=== PATIENT | male | born 1950 | race Caucasian/White ===

== ENCOUNTER 2020-04-04 10:25 | Emergency (ER) | payer MEDICARE, SELFPAY ==
--- NOTE | ~2020-04-04 | CT_ITS ---
EXAMINATION: CT cervical spine wo con DATE: 04/04/2020 11:10 INDICATION: Status post fall. Head injury. TECHNIQUE: Computed tomography (CT) of the cervical spine was performed without intravenous contrast. The dose-length product was 465 mGy-cm. Automated exposure control and iterative reconstruction tech nique were employed. COMPARISON: None FINDINGS: There is moderate-severe cervical spondylosis. There is degenerative retrolisthesis at C3-4 . No acute fracture or traumatic malalignment. There is advanced multilevel uncinate and facet hypert rophy. Lung apices are normal. No acute fracture or traumatic malalignment. Odontoid process within n ormal limits. Lung apices are unremarkable. No significant paraspinal soft tissue abnormality. IMPRESSION: 1. No acute abnormality of the cervical spine. 2: Moderate-severe cervical spondylosis. Reviewed, dictated and finalized at location A. SHOP ASSISTANT
--- NOTE | ~2020-04-04 | CT_ITS ---
EXAMINATION: CT brain wo con DATE: 04/04/2020 11:09 INDICATION: Status post fall. Head laceration. TECHNIQUE: Computed tomography (CT) of the head was performed without intravenous contrast. The dose- length product was 681.00 mGy-cm. Automated exposure control and iterative reconstruction technique w ere employed. COMPARISON: None FINDINGS: Small chronic infarction left centrum semiovale. Mild atrophy. No acute intracranial hemorr cara, infarction, mass or mass effect. Paranasal sinuses and mastoids are pneumatized. No depressed s kull fractures. There is right frontal scalp hematoma. No underlying skull fracture. There are scatte red mild periventricular and subcortical white matter changes, most likely related to small vessel is chemic disease (microangiopathy). IMPRESSION: 1. No acute intracranial abnormality. 2: Chronic focal infarction left centrum semiovale. Reviewed, dictated and finalized at location A. CHBOARD INSPECTOR
[2020-04-04 10:35] VITALS: BP 130/73; PULSE 82; RESP 20; TEMP 36.6; O2SAT 96
--- NOTE | 2020-04-04 10:50 | ED.WOUNDLAC ---
HPI - Wound/Laceration General Chief Complaint: Wound/Laceration Stated Complaint: 69YO male w/ forehead lac after he tripped and fell while on his way to the bathroom at 3:30am today. Denies LOC, decided to come to ER when his daughter went to dress lac but felt he needed to have it repaired first. His is with him. Related Data Home Medications Medication Instructions Recorded Confirmed aspirin 1 mg PO DAILY 01/07/20 04/04/20 azathioprine 150 mg PO DAILY 01/07/20 04/04/20 benztropine 0.5 mg PO DAILY 01/07/20 04/04/20 divalproex 1 mg PO HS 01/07/20 04/04/20 ezetimibe 10 mg PO DAILY 01/07/20 04/04/20 lorazepam 0.5 mg PO BID PRN 01/07/20 04/04/20 multivitamin with minerals 1 tablet PO DAILY 01/07/20 04/04/20 prednisone 10 mg PO DAILY 01/07/20 04/04/20 pyridostigmine bromide 60 mg PO TID 01/07/20 04/04/20 risperidone 1 mg PO DAILY 01/07/20 04/04/20 rosuvastatin 40 mg PO DAILY 01/07/20 04/04/20 zolpidem 5 mg PO HS PRN 01/07/20 04/04/20 Allergies Allergy/AdvReac Type Severity Reaction Status Date / Time adhesive Allergy Unknown SKIN Verified 03/08/20 10:27 IRRITATION Review of Systems Review of Systems: All systems reviewed & are unremarkable except as noted in HPI and below Constitutional: Constitutional: Reports no additional constitutional complaints, Denies chills and Denies fever(s) Eyes: Eyes: Reports no additional eye complaints ENT: Reports system reviewed and no additional complaints, except as documented Cardiovascular: Cardiovascular: Reports no additional cardiovascular complaints Respiratory: Respiratory: Reports no additional respiratory complaints Musculoskeletal: Musculoskeletal: Reports no additional musculoskeletal complaints Integumentary/Breasts: Skin/Breast: Reports system reviewed and no additional complaints, except as docu Comments: Lac to forehead 3cm in length Neurologic: Reports system reviewed and no additional complaints, except as documented Psychiatric: Psychiatric: Reports no additional psychiatric complaints Endocrine: Endocrine: Reports no additional endocrine complaints Hematologic/Lymphatic: Hematologic/Lymphatic: Reports no additional hematologic/lymphatic complaints Allergic/Immunologic: Allergic/Immunologic: Reports no additional allergic/immunologic complaints [facility] Past Medical History Medical History (Updated 04/04/20 @ 11:49 by Vamsi Callahan MD) Arthritis Bipolar 1 disorder CAD (coronary artery disease) CVA (cerebral vascular accident) DVT (deep venous thrombosis) 10 years ago [place] (hard of hearing) Hyperlipidemia Myasthenia gravis Prostate cancer Family History Family History Father Heart disease Social History Social History Smoking status: Former smoker Spiritual care concerns: No Exam Const: General: healthy appearing, no acute distress and alert Orientation/consciousness: patient oriented x3 Other: Hard of hearing HENMT: Head: normal to inspection and laceration Ears: EAC's normal General nose exam: Normal nares present Face and sinus: normal facial exam Mouth: Yes moist mucous membranes Eyes: Pupils: Equal, round and reactive pupils present Neck: Neck: normal visual inspection and no lymphadenopathy Chest: Chest palpation & inspection: normal inspection of the chest Resp: Effort & Inspection: normal respiratory effort Auscultation: clear to auscultation bilaterally Cardio: Rate: regular rate Rhythm: regular rhythm Skin: Wounds: wounds noted (forehead lac 3cm in length) Neuro: General: patient oriented x3, moves all extremities, no meningeal signs, no focal motor deficits and CN's II-XI intact bilaterally Cranial nerves: Yes Nystagmus not present Speech: normal speech Gait exam (Neuro): Normal gait present Extrem: General: normal to inspection and no pedal edema Psych: Mental Status: mental sta
[2020-04-04] MEDS: TETANUS,DIPHTHERIA,AC PERTUSSIS ADULT 0.5 ML (ADACEL) IM (11:30)
[2020-04-04 11:59] VITALS: RESP 18
== END 2020-04-04 11:57 | disposition home or self-care (01) ==
PROVIDERS: Emergency Provider Family Medicine
DX: S01.81XA Laceration without foreign body of other part of head, initial encounter (principal); S09.90XA Unspecified injury of head, initial encounter; W01.0XXA Fall on same level from slipping, tripping and stumbling without subsequent striking against object, initial encounter
CPT/HCPCS: 12013; 70450; 72125; 90471; 90715; 99283; 99284

== ENCOUNTER 2020-04-26 09:49 | Outpatient (CLI) | payer MEDICARE, SELFPAY ==
--- NOTE | ~2020-04-26 | CT_ITS ---
EXAMINATION: CT brain w con DATE: 04/26/2020 10:58 INDICATION: Head and neck cancer follow-up TECHNIQUE: Computed tomographic angiography (CTA) of the head was performed with 100 mL Omnipaque-350 intravenous contrast. Exam dose: 605.33 mGy-cm total exam DLP. Volume-rendered and maximum intens ity projection 3D reconstructions of the intracranial arteries were created by the technologist on a separate workstation. COMPARISON: 04/04/2020 CT brain FINDINGS: Bilateral carotid siphon internal carotid artery calcifications. No intracranial mass lesion or hemorrhage or cerebrovascular accident is detected. No midline shift o r mass effect. Normal ventricular size. No subdural or epidural hematoma. Orbital contents are unremarkable. No fracture or bone destruction of the cranial vault. The mastoid air cells and included paranasal sinuses are normally developed and aerated. No fracture or bone destruction of the cranial vault. IMPRESSION: Cerebral atherosclerosis No acute intracranial finding Reviewed, dictated and finalized at Location A. Reviewed, dictated and finalized at location A. RNS CLERK
--- NOTE | ~2020-04-26 | CT_ITS ---
EXAMINATION: CT soft tissue neck w con EXAM DATE: 04/26/2020 10:58 INDICATION: Head and neck cancer. Follow-up. Tongue cancer. TECHNIQUE: Spiral CT of the neck was performed following intravenous injection of 75 mL Omnipaque 350 . Axial, coronal and sagittal images were reviewed. The dose-length product (DLP) for this examinat ion was 612.59 mGy-cm. The exposure was tailored according to patient size (auto mA exposure control ), and iterative reconstruction (ASIR) was used as additional dose reduction technique. Correlation i s made to CT cervical spine 04/04/2020. FINDINGS: There is normal appearing right submandibular gland. On the left there is small amount of s imilar density without discrete submandibular gland, and there is some fat stranding in the region. T he gland or a portion of it may have been resected surgically, correlate with prior history. The thy roid gland is unremarkable. There is no cervical lymphadenopathy. There are no masses identified . The superior mediastinum is unremarkable. The airway is unremarkable. Parapharyngeal and pre -glottic fat planes are preserved. The opacified vasculature is patent. Patient has had left-side d ocular lens surgery. Visualized sinuses and mastoid air cells are well aerated. Lung apices ar e clear. Moderate to severe cervical disc disease. There are no osteoblastic or osteolytic lesions i dentified. IMPRESSION: Right mandibular surgical changes. No lymphadenopathy. Reviewed, dictated and finalized at location B. FILER
[2020-04-26 10:45] LABS: Estimated Glomerular Filt Rate > 60
== END 2020-04-26 09:50 | disposition home or self-care (01) ==
LOC: ANHIMG 09:57
PROVIDERS: Visit Provider Internal Medicine Hematology & Oncology
DX: C76.0 Malignant neoplasm of head, face and neck (principal); I67.2 Cerebral atherosclerosis
CPT/HCPCS: 70460; 70491; Q9967

== ENCOUNTER 2020-07-14 13:53 | Outpatient (CLI) | payer MEDICARE, SELFPAY ==
--- NOTE | ~2020-07-14 | CT_ITS ---
EXAMINATION: CT brain w con DATE: 07/14/2020 14:40 INDICATION: Head and neck cancer. TECHNIQUE: Computed tomography (CT) of the head was performed with 100 mL Omnipaque 350 intravenous c ontrast. The mA was adjusted according to patient size. Iterative reconstruction technique was employ ed. The dose-length product was 605.33 mGy-cm. COMPARISON: Head CT 04/26/2020 FINDINGS: There are scattered areas of low attenuation in the cerebral white matter, which is within normal limits for the patient's age. There is no intracranial hemorrhage, acute infarction, or abnorm al intracranial mass lesion. The ventricles are normal in size. There is mild mucosal thickening in t he ethmoid sinuses. The mastoid air cells are normal. There is a prostatic left stapes. There is a pr osthetic right stapes. IMPRESSION: 1. No evidence of metastatic disease. Reviewed, dictated and finalized at location A.
--- NOTE | ~2020-07-14 | CT_ITS ---
EXAMINATION: CT soft tissue neck w con DATE: 07/14/2020 14:40 INDICATION: Head and neck cancer. TECHNIQUE: Computed tomography (CT) of the neck was performed with 100 mL Omnipaque-350 intravenous c ontrast. Automated exposure control and iterative reconstruction technique were employed. The dose-le ngth product was 614.64 mGy-cm. COMPARISON: Neck CT 04/26/2020 FINDINGS: There is thickening of the mucosal space of the pharynx and larynx, consistent with changes of radiation therapy. There is fat stranding in right neck, consistent with changes of radiation the rapy. There are no pathologically enlarged lymph nodes. There is mild mucosal thickening in the paran emiliano sinuses. The mastoid air cells are normal. There is severe cervical spondylosis. IMPRESSION: 1. No evidence of metastatic disease. Reviewed, dictated and finalized at location A.
[2020-07-14 14:31] LABS: Estimated Glomerular Filt Rate > 60
== END 2020-07-14 13:54 | disposition home or self-care (01) ==
LOC: ANHIMG 14:04
PROVIDERS: Visit Provider Internal Medicine Hematology & Oncology
DX: C76.0 Malignant neoplasm of head, face and neck (principal)
CPT/HCPCS: 70460; 70491; Q9967

== ENCOUNTER 2020-11-11 08:48 | Outpatient (CLI) | payer MEDICARE, SELFPAY ==
--- NOTE | ~2020-11-11 | CT_ITS ---
EXAMINATION: CT brain w con DATE: 11/11/2020 09:36 INDICATION: Squamous cell cancer of tongue TECHNIQUE: Computed tomography (CT) of the head was performed with 100 cc Omnipaque 350 intravenous c ontrast. The mA was adjusted according to patient size. Iterative reconstruction technique was employ ed. Exam dose: 605.33 mGy-cm total exam DLP. COMPARISON: 07/14/2020 CT brain FINDINGS: No intracranial mass lesion or hemorrhage or cerebrovascular accident. No midline shift or mass effect. No subdural or epidural hematoma. There is carotid siphon internal carotid artery and supraclinoid internal carotid artery calcificatio n. No fracture or bone destruction of the cranial vault. The mastoid air cells and included paranasal si nuses are normally developed and aerated. IMPRESSION: No acute intracranial finding or significant change since 07/14/2020 Reviewed, dictated and finalized at Location A. Reviewed, dictated and finalized at location A.
--- NOTE | ~2020-11-11 | CT_ITS ---
EXAMINATION: CT soft tissue neck w con DATE: 11/11/2020 09:36 INDICATION: Squamous cell carcinoma of tongue. TECHNIQUE: Computed tomography (CT) of the neck was performed with 75 mL Omnipaque-350 intravenous co ntrast. Automated exposure control and iterative reconstruction technique were employed. The dose-mauro gth product was 569.42 mGy-cm. COMPARISON: Neck CT 07/14/2020 FINDINGS: There are likely changes of left ocular lens replacement surgery. There is thickening of th e mucosal space in the pharynx and larynx, consistent with changes of radiation therapy. There is mil d plaque in proximal left internal carotid artery with 0% stenosis relative to normal distal artery l umen diameter. There is fat stranding in right neck, consistent with changes of radiation therapy. Th ere are no pathologically enlarged lymph nodes. There is mild mucosal thickening in the paranasal sin uses. The mastoid air cells are normal. There is severe cervical spondylosis. IMPRESSION: 1. No evidence of metastatic disease. Reviewed, dictated and finalized at location A.
[2020-11-11 09:23] LABS: Estimated Glomerular Filt Rate > 60
== END 2020-11-11 08:49 | disposition home or self-care (01) ==
LOC: ANHIMG 08:50
PROVIDERS: Visit Provider Internal Medicine Hematology & Oncology
DX: C02.9 Malignant neoplasm of tongue, unspecified (principal)
CPT/HCPCS: 70460; 70491; Q9967

== ENCOUNTER 2021-02-18 09:37 | Outpatient (CLI) | payer MEDICARE, SELFPAY ==
--- NOTE | ~2021-02-18 | CT_ITS ---
EXAMINATION: CT brain w con DATE: 02/18/2021 10:27 INDICATION: Squamous cell cancer of tongue. TECHNIQUE: Computed tomography (CT) of the head was performed with 100 mL Omnipaque 350 intravenous c ontrast. The mA was adjusted according to patient size. Iterative reconstruction technique was employ ed. The dose-length product was 667.94 mGy-cm. COMPARISON: Head CT 11/11/2020 FINDINGS: There are scattered areas of low attenuation in the cerebral white matter, which is within normal limits for the patient's age. There is no intracranial hemorrhage, acute infarction, or abnorm al intracranial mass lesion. The ventricles are normal in size. There is mild mucosal thickening in t he paranasal sinuses. There is a prosthetic stapes on either side. There are likely changes of left o cular lens replacement surgery. IMPRESSION: 1. Normal aging brain. Reviewed, dictated and finalized at location A. IMPRESSION: 1. Normal aging brain.
--- NOTE | ~2021-02-18 | CT_ITS ---
EXAMINATION: CT soft tissue neck w con DATE: 02/18/2021 10:25 INDICATION: Squamous cell cancer of tongue. TECHNIQUE: Computed tomography (CT) of the neck was performed with 75 mL Omnipaque-350 intravenous co ntrast. Automated exposure control and iterative reconstruction technique were employed. The dose-mauro gth product was 667.94 mGy-cm. COMPARISON: Neck CT 11/11/2020 FINDINGS: There are likely changes of left ocular lens replacement surgery. There are no pathological ly enlarged lymph nodes. There is mucosal space thickening in the oropharynx, hypopharynx, and larynx , consistent with changes of radiation therapy. There is fat stranding in right neck, consistent with changes of radiation therapy. There is mild plaque in proximal left internal carotid artery with 0% stenosis relative to normal distal artery lumen diameter. There is severe cervical spondylosis. IMPRESSION: 1. No evidence of metastatic disease. Reviewed, dictated and finalized at location A.
[2021-02-18 10:19] LABS: Estimated Glomerular Filt Rate > 60
== END 2021-02-18 09:38 | disposition home or self-care (01) ==
LOC: ANHIMG 09:42
PROVIDERS: Visit Provider Internal Medicine Hematology & Oncology
DX: C02.9 Malignant neoplasm of tongue, unspecified (principal)
CPT/HCPCS: 70460; 70491; Q9967

== ENCOUNTER 2021-06-17 18:46 | Emergency (ER) | payer MEDICARE, SELFPAY ==
--- NOTE | ~2021-06-17 | XR_ITS ---
EXAMINATION: XR knee LT 3V EXAM DATE: 06/17/2021 19:25 INDICATION: pain @ LT knee all over after fall yesterday. TECHNIQUE: Three projections of the left knee. Comparison is made to prior examination from 04/04/2021 . FINDINGS: No evidence osteochondral defect or joint body in the left knee joint. There is bulky richards llar enthesopathy. There is moderate to severe loss of the lateral tibiofemoral compartment joint spa ce, evidence of moderate osteoarthritis of the other compartments. There are no acute fractures or dislocations identified. There is no subcutaneous gas. There is mod erate amount of swelling anterior to the patellar tendon. Edema in Hoffa's fat pad. There are no rad iopaque foreign bodies. IMPRESSION: 1. XR knee LT 3V exam without acute osseous findings. 2. Anterior swelling. 3. Osteoarthritis. Reviewed, dictated and finalized at location . 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
[2021-06-17 19:09] VITALS: BP 138/83; PULSE 68; RESP 16; TEMP 36.9; O2SAT 94
--- NOTE | 2021-06-17 19:13 | ED.GENADULT ---
HPI - General Adult General Chief complaint: Extremity Injury, Lower Stated complaint: Fell yesterday left knee injury Source: patient Mode of arrival: ambulatory Limitations: no limitations History of Present Illness HPI narrative: Sergio is a 70M with a PMH of CVA, tongue cancer, bipolar 1, DVT, CVA, HLD and myasthenia gravis that presented to the ER with left knee pain. He fell on the ice yesterday. He had no other injuries. He has pain on the patella, lateral joint line and posterior knee. He cannot straighten it completely. Related Data Home Medications Medication Instructions Recorded Confirmed aspirin 1 mg PO DAILY 01/07/20 06/17/21 azathioprine 150 mg PO DAILY 01/07/20 06/17/21 benztropine 0.5 mg PO DAILY 01/07/20 06/17/21 ezetimibe 10 mg PO DAILY 01/07/20 06/17/21 lorazepam 0.5 mg PO BID PRN 01/07/20 06/17/21 multivitamin with minerals 1 tablet PO DAILY 01/07/20 06/17/21 prednisone 10 mg PO DAILY 01/07/20 06/17/21 pyridostigmine bromide 60 mg PO TID 01/07/20 06/17/21 rosuvastatin 40 mg PO DAILY 01/07/20 06/17/21 zolpidem 5 mg PO HS PRN 01/07/20 06/17/21 divalproex 250 mg tablet,extended 500 mg PO TID tablet 04/04/21 06/17/21 release 24 hr quetiapine 100 mg tablet 500 mg PO ONCE tablet 04/04/21 06/17/21 Allergies Allergy/AdvReac Type Severity Reaction Status Date / Time adhesive Allergy Unknown SKIN Verified 06/17/21 19:13 IRRITATION Review of Systems Constitutional: Constitutional: Reports no additional constitutional complaints Eyes: Eyes: Reports no additional eye complaints ENT: Reports system reviewed and no additional complaints, except as documented Cardiovascular: Cardiovascular: Reports no additional cardiovascular complaints Respiratory: Respiratory: Reports no additional respiratory complaints Gastrointestinal: Gastrointestinal: Reports no additional gastrointestinal complaints Genitourinary: Genitourinary: Reports no additional male genitourinary complaints Musculoskeletal: Musculoskeletal: Reports as per HPI Integumentary/Breasts: Skin/Breast: Reports system reviewed and no additional complaints, except as docu Neurologic: Reports system reviewed and no additional complaints, except as documented Psychiatric: Psychiatric: Reports no additional psychiatric complaints Endocrine: Endocrine: Reports no additional endocrine complaints Hematologic/Lymphatic: Hematologic/Lymphatic: Reports no additional hematologic/lymphatic complaints Allergic/Immunologic: Allergic/Immunologic: Reports no additional allergic/immunologic complaints [facility] Past Medical History Medical History Arthritis Bipolar 1 disorder CAD (coronary artery disease) CVA (cerebral vascular accident) DVT (deep venous thrombosis) 10 years ago [place] (hard of hearing) Hyperlipidemia Manic bipolar I disorder Myasthenia gravis Prostate cancer Family History Family History Father Heart disease Social History Social History Smoking status: Former smoker Spiritual care concerns: No Exam Const: General: no acute distress and alert Orientation/consciousness: patient oriented x3 Limitations: No altered mental status HENMT: Head: normal to inspection Other: atrauamtic Eyes: Conjunctivae: conjunctivae normal Pupils: Equal, round and reactive pupils present Neck: Neck: normal visual inspection Chest: Chest palpation & inspection: normal inspection of the chest Resp: Effort & Inspection: normal respiratory effort, not labored and not tachypneic Cardio: Rate: regular rate Skin: General skin exam: normal color Rashes: no rashes Neuro: General: patient oriented x3 and moves all extremities Extrem: Other: Left knee was mildly swollen and TTP on the patella and lateral joint line. No varus/valgus laxity. Negative anterior posterior
[2021-06-17] MEDS: KETOROLAC 30 MG/ML VIAL (*BKC) IM (19:24)
[2021-06-17 19:46] VITALS: BP 135/88; PULSE 86; RESP 16; TEMP 36.7; O2SAT 95
== END 2021-06-17 19:47 | disposition home or self-care (01) ==
PROVIDERS: Emergency Provider Family Medicine
DX: M25.562 Pain in left knee (principal)
CPT/HCPCS: 73562; 96372; 99283; J1885

== ENCOUNTER 2021-06-24 16:32 | Inpatient (IN) | payer MEDICARE, SELFPAY ==
--- NOTE | ~2021-06-24 | CT_ITS ---
EXAMINATION: CT brain wo con INDICATION: Altered mental status COMPARISON: 02/18/2021 TECHNIQUE: Standard unenhanced head CT. The dose-length product (DLP) was 681.00 mGy-cm. The mA was a djusted according to patient size. Iterative reconstruction technique was employed. FINDINGS: There is no acute intraparenchymal hemorrhage. No evidence of mass lesion. No evidence of a cute infarction. There is mild periventricular and subcortical hypodensity probably related to small vessel ischemic disease. There is mild prominence of the sulci and ventricles related to cerebral atr ophy. Intracranial calcified cerebral atherosclerosis is noted. There are no extra-axial collections. There is no mass effect or midline shift. Changes in the left globe are likely from ocular lens surg paris. The visualized sinuses and mastoid air cells are well aerated. IMPRESSION: 1. No acute intracranial abnormality. 2. Age related findings. Reviewed, dictated and finalized at location F. ORK MANAGER
--- NOTE | ~2021-06-24 | XR_ITS ---
EXAMINATION: XR chest 1V portable INDICATION: Hyponatremia TECHNIQUE: Portable AP chest at 1827 hours COMPARISON: None available FINDINGS: The lungs are free of acute opacities. There is no pleural effusion or pneumothorax. The ca rdiomediastinal silhouette is normal. IMPRESSION: 1. No acute cardiopulmonary abnormality. Reviewed, dictated and finalized at location F. FRONT PRESSER
[2021-06-24 16:40] VITALS: BP 148/82; PULSE 79; RESP 20; TEMP 36.8; O2SAT 98
--- NOTE | 2021-06-24 16:49 | ED.AMS ---
HPI - Altered Mental Status General Chief Complaint: Urogenital-Male Stated Complaint: possible UTI,urinating alot,talking alot,outbursts Time Seen by Provider: 06/24/21 16:49 Source: patient and family History of Present Illness HPI narrative: 70-year-old male with a history of bipolar, dyslipidemia myasthenia gravis, CVA, tongue CA prostate CA, arthritis, CAD, DVT presents to the ER with -- altered mental status. The patient is talking a lot and has outbursts of anger. The patient is currently on his manic phase of bipolar and was being seen by psychiatrist 2 days ago was adjusting his medications. -- increased urine output with dysuria and hematuria.The patient has had UTI with similar symptoms in the past. No fever or chills. MD complaint: altered mental status and confusion Onset (ago): day(s) Timing confirmed by: spouse Severity: moderate Consistency of symptoms: waxing and waning Context: other ( No history of drug use/ alcohol use) Associated symptoms: denies other symptoms Related Data Home Medications Medication Instructions Recorded Confirmed aspirin 1 mg PO DAILY 01/07/20 06/24/21 azathioprine 150 mg PO DAILY 01/07/20 06/24/21 ezetimibe 10 mg PO DAILY 01/07/20 06/24/21 lorazepam 1 mg PO BID PRN 01/07/20 06/24/21 multivitamin with minerals 1 tablet PO DAILY 01/07/20 06/24/21 prednisone 10 mg PO DAILY 01/07/20 06/24/21 rosuvastatin 40 mg PO DAILY 01/07/20 06/24/21 divalproex 250 mg tablet,extended 1,000 mg PO BID tablet 04/04/21 06/24/21 release 24 hr Allergies Allergy/AdvReac Type Severity Reaction Status Date / Time adhesive Allergy Unknown SKIN Verified 06/24/21 16:55 IRRITATION Review of Systems Review of Systems: All systems reviewed & are unremarkable except as noted in HPI and below Constitutional: Constitutional: Reports as per HPI and Reports no additional constitutional complaints Eyes: Eyes: Reports as per HPI and Reports no additional eye complaints ENT: Reports system reviewed and no additional complaints, except as documented Cardiovascular: Cardiovascular: Reports as per HPI and Reports no additional cardiovascular complaints Respiratory: Respiratory: Reports as per HPI and Reports no additional respiratory complaints Gastrointestinal: Gastrointestinal: Reports as per HPI and Reports no additional gastrointestinal complaints Genitourinary: Genitourinary: Reports dysuria and Reports urinary frequency Musculoskeletal: Musculoskeletal: Reports no additional musculoskeletal complaints and Reports as per HPI Integumentary/Breasts: Skin/Breast: Reports system reviewed and no additional complaints, except as docu Neurologic: Reports system reviewed and no additional complaints, except as documented and Reports as per HPI Psychiatric: Comments: patient is in the manic phase. Has flight of ideas and talks continuously. Endocrine: Endocrine: Reports no additional endocrine complaints Hematologic/Lymphatic: Hematologic/Lymphatic: Reports no additional hematologic/lymphatic complaints Allergic/Immunologic: Allergic/Immunologic: Reports no additional allergic/immunologic complaints [facility] Past Medical History Medical History Arthritis Bipolar 1 disorder CAD (coronary artery disease) CVA (cerebral vascular accident) DVT (deep venous thrombosis) 10 years ago [place] (hard of hearing) Hyperlipidemia Manic bipolar I disorder Myasthenia gravis Prostate cancer Family History Family History Father Heart disease Social History Social History Smoking status: Former smoker Spiritual care concerns: No Exam Const: General: no acute distress and confusion Limitations: altered mental status HENMT: Head: normal to inspection Eyes: Conjunctivae: conjunctivae normal Pupils: Equal, round and reactive pupils
[2021-06-24 17:27] LABS: Basophils Absolute Auto 0.01 K/mm3 (0.00-0.10); Basophils Percent Auto 0.1 % (0.0-1.0); Eosinophils Absolute Auto 0.01 K/mm3 (0.02-0.50); Eosinophils Percent Auto 0.1 % (1.0-6.0); Hematocrit 34.1 % (37.0-46.0); Hemoglobin 11.8 g/dL (12.4-15.3); Immature Granulocyte Absolute 0.05 K/mm3 (0.00-0.00); Immature Granulocyte Percent A 0.7 % (0.0-0.0); Lymphocytes Absolute Auto 0.11 K/mm3 (1.10-4.50); Lymphocytes Percent Auto 1.6 % (18.0-42.0); Mean Corpuscular HGB Conc 34.6 g/dL (32.0-36.0); Mean Corpuscular Hemoglobin 33.4 pg (27.0-31.0); Mean Corpuscular Volume 96.6 fL (78.0-102.0); Mean Platelet Volume 8.7 fl (8.7-11.0); Monocytes Absolute Auto 0.82 K/mm3 (0.10-0.90); Neutrophils Absolute Auto 5.8 K/mm3 (1.7-7.2); Neutrophils Percent Auto 85.5 % (50.0-70.0); Platelet Count Result 181 K/mm3 (150-420); Red Blood Count 3.53 M/mm3 (4.70-6.10); Red Cell Distribution Width 14.9 % (11.6-14.4); White Blood Count 6.8 K/mm3 (4.8-10.8)
[2021-06-24 17:28] LABS: Add Urine Microscopic? YES; Appearance Urine Clear (Clear); Bilirubin Urine Negative (Negative); Blood Urine 1+ (Negative); Color Urine Light Yellow (Yellow); Glucose Urine UA Negative (Negative); Ketones Urine Negative (Negative); Leukocyte Esterase Ur Negative (Negative); Nitrate Urine Negative (Negative); Protein Urine Negative (Negative); Urobilinogen Urine 0.2 mg/dL (0.2-1.0)
[2021-06-24 17:37] LABS: Bacteria Urine Trace /hpf; RBC Urine 0-2 /hpf (0-2); Squamous Epithelial Cell Urine Rare /hpf (Few); WBC Urine 0-3 /hpf (0-3)
[2021-06-24 17:46] LABS: Lactic Acid Reflex 0.5 mmol/L (0.4-2.0)
[2021-06-24 17:52] LABS: Alanine Aminotransferase 21 U/L (16-63); Albumin Level 3.4 g/dL (3.4-5.0); Alkaline Phosphatase 33 U/L (46-116); Anion Gap 6 mmol/L (8-16); Aspartate Amino Transferase 13 U/L (15-37); Bilirubin,Total 0.4 mg/dL (0.00-1.00); Blood Urea Nitrogen 13 mg/dL (7-18); Calcium 8.3 mg/dL (8.5-10.1); Carbon Dioxide 30 mmol/L (21-32); Chloride 89 mmol/L (98-108); Estimated CRCL calculation 93 ml/min; Estimated Glomerular Filt Rate > 60; Glucose 98 mg/dL (70-99); Osmolality Calculated 260 mOsm/kg (285-295); Potassium 4.7 mmol/L (3.5-5.1); SARS-CoV-2 Ag Negative (Negative); Sodium 125 mmol/L (136-145); Thyroid Stimulating Hormone 3.18 uIU/mL (0.36-3.74); Total Protein 6.2 g/dL (6.4-8.2)
[2021-06-24 18:00] VITALS: BP 145/69; PULSE 80; RESP 18; TEMP 36.7; O2SAT 99
[2021-06-24 19:17] LABS: Sodium Urine Random 23 mmol/L (20-110)
[2021-06-24] MEDS: SODIUM CHLORIDE 0.9% IV 500 ML IV CONT (19:25)
--- NOTE | 2021-06-24 19:40 | ECG_ITS ---
Measurements Intervals [place] Rate: 73 P: [place]: 0 QRS: -26 QRSD: 120 T: 46 QT: 403 QTc: 444 Interpretive Statements SINUS OR ECTOPIC ATRIAL RHYTHM INTRAVENTRICULAR CONDUCTION DELAY BASELINE ARTIFACT- I, II, III, AVR, AVL, AVF, V1-V6 BORDERLINE ECG Electronically Signed On 06-24-2021 20:59:23 INDUSTRIAL TRAINING SPECIALIST by Tj Guerra D.O.
[2021-06-24 20:00] VITALS: BP 168/79; PULSE 78; PULSE 79; RESP 20; TEMP 36.6; O2SAT 97
[2021-06-24 20:15] LABS: Amphetamine Screen Urine Negative (Negative); Barbiturate Screen Urine Negative (Negative); Benzodiazepines Screen Urine Negative (Negative); Cannabinoid Screen Urine Negative (Negative); Cocaine Screen Urine Negative (Negative); Methadone Screen Urine Negative (Negative); Opiate Screen Urine Negative (Negative); Phencyclidine Screen Urine Negative (Negative)
[2021-06-24 20:20] LABS: Alanine Aminotransferase 22 U/L (16-63); Albumin Level 3.5 g/dL (3.4-5.0); Alkaline Phosphatase 31 U/L (46-116); Anion Gap 6 mmol/L (8-16); Aspartate Amino Transferase 15 U/L (15-37); Bilirubin,Total 0.4 mg/dL (0.00-1.00); Blood Urea Nitrogen 14 mg/dL (7-18); Calcium 8.6 mg/dL (8.5-10.1); Carbon Dioxide 30 mmol/L (21-32); Chloride 90 mmol/L (98-108); Estimated CRCL calculation 90 ml/min; Estimated Glomerular Filt Rate > 60; Glucose 78 mg/dL (70-99); Osmolality Calculated 261 mOsm/kg (285-295); Potassium 4.2 mmol/L (3.5-5.1); Sodium 126 mmol/L (136-145); Total Protein 6.8 g/dL (6.4-8.2)
[2021-06-24 20:24] LABS: NT Pro B Type Natriuretic Pept 146 pg/mL (0-125)
[2021-06-24 20:29] VITALS: BP 142/80; PULSE 78; RESP 20; TEMP 37; O2SAT 98
[2021-06-24] MEDS: FUROSEMIDE INJ 100 MG/10 ML VIAL 80 MG IV PUSH (20:58)
--- NOTE | 2021-06-24 21:49 | PC.NURSE ---
Patietn admitted to room 206 per wheelchair, is alert and very talkative, denies pain. Oriented to room and call light, # 16 ryder inserted per orders, tolerated well, draining clear yellow urine.
[2021-06-24 21:51] VITALS: BMI 26.9
[2021-06-24] MEDS: MELATONIN 5 MG TABLET PO (21:54)
[2021-06-25] VITALS: BP 117/76; PULSE 77; RESP 18; TEMP 36; O2SAT 98
[2021-06-25 04:00] VITALS: BP 118/82; PULSE 91; RESP 20; TEMP 36; O2SAT 99
[2021-06-25 05:06] LABS: Hematocrit 37.5 % (37.0-46.0); Hemoglobin 13.1 g/dL (12.4-15.3); Mean Corpuscular HGB Conc 34.9 g/dL (32.0-36.0); Mean Corpuscular Hemoglobin 33.6 pg (27.0-31.0); Mean Corpuscular Volume 96.2 fL (78.0-102.0); Mean Platelet Volume 8.4 fl (8.7-11.0); Platelet Count Result 187 K/mm3 (150-420); Red Cell Distribution Width 15.2 % (11.6-14.4); White Blood Count 5.1 K/mm3 (4.8-10.8)
[2021-06-25 05:21] LABS: Alanine Aminotransferase 19 U/L (16-63); Albumin Level 3.4 g/dL (3.4-5.0); Alkaline Phosphatase 28 U/L (46-116); Anion Gap 6 mmol/L (8-16); Aspartate Amino Transferase 13 U/L (15-37); Bilirubin,Total 0.4 mg/dL (0.00-1.00); Blood Urea Nitrogen 12 mg/dL (7-18); Calcium 8.6 mg/dL (8.5-10.1); Carbon Dioxide 33 mmol/L (21-32); Chloride 94 mmol/L (98-108); Estimated CRCL calculation 83 ml/min; Estimated Glomerular Filt Rate > 60; Glucose 81 mg/dL (70-99); Magnesium 1.9 mg/dL (1.8-2.4); Osmolality Calculated 274 mOsm/kg (285-295); Potassium 3.9 mmol/L (3.5-5.1); Sodium 133 mmol/L (136-145); Total Protein 6.7 g/dL (6.4-8.2)
[2021-06-25 08:00] VITALS: BP 117/92; PULSE 76; PULSE 94; RESP 14; TEMP 36.8; O2SAT 97
--- NOTE | 2021-06-25 08:33 | PM.SD2 ---
Same Day Admit/Disch: HPI History of Present Illness Chief complaint: possible UTI,urinating alot,talking alot,outbursts Narrative: Sergio Coombs is a 70 year old male that is presented to our emergency department with complaints of altered mental status, increased urine output with painful urination and bloody urine and manic phase. Patient has a past medical history of arthritis, bipolar type I disorder, CAD, CVA, DVT, hard of hearing, hyperlipidemia, manic bipolar 1 disorder, prostate cancer and Myasthenia gravis. According to patient and his he has consumed an excessive amount of liquids daily. According to his he drinks approximately 15 to 20 bottles of 16 ounce rivera a day. According to his patient psychiatric medication has recently been adjusted due to his manic phase. Patient notes that she noticed that his water intake has increased greatly since his medication adjustment. Patient notes that he has been for couple days with no sleep with excessive talking. Vital signs 117/92, 76, 14, 98.2, 97% on room air, WBCs 6.8, hemoglobin 11.8, hematocrit 34.1, platelets 181, sodium 126, potassium 4.2, BUN 14, creatinine 0.68, glucose 78, osmolality 261, lactic acid 0.5, calcium 8.6, total bili 0.4, AST 15, ALT 22, BNP 146, total protein 6.8, UA positive for blood trace of bacteria sodium 23 urine creatinine 42.10 urine screen negative Covid negative, CT of the head no acute findings, chest x-ray unremarkable, EKG sinus with a heart rate. Today patient is alert and orientated x4. Patient notes that he has not slept all night. He is very talkative but pleasant. Did speak with his who notes that he is in his manic phase and his psychiatrist just adjusted his medication. I did explain to that he is medically stable and that she will need to monitor the amount of fluid intake the patient consumes. The patient denies SOB, CP, palpitation, extremity numbness, lightheadedness, dizziness, constipation, diarrhea, chills, or fever. Patient agrees that he is ready for discharge. did admit that she is exhausted due to his manic phase. [facility] Past Medical History Medical History Arthritis Bipolar 1 disorder CAD (coronary artery disease) CVA (cerebral vascular accident) DVT (deep venous thrombosis) 10 years ago [place] (hard of hearing) Hyperlipidemia Manic bipolar I disorder Myasthenia gravis Prostate cancer Family History Family History Father Heart disease Social History Social History Smoking status: Former smoker Second hand tobacco smoke exposure: No Alcohol intake: unknown Substance use: unknown Substance use type: does not use Spiritual care concerns: No Same Day Admit/Disch: Med Pre-admit Medications Home Medications Medication Instructions Recorded Confirmed Type aspirin 1 mg PO DAILY 01/07/20 06/24/21 History azathioprine 150 mg PO DAILY 01/07/20 06/24/21 History ezetimibe 10 mg PO DAILY 01/07/20 06/24/21 History lorazepam 1 mg PO BID PRN 01/07/20 06/24/21 History multivitamin with minerals 1 tablet PO DAILY 01/07/20 06/24/21 History prednisone 10 mg PO DAILY 01/07/20 06/24/21 History rosuvastatin 40 mg PO DAILY 01/07/20 06/24/21 History divalproex 250 mg tablet,extended 1,000 mg PO BID tablet 04/04/21 06/24/21 History release 24 hr Exam Narrative: GENERAL: Talkative for pleasant, in no apparent distress. HEAD: normocephalic, atraumatic. EYES: PERRL. Sclera clear/white. Vision is grossly intact. EARS: External ears normal, auditory canals clear and without drainage, TMs normal without perforation. Hearing grossly intact. NOSE: External nose normal with no obvious nasal discharge, nares without redness, no rhinorrhea. THROAT: Mucous membranes moist, posterior pharynx clear. NECK: Neck supple, non-tende
[2021-06-25] MEDS: ROSUVASTATIN 10 MG TABLET 40 MG PO (08:48)
[2021-06-25] MEDS: ENOXAPARIN 40 MG/0.4 ML SYRINGE SUB-Q (08:49)
[2021-06-25] MEDS: DIVALPROEX SODIUM ER 500 MG TAB.24H 1000 MG PO (08:49)
[2021-06-25] MEDS: EZETIMIBE 10 MG TABLET PO (08:50)
[2021-06-25] MEDS: predniSONE 10 MG TABLET PO (08:50)
[2021-06-25] MEDS: THERAPEUTIC MULTIVITAMINS/MINERALS TAB (*BKC) 1 TABLET PO (08:50)
[2021-06-25] MEDS: azaTHIOprine 50 MG TABLET 150 MG PO (08:50)
[2021-06-25] MEDS: FUROSEMIDE INJ 100 MG/10 ML VIAL 80 MG IV PUSH (09:26)
[2021-06-25] MEDS: ASPIRIN 81 MG ENTERIC TABLET PO (09:26)
[2021-06-27 16:36] LABS: Valproic Acid 90.1 mg/L (50.0-100.0)
[2021-06-28 03:21] LABS: Osmolality, Urine 331 mOsm/kg (50-1200)
--- NOTE | 2021-06-29 09:08 | PC.NURSE ---
F/u call attempted on 06/27, 06/28 and 06/29, no answer.
== END 2021-06-25 12:50 | disposition home or self-care (01) | DRG 641 ==
LOC: CHSED 19:05 → CHS2ND 20:05
PROVIDERS: Nurse Practitioner; Admitting Provider Internal Medicine; Emergency Provider Internal Medicine Critical Care Medicine; Visit Provider Internal Medicine
DX: E87.1 Hypo-osmolality and hyponatremia (principal); R63.1 Polydipsia; R45.4 Irritability and anger; M19.90 Unspecified osteoarthritis, unspecified site; Z79.899 Other long term (current) drug therapy; Z79.82 Long term (current) use of aspirin; Z20.822 Contact with and (suspected) exposure to COVID-19; E87.79 Other fluid overload; F31.9 Bipolar disorder, unspecified; I25.10 Atherosclerotic heart disease of native coronary artery without angina pectoris; E78.5 Hyperlipidemia, unspecified; C02.9 Malignant neoplasm of tongue, unspecified; C61 Malignant neoplasm of prostate; M17.0 Bilateral primary osteoarthritis of knee; R30.0 Dysuria; G70.00 Myasthenia gravis without (acute) exacerbation; Z86.73 Personal history of transient ischemic attack (TIA), and cerebral infarction without residual deficits; Z86.718 Personal history of other venous thrombosis and embolism
CPT/HCPCS: 36415; 70450; 71045; 80053; 80164; 80307; 81001; 82570; 83605; 83735; 83880; 83935; 84300; 84443; 85025; 85027; 87086; 87426; 93005; 99285; A9270; C9803; J0696; J1650; J1940; J7040; J7512

== ENCOUNTER 2021-09-23 11:51 | Outpatient (CLI) | payer MEDICARE, SELFPAY ==
--- NOTE | 2021-09-23 | ECG_ITS ---
Measurements Intervals [place] Rate: 79 P: 35 NV: 164 QRS: -35 QRSD: 125 T: 64 QT: 376 QTc: 432 Interpretive Statements SINUS RHYTHM LEFT AXIS DEVIATION INTRAVENTRICULAR CONDUCTION DELAY POSSIBLE LEFT VENTRICULAR HYPERTROPHY MINIMAL Q WAVES- HIGH LATERAL LEADS BORDERLINE ECG Electronically Signed On 09-23-2021 17:15:15 CDT by Tj Guerra D.O.
[2021-09-23 15:07] LABS: Hemoglobin 13.2 g/dL (14.0-18.0)
[2021-09-23 15:15] LABS: Albumin Level 3.8 g/dL (3.5-5.1); Estimated Glomerular Filt Rate > 60; Glucose 128 mg/dL (65-110)
[2021-09-23 15:26] LABS: Hemoglobin A1C 5.8 % (<5.7)
[2021-09-23 16:55] LABS: Urine Cotinine NEGATIVE
== END 2021-09-23 11:52 | disposition home or self-care (01) ==
PROVIDERS: Visit Provider Orthopaedic Surgery
DX: Z01.818 Encounter for other preprocedural examination (principal); M17.12 Unilateral primary osteoarthritis, left knee; I25.10 Atherosclerotic heart disease of native coronary artery without angina pectoris; E78.5 Hyperlipidemia, unspecified; E87.1 Hypo-osmolality and hyponatremia
CPT/HCPCS: 36415; 80307; 82040; 82565; 82947; 83036; 85014; 85018; 93005

== ENCOUNTER 2021-10-12 09:42 | Outpatient (CLI) | payer MEDICARE, SELFPAY ==
--- NOTE | ~2021-10-12 | CT_ITS ---
EXAMINATION: CT soft tissue neck wo con DATE: 10/12/2021 10:09 INDICATION: Squamous cell carcinoma of tongue. TECHNIQUE: Computed tomography (CT) of the neck was performed without intravenous contrast. Automated exposure control and iterative reconstruction technique were employed. The dose-length product was 5 60.97 mGy-cm. COMPARISON: Neck CT 02/18/2021 FINDINGS: There is mild scarring at the lung apices. There are likely changes of left ocular lens rep lacement surgery. There is fat stranding in the neck, consistent with changes of radiation therapy. T here is mucosal thickening in the pharynx and larynx, consistent with changes of radiation therapy. T here are no pathologically enlarged lymph nodes. There is mild mucosal thickening in the paranasal si nuses. There is a prosthetic right stapes. There is a prosthetic left stapes. There is severe cervica l spondylosis. IMPRESSION: 1. No evidence of metastatic disease. Reviewed, dictated and finalized at location B.
--- NOTE | ~2021-10-12 | CT_ITS ---
EXAMINATION: CT brain wo con DATE: 10/12/2021 10:09 INDICATION: Squamous cell carcinoma of the tongue. TECHNIQUE: Computed tomography (CT) of the head was performed without intravenous contrast. The mA wa s adjusted according to patient size. Iterative reconstruction technique was employed. The dose-lengt h product was 605.33 mGy-cm. COMPARISON: Head CT 06/24/2021 FINDINGS: There are scattered areas of low attenuation in the cerebral white matter, which is within normal limits for the patient's age. There is no intracranial hemorrhage, acute infarction, or abnorm al intracranial mass lesion. The ventricles are normal in size. There are likely changes of left ocul ar lens replacement surgery. There is a prosthetic right stapes. There is a prosthetic left stapes. T here is mild mucosal thickening in the paranasal sinuses. IMPRESSION: 1. Normal aging brain. Reviewed, dictated and finalized at location B. IMPRESSION: 1. Normal aging brain.
== END 2021-10-12 09:43 | disposition home or self-care (01) ==
PROVIDERS: Visit Provider Internal Medicine Hematology & Oncology
DX: C02.9 Malignant neoplasm of tongue, unspecified (principal)
CPT/HCPCS: 70450; 70490

== ENCOUNTER 2021-11-08 09:46 | Outpatient (RCR) | payer MEDICARE, SELFPAY ==
--- NOTE | 2021-11-08 11:22 | PTOPEVAL ---
Thank you for referring Sergio Coombs to [facility].? The patient is scheduled to be seen for therapy? 2x/week for 12 visits. Please review, sign, date and return this plan of care RICARDO. I agree with and certify that the following plan of care is medically necessary. Referring Physician Date Admitting Provider: Attending Provider: Sameer Muse MD Referring Provider: *PT Outpatient Evaluation Start: 11/08/21 09:05 Freq: Status: Active Protocol: Document 11/08/21 09:05 [facility] (Rec: 11/08/21 11:16 [facility] [id number]) Therapy Assessment Status Assessment Status Assessment Status Evaluation Outpatient Past Medical History Neurological History Hx Other Neurological Disorders Yes: myasthenia gravis Cardiovascular History Hx Deep Vein Thrombosis Yes Hx Hypercholesterolemia Yes Gastrointestinal History Hx Hernia Yes Psychosocial History Hx Bipolar Disorder Yes Other History Hx Cancer Yes: tongue Evaluation Information Problem Diagnosis OA of L knee Onset 11/02/21 Subjective Information Pt reports chronic L knee pain Query Text:As Reported By Patient/ that has been going on for Family several years. He notes this pain mostly at the joint line of his posterior knee. Pain increases especially with walking but also with general movement and weightbearing. Does not use AD and he has stairs within his home. Reports sensation of L leg giving out on him, but denies any falls. He is preparing for a L TKA on 12/20/21. His main goals are to feel more prepared for surgery, walk more, and be able to use his stairs more easily. 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
--- NOTE | 2021-12-15 14:22 | PTOPEVAL ---
Thank you for referring Sergio Coombs to [facility].? The patient is scheduled to be seen for therapy? ____x/week for ___ weeks. Please review, sign, date and return this plan of care RICARDO. I agree with and certify that the following plan of care is medically necessary. Referring Physician Date Admitting Provider: Attending Provider: Sameer Muse MD Referring Provider: *PT Outpatient Evaluation Start: 11/08/21 09:05 Freq: Status: Active Protocol: Document 12/15/21 14:15 [facility] (Rec: 12/15/21 14:22 [facility] [id number]) Therapy Assessment Status Assessment Status Assessment Status Discharge Outpatient Past Medical History Neurological History Hx Neurological Disorders No Significant History Cardiovascular History Hx Deep Vein Thrombosis Yes Hx Hypercholesterolemia Yes Hx Vascular Surgery Yes: MALATHI FILTER PLACED Hx Other Cardiac Disorders Yes: ABALONE DIVER DR. JOAQUIN CASTILLO ([facility]) Respiratory History Hx COVID-19 Yes: MAR 2021 Gastrointestinal History Hx Hernia Yes: UMBILACAL HERNIA REPAIR X2 Genitourinary History Hx Other Genitourinary Disorders Yes: PROSTATE CA - TX WITH RADATION Musculoskeletal History Hx Arthritis Yes Hx Crutches or Walker Use Yes: WALKER WITH ARTHROSCOPY Query Text:If Yes, Enter Crutches, Walker, or Both in the Comment Hx Orthopedic Surgery Yes: RT KNEE ATHROSCOPY 2014 Hx Other Musculoskeletal Disorders Yes: MYASTHENIA GRAVIS Hematological History Hx Anemia Yes Hx Other Hematological Disorders Yes: PLASMAPHERESIS FOR MYASTHENIA GRAVIS 2012~ Endocrine History Hx Endocrine Disorders No Significant History HEENT History Hx Ear Surgery Yes: LT EAR X1, RT EAR X2 - PISTIN Hx Other HEENT Disorders Yes: READING GLASSES, EXTREMILY TONTO APACHE - HEARING AIDS ON ORDER Integumentary History Hx Excision Skin Lesion Yes: NUMEROUSE IN THE PAST-LT EAR, RT FOREARM, LT HAND & MID BACK X2 ON 11/22/21 Hx Shingles Yes: WAISTLINE Hx Other Skin Disorders Yes: SKIN CA Reproductive History Hx Other Reproductive Disorders Yes: PROSTATE CA Psychosocial History Hx Bipolar Disorder Yes Pain History Has Past Pain Affected Your Daily Life Yes: LT KNEE Anesthesia History Hx Anesthesia Reactions No Significant History Other History Hx Cancer Yes: tongue, SKIN, PROSTATE Hx Chemotherapy Yes: TONGUE
== END 2021-12-15 11:20 | disposition home or self-care (01) ==
LOC: CHSPT 09:46
PROVIDERS: Visit Provider Orthopaedic Surgery
DX: M17.0 Bilateral primary osteoarthritis of knee (principal)
CPT/HCPCS: 97110; 97112; 97161; 97530

== ENCOUNTER 2021-11-23 09:53 | Outpatient (CLI) | payer MEDICARE, SELFPAY ==
[2021-11-23 11:24] LABS: Basophils Percent Auto 0.2 % (0.2-1.2); Eosinophils Percent Auto 0.4 % (0-4.4); Hematocrit 39.6 % (42.0-52.0); Hemoglobin 13.2 g/dL (14.0-18.0); Immature Granulocyte Absolute 0.04 K/mm3 (0.00-0.031); Immature Granulocyte Percent A 0.5 % (0-0.5); Lymphocytes Absolute Auto 0.12 K/mm3 (0.9-3.2); Mean Corpuscular HGB Conc 33.3 g/dl (32-36); Mean Corpuscular Volume 96.1 fl (80-100); Mean Platelet Volume 8.8 fl (7.4-10.4); Monocytes Absolute Auto 0.8 K/mm3 (0.1-0.6); Neutrophils Absolute Auto 7.5 K/mm3 (1.3-6.7); Neutrophils Percent Auto 88.5 % (45.5-73.1); Platelet Count Result 170 k/mm3 (150-375); Red Blood Count 4.12 M/mm3 (4.6-6.20); Red Cell Distribution Width 14.2 % (11.5-14.5); White Blood Count 8.5 K/mm3 (4.5-10.0)
[2021-11-23 11:37] LABS: Albumin Level 4.1 g/dL (3.5-5.1); Estimated Glomerular Filt Rate > 60; Glucose 104 mg/dL (65-110)
[2021-11-23 11:47] LABS: Urine Cotinine NEGATIVE
[2021-11-23 11:49] LABS: Lymphocytes Percent Auto 1.4 % (18.3-44.2)
== END 2021-11-23 09:54 | disposition home or self-care (01) ==
LOC: ANHSURGERY 09:59
PROVIDERS: Visit Provider Orthopaedic Surgery
DX: M25.562 Pain in left knee (principal); Z01.818 Encounter for other preprocedural examination
CPT/HCPCS: 80307; 82040; 82565; 82947; 85025; 87081

== ENCOUNTER 2021-12-21 16:47 | Inpatient (IN) | payer MEDICARE, SELFPAY ==
--- NOTE | 2021-11-23 09:54 | PC.NURSE ---
Addendum entered by Ruth Connell RN 11/23/21 10:45: PT AND SPOUSE INFORMED TOTAL JOINT CLASS 12/14/21 @ 1000AM NOT 11/30/21 - UNDERSTANDING VOICED Original Note: Report to the Outpatient Waiting Room, entrance under the green pavilion located off [facility], at time _0830_ on date _12/20/21_. OR Time: _1030_. - You and your visitor will be asked a series of questions to screen for COVID 19 for your protection. - A mask is required within the hospital. - Only one visitor is allowed at this time. - The patient visitor is requested to leave or wait in car when not with patient. - PACK A SMALL OVERNIGHT BAG AND LEAVE IN THE CAR. VISITING HOURS 10AM-8PM, PARK IN FRONT [facility] AND USE MAIN HOSPITAL ENTRANCE Patients may have clear liquids (water, carbonated beverages, clear teas, apple juice) until 3 hours prior to surgery (0730 AM) with a maximum of 20 ounces. - No food from midnight until time of surgery Take the following medications with a SIP of water the morning of surgery: _DIVALPROEX, PYRIDOSTIGMINE, PREDNISONE, & LORAZEPAM IF NEEDED_ Medications to discontinue per DR. GUTIERREZ - ASPIRIN 7 DAYS PRIOR TO SURGERY, Date to take last dose 12/12/21_ Medications to discontinue per ANESTHESIA - MULTIVITAMIN, SUPER VITAMIN B-COMPLEX 3 DAYS PRIOR TO SURGERY, Date to take last dose 12/16/21_ Please no deodorant, or body powder the day of surgery. No jewelry (including any body piercings) or valuables the day of surgery, leave them at home. Please take a shower or bath the night before, or the morning of, surgery with an antibacterial soap. Wear comfortable, loose fitting clothing. - Jewelry must be removed prior to entering the operating room. Rings and piercings that are not removed may be cut off. - The hospital will not accept responsibility for valuables. - Please leave all valuables, including medications, at home the day of surgery. If you are going home after surgery, a licensed stacker driver must drive you home. - NO public transportation without another adult. - We recommend that an adult stay with you for 24 hours following discharge. - We also recommend that you do not drive, make important decision, drink alcoholic beverages, or take any drugs that were not prescribed by your health care provider for at least 24 hours after your discharge time. Follow any additional instructions given to you from your surgeon. TOTAL JOINT CLASS 11/30/21 @ 1000AM, [facility], USE MAIN ENTRANCE - LOWER LEVEL If you or anyone in your household have experienced Covid symptoms in the past week, please notify your surgeon or the nurse liaison at the phone number below for possible testing. Instructions given to _PT & SPOUSE__and asked if any additional questions and then verbalized understanding. Patient advised to call surgeon office or pre surgery nurse liaison [phone] if any additional questions.
[2021-11-23 10:50] VITALS: BP 110/72; PULSE 72; RESP 20; TEMP 36.8; O2SAT 95; BMI 30.9
--- NOTE | 2021-12-19 11:29 | WPDANESEPPF ---
Anes - Initial Pre Proc Eval Procedure: Operation Date: 12/20/21 10:30 Proposed Procedures p Left Total Knee Arthroplasty - Sameer Muse MD Date/Time: 12/19/21 11:29 Surgeon: Sameer Muse MD Pre Op Diagnosis: primary OA left knee Patient Data Age: 71 Gender: M Height: 1.71 m Weight: 90.9 kg Last Vital Signs Temp 36.8 C 11/23/21 10:50 Pulse 72 11/23/21 10:50 Resp 20 11/23/21 10:50 BP 110/72 11/23/21 10:50 Pulse Ox 95 11/23/21 10:50 O2 Del Method Room Air 11/23/21 10:50 Allergies Allergy/AdvReac Type Severity Reaction Status Date / Time adhesive Allergy Unknown SKIN Verified 12/20/21 08:54 IRRITATION Home Medications Medication Instructions Recorded Confirmed Type aspirin 81 mg tablet,delayed 1 mg PO QAM 01/07/20 11/23/21 History release ezetimibe 10 mg tablet 10 mg PO HS 01/07/20 11/23/21 History lorazepam 0.5 mg tablet 1 mg PO BID PRN Anxiety 01/07/20 11/23/21 History multivitamin with minerals 1 tablet PO QAM 01/07/20 11/23/21 History prednisone 10 mg tablet 10 mg PO QAM 01/07/20 11/23/21 History rosuvastatin 40 mg tablet 40 mg PO HS 01/07/20 11/23/21 History divalproex 250 mg tablet,extended 500 mg PO BID 04/04/21 11/23/21 History release 24 hr trazodone 100 mg tablet 100 mg PO HS PRN insomnia #30 tabs 06/25/21 11/23/21 Rx ferrous sulfate 325 mg (65 mg 325 mg PO QAM 11/23/21 11/23/21 History iron) tablet (iron) pyridostigmine bromide 60 mg tablet 60 mg PO TID 11/23/21 11/23/21 History vitamin B complex 1 cap PO QAM 11/23/21 11/23/21 History azathioprine 50 mg tablet 50 mg PO HS 12/14/21 History quetiapine 300 mg tablet 600 mg PO HS 12/14/21 History ECG: Date of Service: 09/23/21 Procedure(s): CA 12 lead EKG Accession Number(s): [id number] cc: ~ ? Measurements Intervals? [place]? Rate: ? 79 ? P:? 35 MO: ? 164? QRS:? -35 QRSD: ? 125? T:? 64 QT: ? 376? QTc:? 432? Interpretive Statements SINUS RHYTHM LEFT AXIS DEVIATION INTRAVENTRICULAR CONDUCTION DELAY POSSIBLE LEFT VENTRICULAR HYPERTROPHY MINIMAL Q WAVES- HIGH LATERAL LEADS BORDERLINE ECG Electronically Signed On 09-23-2021 17:15:15 CDT by Tj Guerra D.O. Patient hx anesthesia problems: none Family hx anesthesia problems: none Results Review: All pre-operative results and documents have been reviewed as part of the pre-operative evaluation. [facility] Past Medical History Medical History (Updated 12/20/21 @ 09:42 by Jayme Cadet MD) (HFpEF) heart failure with preserved ejection fraction Arthritis Bipolar 1 disorder CAD (coronary artery disease) CVA (cerebral vascular accident) DVT (deep venous thrombosis) 10 years ago [place] (hard of hearing) Hyperlipidemia Manic bipolar I disorder Myasthenia gravis Prostate cancer Surgical History Surgical History (Updated 12/20/21 @ 09:42 by Jayme Cadet MD) History of coronary artery stent placement Family History Family History Father Heart disease Social History Social History Smoking status: Former smoker Tobacco type: cigarettes Second hand tobacco smoke exposure: No Additional smoking assessment comments: PT DENIES ALL FORMS OF TOBACCO USE - STATES SOCIAL IN [employer] Alcohol intake: unknown Substance use: unknown Substance use type: does not use Living arrangements: with family Spiritual care concerns: No Anes - Eval Final PreProcedure Day of Procedure 12/19/21 11:29 Patient weight: obese Heart: regular rate and rhythm Lungs: clear to auscultation and normal air movement Airway: Mallampati scale cl
[2021-12-20] VITALS (15 sets, daily range): BP systolic 109–131; BP diastolic 68–80; PULSE 70–94; RESP 13–18; TEMP 36.2–37.1; O2SAT 90–99
--- NOTE | 2021-12-20 09:41 | WPDHPUPDATE1 ---
History and Physical Update Update Date/Time: 12/20/21 09:41 History and Physical has been reviewed, including an updated exam of the patient. There are NO changes in the patient's condition. Risks, benefits, and alternatives have been discussed and questions answered. Patient agrees to proceed with procedure.
--- NOTE | 2021-12-20 09:42 | WPDANESPNB ---
Anes - Peripheral Nerve Block Date/Time: 12/20/21 09:42 I have discussed with the patient/family/POA the placement of a peripheral nerve block for post-operative pain management, including associated risks, benefits, complications, and side effects. Alternative methods of post-operative analgesia were detailed. Questions were solicited and answers provided to the satisfaction of the patient/family/POA. Time-Out: A pre-procedural Time-Out was completed immediately before starting the procedure and confirmed: Patient Identification, Site, Procedure, Patient Position and the Availability of Requisite Equipment. Clinical Indications: Acute post-operative pain management requested by the operative surgeon. Nerve Block Insertion Note Anes-nerve block: adductor canal Patient position: supine Skin prep: chlorhexidine Needle: 22 gauge, stimulating, insulated echogenic needle. Needle length: 80 mm Technique: ultrasound Technique comment: in plane Injectate: bupivacaine 0.5% with epi 5 mcg/ml (30cc) Observations: tolerated well Complications: none Procedure start time:: 1000 Procedure end time:: 1005
[2021-12-20] MEDS: LACTATED RINGERS 1,000 ML 30 ML IV CONT ×2 (09:48→12:22)
[2021-12-20] MEDS: ACETAMINOPHEN 500 MG TABLET 1000 MG PO (09:57)
[2021-12-20] MEDS: TRANEXAMIC ACID 1,000MG/ISO100 1,000 MG/100 ML BAG 200 MG IVPB (09:57)
[2021-12-20] MEDS: ceFAZolin 2 GM/D5W 50 ML 2 GM/50 ML BAG IVPB ×2 (10:14→18:10)
[2021-12-20] MEDS: GENTAMICIN BONE CEMENT REFOBACIN 1 EACH TOPICAL (11:21)
[2021-12-20] MEDS: PYRIDOSTIGMINE BROMIDE 60 MG TABLET PO (17:05)
[2021-12-20] MEDS: DIVALPROEX SODIUM ER 500 MG TAB.24H PO (17:08)
[2021-12-20] MEDS: SENNA/DOCUSATE SODIUM TABLET 2 TAB PO (17:09)
--- NOTE | 2021-12-20 17:14 | W.PM.PROC2 ---
Procedure Note - Detailed Date of Procedure 12/20/21 Pre-op Diagnosis primary OA left knee Post-op Diagnosis Same Procedure Performed Total knee arthroplasty, left. Surgeon Sameer Muse MD Merchandising Assistant Izabel Zaman PA-C Anesthesia General and Regional (subsartorial block) Findings Mild valgus deformity. Poor bone quality. No releases required. Description of Procedure The patient was brought to the operating room. A general anesthetic was administered. The leg was prepped and draped in the usual sterile fashion. The limb was elevated and the tourniquet inflated to 300 mmHg during initial exposure, and cementation. A longitudinal incision was created along the medial border of the patella and patellar tendon, and a trivector approach to the knee was performed. No medial release was taken. The knee was then flexed. The osteophytes were carefully removed. The intramedullary guide was placed in the femoral canal. The distal femoral resection was then taken with the oscillating saw. The collateral ligaments were carefully protected. The tibia was carefully exposed. The jig was applied, and the proximal tibia was resected according to preoperative plan. The knee was balanced in extension. Appropriate releases were taken where needed. The anterior cruciate ligament and meniscal remnants were removed. The posterior cruciate ligament was preserved. The patella was measured. Patellar resection was carried out with the oscillating saw. The lug holes drilled. The femur was sized and rotation assessed using a combination of gap balancing, posterior referencing, and the AP axis. The 4 in 1 cutting block was used to finish the femoral cuts after equal gaps were assured. The osteophytes were carefully removed from the back of the knee. The knee was copiously irrigated with antibiotic solution periodically throughout the procedure. The meniscal remnants were removed. The spacer block was used to confirm equal flexion and extension gaps. No further releases were needed. The tibia was sized and broached. The bony surfaces were prepared for cementing with pulsatile lavage. The real tibial and femoral and patellar components were cemented into position. Excess cement was carefully removed. Patellar tracking was carefully assessed. No additional releases were required. Dilute sterile Betadine soak performed for three minutes. Copious irrigation then performed. The wound was closed with #1 Vicryl suture, #2, 2-0, and 3-0 barbed suture, followed by Steri-Strips. A sterile bulky dressing was applied. Meticulous hemostasis was maintained throughout the procedure. The bipolar cautery device was used. The pain relieving mixture was injected into the periarticular tissues during the procedure. There were no complications. The patient was extubated and brought to the recovery room in stable condition after the application of sterile dressing with Albert bandage. Physician medical library assistant, Izabel Zaman PA-C, required for surgery; including patient positioning, draping, tissue retraction, maintaining instrument position, cement removal, wound closure, and dressing placement. Implants PowerPlanathlon knee system, universal cemented tibia size 6, cemented cruciate retaining femoral component size 6 ,and an 11 mm cruciate stabilizing polyethylene insert. 38 mm asymmetric all polyethylene patella component. Estimated Blood Loss -150.0 Drains No Pathology None sent Complications No immediate complications Condition Stable Disposition PACU [facility] Billing Surgery - Charge Forward: Surgery Billing
[2021-12-20] MEDS: ROSUVASTATIN 10 MG TABLET 40 MG PO (21:00)
[2021-12-20] MEDS: EZETIMIBE 10 MG TABLET PO (21:00)
[2021-12-20] MEDS: oxyCODONE HCL (*CRX) 5 MG TAB IR PO (21:13)
--- NOTE | 2021-12-20 23:07 | PM.IMCN ---
Assessment and Plan Assessment and plan (1) Status post total left knee replacement: Onset Date: 12/20/21 Code(s): Z96.652 - Presence of left artificial knee joint Status: Acute (2) History of coronary artery stent placement: Code(s): Z95.5 - Presence of coronary angioplasty implant and graft Status: Acute (3) Bipolar 1 disorder: Code(s): F31.9 - Bipolar disorder, unspecified Status: Acute Plan Patient has tolerated his knee replacement without difficulty. Blood pressures are stable. Patient has history of coronary disease but is not on any long-term anti-platelet medications besides 81 mg aspirin daily. This has been continued. Patient is not having any cardiac symptoms. Will continue patient's home Lipitor. Mood is stable will continue trazodone, Seroquel, and Depakote. Postop management, pain management and DVT prophylaxis per primary service. HPI Data of Consult Consult date: 12/21/21 Requesting Physician: Sameer Muse MD Primary Care Provider: PHYSICIAN NOT ON STAFF Consult Narrative Narrative: Date and time of patient contact: 12/20/2021 at 11:30 p.m. 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 Patient underwent surgery and is been stable. He had an estimated blood loss of 150 mL. Postop patient has had no nausea or vomiting. His last bowel movement was morning prior to surgery. She he has been voiding without difficulty. He has been up and ambulating with a walker. He reports that his knee pain is fairly controlled. He denies any chest pain or palpitations. He does have a history of bipolar disorder and 1 of his bipolar medications was not addressed on the med rec. I confirmed the medication with the patient's and the medication has been ordered. He reports that his mood has been stable since he was hospitalized in May with hyponatremia due to psychogenic polydipsia and bipolar disorder with jose. He is currently pleasant and cooperative. He has no complaints. He is eager to go home. Review of Systems Review of Systems: 12 systems were reviewed with pertinent positives and negatives per HPI. Except as documented in the HPI, all other systems were reviewed and are negative. 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 treated with chemotherapy and adjunctive radiation therapy Surgical History Surgical History (Updated 12/20/21 @ 23:18 by Tita Junior DO) History of coronary artery stent placement 1 stent in 2001 3 stents in 2002 History of meniscectomy of right knee (2014) History of radical neck dissection (12/19/19) S/P partial glossectomy (12/19/19) Right sided Family History Family History Father Heart disease Social History Social History (Updated 12/20/21 @ 23:10 by Tita Junior DO) Smoking status: Never smoker Second hand tobacco smoke exposure: No Alcohol intake: never Substance use: never Living arrangements: with family Gender identity (if verbalized by the patient): Male Sexual Orientation (if Verbalized by the Patient): Straight or Heterosexual Spiritual care concerns: No Meds Home Medicatio
[2021-12-21] VITALS (8 sets, daily range): BP systolic 98–129; BP diastolic 66–78; PULSE 90–110; RESP 16–18; TEMP 36.2–36.6; O2SAT 91–98
--- NOTE | ~2021-12-21 | XR_ITS ---
EXAMINATION: XR knee LT 2V DATE: 12/20/2021 12:33 INDICATION: Total left knee arthroplasty. Postop. TECHNIQUE: 2 views of left knee were obtained. COMPARISON: Left knee radiographs 12/14/2021 FINDINGS: There is a total left knee arthroplasty in near-anatomic alignment with patellar resurfacin g. No fracture. There is gas in the knee joint and soft tissues, consistent with recent surgery. IMPRESSION: 1. Total left knee arthroplasty in near-anatomic alignment. Reviewed, dictated and finalized at location A.
--- NOTE | ~2021-12-21 | XR_ITS ---
EXAMINATION: XR chest 1V portable DATE: 12/22/2021 15:25 INDICATION: Fever. TECHNIQUE: A single frontal view of the chest was obtained. COMPARISON: Chest single view 06/24/2021 FINDINGS: The lung volumes are small. There are airspace opacities in the lower lung zones. No pleura l effusion or pneumothorax. The heart size is normal. IMPRESSION: 1. Small lung volumes with airspace opacities in the lower lung zones, likely atelectasis. Pneumonia cannot be excluded. Reviewed, dictated and finalized at location A. IMPRESSION: 1. Small lung volumes with airspace opacities in the lower lung zones, likely a telectasis. Pneumonia cannot be excluded.
--- NOTE | ~2021-12-21 | XR_ITS ---
EXAMINATION: XR chest 1V portable DATE: 12/22/2021 21:56 INDICATION: Decreased level of consciousness TECHNIQUE: frontal view of the chest was obtained. COMPARISON: Chest radiograph dated 12/22/2021 FINDINGS: Opacities in the bilateral lower lung zones, bandlike in the right lower lung zone consiste nt with atelectasis/scarring in now slightly more patchy appearing in the left lower lung zone which could represent either atelectasis or pneumonia. No pleural effusion or pneumothorax. The cardiomedia stinal silhouette is normal. IMPRESSION: 1. Persistent opacities in the bilateral lower lung zones, most likely atelectasis although different ial includes pneumonia. Reviewed, dictated and finalized at location A. IMPRESSION: 1. Persistent opacities in the bilateral lower lung zones, most likely atelecta sis although differential includes pneumonia.
[2021-12-21] MEDS: ceFAZolin 2 GM/D5W 50 ML 2 GM/50 ML BAG IVPB ×2 (01:00→10:06)
[2021-12-21] MEDS: QUEtiapine FUMARATE 100 MG TABLET 600 MG PO ×2 (01:00→20:14)
[2021-12-21 05:58] LABS: Basophils Percent Auto 0.2 % (0.2-1.2); Eosinophils Percent Auto 0.2 % (0-4.4); Hematocrit 31.9 % (42.0-52.0); Hemoglobin 10.9 g/dL (14.0-18.0); Immature Granulocyte Absolute 0.04 K/mm3 (0.00-0.031); Immature Granulocyte Percent A 0.4 % (0-0.5); Lymphocytes Percent Auto 3.2 % (18.3-44.2); Mean Corpuscular HGB Conc 34.2 g/dl (32-36); Mean Corpuscular Hemoglobin 32.7 pg (26-34); Mean Corpuscular Volume 95.8 fl (80-100); Mean Platelet Volume 9.3 fl (7.4-10.4); Monocytes Absolute Auto 1.3 K/mm3 (0.1-0.6); Monocytes Percent Auto 13.7 % (2.6-8.5); Neutrophils Absolute Auto 7.6 K/mm3 (1.3-6.7); Neutrophils Percent Auto 82.3 % (45.5-73.1); Platelet Count Result 148 k/mm3 (150-375); Red Blood Count 3.33 M/mm3 (4.6-6.20); Red Cell Distribution Width 14.6 % (11.5-14.5); White Blood Count 9.3 K/mm3 (4.5-10.0)
[2021-12-21 06:11] LABS: Anion Gap 3 mmol/L (8-16); Blood Urea Nitrogen 17 mg/dL (9-20); Calcium 8.1 mg/dL (8.4-10.2); Carbon Dioxide 29 mmol/L (22-30); Chloride 101 mmol/L (98-107); Estimated CRCL calculation 63 ml/min; Estimated Glomerular Filt Rate > 60; Glucose 98 mg/dL (65-110); Potassium 3.6 mmol/L (3.4-5.0); Sodium 133 mmol/L (137-145)
[2021-12-21] MEDS: SENNA/DOCUSATE SODIUM TABLET 2 TAB PO ×2 (08:21→17:05)
[2021-12-21] MEDS: FERROUS SULFATE 324 MG TABLET PO (08:21)
[2021-12-21] MEDS: DIVALPROEX SODIUM ER 500 MG TAB.24H PO ×2 (08:21→17:05)
[2021-12-21] MEDS: PYRIDOSTIGMINE BROMIDE 60 MG TABLET PO ×3 (08:22→17:05)
[2021-12-21] MEDS: polyethylene glycoL 3350 17 GM POWD.PACK PO (08:22)
[2021-12-21] MEDS: predniSONE 10 MG TABLET PO (08:22)
--- NOTE | 2021-12-21 08:34 | WPDANESPN ---
Anes - Prog Note Post-Op Date/Time: 12/21/21 08:34 Cardiovascular status: normal Respiratory status: normal Airway patency: baseline Mental status: baseline Post-Op hydration status: normal Vital Signs: Last Vital Signs Temp 36.2 C L 12/21/21 03:54 Pulse 90 12/21/21 03:54 Resp 18 12/21/21 03:54 BP 103/66 12/21/21 03:54 Pulse Ox 91 12/21/21 03:54 O2 Del Method Room Air 12/21/21 02:00 O2 Flow Rate 2 12/20/21 14:40 Pain Score (VAS): 2 I/O: Intake & Output 12/20/21 12/21/21 12/21/21 23:59 07:59 15:59 Intake Total 790 300 Output Total 800 Balance -10 300 Laboratory Tests 12/21/21 05:24 12/21/21 05:24 12/20/21 12/21/21 12/21/21 09:25 05:24 05:24 WBC 9.3 RBC 3.33 L Hgb 10.9 L Hct 31.9 L MCV 95.8 MCH 32.7 MCHC 34.2 RDW 14.6 H Plt Count 148 L MPV 9.3 Immature Gran % (Auto) 0.4 Neut % (Auto) 82.3 H Lymph % (Auto) 3.2 L [place] % (Auto) 13.7 H Eos % (Auto) 0.2 Baso % (Auto) 0.2 Lymph # (Auto) 0.30 L [place] # (Auto) 1.3 H Eos # (Auto) 0.0 Baso # (Auto) 0.0 Abs Immat Gran (auto) 0.04 H Absolute Neuts (auto) 7.6 H Absolute Nucleated RBC 0.0 Nucleated RBC % 0.0 Sodium 133 L Potassium 3.6 Chloride 101 Carbon Dioxide 29 Anion Gap 3 L BUN 17 Creatinine 0.90 Estim Creat Clear Calc 63 Estimated GFR > 60 Glucose 98 Calcium 8.1 L Blood Type O Positive Antibody Screen Negative Patient Feedback: Patient satisfied with anesthetic care.
[2021-12-21] MEDS: oxyCODONE HCL (*CRX) 5 MG TAB IR PO ×2 (10:05→20:19)
--- NOTE | 2021-12-21 12:08 | PM.IMPN ---
Progress Note: A&P Assessment and Plan (1) Status post total left knee replacement: Onset Date: 12/20/21 Code(s): Z96.652 - Presence of left artificial knee joint Status: Acute (2) History of coronary artery stent placement: Code(s): Z95.5 - Presence of coronary angioplasty implant and graft Status: Acute (3) Bipolar 1 disorder: Code(s): F31.9 - Bipolar disorder, unspecified Status: Acute Plan Continue postop care. Medically stable Subjective Date/time seen: 12/21/21 12:08 No complaints Exam Narrative: Weight 86.8 kg BMI 29.5 Const: Other: No acute distress, well-developed well-nourished HENMT: Other: Asymmetry to the tongue consistent with prior surgery, no oral pharyngeal erythema, crowded posterior oropharynx, overbite with retrognathia Eyes: Other: Pupils are equal and reactive, no scleral icterus, no conjunctival pallor Neck: Other: Supple, no JVD, tissue changes consistent with radiation therapy in prior radical neck dissection on the right Resp: Other: Clear to auscultation bilaterally, no increased work of breathing Cardio: Other: Regular rate, regular rhythm, 2+ bilateral radial pedal pulses GI: Other: Soft, nontender, nondistended, positive bowel sounds Skin: Other: No jaundice, no pallor Neuro: Other: Alert and oriented x4, speech impediment Extrem: Other: 1+ pitting edema left lower extremity, cooling pack is in place on the left knee, postop dressing not evaluated, distal extremity is neurovascularly intact Psych: Other: Appropriate mood and affect, pleasant and cooperative Objective Data Vital Signs Vital Signs: Vital Signs - 24 hr 12/20/21 12:25 12/20/21 12:40 12/20/21 12:55 Temperature 97.3 F L Pulse Rate 94 82 83 Respiratory Rate 18 15 14 Blood Pressure 115/68 122/76 125/71 Pulse Oximetry 98 99 99 Oxygen Delivery Simple Face Mask Simple Face Mask Simple Face Mask Oxygen Flow Rate 8 8 6 12/20/21 13:10 12/20/21 13:25 12/20/21 13:40 Temperature Pulse Rate 80 77 72 Respiratory Rate 15 13 17 Blood Pressure 119/73 129/72 131/76 Pulse Oximetry 93 98 97 Oxygen Delivery Room Air Nasal Cannula Nasal Cannula Oxygen Flow Rate 2 2 12/20/21 13:55 12/20/21 14:40 12/20/21 14:15 Temperature 97.3 F L Pulse Rate 73 70 Respiratory Rate 14 16 Blood Pressure 123/76 120/77 Pulse Oximetry 97 90 99 Oxygen Delivery Nasal Cannula Nasal Cannula Oxygen Flow Rate 2 2 12/20/21 14:30 12/20/21 15:00 12/20/21 16:00 Temperature 97.2 F L 98.7 F 98.4 F Pulse Rate 71 75 85 Respiratory Rate 16 18 18 Blood Pressure 119/69 113/69 121/72 Pulse Oximetry 93 93 98 Oxygen Delivery Oxygen Flow Rate 12/20/21 19:11 12/20/21 23:20 12/21/21 02:00 Temperature 98.4 F 97.6 F Pulse Rate 93 93 93 Respiratory Rate 18 16 16 Blood Pressure 117/80 109/76 Pulse Oximetry 96 94 94 Oxygen Delivery Room Air Oxygen Flow Rate 12/21/21 03:54 12/21/21 08:58 12/21/21 10:00 Temperature 97.2 F L 97.2 F L Pulse Rate 90 108 H Respiratory Rate 18 16 Blood Pressure 103/66 98/68 L Pulse Oximetry 91 98 Oxygen Delivery Room Air Oxygen Flow Rate 12/21/21 08:00 Temperature Pulse Rate Respiratory Rate Blood Pressure Pulse Oximetry Oxygen Delivery Room Air Oxygen Flow Rate Intake/Output Intake/Output: Intake & Output 12/18/21 12/19/21 12/20/21 12/21/21 23:59 23:59 23:59 23:59 Intake Total 2290 750 Output Total 800 Balance 1490 750 Meds/Results Medications: Active Medications Generic Name Dose Route Start Last Admin Trade Name Freq PRN Reason Stop Dose Admin Acetaminophen 1,000 mg 12/20/21 14:09 Acetaminophen 500 Mg Tablet PO Q6H PRN Pain Rated 1-3 Aspirin 81 mg 12/21/21 09:00 12/21/21 09:39 Aspirin 81 Mg Enteric Tablet PO Not Given QAM [facility] Cyclobenzaprine HCl 10 mg 12/20/21 14:09 Cyclobenzaprine Hcl 10 Mg Tablet PO Q8H PRN S
[2021-12-21] MEDS: oxyCODONE HCL (*CRX) 5 MG TAB IR 10 MG PO (14:48)
--- NOTE | 2021-12-21 16:13 | PM.PNORT ---
Progress Note: A&P Assessment and Plan (1) Status post total left knee replacement: Onset Date: 12/20/21 Code(s): Z96.652 - Presence of left artificial knee joint Status: Acute Assessment and Plan: Postop day 1: Left total knee arthroplasty. Patient tolerated procedure well. Wound drained bloody drainage today. Dressing changed multiple times. Small hematoma inferior to the incision. Pain manageable with pain medication. No numbness or tingling. Unable to do a lot with PT and OT today due to bloody drainage. I recommend patient stay another night. Dressing changes when dressing is soiled. Will reassess tomorrow and reapply steristrips and dressing. Subjective Subjective Date/Time Seen: 12/21/21 16:13 Interval history: Patient resting comfortably. A lot of bloody discharge from wound. Pain controlled with pain medication. No other complaints. Review of Systems Review of Systems: All systems reviewed & are unremarkable except as noted in HPI and below Constitutional: Constitutional: Denies difficulty sleeping, Denies fatigue, Denies fever(s), Denies headache(s) and Denies night sweats Eyes: Eyes: Denies loss of vision ENT: Denies dizziness, Denies headache(s) and Denies hearing loss Cardiovascular: Cardiovascular: Denies irregular heart rhythm and Denies dyspnea Respiratory: Respiratory: Denies cough and Denies dyspnea Gastrointestinal: Gastrointestinal: Denies change in bowel habits, Denies diarrhea, Denies nausea and Denies vomiting Genitourinary: Genitourinary: Denies dysuria, Denies nocturia and Denies urinary incontinence Musculoskeletal: Musculoskeletal: Denies abnormal gait Neurologic: Denies abnormal gait, Denies dizziness, Denies headache(s) and Denies loss of vision Psychiatric: Psychiatric: Denies anxiety and Denies depression Endocrine: Endocrine: Denies cold intolerance, Denies fatigue and Denies heat intolerance Exam Narrative: 71-year-old overweight male. Resting comfortably in bed. Alert and oriented x3. No acute distress. Wearing compression sock on the right. Left knee with luis wrap over wound. Wound redressed multiple times today. Bloody drainage from incision. Wound cleaned with Betadine and new steristrips today. Moderate swelling. Small hematoma at the inferior knee. Ecchymosis. No erythema. No warmth. Range of motion limited due to pain. Calf nontender. Neurologic status intact. No varicosities. Distal pulses palpable. Light touch sensation intact. Good capillary refill. Objective Data Vital Signs Vital Signs: Vital Signs - 24 hr 12/20/21 19:11 12/20/21 23:20 12/21/21 02:00 Temperature 98.4 F 97.6 F Pulse Rate 93 93 93 Respiratory Rate 18 16 16 Blood Pressure 117/80 109/76 Pulse Oximetry 96 94 94 Oxygen Delivery Room Air 12/21/21 03:54 12/21/21 08:58 12/21/21 10:00 Temperature 97.2 F L 97.2 F L Pulse Rate 90 108 H Respiratory Rate 18 16 Blood Pressure 103/66 98/68 L Pulse Oximetry 91 98 Oxygen Delivery Room Air 12/21/21 08:00 12/21/21 14:00 Temperature 97.1 F L Pulse Rate 109 H Respiratory Rate 18 Blood Pressure 107/68 Pulse Oximetry 95 Oxygen Delivery Room Air Intake/Output Intake/Output: Intake & Output 12/18/21 12/19/21 12/20/21 12/21/21 23:59 23:59 23:59 23:59 Intake Total 2290 850 Output Total 800 Balance 1490 850 Meds/Results Medications: Active Medications Generic Name Dose Route Start Last Admin Trade Name Freq PRN Reason Stop Dose Admin Acetaminophen 1,000 mg 12/20/21 14:09 Acetaminophen 500 Mg Tablet PO Q6H PRN Pain Rated 1-3 Aspirin 81 mg 12/21/21 09:00 12/21/21 09:39 Aspirin 81 Mg Enteric Tablet PO Not Given QAM [facility] Cyclobenzaprine HCl 10 mg 12/20/21 14:09 Cyclobenzaprine Hcl 10 Mg Tablet PO Q8H PRN Spasms Diphenhydramine HCl 25 mg 12/20/21 14:09 Diphenhydramine Hcl Inj 50 Mg/Ml Vial IV PUSH Q6H PRN Itching
[2021-12-21] MEDS: ROSUVASTATIN 10 MG TABLET 40 MG PO (20:14)
[2021-12-21] MEDS: EZETIMIBE 10 MG TABLET PO (20:14)
[2021-12-22] VITALS (23 sets, daily range): BP systolic 80–143; BP diastolic 48–77; PULSE 105–125; RESP 14–42; TEMP 36.4–38.9; O2SAT 89–100
--- NOTE | 2021-12-22 03:56 | PC.NURSE ---
called dr clifton re: patient hr trending up since 1000 yesterday between 100 and 120. patient rouses to voice but appears more drowsy compared to 24 hours ago. hr 110 at present . ra sat 91%. denies cp or sob. knee pain rated at 7/10. recieved oxycontin at bedtime for pain. left knee swollen and bruising noted distal to incision. negative mariam's sign. drsg to left knee incision saturated fluffs and abd but did not saturate the luis wrap has multiple times over the last 24 hours. drsg changed. stat hh ordered. will continue to mx closely.
[2021-12-22 04:27] LABS: Hematocrit 30.1 % (42.0-52.0)
--- NOTE | 2021-12-22 06:24 | ECG_ITS ---
Measurements Intervals [place] Rate: 118 P: 28 NM: 162 QRS: -42 QRSD: 137 T: 96 QT: 334 QTc: 469 Interpretive Statements SINUS TACHYCARDIA WITH OCCASIONAL VENTRICULAR PREMATURE COMPLEXES LEFT AXIS DEVIATION INTRAVENTRICULAR CONDUCTION DELAY LEFT VENTRICULAR HYPERTROPHY AND ST-T CHANGE INSIGNIFICANT Q-WAVES HIGH LATERAL LEADS NONSPECIFIC ST ABNORMALITY ABNORMAL ECG COMPARED TO ECG 09/23/2021 13:51:21 [address] NOW PRESENT ST (T WAVE) DEVIATION NOW PRESENT Electronically Signed On 12-22-2021 15:12:49 CDT by Levi Franco M.D.
--- NOTE | 2021-12-22 06:57 | PC.NURSE ---
notified dr clifton of abnormal ekg. patient hr still 118 and irregular. denies cp or sob. orders recieved. notified dr stockton's exchange of consult. stat troponin pending. echo has been ordered.
[2021-12-22 07:05] LABS: Troponin I < 0.012 ng/mL (0.000-0.034)
[2021-12-22 07:33] LABS: Troponin I < 0.012 ng/mL (0.000-0.034)
[2021-12-22] MEDS: SENNA/DOCUSATE SODIUM TABLET 2 TAB PO ×2 (09:23→17:30)
[2021-12-22] MEDS: FERROUS SULFATE 324 MG TABLET PO (09:23)
[2021-12-22] MEDS: DIVALPROEX SODIUM ER 500 MG TAB.24H PO ×2 (09:23→17:30)
[2021-12-22] MEDS: PYRIDOSTIGMINE BROMIDE 60 MG TABLET PO ×3 (09:24→17:30)
[2021-12-22] MEDS: predniSONE 10 MG TABLET PO (09:24)
--- NOTE | 2021-12-22 10:18 | PM.CNCAR ---
Assessment and Plan Assessment and plan (1) Abnormal EKG: Code(s): R94.31 - Abnormal electrocardiogram [ECG] [EKG] Status: Acute (2) Status post total left knee replacement: Onset Date: 12/20/21 Code(s): Z96.652 - Presence of left artificial knee joint Status: Acute (3) History of coronary artery stent placement: Code(s): Z95.5 - Presence of coronary angioplasty implant and graft Status: Acute History of Present Illness History of Present Illness Consult date/time: Date of service 12/22/21 10:18 Requesting physician: Keegan Marcano MD Consult reason: Other (Abnormal EKG) Reason For Visit: primary OA left knee Narrative: This 71-year-old with medical history of bipolar type 1 disorder, coronary artery disease, 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 He had an estimated blood loss of 150 mL.? Seems patient has significant bleeding from the left knee and therefore he is not on anticoagulation. Cardiology called because of EKG was done this morning that stated that potentially patient has acute myocardial infarction. The EKG does not show acute myocardial infarction. It was noticed the patient is tachycardic overnight with frequent PVCs. He denies chest pain, shortness of breath, palpitations, dizziness. Noticed he has been tachycardic for the past couple days with normal blood pressure. Afebrile. EKG reviewed and analyzed myself shows sinus tachycardia, left axis deviation, LVH, occasional PVC Troponins x2 negative, Normal electrolytes Hemoglobin November 09 and today 10 Review of Systems Constitutional: Constitutional: Denies chills, Denies fever(s) and Denies poor appetite Eyes: Eyes: Denies eye discharge, Denies loss of vision, Denies eye pain and Denies photophobia ENT: Denies dizziness, Denies epistaxis, Denies nasal congestion and Denies sore throat Cardiovascular: Cardiovascular: Denies chest pain, Denies syncope, Denies pedal edema, Denies leg edema, Denies palpitations, Denies dyspnea, Denies dyspnea on exertion and Denies orthopnea Respiratory: Respiratory: Denies cough, Denies dyspnea, Denies dyspnea on exertion and Denies wheezing Gastrointestinal: Gastrointestinal: Denies abdominal pain, Denies diarrhea, Denies nausea and Denies vomiting Genitourinary: Genitourinary: Denies hematuria, Denies genital lesions and Denies dysuria Musculoskeletal: Musculoskeletal: Reports arthralgias, Reports joint swelling and Denies numbness Integumentary/Breasts: Skin/Breast: Denies pruritus and Denies rash Neurologic: Denies dizziness, Denies syncope, Denies loss of vision and Denies numbness Psychiatric: Psychiatric: Denies anxiety and Denies depression Endocrine: Endocrine: Denies cold intolerance, Denies heat intolerance and Denies palpitations Hematologic/Lymphatic: Hematologic/Lymphatic: Denies easy bleeding and Denies easy bruising Allergic/Immunologic: Allergic/Immunologic: Denies urticaria and Denies wheezing PMFSH Past Medical History Medical History (HFpEF) heart failure with preserved ejection fraction Arthritis Bipolar 1 disorder CAD (coronary artery disease) Chronic hyponatremia CVA (cerebral vascular accident) DVT (deep venous thrombosis) (~2013) [place] (hard of [place]) Hyperlipidemia Myasthenia gravis (~2004) Prostate cancer Radiation therapy 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
--- NOTE | 2021-12-22 10:27 | PM.IMPN ---
Progress Note: A&P Assessment and Plan (1) Status post total left knee replacement: Onset Date: 12/20/21 Code(s): Z96.652 - Presence of left artificial knee joint Status: Acute (2) History of coronary artery stent placement: Code(s): Z95.5 - Presence of coronary angioplasty implant and graft Status: Acute (3) Bipolar 1 disorder: Code(s): F31.9 - Bipolar disorder, unspecified Status: Acute (4) Orthostatic hypotension: Code(s): I95.1 - Orthostatic hypotension Status: Acute Assessment and Plan: Patient currently denies any complaints. Denies any symptoms of dizziness. Denies any presyncope. Likely related to pain medication when he stood up. Monitor at this time. (5) Tachycardia: Code(s): R00.0 - Tachycardia, unspecified Status: Acute Assessment and Plan: Cardiology consult. Denies chest pain. Plan Continue postop care. Medically stable Subjective Date/time seen: 12/22/21 10:27 Doing okay this morning. Had episode of orthostatic hypotension overnight. Cardiology was consulted. Denies chest pain. Exam Narrative: Weight 86.8 kg BMI 29.5 Const: Other: No acute distress, well-developed well-nourished HENMT: Other: Asymmetry to the tongue consistent with prior surgery, no oral pharyngeal erythema, crowded posterior oropharynx, overbite with retrognathia Eyes: Other: Pupils are equal and reactive, no scleral icterus, no conjunctival pallor Neck: Other: Supple, no JVD, tissue changes consistent with radiation therapy in prior radical neck dissection on the right Resp: Other: Clear to auscultation bilaterally, no increased work of breathing Cardio: Other: Regular rate, regular rhythm, 2+ bilateral radial pedal pulses GI: Other: Soft, nontender, nondistended, positive bowel sounds Skin: Other: No jaundice, no pallor Neuro: Other: Alert and oriented x4, speech impediment Extrem: Other: 1+ pitting edema left lower extremity, cooling pack is in place on the left knee, postop dressing not evaluated, distal extremity is neurovascularly intact Psych: Other: Appropriate mood and affect, pleasant and cooperative Objective Data Vital Signs Vital Signs: Vital Signs - 24 hr 12/21/21 14:00 12/21/21 18:00 12/21/21 19:17 Temperature 97.1 F L 97.5 F L 97.8 F Pulse Rate 109 H 103 H 109 H Respiratory Rate 18 18 18 Blood Pressure 107/68 108/70 108/68 Pulse Oximetry 95 96 96 Oxygen Delivery 12/21/21 20:00 12/21/21 23:05 12/22/21 03:13 Temperature 97.8 F 97.6 F Pulse Rate 109 H 110 H 110 H Respiratory Rate 18 18 20 Blood Pressure 129/78 102/63 Pulse Oximetry 96 95 91 Oxygen Delivery Room Air 12/22/21 09:54 12/22/21 10:00 12/22/21 08:00 Temperature 98.4 F Pulse Rate 118 H Respiratory Rate 18 Blood Pressure 143/76 H Pulse Oximetry 94 93 Oxygen Delivery Room Air Room Air Intake/Output Intake/Output: Intake & Output 12/19/21 12/20/21 12/21/21 12/22/21 23:59 23:59 23:59 23:59 Intake Total 2290 1890 220 Output Total 800 Balance 1490 1890 220 Meds/Results Medications: Active Medications Generic Name Dose Route Start Last Admin Trade Name Freq PRN Reason Stop Dose Admin Acetaminophen 1,000 mg 12/20/21 14:09 Acetaminophen 500 Mg Tablet PO Q6H PRN Pain Rated 1-3 Aspirin 81 mg 12/21/21 09:00 12/22/21 09:23 Aspirin 81 Mg Enteric Tablet PO Not Given QAM [facility] Cyclobenzaprine HCl 10 mg 12/20/21 14:09 Cyclobenzaprine Hcl 10 Mg Tablet PO Q8H PRN Spasms Diphenhydramine HCl 25 mg 12/20/21 14:09 Diphenhydramine Hcl Inj 50 Mg/Ml Vial IV PUSH Q6H PRN Itching Divalproex Sodium 500 mg 12/20/21 17:00 12/22/21 09:23 Divalproex Sodium Er 500 Mg Tab.24h PO 500 mg BID ANDREE Administration Ezetimibe 10 mg 12/20/21 21:00 12/21/21 20:14 Ezetimibe 10 Mg Tablet PO 10 mg HS ANDREE Administration Ferrous Cardozo
[2021-12-22 10:45] LABS: Troponin I < 0.012 ng/mL (0.000-0.034)
--- NOTE | 2021-12-22 12:48 | PM.PNORT ---
Progress Note: A&P Assessment and Plan (1) Status post total left knee replacement: Onset Date: 12/20/21 Code(s): Z96.652 - Presence of left artificial knee joint Status: Acute Assessment and Plan: Postop day 2: Left total knee arthroplasty. Decreased drainage today. Redressed wound with betadine, new steristrips, and new mepilex dressing. Patient had trouble getting up today with PT. He had orthostatic hypotension. He also has had tachycardia. Cardiology was consulted and he is being worked up. Will reassess d/c tomorrow. Subjective Subjective Date/Time Seen: 12/22/21 12:48 Interval history: Patient resting comfortably in bed. Patient states pain is controlled. Drainage has decreased today. No other complaints. Notes trouble getting up with PT and had orthostatic hypotension. No SOB, chest pain, abd pain, issues urinating, or calf pain. Review of Systems Review of Systems: All systems reviewed & are unremarkable except as noted in HPI and below Constitutional: Constitutional: Denies difficulty sleeping, Denies fatigue, Denies fever(s), Denies headache(s) and Denies night sweats Eyes: Eyes: Denies loss of vision ENT: Denies dizziness, Denies headache(s) and Denies hearing loss Cardiovascular: Cardiovascular: Denies irregular heart rhythm and Denies dyspnea Respiratory: Respiratory: Denies cough and Denies dyspnea Gastrointestinal: Gastrointestinal: Denies change in bowel habits, Denies diarrhea, Denies nausea and Denies vomiting Genitourinary: Genitourinary: Denies dysuria, Denies nocturia and Denies urinary incontinence Musculoskeletal: Musculoskeletal: Denies abnormal gait Neurologic: Denies abnormal gait, Denies dizziness, Denies headache(s) and Denies loss of vision Psychiatric: Psychiatric: Denies anxiety and Denies depression Endocrine: Endocrine: Denies cold intolerance, Denies fatigue and Denies heat intolerance Exam Narrative: 71-year-old overweight male. Resting comfortably in bed. Alert and oriented x3. No acute distress. Wearing compression sock on the right. Left knee with luis wrap over wound. Wound redressed with Betadine and new steristrips today. New Mepilex dressing applied. Decreased drainage today. Moderate swelling. Small hematoma at the inferior knee. Ecchymosis. No erythema. No warmth. Range of motion limited due to pain. Calf nontender. Neurologic status intact. No varicosities. Distal pulses palpable. Light touch sensation intact. Good capillary refill. Objective Data Vital Signs Vital Signs: Vital Signs - 24 hr 12/21/21 14:00 12/21/21 18:00 12/21/21 19:17 Temperature 97.1 F L 97.5 F L 97.8 F Pulse Rate 109 H 103 H 109 H Respiratory Rate 18 18 18 Blood Pressure 107/68 108/70 108/68 Pulse Oximetry 95 96 96 Oxygen Delivery 12/21/21 20:00 12/21/21 23:05 12/22/21 03:13 Temperature 97.8 F 97.6 F Pulse Rate 109 H 110 H 110 H Respiratory Rate 18 18 20 Blood Pressure 129/78 102/63 Pulse Oximetry 96 95 91 Oxygen Delivery Room Air 12/22/21 09:54 12/22/21 10:00 12/22/21 08:00 Temperature 98.4 F Pulse Rate 118 H Respiratory Rate 18 Blood Pressure 143/76 H Pulse Oximetry 94 93 Oxygen Delivery Room Air Room Air 12/22/21 09:33 12/22/21 12:00 Temperature Pulse Rate 116 H 118 H Respiratory Rate Blood Pressure Pulse Oximetry Oxygen Delivery Intake/Output Intake/Output: Intake & Output 12/19/21 12/20/21 12/21/21 12/22/21 23:59 23:59 23:59 23:59 Intake Total 2290 1890 220 Output Total 800 Balance 1490 1890 220 Meds/Results Medications: Active Medications Generic Name Dose Route Start Last Admin Trade Name Freq PRN Reason Stop Dose Admin Acetaminophen 1,000 mg 12/20/21 14:09 Acetaminophen 500 Mg Tablet PO Q6H PRN Pain Rated 1-3 Aspirin 81 mg 12/21/21 09:00 12/22/21 09:23 Aspirin 81 Mg Enteric Tablet PO Not Given QAM [facility] Cyclobenzaprine HCl 10 mg 12/20
--- NOTE | 2021-12-22 14:48 | PM.IMPN ---
Progress Note: A&P Assessment and Plan (1) Status post total left knee replacement: Onset Date: 12/20/21 Code(s): Z96.652 - Presence of left artificial knee joint Status: Acute Assessment and Plan: left leg does appear to be warm. Does not appear to be excessively red. defer to Ortho (2) History of coronary artery stent placement: Code(s): Z95.5 - Presence of coronary angioplasty implant and graft Status: Acute (3) Bipolar 1 disorder: Code(s): F31.9 - Bipolar disorder, unspecified Status: Acute Assessment and Plan: monitor (4) Orthostatic hypotension: Code(s): I95.1 - Orthostatic hypotension Status: Acute Assessment and Plan: monitor (5) Tachycardia: Code(s): R00.0 - Tachycardia, unspecified Status: Acute Assessment and Plan: Monitor. question related to sepsis. Cardiology is following (6) Fever: Code(s): R50.9 - Fever, unspecified Status: Acute Assessment and Plan: cultures have been ordered. Chest x-ray does show some basilar atelectasis versus pneumonia. Respiratory status is okay. I am not convinced he has a pneumonia. Nonetheless he is on vanc and cefepime for coverage of Hcap. I question if he has some sort of cellulitis or skin infection around the incision of his left knee. Will defer to Ortho. Subjective Date/time seen: 12/22/21 14:48 patient was transferred to IMU last night for altered mental status. Question if it was related to medication. Otherwise he did develop a fever and appears to be potentially becoming septic. He is much better today and he is alert answering questions and is actually more alert than I seen him in the last 3 days. He denies any specific complaints. Exam Narrative: General: alert and oriented Psych: appropriate mood nad affect Eyes: PERRLA Neck: Trachea midline, no new lesions Skin: no changes Lungs: CTA Cardiac: Normal S1,S2, no MGR ABD: soft, nd, nt, nbs Ext: no new lesions, no cce, Left leg is very warm to touch around the incision site Vasc: Pulses intact Objective Data Vital Signs Vital Signs: Vital Signs - 24 hr 12/21/21 18:00 12/21/21 19:17 12/21/21 20:00 Temperature 97.5 F L 97.8 F Pulse Rate 103 H 109 H 109 H Respiratory Rate 18 18 18 Blood Pressure 108/70 108/68 Pulse Oximetry 96 96 96 Oxygen Delivery Room Air 12/21/21 23:05 12/22/21 03:13 12/22/21 09:54 Temperature 97.8 F 97.6 F Pulse Rate 110 H 110 H Respiratory Rate 18 20 Blood Pressure 129/78 102/63 Pulse Oximetry 95 91 94 Oxygen Delivery Room Air 12/22/21 10:00 12/22/21 08:00 12/22/21 09:33 Temperature 98.4 F Pulse Rate 118 H 116 H Respiratory Rate 18 Blood Pressure 143/76 H Pulse Oximetry 93 Oxygen Delivery Room Air 12/22/21 12:00 Temperature Pulse Rate 118 H Respiratory Rate Blood Pressure Pulse Oximetry Oxygen Delivery Intake/Output Intake/Output: Intake & Output 12/19/21 12/20/21 12/21/21 12/22/21 23:59 23:59 23:59 23:59 Intake Total 2290 1890 220 Output Total 800 Balance 1490 1890 220 Meds/Results Medications: Active Medications Generic Name Dose Route Start Last Admin Trade Name Freq PRN Reason Stop Dose Admin Acetaminophen 1,000 mg 12/20/21 14:09 Acetaminophen 500 Mg Tablet PO Q6H PRN Pain Rated 1-3 Aspirin 81 mg 12/21/21 09:00 12/22/21 09:23 Aspirin 81 Mg Enteric Tablet PO Not Given QAM [facility] Cyclobenzaprine HCl 10 mg 12/20/21 14:09 Cyclobenzaprine Hcl 10 Mg Tablet PO Q8H PRN Spasms Diphenhydramine HCl 25 mg 12/20/21 14:09 Diphenhydramine Hcl Inj 50 Mg/Ml Vial IV PUSH Q6H PRN Itching Divalproex Sodium 500 mg 12/20/21 17:00 12/22/21 09:23 Divalproex Sodium Er 500 Mg Tab.24h PO 500 mg BID ANDREE Administration Ezetimibe 10 mg 12/20/21 21:00 12/21/21 20:14 Ezetimibe 10 Mg Tablet PO 10 mg HS [facility] Admi
[2021-12-22 16:23] LABS: Add Urine Microscopic? YES; Appearance Urine Clear (Clear); Bilirubin Urine Negative (Negative); Blood Urine Trace-Intact (Negative); Color Urine Yellow (Yellow); Glucose Urine UA Negative (Negative); Ketones Urine 1+ mg/dL (Negative); Leukocyte Esterase Ur Negative LEU/UL (Negative); Nitrate Urine Negative (Negative); Protein Urine Trace mg/dL (Negative); Urobilinogen Urine 0.2 mg/dL (<2.0)
[2021-12-22 16:27] LABS: Bacteria Urine Trace /hpf; WBC Urine 0-3 /hpf
[2021-12-22] MEDS: EZETIMIBE 10 MG TABLET PO (20:11)
[2021-12-22] MEDS: QUEtiapine FUMARATE 100 MG TABLET 600 MG PO (20:11)
[2021-12-22] MEDS: METOPROLOL TARTRATE 6.25 MG TABLET PO (20:11)
[2021-12-22] MEDS: ROSUVASTATIN 10 MG TABLET 40 MG PO (20:11)
[2021-12-22] MEDS: NALOXONE HCL 0.4 MG/ML VIAL 0.1 MG IV PUSH (21:28)
[2021-12-22 21:29] LABS: Carboxyhemoglobin 0.3 % THb (0-2.0); Fractional Inspired Oxygen 90 %; HCO3 ABG 24.9 mEq/l (22.0-26.0); Methemoglobin ABG 0.3 %THb (0-1.5); Oxygen Content ABG 15.1 %vol (16.0-22.0); Oxygen Saturation ABG 99.3 % (95.0-100.0); Oxyhemoglobin 97.5 % THb (90.0-100.0); PCO2 ABG 29.3 mmHg (35.0-45.0); PO2 ABG 162.7 mmHg (80.0-100.0); PO2 FiO2 Ratio Arterial Blood 1.81 %; Reduced Hemoglobin 1.9 %THb (0-5.0); Total Hemoglobin 10.8 g/dL (12.0-18.0)
[2021-12-22 21:30] LABS: Modified Allen's Test Pass; Site Drawn LEFT RADIAL; pH ABG 7.548 (7.350-7.450)
[2021-12-22] MEDS: SODIUM CHLORIDE 0.9% IV 1,000 ML 999 ML IV CONT ×2 (21:30→21:35)
[2021-12-22 21:31] LABS: Device NON-REBREATHER MASK
--- NOTE | 2021-12-22 21:37 | ECG_ITS ---
Measurements Intervals [place] Rate: 112 P: 9 WI: 157 QRS: -41 QRSD: 129 T: 93 QT: 282 QTc: 386 Interpretive Statements SINUS TACHYCARDIA LEFT VENTRICULAR HYPERTROPHY AND ST-T CHANGE POSSIBLE LATERAL MYOCARDIAL INFARCTION , OF INDETERMINATE AGE Electronically Signed On 12-27-2021 11:41:15 CDT by Chago Connor M.D.
[2021-12-22] MEDS: flumazeniL 0.5 MG/5 ML VIAL IV PUSH (21:48)
[2021-12-22 22:29] LABS: Glucose Point of Care 157 mg/dl (65-105)
--- NOTE | 2021-12-22 22:30 | PC.NURSE ---
Patient from [address] [place] [address] as a rapid response. Patient has experienced decreased LOC. Able to arouse to light stimuli. Pupils equal, round and responsive to light. Blood pressure currently stable at this time. Patient receiving 2liter bolus. Start on bipap 12/6 titrate for 94% or higher. Start broad spectrum antibiotics as patient has a low grade fever per temp ryder inserted. Start scheduled respiratory treatments. May have IV tylenol. Continue to monitor at this time.
--- NOTE | 2021-12-22 22:37 | PC.NURSE ---
2100 SHOW HOST OR HOSTESS NOTIFIED ME THAT THE PT HAD A TEMP OF 102 AXILLARY AND A LOW BP. PT HR HAD BEEN HIGH CONSISTENTLY IN THE 120S. METOPROL HAD BEEN STARTED AT THE 2100 MED PASS FOR THE INCREASED HR. PULLED TYLENOL FOR PT TEMP WHEN ATTEMPTING TO GIVE THE MEDICATION PT WAS NOT RESPONSIVE HE WAS VERY DROWSY. EARLIER IN THE SHIFT THE PT WAS A&O X4 AND TOOK HIS MEDS WITH NO PROBLEMS. CALLED A RAPID RESPONSE. PT WAS GIVEN NARCAN AND 2L BOLUS NS PLACED ON 15L 02 VITALS WERE STILL ABNORMAL AND PT WAS STILL NOT RESPONDING. PT WAS TRANSFERRED TO ICU 4. CALLED DR GUTIERREZ TO UPDATE HIM ON PT STATUS. ALSO CALLED PT WHO STATED SHE WOULD BE UP TOMORROW TO SEE HIM.
[2021-12-22 23:09] LABS: Hematocrit 27.9 % (42.0-52.0); Hemoglobin 9.3 g/dL (14.0-18.0); Mean Corpuscular HGB Conc 33.3 g/dl (32-36); Mean Corpuscular Volume 95.9 fl (80-100); Mean Platelet Volume 9.2 fl (7.4-10.4); Platelet Count Result 109 k/mm3 (150-375); Red Blood Count 2.91 M/mm3 (4.6-6.20); Red Cell Distribution Width 14.5 % (11.5-14.5); White Blood Count 11.6 K/mm3 (4.5-10.0)
--- NOTE | 2021-12-22 23:20 | PM.EVENT ---
Event Note Event Note Event Note: rapid response was called after patient became unresponsive. patient is status post left knee total replacement 2 days ago. objective: Patient unresponsive in supine position semi upright in bed, breathing is shallow however defending airway blood pressure 84/51 oxygen saturation 97% on room air, heart rate 130 subjective: Unresponsive general: Patient in semi upright position in bed unresponsive HEENT: Atraumatic normocephalic extraocular movements intact pupils are 2 mm in diameter bilaterally face is symmetric neck is supple no JVD respiratory: Coarse breath sounds no wheezes rhonchi or crackles cardiovascular: Tachycardic S1-S2 heard no murmurs rubs or gallops abdomen: Soft nondistended no hepatosplenomegaly no rebound tenderness muscle skeletal: Left knee dressing and cast in place central never system: Patient is unresponsive to painful stimuli muscle tone is good throughout face is symmetric skin: moist and warm assessment and plan. 1. Altered mental status: Suspect related to meds patient received Romazicon and Narcan with brief return of consciousness however went back to unresponsive was able to localize at some point with painful stimuli. Patient transferred to ICU for possible intubation however patient started having a spontaneous movement and opening of his eyes for which we decided to place patient on BiPAP for work of breathing and airway support. ABG, CBC, BMP, lactic acid, blood cultures, chest x-ray, CT head in a.m. supportive care 2. Right knee total arthroplasty 3. Right lower lobe of infiltrate: patient started on Zosyn and vancomycin, cultures in progress
[2021-12-22 23:23] LABS: Lactic Acid Reflex 1.9 mmol/L (0.7-2.0)
[2021-12-22 23:27] LABS: Anion Gap 4 mmol/L (8-16); Blood Urea Nitrogen 9 mg/dL (9-20); Calcium 7.5 mg/dL (8.4-10.2); Carbon Dioxide 28 mmol/L (22-30); Chloride 96 mmol/L (98-107); Estimated CRCL calculation 70 ml/min; Estimated Glomerular Filt Rate > 60; Glucose 111 mg/dL (65-110); Magnesium 1.6 mg/dL (1.6-2.3); Phosphorus 4.2 mg/dL (2.5-4.5); Potassium 3.5 mmol/L (3.4-5.0); Sodium 128 mmol/L (137-145)
[2021-12-22 23:35] LABS: Band Neutrophils Percent 5 % (0-6); Lymphocytes Absolute Manual 0.11 K/mm3 (1.1-4.5); Lymphocytes Percent Manual 1 % (18-44); Monocytes Absolute Manual 1.62 K/mm3 (0.1-0.90); Monocytes Percent Manual 14 % (3-9); Neutrophils Absolute Manual 9.86 K/mm3 (1.3-6.7); Neutrophils Percent Manual 80 % (46-73); Platelet Estimate Decreased (Adequate); Poikilocytosis 1+ (NORMAL); Total Cells Counted 100
[2021-12-23] VITALS (28 sets, daily range): BP systolic 96–127; BP diastolic 53–74; PULSE 94–114; RESP 17–29; TEMP 36.4–38.6; O2SAT 94–100
--- NOTE | 2021-12-23 | ECHO_ITS ---
Patient Info Name: Sergio Coombs Age: 71 years : 1950 Gender: Male Ht: 67 in Wt: 191 lbs BSA: 2.05 m2 HR: 107 bpm BP: 117 / 64 mmHg Heart Rhythm: Sinus Rhythm Technical Quality: Fair Exam Date: 12/23/2021 7:44 AM Exam Location: [facility] Card Pulmonary Patient Status: Inpatient Admit Date: 12/22/2021 Staff Ordering Physician: Keegan Marcano MD Band Manager: Bette Gray RDCS Attending Provider: Sameer Muse MD Referring Physician: Krys CUNNINGHAM; Exam Type: CA echo doppler color flow Study Info Indications R94.31 - Abnormal electrocardiogram ECG EKG Complete two-dimensional, color flow and Doppler transthoracic echocardiogram is performed. Summary 1. Complete two-dimensional, color flow and Doppler transthoracic echocardiogram is performed. 2. Normal left ventricular size and systolic function. 3. No regional wall motion abnormalities. 4. Mild aortic valve sclerosis with no stenosis at this time. Left Ventricle Left ventricular chamber dimension is normal. Left ventricular systolic function is normal, estimated at 60-65%. The left ventricular diastolic function is grade I diastolic dysfunction. Right Ventricle Right ventricular chamber dimension is normal. Left Atria Left atrial chamber dimension is normal. Right Atria Right atrial chamber dimension is normal. Aortic Valve The aortic valve is trileaflet. There is mild aortic valve sclerosis. There is no aortic valve stenosis. Pulmonic Valve The pulmonic valve is not well visualized. Mitral Valve The mitral valve has normal leaflets. Tricuspid Valve The tricuspid valve leaflets are normal. Pericardium/Pleural The pericardium appears normal. Aorta The aortic root size at the sinus of Valsalva is normal. Left Ventricular Outflow Tract Name Value Normal LVOT 2D LVOT Diameter 2.1 cm LVOT Doppler LVOT Peak Gradient 5 mmHg LVOT Mean Gradient 3 mmHg LVOT VTI 18 cm LVOT VTI/AV VTI Ratio 0.6 LVOT Stroke Volume 62 ml LVOT CO 6.1 l/min LVOT CI 3.0 l/min/m2 Pulmonic Valve Name Value Normal RVOT Doppler RVOT Peak Gradient 3 mmHg PV Doppler PV Peak Gradient 5 mmHg Mitral Valve Name Value Normal MV Doppler MV Decel [place] 710 cm/s2 MV PHT
--- NOTE | 2021-12-23 00:27 | PC.NURSE ---
Updated Dr. Marcano regarding patient following commands and answering appropriately, just slightly drowsy. CT of the Brain without contrast to be in morning, routine.
[2021-12-23] MEDS: ALBUTEROL SULFATE NEB 2.5 MG/3 ML INH INHALATION ×4 (01:52→20:07)
[2021-12-23] MEDS: IPRATROPIUM BR 0.02% INH SOLN 0.5 MG/2.5 ML VIAL INHALATION ×4 (01:52→20:07)
[2021-12-23 06:02] LABS: Anion Gap 4 mmol/L (8-16); Blood Urea Nitrogen 8 mg/dL (9-20); Calcium 7.6 mg/dL (8.4-10.2); Carbon Dioxide 31 mmol/L (22-30); Chloride 97 mmol/L (98-107); Estimated CRCL calculation 70 ml/min; Estimated Glomerular Filt Rate > 60; Glucose 109 mg/dL (65-110); Potassium 3.7 mmol/L (3.4-5.0); Sodium 132 mmol/L (137-145)
[2021-12-23 06:05] LABS: Hematocrit 27.5 % (42.0-52.0); Hemoglobin 9.3 g/dL (14.0-18.0); Mean Corpuscular HGB Conc 33.8 g/dl (32-36); Mean Corpuscular Hemoglobin 31.8 pg (26-34); Mean Corpuscular Volume 94.2 fl (80-100); Mean Platelet Volume 9.8 fl (7.4-10.4); Platelet Count Result 120 k/mm3 (150-375); Red Blood Count 2.92 M/mm3 (4.6-6.20); Red Cell Distribution Width 14.4 % (11.5-14.5); White Blood Count 11.8 K/mm3 (4.5-10.0)
[2021-12-23] MEDS: PYRIDOSTIGMINE BROMIDE 60 MG TABLET PO ×3 (09:00→17:34)
[2021-12-23] MEDS: SENNA/DOCUSATE SODIUM TABLET 2 TAB PO ×2 (09:00→17:33)
[2021-12-23] MEDS: predniSONE 10 MG TABLET PO (09:00)
[2021-12-23] MEDS: ASPIRIN 81 MG ENTERIC TABLET PO (09:00)
[2021-12-23] MEDS: DIVALPROEX SODIUM ER 500 MG TAB.24H PO ×2 (09:01→17:34)
[2021-12-23] MEDS: FERROUS SULFATE 324 MG TABLET PO (09:01)
[2021-12-23] MEDS: METOPROLOL TARTRATE 6.25 MG TABLET PO (09:01)
[2021-12-23] MEDS: polyethylene glycoL 3350 17 GM POWD.PACK PO (09:05)
[2021-12-23] MEDS: ACETAMINOPHEN 325 MG TABLET 650 MG PO ×2 (12:14→20:29)
--- NOTE | 2021-12-23 12:21 | PCPTNOTE ---
Spoke with RN, pt is appropriate to be seen by therapy this afternoon.
--- NOTE | 2021-12-23 14:52 | PCOTNOTE ---
Pt. not seen on this day due to transfer to ICU for unresponsiveness. Therapy will follow up with nursing regarding continuation of services, as it does not appear that pt. has had a change in medical status impacting treatment.
--- NOTE | 2021-12-23 15:25 | PC.NURSE ---
This patient, Sergio Coombs, was received from ICU on 12/23/21 at 1505. Report received from TONI Bahena. Patient/family oriented to unit policies and routines
--- NOTE | 2021-12-23 16:07 | PM.PNORT ---
Progress Note: A&P Assessment and Plan (1) Status post total left knee replacement: Onset Date: 12/20/21 Code(s): Z96.652 - Presence of left artificial knee joint Status: Acute Assessment and Plan: Postoperative day 3 status post total knee arthroplasty. Patient was admitted to the ICU yesterday evening. Feeling much better now. Symptoms possibly related to narcotic pain medication. Complex medical comorbidities. Examination Currently Afebrile. Wound without drainage today. Ecchymosis and swelling about the knee. Moderate warmth. Fair quad function. Mild to moderate calf swelling. Ultrasound was negative. Impression Left knee exam findings consistent with hemarthrosis. Hemodynamically stable. Likely will be transferred back to the regular floor today. Appreciate internet marketing intern and hospitalist care. Continue therapy as able. Discharge home when ready. Limit narcotics. Subjective Subjective Date/Time Seen: 12/23/21 16:07 Objective Data Vital Signs Vital Signs: Vital Signs - 24 hr 12/22/21 18:10 12/22/21 20:11 12/22/21 20:00 Temperature 37.1 C Pulse Rate 117 H 124 H Respiratory Rate 28 H Blood Pressure 128/69 Pulse Oximetry 92 Oxygen Delivery Room Air Oxygen Flow Rate Fraction of Inspired Oxygen 12/22/21 21:00 12/22/21 21:20 12/22/21 21:26 Temperature 38.9 C H Pulse Rate 120 H 117 H 114 H Respiratory Rate 18 14 20 Blood Pressure 90/52 L 82/48 L 80/58 L Pulse Oximetry 93 89 L 100 Oxygen Delivery Oxygen Flow Rate Fraction of Inspired Oxygen 12/22/21 21:52 12/22/21 21:39 12/22/21 22:20 Temperature Pulse Rate 110 H 112 H 105 H Respiratory Rate 20 22 H 27 H Blood Pressure 91/55 L 98/58 L Pulse Oximetry 98 99 100 Oxygen Delivery BiPAP Oxygen Flow Rate Fraction of Inspired Oxygen 12/22/21 22:57 12/22/21 23:16 12/22/21 23:17 Temperature 38.7 C H Pulse Rate 113 H Respiratory Rate Blood Pressure Pulse Oximetry Oxygen Delivery Non-Rebreather Mask Oxygen Flow Rate 15 Fraction of Inspired Oxygen 12/22/21 22:07 12/22/21 23:38 12/22/21 22:15 Temperature Pulse Rate 105 H 113 H 105 H Respiratory Rate 42 H 27 H 26 H Blood Pressure 106/64 104/57 L Pulse Oximetry 100 100 100 Oxygen Delivery BiPAP Oxygen Flow Rate Fraction of Inspired Oxygen 30 12/22/21 22:30 12/22/21 23:00 12/22/21 23:47 Temperature 38.5 C H 38.6 C H 38.8 C H Pulse Rate 106 H 111 H Respiratory Rate 23 H 23 H Blood Pressure 112/67 101/66 Pulse Oximetry 100 100 Oxygen Delivery Oxygen Flow Rate Fraction of Inspired Oxygen 12/23/21 00:25 12/23/21 00:25 12/23/21 00:00 Temperature 38.6 C H Pulse Rate 105 H 106 H 114 H Respiratory Rate 29 H 27 H Blood Pressure 103/60 Pulse Oximetry 95 95 Oxygen Delivery Nasal Cannula Oxygen Flow Rate 2 Fraction of Inspired Oxygen 12/23/21 01:55 12/23/21 01:59 12/23/21 02:00 Temperature Pulse Rate 97 94 Respiratory Rate 23 H Blood Pressure Pulse Oximetry 98 Oxygen Delivery Nasal Cannula Oxygen Flow Rate 2 Fraction of Inspired Oxygen 12/23/21 02:00 12/23/21 03:07 12/23/21 04:00 Temperature 37.8 C H 37.9 C H Pulse Rate 95 101 H 101 H Respiratory Rate 21 H 23 H 23 H Blood Pressure 100/63 120/66 Pulse Oximetry 100 97 100 Oxygen Delivery Nasal Cannula Oxygen Flow Rate 2 Fraction of Inspired Oxygen 12/23/21 04:00 12/23/21 05:19 12/23/21 06:00 Temperature 38.2 C H Pulse Rate 100 107 H Respiratory Rate Blood Pressure Pulse Oximetry Oxygen Delivery Oxygen Flow Rate Fraction of Inspired Oxygen 12/23/21 06:00 12/23/21 05:49 12/23/21 08:37 Temperature 38.2 C H 38.2 C H Pulse Rate 107 H 103 H Respiratory Rate 20 22 H Blood Pressure 96/63 L Pulse Oximetry 99 Oxygen Delivery Oxygen Flow Rate Fraction of Inspired Oxygen 12/23/21 08:39 12/23/21 08:47 12/23/21 08:51
[2021-12-23] MEDS: ROSUVASTATIN 10 MG TABLET 40 MG PO (20:24)
[2021-12-23] MEDS: EZETIMIBE 10 MG TABLET PO (20:25)
[2021-12-24] VITALS (18 sets, daily range): BP systolic 107–124; BP diastolic 62–74; PULSE 89–118; RESP 18–20; TEMP 36.4–37.3; O2SAT 91–96
[2021-12-24] MEDS: IPRATROPIUM BR 0.02% INH SOLN 0.5 MG/2.5 ML VIAL INHALATION ×4 (02:43→20:28)
[2021-12-24] MEDS: ALBUTEROL SULFATE NEB 2.5 MG/3 ML INH INHALATION ×4 (02:43→20:29)
[2021-12-24 06:53] LABS: Mean Corpuscular HGB Conc 34.6 g/dl (32-36); Mean Corpuscular Hemoglobin 32.3 pg (26-34); Mean Corpuscular Volume 93.2 fl (80-100); Mean Platelet Volume 9.9 fl (7.4-10.4); Platelet Count Result 132 k/mm3 (150-375); Red Blood Count 2.79 M/mm3 (4.6-6.20); Red Cell Distribution Width 14.6 % (11.5-14.5); White Blood Count 9.8 K/mm3 (4.5-10.0)
[2021-12-24 07:17] LABS: Anion Gap 4 mmol/L (8-16); Blood Urea Nitrogen 11 mg/dL (9-20); Calcium 7.7 mg/dL (8.4-10.2); Carbon Dioxide 29 mmol/L (22-30); Chloride 98 mmol/L (98-107); Estimated CRCL calculation 70 ml/min; Estimated Glomerular Filt Rate > 60; Glucose 118 mg/dL (65-110); Potassium 3.6 mmol/L (3.4-5.0); Sodium 131 mmol/L (137-145)
[2021-12-24] MEDS: ACETAMINOPHEN 325 MG TABLET 650 MG PO (08:58)
[2021-12-24] MEDS: PYRIDOSTIGMINE BROMIDE 60 MG TABLET PO ×3 (09:01→16:52)
[2021-12-24] MEDS: ASPIRIN 81 MG ENTERIC TABLET PO (09:01)
[2021-12-24] MEDS: FERROUS SULFATE 324 MG TABLET PO (09:01)
[2021-12-24] MEDS: DIVALPROEX SODIUM ER 500 MG TAB.24H PO ×2 (09:01→16:52)
[2021-12-24] MEDS: predniSONE 10 MG TABLET PO (09:01)
--- NOTE | 2021-12-24 12:09 | PM.IMPN ---
Progress Note: A&P Assessment and Plan (1) Status post total left knee replacement: Onset Date: 12/20/21 Code(s): Z96.652 - Presence of left artificial knee joint Status: Acute Assessment and Plan: left leg does appear to be warm. Does not appear to be excessively red. Ortho felt this was related to hemarthrosis. I will continue antibiotics at this time as white count did improve and fever improved. Source of any potential infection unknown (2) History of coronary artery stent placement: Code(s): Z95.5 - Presence of coronary angioplasty implant and graft Status: Acute (3) Bipolar 1 disorder: Code(s): F31.9 - Bipolar disorder, unspecified Status: Acute Assessment and Plan: monitor (4) Orthostatic hypotension: Code(s): I95.1 - Orthostatic hypotension Status: Acute Assessment and Plan: monitor (5) Tachycardia: Code(s): R00.0 - Tachycardia, unspecified Status: Acute Assessment and Plan: Monitor. question related to sepsis. Cardiology is following (6) Fever: Code(s): R50.9 - Fever, unspecified Status: Acute Assessment and Plan: cultures have been ordered. Chest x-ray does show some basilar atelectasis versus pneumonia. Respiratory status is okay. I am not convinced he has a pneumonia. Nonetheless he is on vanc and cefepime for coverage of Hcap. I question if he has some sort of cellulitis or skin infection around the incision of his left knee. Will defer to Ortho. Ortho felt this might related hemarthrosis. (7) Pneumonia: Code(s): J18.9 - Pneumonia, unspecified organism Status: Acute Assessment and Plan: question of continue iv abx Subjective Date/time seen: 12/24/21 12:09 No complaints Exam Narrative: General: alert and oriented Psych: appropriate mood nad affect Eyes: PERRLA Neck: Trachea midline, no new lesions Skin: no changes Lungs: CTA Cardiac: Normal S1,S2, no MGR ABD: soft, nd, nt, nbs Ext: no new lesions, no cce, Left leg is very warm to touch around the incision site Vasc: Pulses intact Objective Data Vital Signs Vital Signs: Vital Signs - 24 hr 12/23/21 12:14 12/23/21 13:51 12/23/21 13:59 Temperature 100.8 F H 101.3 F H Pulse Rate 101 H Respiratory Rate 22 H Blood Pressure Pulse Oximetry Oxygen Delivery 12/23/21 14:01 12/23/21 15:17 12/23/21 17:44 Temperature 98.8 F 97.5 F L Pulse Rate 105 H 100 Respiratory Rate 24 H 20 Blood Pressure 115/68 Pulse Oximetry 94 Oxygen Delivery 12/23/21 20:10 12/23/21 20:00 12/23/21 20:00 Temperature Pulse Rate 111 H 109 H Respiratory Rate 20 Blood Pressure Pulse Oximetry 94 Oxygen Delivery Room Air 12/24/21 00:00 12/24/21 00:00 12/23/21 20:20 Temperature 99.2 F Pulse Rate 118 H 116 H 111 H Respiratory Rate 18 20 Blood Pressure 116/70 Pulse Oximetry 92 Oxygen Delivery 12/24/21 02:43 12/24/21 05:30 12/24/21 04:00 Temperature 99.0 F Pulse Rate 91 105 H 104 H Respiratory Rate 18 18 Blood Pressure 107/62 Pulse Oximetry 93 Oxygen Delivery 12/24/21 07:30 12/24/21 07:32 12/24/21 07:41 Temperature Pulse Rate 100 100 98 Respiratory Rate 18 18 20 Blood Pressure Pulse Oximetry 96 Oxygen Delivery Room Air 12/24/21 08:00 12/24/21 08:00 12/24/21 08:45 Temperature 97.6 F Pulse Rate 103 H 106 H Respiratory Rate 20 Blood Pressure 123/71 Pulse Oximetry 94 Oxygen Delivery Room Air Intake/Output Intake/Output: Intake & Output 12/21/21 12/22/21 12/23/21 12/24/21 23:59 23:59 23:59 23:59 Intake Total 1890 4290 2280 740 Output Total 1800 4225 1750 Balance 1890 8940 -1945 -1010 Meds/Results Medications: Active Medications Generic Name Dose Route Start Last Admin Trade Name Freq PRN Reason Stop Dose Admin Acetaminophen 650 mg 12/22/21 15:10 12/24/21 08:58 Acetaminophen 325
--- NOTE | 2021-12-24 15:54 | PM.PNORT ---
Progress Note: A&P Assessment and Plan (1) Status post total left knee replacement: Onset Date: 12/20/21 Code(s): Z96.652 - Presence of left artificial knee joint Status: Acute Assessment and Plan: Postoperative day 4 status post total knee arthroplasty. Resting comfortably. Examination No wound drainage. Swelling is slightly improved proximally about the knee. Distal swelling remains significant. Ecchymosis stable. No erythema. Impression Knee swelling is slightly improved. Continue to observe the wound closely. Subjective Subjective Date/Time Seen: 12/24/21 15:54 Objective Data Vital Signs Vital Signs: Vital Signs - 24 hr 12/23/21 17:44 12/23/21 20:10 12/23/21 20:00 Temperature 36.4 C L Pulse Rate 111 H Respiratory Rate 20 Blood Pressure Pulse Oximetry 94 Oxygen Delivery Room Air 12/23/21 20:00 12/24/21 00:00 12/24/21 00:00 Temperature 37.3 C Pulse Rate 109 H 118 H 116 H Respiratory Rate 18 Blood Pressure 116/70 Pulse Oximetry 92 Oxygen Delivery 12/23/21 20:20 12/24/21 02:43 12/24/21 05:30 Temperature 37.2 C Pulse Rate 111 H 91 105 H Respiratory Rate 20 18 18 Blood Pressure 107/62 Pulse Oximetry 93 Oxygen Delivery 12/24/21 04:00 12/24/21 07:30 12/24/21 07:32 Temperature Pulse Rate 104 H 100 100 Respiratory Rate 18 18 Blood Pressure Pulse Oximetry 96 Oxygen Delivery Room Air 12/24/21 07:41 12/24/21 08:00 12/24/21 08:00 Temperature 36.4 C Pulse Rate 98 103 H 106 H Respiratory Rate 20 20 Blood Pressure 123/71 Pulse Oximetry 94 Oxygen Delivery 12/24/21 08:45 12/24/21 12:00 12/24/21 14:23 Temperature Pulse Rate 92 89 Respiratory Rate 20 Blood Pressure Pulse Oximetry Oxygen Delivery Room Air 12/24/21 14:33 12/24/21 15:51 Temperature 36.6 C Pulse Rate 92 90 Respiratory Rate 20 20 Blood Pressure 124/71 Pulse Oximetry 91 Oxygen Delivery Intake/Output Intake/Output: Intake & Output 12/21/21 12/22/21 12/23/21 12/24/21 23:59 23:59 23:59 23:59 Intake Total 1890 9790 2280 980 Output Total 3996 4225 1750 Balance 9570 5740 -1945 -770 Meds/Results Medications: Active Medications Generic Name Dose Route Start Last Admin Trade Name Freq PRN Reason Stop Dose Admin Acetaminophen 650 mg 12/22/21 15:10 12/24/21 08:58 Acetaminophen 325 Mg Tablet PO 650 mg Q6H PRN Administration Mild Pain (1-3) or Fever Albuterol 2.5 mg 12/22/21 22:18 Albuterol Sulfate Neb 2.5 Mg/3 Ml Inh INHALATION Q6HRT PRN Shortness Of Breath Albuterol 2.5 mg 12/23/21 02:00 12/24/21 14:22 Albuterol Sulfate Neb 2.5 Mg/3 Ml Inh INHALATION 2.5 mg Q6HRT ANDREE Administration Aspirin 81 mg 12/21/21 09:00 12/24/21 09:01 Aspirin 81 Mg Enteric Tablet PO 81 mg QAM ANDREE Administration Cyclobenzaprine HCl 10 mg 12/20/21 14:09 Cyclobenzaprine Hcl 10 Mg Tablet PO Q8H PRN Spasms Diphenhydramine HCl 25 mg 12/20/21 14:09 Diphenhydramine Hcl Inj 50 Mg/Ml Vial IV PUSH Q6H PRN Itching Divalproex Sodium 500 mg 12/20/21 17:00 12/24/21 09:01 Divalproex Sodium Er 500 Mg Tab.24h PO 500 mg BID ANDREE Administration Ezetimibe 10 mg 12/20/21 21:00 12/23/21 20:25 Ezetimibe 10 Mg Tablet PO 10 mg HS ANDREE Administration Ferrous Sulfate 324 mg 12/21/21 09:00 12/24/21 09:01 Ferrous Sulfate 324 Mg Tablet PO 324 mg QAM ANDREE Administration Vancomycin HCl 1,250 mg in 250 mls @ 200 mls/hr 12/23/21 00:00 12/24/21 12:05 Vancomycin 1,250 Mg/D5w 250 Ml IVPB 200 mls/hr Q18H ANDREE Administration Cefepime HCl 2 gm in 50 mls @ 100 mls/hr 12/23/21 11:00 12/24/21 12:02 Maxipime 2 Gm/D5w 50 Ml IVPB Infused Q12H ANDREE Infusion Ipratropium [place] 0.5 mg 12/22/21 22:18 Ipratropium Br 0.02% Inh Soln 0.5 Mg/2.5 Ml Vial INHALATION Q6HRT PRN Shortness Of Breath Ipratropium [place]
[2021-12-24] MEDS: SENNA/DOCUSATE SODIUM TABLET 2 TAB PO (16:52)
[2021-12-24] MEDS: QUEtiapine FUMARATE 100 MG TABLET 600 MG PO (20:22)
[2021-12-24] MEDS: ROSUVASTATIN 10 MG TABLET 40 MG PO (20:22)
[2021-12-24] MEDS: EZETIMIBE 10 MG TABLET PO (20:22)
[2021-12-25] VITALS (15 sets, daily range): BP systolic 113–132; BP diastolic 64–68; PULSE 93–120; RESP 16–20; TEMP 36.1–36.3; O2SAT 93–97
[2021-12-25] MEDS: ALBUTEROL SULFATE NEB 2.5 MG/3 ML INH INHALATION ×4 (02:04→19:44)
[2021-12-25] MEDS: IPRATROPIUM BR 0.02% INH SOLN 0.5 MG/2.5 ML VIAL INHALATION ×4 (02:04→19:44)
[2021-12-25 07:35] LABS: Vancomycin Trough < 5.0 ug/mL (10.0-20.0)
[2021-12-25] MEDS: DIVALPROEX SODIUM ER 500 MG TAB.24H PO ×2 (08:06→17:06)
[2021-12-25] MEDS: ACETAMINOPHEN 325 MG TABLET 650 MG PO ×2 (08:06→15:28)
[2021-12-25] MEDS: PYRIDOSTIGMINE BROMIDE 60 MG TABLET PO ×3 (08:06→17:06)
[2021-12-25] MEDS: SENNA/DOCUSATE SODIUM TABLET 2 TAB PO ×2 (08:06→17:06)
[2021-12-25] MEDS: ASPIRIN 81 MG ENTERIC TABLET PO (08:07)
[2021-12-25] MEDS: FERROUS SULFATE 324 MG TABLET PO (08:07)
[2021-12-25] MEDS: predniSONE 10 MG TABLET PO (08:07)
[2021-12-25] MEDS: polyethylene glycoL 3350 17 GM POWD.PACK PO (08:07)
--- NOTE | 2021-12-25 09:43 | PM.IMPN ---
Progress Note: A&P Assessment and Plan (1) Status post total left knee replacement: Onset Date: 12/20/21 Code(s): Z96.652 - Presence of left artificial knee joint Status: Acute Assessment and Plan: left leg does appear to be warm. Does not appear to be excessively red. Ortho felt this was related to hemarthrosis. I will continue antibiotics at this time as white count did improve and fever improved. Source of any potential infection unknown -culture negative. Possibly related to pneumonia. (2) History of coronary artery stent placement: Code(s): Z95.5 - Presence of coronary angioplasty implant and graft Status: Acute (3) Bipolar 1 disorder: Code(s): F31.9 - Bipolar disorder, unspecified Status: Acute Assessment and Plan: monitor (4) Orthostatic hypotension: Code(s): I95.1 - Orthostatic hypotension Status: Acute Assessment and Plan: monitor (5) Tachycardia: Code(s): R00.0 - Tachycardia, unspecified Status: Acute Assessment and Plan: Monitor. question related to sepsis. Cardiology is following (6) Fever: Code(s): R50.9 - Fever, unspecified Status: Acute Assessment and Plan: cultures have been ordered. Chest x-ray does show some basilar atelectasis versus pneumonia. Respiratory status is okay. I am not convinced he has a pneumonia. Nonetheless he is on vanc and cefepime for coverage of Hcap. I question if he has some sort of cellulitis or skin infection around the incision of his left knee. Will defer to Ortho. Ortho felt this might related hemarthrosis. (7) Pneumonia: Code(s): J18.9 - Pneumonia, unspecified organism Status: Acute Assessment and Plan: Will continue IV antibiotics Subjective Date/time seen: 12/25/21 09:43 No complaints Exam Narrative: General: alert and oriented Psych: appropriate mood nad affect Eyes: PERRLA Neck: Trachea midline, no new lesions Skin: no changes Lungs: CTA Cardiac: Normal S1,S2, no MGR ABD: soft, nd, nt, nbs Ext: no new lesions, no cce, Left leg is very warm to touch around the incision site Vasc: Pulses intact Objective Data Vital Signs Vital Signs: Vital Signs - 24 hr 12/24/21 12:00 12/24/21 14:23 12/24/21 14:33 Temperature Pulse Rate 92 89 92 Respiratory Rate 20 20 Blood Pressure Pulse Oximetry Oxygen Delivery 12/24/21 15:51 12/24/21 16:00 12/24/21 20:24 Temperature 97.9 F Pulse Rate 90 94 96 Respiratory Rate 20 18 Blood Pressure 124/71 Pulse Oximetry 91 Oxygen Delivery 12/24/21 20:29 12/24/21 20:36 12/24/21 21:50 Temperature 97.7 F Pulse Rate 96 99 108 H Respiratory Rate 18 20 Blood Pressure 122/74 Pulse Oximetry 94 96 Oxygen Delivery Room Air 12/24/21 20:00 12/24/21 20:00 12/25/21 00:00 Temperature Pulse Rate 106 H 101 H Respiratory Rate Blood Pressure Pulse Oximetry Oxygen Delivery Room Air 12/25/21 02:01 12/25/21 02:44 12/25/21 04:00 Temperature Pulse Rate 103 H 106 H 120 H Respiratory Rate 18 18 Blood Pressure Pulse Oximetry Oxygen Delivery 12/25/21 05:51 12/25/21 07:42 12/25/21 07:42 Temperature 97 F L Pulse Rate 113 H 100 100 Respiratory Rate 20 18 Blood Pressure 113/65 Pulse Oximetry 94 94 Oxygen Delivery Room Air Intake/Output Intake/Output: Intake & Output 12/22/21 12/23/21 12/24/21 12/25/21 23:59 23:59 23:59 23:59 Intake Total 4290 2280 3514 900 Output Total 1800 4225 4000 1650 Balance 3102 -4118 -768 -703 Meds/Results Medications: Active Medications Generic Name Dose Route Start Last Admin Trade Name Shayla PRN Reason Stop Dose Admin Acetaminophen 650 mg 12/22/21 15:10 12/25/21 08:06 Acetaminophen 325 Mg Tablet PO 650 mg Q6H PRN Administration Mild Pain (1-3) or Fever Albuterol 2.5 mg 12/22/21 22:18 Albuterol Sulfate Neb 2.5 Mg/3 Ml Inh INHALATI
--- NOTE | 2021-12-25 14:07 | PM.PNORT ---
Progress Note: A&P Assessment and Plan (1) Status post total left knee replacement: Onset Date: 12/20/21 Code(s): Z96.652 - Presence of left artificial knee joint Status: Acute Assessment and Plan: Postoperative day 5 status post total knee arthroplasty. Resting comfortably. Examination More alert. No distress. No wound drainage. Swelling is again slightly improved. Distal swelling remains significant. Ecchymosis stable. No erythema. Impression Knee swelling is improving slowly. Discussed care plan with nurse. Agree with plan for rehab. Subjective Subjective Date/Time Seen: 12/25/21 14:07 Objective Data Vital Signs Vital Signs: Vital Signs - 24 hr 12/24/21 14:23 12/24/21 14:33 12/24/21 15:51 Temperature 36.6 C Pulse Rate 89 92 90 Respiratory Rate 20 20 20 Blood Pressure 124/71 Pulse Oximetry 91 Oxygen Delivery 12/24/21 16:00 12/24/21 20:24 12/24/21 20:29 Temperature Pulse Rate 94 96 96 Respiratory Rate 18 Blood Pressure Pulse Oximetry 94 Oxygen Delivery Room Air 12/24/21 20:36 12/24/21 21:50 12/24/21 20:00 Temperature 36.5 C Pulse Rate 99 108 H Respiratory Rate 18 20 Blood Pressure 122/74 Pulse Oximetry 96 Oxygen Delivery Room Air 12/24/21 20:00 12/25/21 00:00 12/25/21 02:01 Temperature Pulse Rate 106 H 101 H 103 H Respiratory Rate 18 Blood Pressure Pulse Oximetry Oxygen Delivery 12/25/21 02:44 12/25/21 04:00 12/25/21 05:51 Temperature 36.1 C L Pulse Rate 106 H 120 H 113 H Respiratory Rate 18 20 Blood Pressure 113/65 Pulse Oximetry 94 Oxygen Delivery 12/25/21 07:42 12/25/21 07:42 12/25/21 08:06 Temperature Pulse Rate 100 100 106 H Respiratory Rate 18 Blood Pressure Pulse Oximetry 94 Oxygen Delivery Room Air 12/25/21 08:06 12/25/21 12:00 12/25/21 13:16 Temperature Pulse Rate 104 H 98 Respiratory Rate 18 Blood Pressure Pulse Oximetry Oxygen Delivery Room Air 12/25/21 14:00 Temperature 36.2 C L Pulse Rate 108 H Respiratory Rate 16 Blood Pressure 132/68 Pulse Oximetry 95 Oxygen Delivery Intake/Output Intake/Output: Intake & Output 12/22/21 12/23/21 12/24/21 12/25/21 23:59 23:59 23:59 23:59 Intake Total 4290 2280 3514 2100 Output Total 1800 4225 4000 2450 Balance 7221 -7239 -486 -617 Meds/Results Medications: Active Medications Generic Name Dose Route Start Last Admin Trade Name Freq PRN Reason Stop Dose Admin Acetaminophen 650 mg 12/22/21 15:10 12/25/21 08:06 Acetaminophen 325 Mg Tablet PO 650 mg Q6H PRN Administration Mild Pain (1-3) or Fever Albuterol 2.5 mg 12/22/21 22:18 Albuterol Sulfate Neb 2.5 Mg/3 Ml Inh INHALATION Q6HRT PRN Shortness Of Breath Albuterol 2.5 mg 12/23/21 02:00 12/25/21 13:15 Albuterol Sulfate Neb 2.5 Mg/3 Ml Inh INHALATION 2.5 mg Q6HRT ANDREE Administration Aspirin 81 mg 12/21/21 09:00 12/25/21 08:07 Aspirin 81 Mg Enteric Tablet PO 81 mg QAM ANDREE Administration Cyclobenzaprine HCl 10 mg 12/20/21 14:09 Cyclobenzaprine Hcl 10 Mg Tablet PO Q8H PRN Spasms Diphenhydramine HCl 25 mg 12/20/21 14:09 Diphenhydramine Hcl Inj 50 Mg/Ml Vial IV PUSH Q6H PRN Itching Divalproex Sodium 500 mg 12/20/21 17:00 12/25/21 08:06 Divalproex Sodium Er 500 Mg Tab.24h PO 500 mg BID ANDREE Administration Ezetimibe 10 mg 12/20/21 21:00 12/24/21 20:22 Ezetimibe 10 Mg Tablet PO 10 mg HS ANDREE Administration Ferrous Sulfate 324 mg 12/21/21 09:00 12/25/21 08:07 Ferrous Sulfate 324 Mg Tablet PO 324 mg QAM ANDREE Administration Cefepime HCl 2 gm in 50 mls @ 100 mls/hr 12/23/21 11:00 12/25/21 12:09 Maxipime 2 Gm/D5w 50 Ml IVPB 100 mls/hr Q12H ANDREE Administration Vancomycin HCl 1,500 mg in 500 mls @ 333.333 mls/hr 12/25/21 08:00 12/25/21 09:38 Vancomycin 1,500 Mg/D5w 500 Ml IVPB Infused Q12H
[2021-12-25] MEDS: QUEtiapine FUMARATE 100 MG TABLET 600 MG PO (20:24)
[2021-12-25] MEDS: ROSUVASTATIN 10 MG TABLET 40 MG PO (20:25)
[2021-12-25] MEDS: EZETIMIBE 10 MG TABLET PO (20:25)
[2021-12-26] VITALS (22 sets, daily range): BP systolic 93–129; BP diastolic 58–75; PULSE 80–139; RESP 14–20; TEMP 36.6–37; O2SAT 93–99
[2021-12-26] MEDS: IPRATROPIUM BR 0.02% INH SOLN 0.5 MG/2.5 ML VIAL INHALATION ×3 (02:10→20:30)
[2021-12-26] MEDS: ALBUTEROL SULFATE NEB 2.5 MG/3 ML INH INHALATION ×3 (02:10→20:30)
[2021-12-26 06:18] LABS: Estimated CRCL calculation 79 ml/min; Estimated Glomerular Filt Rate > 60
[2021-12-26] MEDS: DIVALPROEX SODIUM ER 500 MG TAB.24H PO ×2 (09:05→16:51)
[2021-12-26] MEDS: predniSONE 10 MG TABLET PO (09:06)
[2021-12-26] MEDS: FERROUS SULFATE 324 MG TABLET PO (09:06)
[2021-12-26] MEDS: ASPIRIN 81 MG ENTERIC TABLET PO (09:06)
[2021-12-26] MEDS: ACETAMINOPHEN 325 MG TABLET 650 MG PO (09:06)
[2021-12-26] MEDS: PYRIDOSTIGMINE BROMIDE 60 MG TABLET PO ×3 (09:07→16:52)
--- NOTE | 2021-12-26 09:59 | PM.IMPN ---
Progress Note: A&P Assessment and Plan (1) Status post total left knee replacement: Onset Date: 12/20/21 Code(s): Z96.652 - Presence of left artificial knee joint Status: Acute Assessment and Plan: left leg does appear to be warm. Does not appear to be excessively red. Ortho felt this was related to hemarthrosis. I will continue antibiotics at this time as white count did improve and fever improved. Source of any potential infection unknown -culture negative. Possibly related to pneumonia. (2) History of coronary artery stent placement: Code(s): Z95.5 - Presence of coronary angioplasty implant and graft Status: Acute (3) Bipolar 1 disorder: Code(s): F31.9 - Bipolar disorder, unspecified Status: Acute Assessment and Plan: monitor (4) Orthostatic hypotension: Code(s): I95.1 - Orthostatic hypotension Status: Acute Assessment and Plan: monitor (5) Tachycardia: Code(s): R00.0 - Tachycardia, unspecified Status: Acute Assessment and Plan: Monitor. question related to sepsis. Cardiology is following (6) Fever: Code(s): R50.9 - Fever, unspecified Status: Acute Assessment and Plan: Likely related to pneumonia. Would recommend oral Levaquin 750x2 days on discharge. (7) Pneumonia: Code(s): J18.9 - Pneumonia, unspecified organism Status: Acute Assessment and Plan: 2 more days of Levaquin on discharge. Plan Okay to discharge Subjective Date/time seen: 12/26/21 09:59 No complaints, feeling good this morning Exam Narrative: General: alert and oriented Psych: appropriate mood nad affect Eyes: PERRLA Neck: Trachea midline, no new lesions Skin: no changes Lungs: CTA Cardiac: Normal S1,S2, no MGR ABD: soft, nd, nt, nbs Ext: no new lesions, no cce, Left leg is very warm to touch around the incision site Vasc: Pulses intact Objective Data Vital Signs Vital Signs: Vital Signs - 24 hr 12/25/21 12:00 12/25/21 13:16 12/25/21 14:00 Temperature 97.1 F L Pulse Rate 104 H 98 108 H Respiratory Rate 18 16 Blood Pressure 132/68 Pulse Oximetry 95 Oxygen Delivery 12/25/21 16:00 12/25/21 19:40 12/25/21 19:40 Temperature Pulse Rate 101 H 94 94 Respiratory Rate 18 Blood Pressure Pulse Oximetry 93 Oxygen Delivery Room Air 12/25/21 19:48 12/25/21 22:00 12/25/21 20:00 Temperature 97.4 F L Pulse Rate 99 93 96 Respiratory Rate 18 18 Blood Pressure 127/64 Pulse Oximetry 97 Oxygen Delivery 12/26/21 00:00 12/26/21 02:10 12/26/21 02:20 Temperature Pulse Rate 99 102 H 97 Respiratory Rate 18 18 Blood Pressure Pulse Oximetry Oxygen Delivery 12/26/21 04:00 12/26/21 06:00 12/26/21 08:00 Temperature 97.9 F 98 F Pulse Rate 100 80 84 Respiratory Rate 18 18 Blood Pressure 104/58 L 110/60 Pulse Oximetry 96 97 Oxygen Delivery 12/26/21 09:05 12/26/21 09:12 Temperature Pulse Rate Respiratory Rate 18 18 Blood Pressure Pulse Oximetry Oxygen Delivery Intake/Output Intake/Output: Intake & Output 12/23/21 12/24/21 12/25/21 12/26/21 23:59 23:59 23:59 23:59 Intake Total 2280 3514 3940 1150 Output Total 4225 4000 3250 2100 Balance -9091 -387 690 -196 Meds/Results Medications: Active Medications Generic Name Dose Route Start Last Admin Trade Name Nawafq PRN Reason Stop Dose Admin Acetaminophen 650 mg 12/22/21 15:10 12/26/21 09:06 Acetaminophen 325 Mg Tablet PO 650 mg Q6H PRN Administration Mild Pain (1-3) or Fever Albuterol 2.5 mg 12/22/21 22:18 Albuterol Sulfate Neb 2.5 Mg/3 Ml Inh INHALATION Q6HRT PRN Shortness Of Breath Albuterol 2.5 mg 12/23/21 02:00 12/26/21 09:12 Albuterol Sulfate Neb 2.5 Mg/3 Ml Inh INHALATION 2.5 mg Q6HRT ANDREE Administration Aspirin 81 mg 12/21/21 09:00 12/26/21 09:06 Aspirin 81 Mg Enteric Tablet PO 81 mg
--- NOTE | 2021-12-26 13:57 | ECG_ITS ---
Measurements Intervals [place] Rate: 142 P: AL: 0 QRS: -30 QRSD: 118 T: 91 QT: 319 QTc: 492 Interpretive Statements ATRIAL FIBRILLATION WITH RAPID VENTRICULAR RESPONSE INCOMPLETE RIGHT BUNDLE BRANCH BLOCK [90+ ms QRS DURATION, TERMINAL R IN V1/V2, 40+ ms S IN I/aVL/V4/V5/V6] MODERATE VOLTAGE CRITERIA FOR LVH, CONSIDER NORMAL VARIANT [MEETS CRITERIA IN ONE OF: R(aVL), S(V1), R(V5), R(V5/V6)+S(V1)] ABNORMAL ECG COMPARED WITH 12/22/2021: ATRIAL FIBRILLATION NOW PRESENT Electronically Signed On 12-26-2021 17:11:06 CDT by Abraham Wong M.D.
[2021-12-26] MEDS: METOPROLOL TARTRATE 12.5 MG TABLET PO ×2 (14:28→21:14)
--- NOTE | 2021-12-26 15:12 | PM.PNORT ---
Progress Note: A&P Assessment and Plan (1) Status post total left knee replacement: Onset Date: 12/20/21 Code(s): Z96.652 - Presence of left artificial knee joint Status: Acute Assessment and Plan: Postop day 6: Left total knee arthroplasty. His HR increased to the 130s-140s at the time of my visit. Cardiology was notified. I agree with discharge plan to rehab/SNF due to decreased strength and stability. Discharge planning in progress. Hematoma is improving. Dressing dry and intact without drainage. Warmth improving. Fever has resolved. Discharge to rehab/SMF when medically stable. Subjective Subjective Date/Time Seen: 12/26/21 15:12 Interval history: Patient resting comfortably in bed. Son at bedside. Patient states pain is a level 6/10. No complaints. His HR was in the 130-140 at the time of my visit. Cardiology has been notified. No CP, SOB, or other complaints. Review of Systems Review of Systems: All systems reviewed & are unremarkable except as noted in HPI and below Exam Narrative: 71-year-old overweight male. Resting comfortably in bed. Alert and oriented x3. No acute distress. Wearing compression socks bilaterally. Dressing dry and intact without drainage. Moderate swelling. Small hematoma at the inferior knee. Ecchymosis. This is improving. No erythema. Mild typical warmth. Range of motion limited due to pain. 10-45. Calf nontender. Neurologic status intact. No varicosities. Distal pulses palpable. Light touch sensation intact. Good capillary refill. Objective Data Vital Signs Vital Signs: Vital Signs - 24 hr 12/25/21 16:00 12/25/21 19:40 12/25/21 19:40 Temperature Pulse Rate 101 H 94 94 Respiratory Rate 18 Blood Pressure Pulse Oximetry 93 Oxygen Delivery Room Air 12/25/21 19:48 12/25/21 22:00 12/25/21 20:00 Temperature 97.4 F L Pulse Rate 99 93 96 Respiratory Rate 18 18 Blood Pressure 127/64 Pulse Oximetry 97 Oxygen Delivery 12/26/21 00:00 12/26/21 02:10 12/26/21 02:20 Temperature Pulse Rate 99 102 H 97 Respiratory Rate 18 18 Blood Pressure Pulse Oximetry Oxygen Delivery 12/26/21 04:00 12/26/21 06:00 12/26/21 08:00 Temperature 97.9 F 98 F Pulse Rate 100 80 84 Respiratory Rate 18 18 Blood Pressure 104/58 L 110/60 Pulse Oximetry 96 97 Oxygen Delivery 12/26/21 09:05 12/26/21 09:12 12/26/21 08:00 Temperature Pulse Rate Respiratory Rate 18 18 Blood Pressure Pulse Oximetry Oxygen Delivery Room Air 12/26/21 08:00 12/26/21 12:00 12/26/21 13:48 Temperature 98.1 F Pulse Rate 100 99 139 H Respiratory Rate 18 Blood Pressure 129/75 Pulse Oximetry 99 Oxygen Delivery 12/26/21 14:28 Temperature Pulse Rate 135 H Respiratory Rate Blood Pressure Pulse Oximetry Oxygen Delivery Intake/Output Intake/Output: Intake & Output 12/23/21 12/24/21 12/25/21 12/26/21 23:59 23:59 23:59 23:59 Intake Total 2280 3514 3940 3690 Output Total 4225 4000 3250 2100 Balance -1945 -210 250 6895 Meds/Results Medications: Active Medications Generic Name Dose Route Start Last Admin Trade Name Freq PRN Reason Stop Dose Admin Acetaminophen 650 mg 12/22/21 15:10 12/26/21 09:06 Acetaminophen 325 Mg Tablet PO 650 mg Q6H PRN Administration Mild Pain (1-3) or Fever Albuterol 2.5 mg 12/22/21 22:18 Albuterol Sulfate Neb 2.5 Mg/3 Ml Inh INHALATION Q6HRT PRN Shortness Of Breath Albuterol 2.5 mg 12/23/21 02:00 12/26/21 09:12 Albuterol Sulfate Neb 2.5 Mg/3 Ml Inh INHALATION 2.5 mg Q6HRT ANDREE Administration Aspirin 81 mg 12/21/21 09:00 12/26/21 09:06 Aspirin 81 Mg Enteric Tablet PO 81 mg QAM ANDREE Administration Cyclobenzaprine HCl 10 mg 12/20/21 14:09 Cyclobenzaprine Hcl 10 Mg Tablet PO Q8H PRN Spasms Diphenhydramine HCl 25 mg 12/20/21 14:09 Diphenhydramine Hcl Inj 50 Mg/Ml Vial IV PUSH Q6H PRN
--- NOTE | 2021-12-26 15:56 | PM.PNCARD ---
Progress Note: A&P Assessment and Plan (1) Atrial fibrillation: Code(s): I48.91 - Unspecified atrial fibrillation Status: Acute Assessment and Plan: Patient developed atrial fibrillation with rapid ventricular response around 1:30 this afternoon. Patient and his son who is at the bedside deny any history of atrial fibrillation. Currently, patient is asymptomatic with a heart rate in the 130s to 140s. He has already been given 1 dose of p.o. metoprolol by the hospitalist. Will pursue rhythm control strategy with IV amiodarone Favor this strategy over rate control as we wish to limit his commitment to anticoagulation because he has already experienced some postoperative bleeding. If sinus rhythm is restored, will only need anticoagulation for 1 month. I discussed the need for anticoagulation whether we pursue rhythm control or rate control with Dr. Muse. Transferred IMU Continue telemetry Discussed cardioembolic risk with patient and son at bedside and need for systemic a/c. Discussed possible bleeding risk associated with this. Patient and son verbalize understanding of everything discussed and agree to proceed with a/c. Will start Eliquis 5 mg p.o. b.i.d. for systemic anticoagulation ([id number] score is 2 for age, hx CAD). Monitor very closely for bleeding, daily H/H. Monitor L knee incision site (2) Status post total left knee replacement: Onset Date: 12/20/21 Code(s): Z96.652 - Presence of left artificial knee joint Status: Acute Assessment and Plan: POD 5 L total knee arthroplasty. Ortho following. (3) History of coronary artery stent placement: Code(s): Z95.5 - Presence of coronary angioplasty implant and graft Status: Acute Assessment and Plan: Continue statin. Hold ASA for now in favor of DOAC for stroke prophylaxis. (4) Abnormal EKG: Code(s): R94.31 - Abnormal electrocardiogram [ECG] [EKG] Status: Acute Subjective Date/time seen: 12/26/21 15:56 Cardiology follow up for atrial fibrillation Asked by the hospitalist to see this patient because of an occurrence of atrial fibrillation this afternoon. Patient is denying any shortness of breath, chest pain, palpitations at this time. He does not have any awareness that he is in atrial fibrillation. Denies any history of atrial fibrillation. Review of Systems Constitutional: Constitutional: Denies chills, Denies fever(s) and Denies poor appetite Eyes: Eyes: Denies eye discharge, Denies loss of vision, Denies eye pain and Denies photophobia ENT: Denies dizziness, Denies epistaxis, Denies nasal congestion and Denies sore throat Cardiovascular: Cardiovascular: Denies chest pain, Denies syncope, Denies pedal edema, Denies leg edema, Denies palpitations, Denies dyspnea, Denies dyspnea on exertion and Denies orthopnea Respiratory: Respiratory: Denies cough, Denies dyspnea, Denies dyspnea on exertion and Denies wheezing Gastrointestinal: Gastrointestinal: Denies abdominal pain, Denies diarrhea, Denies nausea and Denies vomiting Genitourinary: Genitourinary: Denies hematuria, Denies genital lesions and Denies dysuria Musculoskeletal: Musculoskeletal: Reports arthralgias, Reports joint swelling and Denies numbness Integumentary/Breasts: Skin/Breast: Denies pruritus and Denies rash Neurologic: Denies dizziness, Denies syncope, Denies loss of vision and Denies numbness Psychiatric: Psychiatric: Denies anxiety and Denies depression Endocrine: Endocrine: Denies cold intolerance, Denies heat intolerance and Denies palpitations Hematologic/Lymphatic: Hematologic/Lymphatic: Denies easy bleeding and Denies easy bruising Allergic/Immunologic: Allergic/Immunologic: Denies urticaria and Denies wheezing Exam Const: General: cooperative, comfortable, no acute distress, alert and awake Nutritional Appearance: well nourished Orientation/consciousness: patient oriented x3 HENMT: Head:
--- NOTE | 2021-12-26 16:49 | PC.NURSE ---
report called to Di MUÑOZ for pending transfer to IMU for continued care, reviewed plan of care
[2021-12-26] MEDS: SENNA/DOCUSATE SODIUM TABLET 2 TAB PO (16:51)
--- NOTE | 2021-12-26 16:55 | PC.NURSE ---
call to pt's to inform her of pt transfer and updated her on condition
--- NOTE | 2021-12-26 17:29 | PC.NURSE ---
pt transferred to room 209 via bed, oriented to new room, placed on IMU central monitoring system
[2021-12-26] MEDS: AMIODARONE 150 MG/D5W 100 ML 150 MG/100 ML BAG 600 MG IV CONT (17:46)
[2021-12-26] MEDS: AMIODARONE 360 MG/D5W 200 ML 360 MG/200 ML BAG 33.33 MG IV CONT (17:47)
--- NOTE | 2021-12-26 19:14 | PC.NURSE ---
This patient, Sergio Coombs, was received from [facility] on 12/26/21 at 1739. Patient/family oriented to unit policies and routiness. Report received from Dinah MUÑOZ.
[2021-12-26 20:49] LABS: Vancomycin Trough 11.2 ug/mL (10.0-20.0)
[2021-12-26] MEDS: EZETIMIBE 10 MG TABLET PO (21:13)
[2021-12-26] MEDS: ROSUVASTATIN 10 MG TABLET 40 MG PO (21:13)
[2021-12-26] MEDS: APIXABAN 5 MG TABLET PO (21:14)
[2021-12-26] MEDS: QUEtiapine FUMARATE 100 MG TABLET 600 MG PO (21:14)
--- NOTE | 2021-12-26 21:51 | ECG_ITS ---
Measurements Intervals [place] Rate: 94 P: 27 NM: 160 QRS: -26 QRSD: 126 T: 67 QT: 376 QTc: 471 Interpretive Statements SINUS RHYTHM LEFTWARD AXIS LEFT VENTRICULAR HYPERTROPHY NONSPECIFIC T-WAVE ABNORMALITY Electronically Signed On 12-27-2021 8:51:48 CDT by Chago Connor M.D.
[2021-12-26] MEDS: AMIODARONE 360 MG/D5W 200 ML 360 MG/200 ML BAG 16.67 MG IV CONT (23:23)
[2021-12-27] VITALS (28 sets, daily range): BP systolic 99–111; BP diastolic 57–79; PULSE 78–101; RESP 16–20; TEMP 36.5–37.1; O2SAT 92–98; BMI 29.9
[2021-12-27] MEDS: ALBUTEROL SULFATE NEB 2.5 MG/3 ML INH INHALATION ×4 (02:29→20:57)
[2021-12-27] MEDS: IPRATROPIUM BR 0.02% INH SOLN 0.5 MG/2.5 ML VIAL INHALATION ×4 (02:29→20:57)
--- NOTE | 2021-12-27 09:34 | PCOTNOTE ---
Pt. transferred to IMU secadary to [facility] with RVR, which has not been resolved. Per nursing, pt. can continue with therapy services.
--- NOTE | 2021-12-27 09:42 | PM.PNCARD ---
Progress Note: A&P Assessment and Plan (1) Atrial fibrillation: Code(s): I48.91 - Unspecified atrial fibrillation Status: Acute Assessment and Plan: Patient developed atrial fibrillation with rapid ventricular response yesterday afternoon. He has converted to sinus rhythm on amiodarone. Continue IV amiodarone for now, will order p.o. amiodarone 400mg b.i.d to start tonight Since he was only in atrial fibrillation for a brief amount of time and given hemarthrosis on POD 3 from total knee arthroplasty, will discontinue systemic anticoagulation to decrease further bleeding risk. If he has a recurrence of atrial fibrillation systemic a/c will need to be considered. Monitor very closely for bleeding, daily H/H. Monitor L knee incision site for bleeding. Hemodynamically stable. (2) Status post total left knee replacement: Onset Date: 12/20/21 Code(s): Z96.652 - Presence of left artificial knee joint Status: Acute Assessment and Plan: POD 6 s/p L total knee arthroplasty. Ortho following. (3) History of coronary artery stent placement: Code(s): Z95.5 - Presence of coronary angioplasty implant and graft Status: Acute Assessment and Plan: Continue statin. Subjective Date/time seen: 12/27/21 09:42 Cardiology follow up for atrial fibrillation Interval history: Feeling well this morning, complaining of some fatigue but states he slept well last night. Converted to NSR last night around 21:30. Denies any shortness of breath, chest pain, palpitations. Review of Systems Constitutional: Constitutional: Denies chills, Denies fever(s) and Denies poor appetite Eyes: Eyes: Denies eye discharge, Denies loss of vision, Denies eye pain and Denies photophobia ENT: Denies dizziness, Denies epistaxis, Denies nasal congestion and Denies sore throat Cardiovascular: Cardiovascular: Denies chest pain, Denies syncope, Denies pedal edema, Denies leg edema, Denies palpitations, Denies dyspnea, Denies dyspnea on exertion and Denies orthopnea Respiratory: Respiratory: Denies cough, Denies dyspnea, Denies dyspnea on exertion and Denies wheezing Gastrointestinal: Gastrointestinal: Denies abdominal pain, Denies diarrhea, Denies nausea and Denies vomiting Genitourinary: Genitourinary: Denies hematuria, Denies genital lesions and Denies dysuria Musculoskeletal: Musculoskeletal: Reports arthralgias, Reports joint swelling and Denies numbness Integumentary/Breasts: Skin/Breast: Denies pruritus and Denies rash Neurologic: Denies dizziness, Denies syncope, Denies loss of vision and Denies numbness Psychiatric: Psychiatric: Denies anxiety and Denies depression Endocrine: Endocrine: Denies cold intolerance, Denies heat intolerance and Denies palpitations Hematologic/Lymphatic: Hematologic/Lymphatic: Denies easy bleeding and Denies easy bruising Allergic/Immunologic: Allergic/Immunologic: Denies urticaria and Denies wheezing Exam Const: General: cooperative, comfortable, no acute distress, alert and awake Nutritional Appearance: well nourished Orientation/consciousness: patient oriented x3 HENMT: Head: normal to inspection, normocephalic and atraumatic Ears: hearing grossly abnormal bilaterally General nose exam: Normal external nose present, Normal nares present and no nasal discharge noted Face and sinus: normal facial exam and no erythema Mouth: No drooling and No restricted motion Throat: uvula midline Eyes: General: appearance normal, both eyes and all related structures Alignment and Position: position normal Conjunctivae: conjunctivae normal Sclera: sclerae normal Direct Ophthalmoscopy: No photophobia Neck: Neck: normal visual inspection and no JVD Thyroid: thyroid normal Carotids: no bruits Lymphatic: lymphedema not noted Chest: Chest palpation & inspection: normal inspection of the chest and no tenderness Resp: Effort & Inspection: normal respiratory effort and no
[2021-12-27 10:10] LABS: Hematocrit 24.2 % (42.0-52.0); Mean Corpuscular HGB Conc 33.1 g/dl (32-36); Mean Corpuscular Hemoglobin 31.7 pg (26-34); Mean Platelet Volume 9.1 fl (7.4-10.4); Platelet Count Result 228 k/mm3 (150-375); Red Blood Count 2.52 M/mm3 (4.6-6.20); White Blood Count 7.8 K/mm3 (4.5-10.0)
[2021-12-27] MEDS: polyethylene glycoL 3350 17 GM POWD.PACK PO (10:16)
[2021-12-27] MEDS: DIVALPROEX SODIUM ER 500 MG TAB.24H PO ×2 (10:18→17:11)
[2021-12-27] MEDS: FERROUS SULFATE 324 MG TABLET PO (10:18)
[2021-12-27] MEDS: SENNA/DOCUSATE SODIUM TABLET 2 TAB PO ×2 (10:18→17:13)
[2021-12-27] MEDS: METOPROLOL TARTRATE 12.5 MG TABLET PO ×2 (10:19→21:49)
[2021-12-27] MEDS: predniSONE 10 MG TABLET PO (10:19)
[2021-12-27] MEDS: PYRIDOSTIGMINE BROMIDE 60 MG TABLET PO ×3 (10:20→17:12)
[2021-12-27 10:24] LABS: Anion Gap 9 mmol/L (8-16); Blood Urea Nitrogen 16 mg/dL (9-20); Carbon Dioxide 32 mmol/L (22-30); Chloride 92 mmol/L (98-107); Estimated CRCL calculation 78 ml/min; Estimated Glomerular Filt Rate > 60; Glucose 130 mg/dL (65-110); Potassium 3.3 mmol/L (3.4-5.0); Sodium 133 mmol/L (137-145)
[2021-12-27] MEDS: AMIODARONE 360 MG/D5W 200 ML 360 MG/200 ML BAG 16.67 MG IV CONT (10:29)
--- NOTE | 2021-12-27 12:08 | PM.IMPN ---
Progress Note: A&P Assessment and Plan (1) Status post total left knee replacement: Onset Date: 12/20/21 Code(s): Z96.652 - Presence of left artificial knee joint Status: Acute Assessment and Plan: Per Ortho. (2) History of coronary artery stent placement: Code(s): Z95.5 - Presence of coronary angioplasty implant and graft Status: Acute Assessment and Plan: No chest pain. (3) Bipolar 1 disorder: Code(s): F31.9 - Bipolar disorder, unspecified Status: Acute Assessment and Plan: Chronic and stable (4) Orthostatic hypotension: Code(s): I95.1 - Orthostatic hypotension Status: Acute Assessment and Plan: Improved (5) Tachycardia: Code(s): R00.0 - Tachycardia, unspecified Status: Acute Assessment and Plan: Atrial fibrillation noted on EKG. Cardiology was on the case started on amiodarone. Spontaneously converted back to sinus rhythm. Per Cardiology no anticoagulation needed. No further issues at this time. (6) Fever: Code(s): R50.9 - Fever, unspecified Status: Acute (7) Pneumonia: Code(s): J18.9 - Pneumonia, unspecified organism Status: Acute Assessment and Plan: Doing okay. Respiratory status is okay. If he discharges would recommend 1-2 more days of Levaquin. Plan Okay to discharge from my standpoint Subjective Date/time seen: 12/27/21 12:08 Patient went AFib in received amiodarone IV. Spontaneously converted. Appreciate Cardiology input. Otherwise he has no new medical issues today Exam Narrative: General: alert and oriented Psych: appropriate mood nad affect Eyes: PERRLA Neck: Trachea midline, no new lesions Skin: no changes Lungs: CTA Cardiac: Normal S1,S2, no MGR ABD: soft, nd, nt, nbs Ext: no new lesions, no cce Vasc: Pulses intact Objective Data Vital Signs Vital Signs: Vital Signs - 24 hr 12/26/21 13:48 12/26/21 14:28 12/26/21 16:00 Temperature 98.1 F 98.5 F Pulse Rate 139 H 135 H 117 H Respiratory Rate 18 18 Blood Pressure 129/75 93/68 L Pulse Oximetry 99 95 Oxygen Delivery 12/26/21 16:00 12/26/21 17:46 12/26/21 17:47 Temperature Pulse Rate 119 H 126 H 126 H Respiratory Rate Blood Pressure Pulse Oximetry Oxygen Delivery 12/26/21 18:00 12/26/21 17:25 12/26/21 20:31 Temperature Pulse Rate 123 H 92 Respiratory Rate 18 Blood Pressure Pulse Oximetry Oxygen Delivery Room Air 12/26/21 20:00 12/26/21 20:42 12/26/21 21:14 Temperature 97.8 F Pulse Rate 107 H 112 H 131 H Respiratory Rate 14 20 Blood Pressure 103/64 Pulse Oximetry 93 Oxygen Delivery 12/26/21 23:23 12/26/21 23:39 12/26/21 20:00 Temperature 98.6 F Pulse Rate 90 86 124 H Respiratory Rate 18 Blood Pressure 120/63 Pulse Oximetry 95 Oxygen Delivery 12/26/21 22:00 12/27/21 00:00 12/27/21 00:00 Temperature Pulse Rate 96 84 Respiratory Rate Blood Pressure Pulse Oximetry Oxygen Delivery Room Air 12/27/21 02:00 12/27/21 02:29 12/27/21 02:37 Temperature Pulse Rate 86 101 H 91 Respiratory Rate 20 20 Blood Pressure Pulse Oximetry Oxygen Delivery 12/27/21 04:00 12/27/21 04:00 12/27/21 05:00 Temperature 97.8 F Pulse Rate 91 82 Respiratory Rate 16 Blood Pressure 99/57 L Pulse Oximetry 92 Oxygen Delivery Room Air 12/27/21 06:00 12/27/21 08:04 12/27/21 09:03 Temperature 97.7 F Pulse Rate 88 89 Respiratory Rate 16 Blood Pressure 108/61 Pulse Oximetry 97 95 Oxygen Delivery Room Air 12/27/21 09:00 12/27/21 09:10 12/27/21 10:19 Temperature Pulse Rate 89 91 98 Respiratory Rate 18 18 Blood Pressure Pulse Oximetry Oxygen Delivery 12/27/21 10:29 12/27/21 08:00 12/27/21 10:00 Temperature Pulse Rate 99 91 86 Respiratory Rate Blood Pressure Pulse Oximetry Oxygen Delivery 12/27/21 08:00 Temperature
--- NOTE | 2021-12-27 14:11 | PM.PNORT ---
Progress Note: A&P Assessment and Plan (1) Status post total left knee replacement: Onset Date: 12/20/21 Code(s): Z96.652 - Presence of left artificial knee joint Status: Acute Assessment and Plan: Postop day 7: Left total knee arthroplasty. Patient's HR is under control today with an Amiodarone drip. Mepilex removed today. Keep steri strips for another week unless they fall off. No drainage. Spoke with the nurse about putting his compression socks back on. I agree with discharge plan to rehab/SNF due to decreased strength and stability. Discharge planning in progress. Hematoma is improving. Warmth improving. Fever has resolved. Will re-evaluate discharge tomorrow. Discharge to rehab/SMF when medically stable. Subjective Subjective Date/Time Seen: 12/27/21 14:11 Interval history: Patient resting comfortably. Pain at a level 6. No other complaints. No CP, SOB, ABD pain. HE under control. Exam Narrative: 71-year-old overweight male. Resting comfortably in bed. Alert and oriented x3. No acute distress. Wearing compression socks bilaterally. Dressing dry and intact without drainage. Moderate swelling. Small hematoma at the inferior knee. Ecchymosis. This is improving. No erythema. Mild typical warmth. Range of motion limited due to pain. 10-45. Calf nontender. Neurologic status intact. No varicosities. Distal pulses palpable. Light touch sensation intact. Good capillary refill. Objective Data Vital Signs Vital Signs: Vital Signs - 24 hr 12/26/21 14:28 12/26/21 16:00 12/26/21 16:00 Temperature 98.5 F Pulse Rate 135 H 117 H 119 H Respiratory Rate 18 Blood Pressure 93/68 L Pulse Oximetry 95 Oxygen Delivery 12/26/21 17:46 12/26/21 17:47 12/26/21 18:00 Temperature Pulse Rate 126 H 126 H 123 H Respiratory Rate Blood Pressure Pulse Oximetry Oxygen Delivery 12/26/21 17:25 12/26/21 20:31 12/26/21 20:00 Temperature 97.8 F Pulse Rate 92 107 H Respiratory Rate 18 14 Blood Pressure 103/64 Pulse Oximetry 93 Oxygen Delivery Room Air 12/26/21 20:42 12/26/21 21:14 12/26/21 23:23 Temperature Pulse Rate 112 H 131 H 90 Respiratory Rate 20 Blood Pressure Pulse Oximetry Oxygen Delivery 12/26/21 23:39 12/26/21 20:00 12/26/21 22:00 Temperature 98.6 F Pulse Rate 86 124 H 96 Respiratory Rate 18 Blood Pressure 120/63 Pulse Oximetry 95 Oxygen Delivery 12/27/21 00:00 12/27/21 00:00 12/27/21 02:00 Temperature Pulse Rate 84 86 Respiratory Rate Blood Pressure Pulse Oximetry Oxygen Delivery Room Air 12/27/21 02:29 12/27/21 02:37 12/27/21 04:00 Temperature Pulse Rate 101 H 91 91 Respiratory Rate 20 20 Blood Pressure Pulse Oximetry Oxygen Delivery 12/27/21 04:00 12/27/21 05:00 12/27/21 06:00 Temperature 97.8 F Pulse Rate 82 88 Respiratory Rate 16 Blood Pressure 99/57 L Pulse Oximetry 92 Oxygen Delivery Room Air 12/27/21 08:04 12/27/21 09:03 12/27/21 09:00 Temperature 97.7 F Pulse Rate 89 89 Respiratory Rate 16 18 Blood Pressure 108/61 Pulse Oximetry 97 95 Oxygen Delivery Room Air 12/27/21 09:10 12/27/21 10:19 12/27/21 10:29 Temperature Pulse Rate 91 98 99 Respiratory Rate 18 Blood Pressure Pulse Oximetry Oxygen Delivery 12/27/21 08:00 12/27/21 10:00 12/27/21 08:00 Temperature Pulse Rate 91 86 Respiratory Rate Blood Pressure Pulse Oximetry Oxygen Delivery Room Air 12/27/21 12:00 12/27/21 12:00 12/27/21 14:00 Temperature Pulse Rate 89 100 Respiratory Rate Blood Pressure Pulse Oximetry Oxygen Delivery Room Air Intake/Output Intake/Output: Intake & Output 12/24/21 12/25/21 12/26/21 12/27/21 23:59 23:59 23:59 23:59 Intake Total 3514 3940 5680 1230 Output Total 4000 3250 4200 257 Balance -313 868 [id number] -4174 Meds/Results Medications: Active Medications Gene
[2021-12-27] MEDS: ACETAMINOPHEN 325 MG TABLET 650 MG PO (15:04)
[2021-12-27] MEDS: LORazepam (*CRX) 1 MG TABLET PO (15:04)
[2021-12-27] MEDS: oxyCODONE HCL (*CRX) 5 MG TAB IR 10 MG PO (16:01)
[2021-12-27] MEDS: AMIODARONE HCL 200 MG TABLET 400 MG PO (17:11)
[2021-12-27] MEDS: EZETIMIBE 10 MG TABLET PO (21:49)
[2021-12-27] MEDS: ROSUVASTATIN 10 MG TABLET 40 MG PO (21:49)
[2021-12-27] MEDS: QUEtiapine FUMARATE 100 MG TABLET 600 MG PO (21:50)
[2021-12-28] VITALS (23 sets, daily range): BP systolic 98–111; BP diastolic 58–62; PULSE 80–98; RESP 12–18; TEMP 36.3–36.8; O2SAT 94–96
[2021-12-28] MEDS: IPRATROPIUM BR 0.02% INH SOLN 0.5 MG/2.5 ML VIAL INHALATION ×3 (02:46→14:42)
[2021-12-28] MEDS: ALBUTEROL SULFATE NEB 2.5 MG/3 ML INH INHALATION ×3 (02:46→14:42)
[2021-12-28] MEDS: ACETAMINOPHEN 325 MG TABLET 650 MG PO (06:35)
--- NOTE | 2021-12-28 08:24 | PM.DS ---
DS: Admitting Diagnosis Discharge Date 12/28/21 Admitting Diagnosis OA Left knee DS: Discharge Diagnosis Discharge Diagnosis (1) Status post total left knee replacement: Onset Date: 12/20/21 Code(s): Z96.652 - Presence of left artificial knee joint Status: Acute (2) Atrial fibrillation: Code(s): I48.91 - Unspecified atrial fibrillation Status: Acute Plan Postop day 8: Left total knee arthroplasty. Patient had complications after surgery including hematoma and afib. He is controlled on Amiodarone. He will be discharged to SNF/Rehab. We had a lengthy discussion regarding postoperative wound care, limitations, expectations, and exercises. Patient shows good understanding. He has had initial physical therapy and is tolerating it well. DVT prophylaxis: 81 mg baby aspirin b.i.d. for 14 days. Pain medication: Percocet. Patient has followup appointment with Dr. Muse in 2 weeks. DS: Summary Hospital Course Reason for hospitalization: Total hip arthroplasty Hospital Course: Patient tolerated procedure well. Has had initial PT/OT. Patient did have bleeding from incision site. Dressing removed, cleaned with Betadine, steri strips reapplied, dressing reapplied. No drainage at the time of discharge. Status at Discharge Functional status at discharge: uses cane/walker Overall status at discharge: patient is progressing back to baseline Time Spent with Patient Time attestation: Total time spent providing and/or coordinating discharge services: Exam Narrative: Elderly 71-year-old overweight male. Resting comfortably in bed. Alert and oriented x3. Hearing loss. Moderate swelling and ecchymosis. No erythema. Hematoma looking better. Range of motion limited due to pain 5-45. Calf nontender. Neurologic status intact. No varicosities. Distal pulses palpable. DS: Data Data Completed and Pending Labs on day of discharge: Labs from last 24 hours 12/27/21 12/27/21 10:03 10:03 WBC 7.8 RBC 2.52 L Hgb 8.0 L Hct 24.2 L MCV 96.0 MCH 31.7 MCHC 33.1 RDW 15.0 H Plt Count 228 D MPV 9.1 Sodium 133 L Potassium 3.3 L Chloride 92 L Carbon Dioxide 32 H Anion Gap 9 BUN 16 Creatinine 0.80 Estim Creat Clear Calc 78 Estimated GFR > 60 Glucose 130 H Calcium 8.0 L Discharge Plan Discharge Attending physician on discharge: Sameer Muse Consulting providers: Katheryn Washington ; Mony Khoury Discharging Clinician: Izabel Zaman Anticipated Discharge Date/Time: 12/28/21 08:19 Patient Disposition: Hospital Swing Bed Activity: august shower Diet: as tolerated Wound Care Instructions: follow printed instructions Discharge Instructions: See green instruction sheets. Patient Instructions: Antibiotic Form, Pain Management (DC), Joint Replacement Surgery (DC), Knee Replacement (DC) Stand Alone Forms: General Discharge Information Follow-up/Referrals: Izabel Zaman PA [Physician Mobile Manager] - Discharge Medications: New oxycodone-acetaminophen 5-325 mg tablet 1 - 2 tablet PO Q4-6H MDD 6 PRN (Reason: pain) Qty: 30 0RF levofloxacin 750 mg tablet 750 mg PO DAILY 2 Days Qty: 2 0RF Continued trazodone 100 mg tablet 100 mg PO HS PRN (Reason: insomnia) Qty: 30 0RF prednisone 10 mg Tablet 10 mg PO QAM lorazepam 0.5 mg Tablet 1 mg PO BID PRN (Reason: Anxiety) multivitamin with minerals Tablet 1 tablet PO QAM ezetimibe 10 mg Tablet 10 mg PO HS rosuvastatin 40 mg Tablet 40 mg PO HS aspirin 81 mg Tablet,Delayed Release (Dr/Ec) 1 mg PO QAM divalproex 250 mg tablet extended release 24 hr 500 mg PO BID ferrous sulfate [iron] 325 mg (65 mg iron) Tablet 325 mg PO QAM pyridostigmine bromide 60 mg Tablet 60 mg PO TID Label Comments: 0700, 1100 & 1500 vitamin B complex [Super B Complex] Capsule 1 cap PO
[2021-12-28] MEDS: FERROUS SULFATE 324 MG TABLET PO (10:10)
[2021-12-28] MEDS: SENNA/DOCUSATE SODIUM TABLET 2 TAB PO ×2 (10:10→18:24)
[2021-12-28] MEDS: AMIODARONE HCL 200 MG TABLET 400 MG PO ×2 (10:10→18:24)
[2021-12-28] MEDS: METOPROLOL TARTRATE 12.5 MG TABLET PO ×2 (10:10→20:23)
[2021-12-28] MEDS: predniSONE 10 MG TABLET PO (10:10)
[2021-12-28] MEDS: DIVALPROEX SODIUM ER 500 MG TAB.24H PO ×2 (10:10→18:24)
[2021-12-28] MEDS: PYRIDOSTIGMINE BROMIDE 60 MG TABLET PO ×3 (10:11→18:24)
[2021-12-28] MEDS: oxyCODONE HCL (*CRX) 5 MG TAB IR PO (10:16)
[2021-12-28 16:10] LABS: EDCOVIDSCREEN Negative (Negative)
[2021-12-28] MEDS: QUEtiapine FUMARATE 100 MG TABLET 600 MG PO (20:23)
[2021-12-28] MEDS: AMOXICILLIN/CLAVULANATE K 875-125 MG TAB 1 TABLET PO (20:23)
[2021-12-28] MEDS: DOXYCYCLINE HYCLATE 100 MG TABLET PO (20:24)
[2021-12-28] MEDS: ROSUVASTATIN 10 MG TABLET 40 MG PO (20:24)
[2021-12-28] MEDS: EZETIMIBE 10 MG TABLET PO (20:24)
--- NOTE | 2021-12-28 20:57 | ADMIMU ---
This patient, Sergio Coombs, was admitted to IMU status, and placed in IMU Room 209-. Patient/family oriented to hospital policies and general routines including ID bracelet, bed and alarms, visiting hours, pain management, procedures, bathroom and other care routines, personal items, smoking policy, room service/diet, and visiting hours. Valuables list has been completed. Information on how to activate the Rapid Response Team has been discussed. Patient/Family are encouraged to report perceived risks to care and to ask questions if they do not understand what they are told or what they should do. Patient being transferred to [facility] per [facility]
== END 2021-12-28 21:02 | disposition swing bed (61) | DRG 981 ==
LOC: ANHSURGERY 16:49 → ANH2MED 16:49 → ANHICU 12-22 22:28 → ANH3MEDSUR 12-23 15:12 → ANHIMU 12-26 17:15
PROVIDERS: Chiropractor; Family Medicine; Internal Medicine; Physician Assistant Surgical; Admitting Provider Orthopaedic Surgery; Visit Provider Orthopaedic Surgery
PROC: 0SRD0J9 Replacement of Left Knee Joint with Synthetic Substitute, Cemented, Open Approach (ICD-10-PCS; CPT 27447; principal; 2021-12-20 10:30)
DX: I97.191 Other postprocedural cardiac functional disturbances following other surgery (principal); J18.9 Pneumonia, unspecified organism; M96.830 Postprocedural hemorrhage of a musculoskeletal structure following a musculoskeletal system procedure; J95.89 Other postprocedural complications and disorders of respiratory system, not elsewhere classified; M96.840 Postprocedural hematoma of a musculoskeletal structure following a musculoskeletal system procedure; M25.062 Hemarthrosis, left knee; R00.0 Tachycardia, unspecified; R40.4 Transient alteration of awareness; T40.695A Adverse effect of other narcotics, initial encounter; I48.91 Unspecified atrial fibrillation; M17.12 Unilateral primary osteoarthritis, left knee; R50.82 Postprocedural fever; I95.1 Orthostatic hypotension; Z20.822 Contact with and (suspected) exposure to COVID-19; M21.069 Valgus deformity, not elsewhere classified, unspecified knee; I25.10 Atherosclerotic heart disease of native coronary artery without angina pectoris; E78.5 Hyperlipidemia, unspecified; I50.9 Heart failure, unspecified; G70.00 Myasthenia gravis without (acute) exacerbation; F31.9 Bipolar disorder, unspecified; M19.90 Unspecified osteoarthritis, unspecified site; E66.9 Obesity, unspecified; Z86.718 Personal history of other venous thrombosis and embolism; Z85.46 Personal history of malignant neoplasm of prostate; Z86.73 Personal history of transient ischemic attack (TIA), and cerebral infarction without residual deficits; Z95.5 Presence of coronary angioplasty implant and graft; Z68.30 Body mass index [BMI] 30.0-30.9, adult; Z85.810 Personal history of malignant neoplasm of tongue; Z79.82 Long term (current) use of aspirin; Z79.52 Long term (current) use of systemic steroids
CPT/HCPCS: 36415; 36600; 71045; 73560; 80048; 80202; 81001; 82375; 82565; 82805; 82948; 83050; 83605; 83735; 84100; 84484; 85014; 85018; 85025; 85027; 86850; 86900; 86901; 87040; 87426; 93005; 93306; 94002; 94640; 97110; 97116; 97161; 97165; 97530; 97535; A9270; C1713; C1776; C9803; G0378; J0131; J0171; J0282; J0690; J0692; J1100; J1885; J2250; J2270; J2310; J2405; J2543; J2704; J2795; J3010; J3370; J7030; J7120; J7512

== ENCOUNTER 2021-12-28 21:44 | Inpatient (IN) | payer MEDICARE, SELFPAY ==
--- NOTE | ~2021-12-28 | XR_ITS ---
EXAMINATION: XR knee LT 3V DATE: 01/06/2022 11:56 INDICATION: Total left knee arthroplasty. Postop. TECHNIQUE: 2 views of left knee were obtained. COMPARISON: Left knee radiographs 12/20/2021 FINDINGS: There is a total left knee arthroplasty with patellar resurfacing in near-anatomic alignmen t. No fracture. No periprosthetic lucency to suggest loosening or infection. There is a moderate-size d knee joint effusion. There is a calcification posterior to the knee in the expected area of a Knapp 's cyst. Subcutaneous edema is noted. IMPRESSION: 1. Total left knee arthroplasty in near-anatomic alignment. 2. Moderate-sized left knee joint effusion. Reviewed, dictated and finalized at location A.
--- NOTE | 2021-12-28 21:45 | ADMGEN ---
This patient, Sergio Coobms, was admitted to 2nd Floor Room 204-1. Patient oriented to hospital policies and general routines including ID bracelet, bed and alarms, visiting hours, pain management, procedures, bathroom and other care routines, personal items, smoking policy, room service/diet, and visiting hours. Information on how to activate the Rapid Response Team has been discussed. Patient is encouraged to report perceived risks to care and to ask questions if they do not understand what they are told or what they should do.
[2021-12-28 22:00] VITALS: BP 131/65; PULSE 81; RESP 18; TEMP 36.9; O2SAT 96
[2021-12-28 22:08] VITALS: BMI 29.7
[2021-12-28 22:11] VITALS: BP 131/65; PULSE 81; RESP 18; TEMP 36.9; O2SAT 96
[2021-12-28 23:38] VITALS: BP 131/65; PULSE 81; RESP 18; TEMP 36.9; O2SAT 96
[2021-12-29 08:00] VITALS: BP 115/59; PULSE 87; RESP 16; TEMP 37.4; O2SAT 92
--- NOTE | 2021-12-29 08:26 | PM.IMHP ---
H&P: HPI History of Present Illness Date/Time: 12/29/21 08:26 Chief Complaint: Weakness, Knee replacement, Atrial fibrillation Narrative: This is a 71 year old male that is being admitted as a swing patient from [facility] . Mr. Coombs has a past medical history of Bipolar , Atrial fibrillation, knee replacement, coronary disease patient is not on residential anti platelet . Mr. Coombs was in [facility] for a knee replacement patient had a episode of Atrial Fibrillation he was started on a amiodarone drip in which he recovered . Patient surgical site had a hematoma in which it is resolving and healing well. Patient at this time will participate with physical therapy. Patient a look like he was on Levaquin but was changed to doxycycline and Augmentin which is not reflected on discharge summary. I had a conversation with Dr Garay infectious disease dr who was involved with patient care at [facility] Review of Systems Review of Systems: swollen knee, surgical knee pain All systems reviewed & are unremarkable except as noted in HPI and below PMFSH Past Medical History Medical History (HFpEF) heart failure with preserved ejection fraction Arthritis Bipolar 1 disorder CAD (coronary artery disease) Chronic hyponatremia CVA (cerebral vascular accident) DVT (deep venous thrombosis) (~2013) VIEJAS (hard of hearing) Hyperlipidemia Myasthenia gravis (~2004) Prostate cancer Radiation therapy 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cond hand tobacco smoke exposure: No Alcohol intake: never Substance use: never Gender identity (if verbalized by the patient): Male Sexual Orientation (if Verbalized by the Patient): Straight or Heterosexual Spiritual care concerns: No Comments At time as signature, I have reviewed and agree with nursing past medical, social, surgical and family history. Please see nursing chart for further information. There is no relevant family history pertinent to the presenting complaint. Meds Home Medications and Allergies Home Medications Medication Instructions Recorded Confirmed Type aspirin 81 mg tablet,delayed 81 mg PO QAM 01/07/20 12/28/21 History release ezetimibe 10 mg tablet 10 mg PO HS 01/07/20 12/28/21 History lorazepam 0.5 mg tablet 1 mg PO BID PRN Anxiety 01/07/20 12/28/21 History multivitamin with minerals 1 tablet PO QAM 01/07/20 12/28/21 History prednisone 10 mg tablet 10 mg PO QAM 01/07/20 12/28/21 History rosuvastatin 40 mg tablet 40 mg PO HS 01/07/20 12/28/21 History divalproex 250 mg tablet,extended 500 mg PO BID 04/04/21 12/28/21 History release 24 hr trazodone 100 mg tablet 100 mg PO HS PRN insomnia #30 tabs 06/25/21 12/28/21 Rx ferrous sulfate 325 mg (65 mg 325 mg PO QAM 11/23/21 12/28/21 History iron) tablet (iron) pyridostigmine bromide 60 mg tablet 60 mg PO TID 11/23/21 12/28/21 History vitamin B complex 1 cap PO QAM 11/23/21 12/28/21 History quetiapine 300 mg tablet 600 mg PO HS 12/14/21 12/28/21 History levofloxacin 750 mg tablet 750 mg PO DAILY 2 days #2 tabs 12/26/21 12/28/21 Rx oxycodone-acetaminophen 5 mg-325 1 - 2 tablet PO Q4-6H PRN pain #30 12/28/21 12/28/21 Rx
[2021-12-29] MEDS: FERROUS SULFATE 324 MG TABLET PO (08:55)
[2021-12-29] MEDS: AMOXICILLIN/CLAVULANATE K 875-125 MG TAB 1 TABLET PO ×2 (08:55→20:39)
[2021-12-29] MEDS: DIVALPROEX SODIUM ER 500 MG TAB.24H PO ×2 (08:55→16:41)
[2021-12-29] MEDS: ASPIRIN 81 MG ENTERIC TABLET PO (08:55)
[2021-12-29] MEDS: DOCUSATE SODIUM 100 MG CAPSULE PO ×2 (08:56→20:40)
[2021-12-29] MEDS: oxyCODONE/ACETAMINOPHEN (*CRX) 5-325 MG TABLET PO ×2 (08:56→16:40)
[2021-12-29] MEDS: VITAMIN B COMPLEX CAPSULE 1 CAP PO (08:57)
[2021-12-29] MEDS: predniSONE 10 MG TABLET PO (08:58)
[2021-12-29] MEDS: THERAPEUTIC MULTIVITAMINS/MINERALS TAB (*BKC) 1 TABLET PO (08:59)
[2021-12-29] MEDS: DOXYCYCLINE HYCLATE 100 MG TABLET PO ×2 (09:04→20:40)
--- NOTE | 2021-12-29 09:08 | PC.NURSE ---
This nurse spoke with patients Sariah, she states that she can bring in patients home medication Mestinon, in later today.
[2021-12-29] MEDS: PYRIDOSTIGMINE BROMIDE 60 MG TABLET PO ×2 (13:54→16:41)
[2021-12-29 16:35] VITALS: BP 119/59; PULSE 92; RESP 18; TEMP 36.8; O2SAT 95
[2021-12-29 19:27] VITALS: PULSE 92; RESP 18; O2SAT 95
[2021-12-29] MEDS: QUEtiapine FUMARATE 100 MG TABLET 600 MG PO (20:39)
[2021-12-29] MEDS: EZETIMIBE 10 MG TABLET PO (20:39)
[2021-12-29] MEDS: traZODone HCL 50 MG TABLET 100 MG PO (20:40)
[2021-12-29] MEDS: ROSUVASTATIN 10 MG TABLET 40 MG PO (20:40)
--- NOTE | 2021-12-29 20:40 | PC.NURSE ---
Beebe cath clamped at this time for bladder training, tolerated well.
--- NOTE | 2021-12-29 22:40 | PC.NURSE ---
Indwelling urinary catheter unclamped at this time, tolerated well.
[2021-12-29 23:55] VITALS: BP 122/66; PULSE 84; RESP 18; TEMP 37.1; O2SAT 94
--- NOTE | 2021-12-30 00:40 | PC.NURSE ---
Indwelling urinary catheter clamped at this time, 125mL of dark yellow clear urine emptied from collection bag, tolerated well.
--- NOTE | 2021-12-30 02:40 | PC.NURSE ---
Indwelling urinary catheter unclamped at this time, tolerated well. Patient states It feels like I have to urinate. , aware cath is still in place.
--- NOTE | 2021-12-30 04:45 | PC.NURSE ---
Indwelling urinary catheter clamped at this time, 800mL of dark yellow clear urine emptied from collection bag, pt slept through procedure.
--- NOTE | 2021-12-30 06:40 | PC.NURSE ---
Indwelling urinary catheter unclamped at this time, tolerated well.
[2021-12-30 08:00] VITALS: BP 116/68; PULSE 116; RESP 16; TEMP 36.8; O2SAT 95
[2021-12-30] MEDS: PYRIDOSTIGMINE BROMIDE 60 MG TABLET PO ×3 (09:06→16:33)
[2021-12-30] MEDS: predniSONE 10 MG TABLET PO (09:07)
[2021-12-30] MEDS: DIVALPROEX SODIUM ER 500 MG TAB.24H PO ×2 (09:07→16:33)
[2021-12-30] MEDS: VITAMIN B COMPLEX CAPSULE 1 CAP PO (09:07)
[2021-12-30] MEDS: FERROUS SULFATE 324 MG TABLET PO (09:07)
[2021-12-30] MEDS: ASPIRIN 81 MG ENTERIC TABLET PO (09:07)
[2021-12-30] MEDS: THERAPEUTIC MULTIVITAMINS/MINERALS TAB (*BKC) 1 TABLET PO (09:07)
[2021-12-30] MEDS: DOCUSATE SODIUM 100 MG CAPSULE PO ×2 (09:07→20:53)
[2021-12-30] MEDS: oxyCODONE/ACETAMINOPHEN (*CRX) 5-325 MG TABLET PO ×3 (09:09→20:53)
[2021-12-30 16:30] VITALS: BP 120/64; PULSE 95; RESP 18; TEMP 36.6; O2SAT 93
[2021-12-30] MEDS: ROSUVASTATIN 10 MG TABLET 40 MG PO (20:53)
[2021-12-30] MEDS: EZETIMIBE 10 MG TABLET PO (20:53)
[2021-12-30] MEDS: QUEtiapine FUMARATE 100 MG TABLET 600 MG PO (20:53)
[2021-12-31] VITALS: BP 104/52; PULSE 84; RESP 20; TEMP 36.6; O2SAT 92
[2021-12-31 07:53] VITALS: BP 122/68; PULSE 86; RESP 16; TEMP 36.7; O2SAT 97
[2021-12-31] MEDS: FERROUS SULFATE 324 MG TABLET PO (08:41)
[2021-12-31] MEDS: DIVALPROEX SODIUM ER 500 MG TAB.24H PO ×2 (08:42→16:31)
[2021-12-31] MEDS: THERAPEUTIC MULTIVITAMINS/MINERALS TAB (*BKC) 1 TABLET PO (08:42)
[2021-12-31] MEDS: DOCUSATE SODIUM 100 MG CAPSULE PO ×2 (08:42→20:50)
[2021-12-31] MEDS: predniSONE 10 MG TABLET PO (08:42)
[2021-12-31] MEDS: ASPIRIN 81 MG ENTERIC TABLET PO (08:42)
[2021-12-31] MEDS: VITAMIN B COMPLEX CAPSULE 1 CAP PO (08:43)
[2021-12-31] MEDS: PYRIDOSTIGMINE BROMIDE 60 MG TABLET PO ×3 (08:43→16:31)
[2021-12-31] MEDS: oxyCODONE/ACETAMINOPHEN (*CRX) 5-325 MG TABLET PO (08:46)
[2021-12-31 16:00] VITALS: BP 121/52; PULSE 93; RESP 18; TEMP 36.4; O2SAT 94
[2021-12-31] MEDS: ROSUVASTATIN 10 MG TABLET 40 MG PO (20:50)
[2021-12-31] MEDS: EZETIMIBE 10 MG TABLET PO (20:50)
[2021-12-31] MEDS: QUEtiapine FUMARATE 100 MG TABLET 600 MG PO (20:52)
[2021-12-31] MEDS: traZODone HCL 50 MG TABLET 100 MG PO (20:52)
[2022-01-01] VITALS: BP 98/52; PULSE 97; RESP 16; TEMP 37.3; O2SAT 90
[2022-01-01 05:56] LABS: Hematocrit 24.4 % (37.0-46.0); Mean Corpuscular HGB Conc 32.8 g/dL (32.0-36.0); Mean Corpuscular Hemoglobin 31.5 pg (27.0-31.0); Mean Corpuscular Volume 96.1 fL (78.0-102.0); Mean Platelet Volume 8.6 fl (8.7-11.0); Platelet Count Result 372 K/mm3 (150-420); Red Blood Count 2.54 M/mm3 (4.70-6.10); Red Cell Distribution Width 15.1 % (11.6-14.4); White Blood Count 9.4 K/mm3 (4.8-10.8)
[2022-01-01 06:05] LABS: Anion Gap 8 mmol/L (8-16); Blood Urea Nitrogen 14 mg/dL (7-18); Calcium 8.2 mg/dL (8.5-10.1); Carbon Dioxide 30 mmol/L (21-32); Chloride 100 mmol/L (98-108); Estimated CRCL calculation 77 ml/min; Estimated Glomerular Filt Rate > 60; Glucose 94 mg/dL (70-99); Osmolality Calculated 286 mOsm/kg (285-295); Potassium 3.6 mmol/L (3.5-5.1); Sodium 138 mmol/L (136-145)
[2022-01-01 08:00] VITALS: BP 111/63; PULSE 100; RESP 16; TEMP 36.6; O2SAT 93
[2022-01-01] MEDS: THERAPEUTIC MULTIVITAMINS/MINERALS TAB (*BKC) 1 TABLET PO (08:16)
[2022-01-01] MEDS: VITAMIN B COMPLEX CAPSULE 1 CAP PO (08:16)
[2022-01-01] MEDS: PYRIDOSTIGMINE BROMIDE 60 MG TABLET PO ×3 (08:16→16:56)
[2022-01-01] MEDS: ASPIRIN 81 MG ENTERIC TABLET PO (08:17)
[2022-01-01] MEDS: DIVALPROEX SODIUM ER 500 MG TAB.24H PO ×2 (08:17→16:56)
[2022-01-01] MEDS: FERROUS SULFATE 324 MG TABLET PO (08:17)
[2022-01-01] MEDS: predniSONE 10 MG TABLET PO (08:17)
[2022-01-01] MEDS: DOCUSATE SODIUM 100 MG CAPSULE PO ×2 (08:17→21:02)
[2022-01-01] MEDS: oxyCODONE/ACETAMINOPHEN (*CRX) 5-325 MG TABLET PO (11:19)
[2022-01-01 15:56] VITALS: BP 108/69; PULSE 88; RESP 16; TEMP 36.6; O2SAT 95
[2022-01-01] MEDS: EZETIMIBE 10 MG TABLET PO (21:02)
[2022-01-01] MEDS: QUEtiapine FUMARATE 100 MG TABLET 600 MG PO (21:03)
[2022-01-01] MEDS: traZODone HCL 50 MG TABLET 100 MG PO (21:03)
[2022-01-01] MEDS: ROSUVASTATIN 10 MG TABLET 40 MG PO (21:03)
[2022-01-02] VITALS: BP 103/58; PULSE 91; RESP 16; TEMP 36.6; O2SAT 93
[2022-01-02] MEDS: oxyCODONE/ACETAMINOPHEN (*CRX) 5-325 MG TABLET PO ×2 (05:54→20:19)
[2022-01-02 08:00] VITALS: BP 107/64; PULSE 90; RESP 16; TEMP 36.1; O2SAT 97
[2022-01-02] MEDS: THERAPEUTIC MULTIVITAMINS/MINERALS TAB (*BKC) 1 TABLET PO (08:35)
[2022-01-02] MEDS: VITAMIN B COMPLEX CAPSULE 1 CAP PO (08:35)
[2022-01-02] MEDS: DIVALPROEX SODIUM ER 500 MG TAB.24H PO ×2 (08:35→16:04)
[2022-01-02] MEDS: predniSONE 10 MG TABLET PO (08:35)
[2022-01-02] MEDS: PYRIDOSTIGMINE BROMIDE 60 MG TABLET PO ×3 (08:35→16:04)
[2022-01-02] MEDS: FERROUS SULFATE 324 MG TABLET PO (08:35)
[2022-01-02] MEDS: DOCUSATE SODIUM 100 MG CAPSULE PO ×2 (08:35→20:17)
[2022-01-02] MEDS: ASPIRIN 81 MG ENTERIC TABLET PO (08:36)
--- NOTE | 2022-01-02 12:19 | PM.IMPN ---
Progress Note: A&P Assessment and Plan (1) Orthopedic aftercare for joint replacement: Code(s): Z47.1 - Aftercare following joint replacement surgery Status: Acute Assessment and Plan: PT/OT evaluate and treat Fall precaution MONITOR PULSE Keep leg elevated Call Dr Muse office for a follow up appointment Call Austyn PCP for a follow up appointment (2) Atrial fibrillation: Code(s): I48.91 - Unspecified atrial fibrillation Status: Acute Assessment and Plan: Amiodarone Metoprolol monitor for Atrial fibrillation Per Cardiology patient does not need anticoagulation he can continue to stay on the ASA (3) Bipolar 1 disorder: Code(s): F31.9 - Bipolar disorder, unspecified Status: Acute Assessment and Plan: -CONTINUE HOME MEDICATION LORAZEPAM. QUETIAPINE (4) UTI symptoms: Code(s): R39.9 - Unspecified symptoms and signs involving the genitourinary system Status: Acute Assessment and Plan: mONITOR FOR S/S OF INFECTION BLADDER TRAIN CONTINUE ORAL ANTIBIOTICS INTAKE AND OUTPUT INCREASE FLUIDS AVOID CAFFEINE Catheter removed pt urinating without difficulties (5) Darlene rash of groin: Code(s): B37.89 - Other sites of candidiasis Status: Acute Assessment and Plan: Nystatin switched to powder Diflucan x1 monitor for improvement Subjective Date/time seen: 01/02/22 12:20 Interval history: Patient is feeling ok today except for his yeast infection in his groin area is moist and itching we will change from cream to powder and give a 1x dose of Diflucan and monitor how that does. patient labs have been reviewed nothing significant identified will continue to monitor . Patient is eating and drinking has remained a febrile will continue to monitor. Exam Narrative: GENERAL:Well-appearing, well-nourished, and in no acute distress. HEAD:Normocephalic, atraumatic. EYES: PERRLA and EOMI. ENT: Nares clear, no rhinorrhea or epistaxis. Mucous membranes moist. CHEST: Clear to auscultation. No respiratory distress. HEART: Regular rate and rhythm. No murmur heard. Normal peripheral pulses. ABDOMEN: Soft, nontender, nondistended, normal active bowel sounds. EXTREMITIES: DECREASED range of motion. right leg 2+ pitting edema with bruising noted and warm to touch healing stages of bruising some slight erythema noted. . SKIN: Warm, dry, no rash. NEURO: No focal deficits. Alert and oriented some confusion Very [place] [facility] Beebe catheter in place . Objective Data Vital Signs Vital Signs: Vital Signs - 24 hr 01/01/22 15:56 01/02/22 00:00 01/02/22 08:00 Temperature 98 F 97.9 F 97 F L Pulse Rate 88 91 90 Respiratory Rate 16 16 16 Blood Pressure 108/69 103/58 L 107/64 Pulse Oximetry 95 93 97 Oxygen Delivery Room Air Room Air Room Air Intake/Output Intake/Output: Intake & Output 12/30/21 12/31/21 01/01/22 01/02/22 23:59 23:59 23:59 23:59 Intake Total 2360 2780 2910 830 Output Total 1725 Balance 635 2780 2910 830 Meds/Results Medications: Active Medications Generic Name Dose Route Start Last Admin Trade Name Freq PRN Reason Stop Dose Admin Acetaminophen 650 mg 12/28/21 23:52 Acetaminophen 325 Mg Tablet PO Q4H PRN Fever Aspirin 81 mg 12/29/21 09:00 01/02/22 08:36 Aspirin 81 Mg Enteric Tablet PO 81 mg QAM ANDREE Administration Divalproex Sodium 500 mg 12/29/21 09:00 01/02/22 08:35 Divalproex Sodium Er 500 Mg Tab.24h PO 500 mg BID ANDREE Administration Docusate Sodium 100 mg 12/29/21 09:00 01/02/22 08:35 Docusate Sodium 100 Mg Capsule PO 100 mg Q12HR ANDREE Administration Ezetimibe 10 mg 12/29/21 21:00 01/01/22 21:02 Ezetimibe 10 Mg Tablet PO 10 mg HS ANDREE Administration Ferrous Sulfate 324 mg 12/29/21 09:00 01/02/22 08:35 Ferrous Sulfate 324 Mg Tablet PO 324 mg QAM ANDREE Administration Fluconazole 150 mg
[2022-01-02] MEDS: FLUCONAZOLE 150 MG TABLET PO (12:40)
[2022-01-02 16:00] VITALS: BP 111/59; PULSE 88; TEMP 36.6
[2022-01-02 19:31] VITALS: PULSE 88; RESP 16; O2SAT 97
[2022-01-02] MEDS: QUEtiapine FUMARATE 100 MG TABLET 600 MG PO (20:17)
[2022-01-02] MEDS: EZETIMIBE 10 MG TABLET PO (20:17)
[2022-01-02] MEDS: traZODone HCL 50 MG TABLET 100 MG PO (20:17)
[2022-01-02] MEDS: ROSUVASTATIN 10 MG TABLET 40 MG PO (20:18)
[2022-01-03] VITALS: BP 123/63; PULSE 92; RESP 18; TEMP 36.7; O2SAT 94
[2022-01-03 07:30] VITALS: BP 121/73; PULSE 87; RESP 16; TEMP 36.3; O2SAT 94
[2022-01-03] MEDS: FERROUS SULFATE 324 MG TABLET PO (08:22)
[2022-01-03] MEDS: VITAMIN B COMPLEX CAPSULE 1 CAP PO (08:22)
[2022-01-03] MEDS: THERAPEUTIC MULTIVITAMINS/MINERALS TAB (*BKC) 1 TABLET PO (08:22)
[2022-01-03] MEDS: oxyCODONE/ACETAMINOPHEN (*CRX) 5-325 MG TABLET PO ×3 (08:22→21:04)
[2022-01-03] MEDS: ASPIRIN 81 MG ENTERIC TABLET PO (08:22)
[2022-01-03] MEDS: predniSONE 10 MG TABLET PO (08:23)
[2022-01-03] MEDS: DIVALPROEX SODIUM ER 500 MG TAB.24H PO ×2 (08:23→17:05)
[2022-01-03] MEDS: DOCUSATE SODIUM 100 MG CAPSULE PO ×2 (08:23→21:04)
[2022-01-03] MEDS: TOLNAFTATE 1% POWDER 45 GM BTL 1 APPLIC TOPICAL ×2 (08:23→21:01)
[2022-01-03] MEDS: PYRIDOSTIGMINE BROMIDE 60 MG TABLET PO ×3 (08:23→17:05)
[2022-01-03 16:20] VITALS: BP 114/64; PULSE 90; RESP 16; TEMP 36.6; O2SAT 93
[2022-01-03 19:40] VITALS: PULSE 90; RESP 16; O2SAT 93
[2022-01-03] MEDS: ROSUVASTATIN 10 MG TABLET 40 MG PO (21:02)
[2022-01-03] MEDS: QUEtiapine FUMARATE 100 MG TABLET 600 MG PO (21:02)
[2022-01-03] MEDS: EZETIMIBE 10 MG TABLET PO (21:03)
[2022-01-03] MEDS: traZODone HCL 50 MG TABLET 100 MG PO (21:04)
--- NOTE | 2022-01-03 21:17 | PCDIET ---
called facility, states son that visited with patient yesterday, has now tested positive for COVID, pt is asymptomatic at this time, will continue to mx.
[2022-01-03 23:51] VITALS: BP 136/64; PULSE 86; RESP 17; TEMP 36.8; O2SAT 96
[2022-01-04] MEDS: oxyCODONE/ACETAMINOPHEN (*CRX) 5-325 MG TABLET PO (07:32)
[2022-01-04 08:00] VITALS: BP 134/62; PULSE 84; RESP 16; TEMP 36.4; O2SAT 94
[2022-01-04] MEDS: predniSONE 10 MG TABLET PO (08:57)
[2022-01-04] MEDS: VITAMIN B COMPLEX CAPSULE 1 CAP PO (08:57)
[2022-01-04] MEDS: DOCUSATE SODIUM 100 MG CAPSULE PO ×2 (08:57→20:32)
[2022-01-04] MEDS: THERAPEUTIC MULTIVITAMINS/MINERALS TAB (*BKC) 1 TABLET PO (08:57)
[2022-01-04] MEDS: ASPIRIN 81 MG ENTERIC TABLET PO (08:57)
[2022-01-04] MEDS: PYRIDOSTIGMINE BROMIDE 60 MG TABLET PO ×3 (08:57→16:52)
[2022-01-04] MEDS: FERROUS SULFATE 324 MG TABLET PO (08:58)
[2022-01-04] MEDS: DIVALPROEX SODIUM ER 500 MG TAB.24H PO ×2 (08:58→16:49)
[2022-01-04] MEDS: TOLNAFTATE 1% POWDER 45 GM BTL 1 APPLIC TOPICAL ×2 (09:01→20:33)
--- NOTE | 2022-01-04 09:22 | P.PNCROSS_ITS ---
Event Note Event Note Event Note: Patient has no complaints today his physical therapy is going well he sleeps we ll overnight, his pain is controlled he is tolerating his meals and is having regular bowel movements.
[2022-01-04] MEDS: oxyCODONE/ACETAMINOPHEN (*CRX) 5-325 MG TABLET 2 TABLET PO (14:55)
[2022-01-04 16:00] VITALS: BP 109/61; PULSE 80; RESP 16; TEMP 36.7; O2SAT 94
--- NOTE | 2022-01-04 16:45 | PC.NURSE ---
pt given shower in room with assist of Summer, in room, pt back in chair, no complaints at this time
[2022-01-04] MEDS: EZETIMIBE 10 MG TABLET PO (20:32)
[2022-01-04] MEDS: QUEtiapine FUMARATE 100 MG TABLET 600 MG PO (20:32)
[2022-01-04] MEDS: ROSUVASTATIN 10 MG TABLET 40 MG PO (20:32)
[2022-01-04 23:51] VITALS: BP 116/66; PULSE 82; RESP 20; TEMP 36.4; O2SAT 95
[2022-01-05 07:28] VITALS: BP 118/69; PULSE 85; RESP 16; TEMP 36.8; O2SAT 93
[2022-01-05] MEDS: oxyCODONE/ACETAMINOPHEN (*CRX) 5-325 MG TABLET 2 TABLET PO ×2 (08:02→15:04)
[2022-01-05] MEDS: FERROUS SULFATE 324 MG TABLET PO (08:02)
[2022-01-05] MEDS: THERAPEUTIC MULTIVITAMINS/MINERALS TAB (*BKC) 1 TABLET PO (08:03)
[2022-01-05] MEDS: predniSONE 10 MG TABLET PO (08:03)
[2022-01-05] MEDS: DIVALPROEX SODIUM ER 500 MG TAB.24H PO ×2 (08:03→20:38)
[2022-01-05] MEDS: VITAMIN B COMPLEX CAPSULE 1 CAP PO (08:03)
[2022-01-05] MEDS: PYRIDOSTIGMINE BROMIDE 60 MG TABLET PO ×3 (08:04→20:40)
[2022-01-05] MEDS: DOCUSATE SODIUM 100 MG CAPSULE PO ×2 (08:04→20:33)
[2022-01-05] MEDS: ASPIRIN 81 MG ENTERIC TABLET PO (08:04)
[2022-01-05] MEDS: TOLNAFTATE 1% POWDER 45 GM BTL 1 APPLIC TOPICAL ×2 (08:05→20:40)
--- NOTE | 2022-01-05 08:15 | WPDPN ---
Progress Note: A&P Assessment and Plan (1) Orthopedic aftercare for joint replacement: Code(s): Z47.1 - Aftercare following joint replacement surgery Status: Acute Assessment and Plan: PT/OT evaluate and treat Fall precaution MONITOR PULSE Keep leg elevated Call Dr Muse office for a follow up appointment Call Austyn PCP for a follow up appointment (2) Atrial fibrillation: Code(s): I48.91 - Unspecified atrial fibrillation Status: Acute Assessment and Plan: Contniue Amiodarone and Metoprolol monitor for Atrial fibrillation Per Cardiology patient does not need anticoagulation he can continue to stay on the ASA (3) Bipolar 1 disorder: Code(s): F31.9 - Bipolar disorder, unspecified Status: Acute Assessment and Plan: -CONTINUE HOME MEDICATION LORAZEPAM. QUETIAPINE (4) UTI symptoms: Code(s): R39.9 - Unspecified symptoms and signs involving the genitourinary system Status: Acute Assessment and Plan: ABX completed (5) Darlene rash of groin: Code(s): B37.89 - Other sites of candidiasis Status: Acute Assessment and Plan: resolved Nystatin switched to powder Diflucan x1 (6) Weakness: Code(s): R53.1 - Weakness Status: Acute Assessment and Plan: ? Exhibit tolerance during physical activity as evidenced by a normal fluctuation of vital signs during physical activity. ? Patient will be ability to perform required activities of daily living. ? Provide appropriate nutrition for healing and strength. ? Use appropriate to prevent falls. ? Continue physical therapy/occupational therapy. Subjective Date/time seen: 01/05/22 08:15 Interval history: Patient has no complaints patient notes that physical therapy is going well his pain is well controlled he is sleeping well, having regular bowel movements. The patient denies SOB, CP, palpitation, extremity numbness, lightheadedness, dizziness, constipation, diarrhea, chills, or fever. Review of Systems Review of Systems: A 14 organ system Review of Systems was performed and pertinent positives included in the HPI, otherwise remaining ROS is negative. All systems reviewed & are unremarkable except as noted in HPI and below Exam Narrative: GENERAL:Well-appearing, well-nourished, and in no acute distress. HEAD:Normocephalic, atraumatic. EYES: PERRLA and EOMI. ENT: Nares clear, no rhinorrhea or epistaxis. Mucous membranes moist. CHEST: Clear to auscultation. No respiratory distress. HEART: Regular rate and rhythm. No murmur heard. Normal peripheral pulses. ABDOMEN: Soft, nontender, nondistended, normal active bowel sounds. EXTREMITIES: DECREASED range of motion to right lower extremity. slight erythema. SKIN: Warm, dry, no rash. NEURO: No focal deficits. Alert and oriented some confusion Very [place] Objective Data Vital Signs Vital Signs: Vital Signs - 24 hr 01/04/22 16:00 01/04/22 23:51 01/05/22 07:28 Temperature 98.0 F 97.5 F L 98.2 F Pulse Rate 80 82 85 Respiratory Rate 16 20 16 Blood Pressure 109/61 116/66 118/69 Pulse Oximetry 94 95 93 Oxygen Delivery Room Air Room Air Room Air Intake/Output Intake/Output: Intake & Output 01/02/22 01/03/22 01/04/22 01/05/22 23:59 23:59 23:59 23:59 Intake Total 2830 2840 1620 800 Balance 2830 2840 1620 800 Meds/Results Medications: Active Medications Generic Name Dose Route Start Last Admin Trade Name Freq PRN Reason Stop Dose Admin Acetaminophen 650 mg 01/04/22 09:21 Acetaminophen 325 Mg Tablet PO Q4H PRN Fever and pain 1-3 Aspirin 81 mg 12/29/21 09:00 01/05/22 08:04 Aspirin 81 Mg Enteric Tablet PO 81 mg QAM ANDREE Administration Divalproex Sodium 500 mg 12/29/21 09:00 01/05/22 08:03 Divalproex Sodium Er 500 Mg Tab.24h PO 500 mg BID ANDREE Administration Docusate Sodium 100 mg 12/29/21 09:00 01/05/22 08:04 Docusa
[2022-01-05 16:00] VITALS: BP 131/68; PULSE 78; RESP 16; TEMP 36.9; O2SAT 92
[2022-01-05] MEDS: traZODone HCL 50 MG TABLET 100 MG PO (20:32)
[2022-01-05] MEDS: QUEtiapine FUMARATE 100 MG TABLET 600 MG PO (20:32)
[2022-01-05] MEDS: EZETIMIBE 10 MG TABLET PO (20:33)
[2022-01-05] MEDS: ROSUVASTATIN 10 MG TABLET 40 MG PO (20:33)
--- NOTE | 2022-01-05 20:43 | PC.NURSE ---
Mestinon and Depakote given at this time due to it having not been given at 1700.
[2022-01-05 23:56] VITALS: BP 114/63; PULSE 76; RESP 20; TEMP 36.1; O2SAT 95
[2022-01-06 05:33] LABS: Hematocrit 26.9 % (37.0-46.0); Hemoglobin 8.6 g/dL (12.4-15.3); Mean Corpuscular Hemoglobin 31.5 pg (27.0-31.0); Mean Corpuscular Volume 98.5 fL (78.0-102.0); Mean Platelet Volume 8.7 fl (8.7-11.0); Platelet Count Result 386 K/mm3 (150-420); Red Blood Count 2.73 M/mm3 (4.70-6.10); White Blood Count 6.1 K/mm3 (4.8-10.8)
[2022-01-06 05:42] LABS: Anion Gap 7 mmol/L (8-16); Blood Urea Nitrogen 10 mg/dL (7-18); Calcium 8.2 mg/dL (8.5-10.1); Carbon Dioxide 30 mmol/L (21-32); Chloride 103 mmol/L (98-108); Estimated CRCL calculation 78 ml/min; Estimated Glomerular Filt Rate > 60; Glucose 91 mg/dL (70-99); Osmolality Calculated 289 mOsm/kg (285-295); Potassium 3.7 mmol/L (3.5-5.1); Sodium 140 mmol/L (136-145)
[2022-01-06 07:24] VITALS: BP 136/74; PULSE 89; RESP 16; TEMP 36.6; O2SAT 95
[2022-01-06] MEDS: ASPIRIN 81 MG ENTERIC TABLET PO (08:28)
[2022-01-06] MEDS: PYRIDOSTIGMINE BROMIDE 60 MG TABLET PO ×3 (08:28→16:39)
[2022-01-06] MEDS: predniSONE 10 MG TABLET PO (08:28)
[2022-01-06] MEDS: THERAPEUTIC MULTIVITAMINS/MINERALS TAB (*BKC) 1 TABLET PO (08:29)
[2022-01-06] MEDS: DOCUSATE SODIUM 100 MG CAPSULE PO ×2 (08:29→20:18)
[2022-01-06] MEDS: IBUPROFEN 400 MG TABLET PO ×2 (08:29→16:41)
[2022-01-06] MEDS: FERROUS SULFATE 324 MG TABLET PO (08:30)
[2022-01-06] MEDS: DIVALPROEX SODIUM ER 500 MG TAB.24H PO ×2 (08:30→16:39)
[2022-01-06] MEDS: VITAMIN B COMPLEX CAPSULE 1 CAP PO (08:32)
[2022-01-06] MEDS: TOLNAFTATE 1% POWDER 45 GM BTL 1 APPLIC TOPICAL ×2 (08:33→20:19)
[2022-01-06 16:00] VITALS: BP 106/60; PULSE 87; RESP 16; TEMP 36.4; O2SAT 94
[2022-01-06] MEDS: QUEtiapine FUMARATE 100 MG TABLET 600 MG PO (20:16)
[2022-01-06] MEDS: ROSUVASTATIN 10 MG TABLET 40 MG PO (20:17)
[2022-01-06] MEDS: EZETIMIBE 10 MG TABLET PO (20:18)
[2022-01-06] MEDS: traZODone HCL 50 MG TABLET 100 MG PO (20:18)
--- NOTE | 2022-01-06 22:39 | PC.NURSE ---
Pt ambulated to bathroom to void via walker, gait belt, and standby assist. Pt then returned back to bed. Pt sweating copiously, so a clean t-shirt was given for pt to wear. A clean sheet and bed pad also placed. Call light w/in reach; night light and bed alarm on; side railsx2; and bed in lowest position for pt safety.
[2022-01-06 23:01] VITALS: BP 122/60; PULSE 86; RESP 20; TEMP 36.4; O2SAT 94
--- NOTE | 2022-01-07 05:55 | PC.NURSE ---
Pt ambulated to bathroom to void via walker, gait belt, and standby assist. Pt then returned back to bed. Pillow case changed per pt request. L leg elevated w/pillow and side railsx2. Call light w/in reach; night light on; and bed in lowest position for pt safety.
--- NOTE | 2022-01-07 07:03 | PC.NURSE ---
Pt ambulated from bed to chair via walker, gait belt, and standby assist. Pt reclined in chair w/L leg elevated w/pillow. Call placed w/in reach and chair alarm on.
[2022-01-07 08:00] VITALS: BP 114/70; PULSE 76; RESP 16; TEMP 35.7; O2SAT 94
--- NOTE | 2022-01-07 08:16 | PM.DS ---
DS: Admitting Diagnosis Discharge Date 01/07/2022 Admitting Diagnosis Weakness knee replacement, A. fib DS: Discharge Diagnosis Discharge Diagnosis (1) Orthopedic aftercare for joint replacement: Code(s): Z47.1 - Aftercare following joint replacement surgery Status: Acute Assessment and Plan: Monitor for signs and symptoms of infection Follow-up with Dr. Muse (2) Atrial fibrillation: Code(s): I48.91 - Unspecified atrial fibrillation Status: Acute Assessment and Plan: Will restart amiodarone and Metoprolol Amiodarone and metoprolol was not on patient's discharge medication list from [place] by ortho but it did indicate on cardiology notes to continue amiodarone and metoprolol Patient was not hypotensive or tachycardic this hospital stay. Will resume medication as advised by cardiology. Afib appeared to be controlled without medication Follow-up with cardiology Per Cardiology patient does not need anticoagulation he can continue to stay on the ASA (3) Bipolar 1 disorder: Code(s): F31.9 - Bipolar disorder, unspecified Status: Acute Assessment and Plan: CONTINUE HOME MEDICATION LORAZEPAM. QUETIAPINE (4) UTI symptoms: Code(s): R39.9 - Unspecified symptoms and signs involving the genitourinary system Status: Acute Assessment and Plan: ABX completed (5) Darlene rash of groin: Code(s): B37.89 - Other sites of candidiasis Status: Acute Assessment and Plan: resolved Nystatin switched to powder will discharge home with nystatin powder Diflucan x1 (6) Weakness: Code(s): R53.1 - Weakness Status: Acute Assessment and Plan: ? Patient will discharge home with nursing and PT OT DS: Summary Hospital Course Reason for hospitalization: Weakness, A. fib, status post joint replacement Hospital Course: This is a 71 year old male that was admitted as a swing patient from [facility] . Mr. Coombs has a past medical history of Bipolar , Atrial fibrillation, knee replacement, coronary disease patient is not on fci anti platelet . Mr. Coombs was in [facility] for a knee replacement patient? had a episode? of Atrial Fibrillation? he was started on a? amiodarone drip in which he recovered . Patient surgical site had a hematoma in which it is resolving and healing well. Discharge instructions reviewed with patient, as well as provided in writing per nursing staff. The instructions also include specific and strict return/GO TO THE ER as well as f/u information. All questions have been answered, and the patient and/or family deny any further questions with discharge and discharge plan. The patient denies SOB, CP, palpitation, extremity numbness, lightheadedness, dizziness, constipation, diarrhea, chills, or fever. Patient notes that his pain is controlled. No signs or symptoms of infection at surgical site. Patient ambulating 200 feet with four-wheel walker and standby assist. Patient's amiodarone and metoprolol restarted before discharge. Patient instructed to take his blood pressure reading daily, if his blood pressure falls below 90/60 he is to contact his primary care physician for medication adjust. Patient heart rate between 80 - 90 this day. Patient has not complained of any palpitation or chest pain during his rehab. A. fib appears to be controlled without medication but will restart as recommended by manager respiratory. Time Spent with Patient Time attestation: Total time spent providing and/or coordinating discharge services: Exam Narrative: GENERAL:Well-appearing, well-nourished, and in no acute distress. HEAD:Normocephalic, atraumatic. EYES: PERRLA and EOMI. ENT: Nares clear, no rhinorrhea or epistaxis. Mucous membranes moist. CHEST: Clear to auscultation. No respiratory distress. HEART: Regular rate and rhythm. No murmur heard. Normal peripheral pulses. ABDOMEN: Soft, n
[2022-01-07] MEDS: FERROUS SULFATE 324 MG TABLET PO (08:49)
[2022-01-07] MEDS: VITAMIN B COMPLEX CAPSULE 1 CAP PO (08:49)
[2022-01-07] MEDS: predniSONE 10 MG TABLET PO (08:49)
[2022-01-07] MEDS: PYRIDOSTIGMINE BROMIDE 60 MG TABLET PO ×2 (08:51→13:38)
[2022-01-07] MEDS: THERAPEUTIC MULTIVITAMINS/MINERALS TAB (*BKC) 1 TABLET PO (08:51)
[2022-01-07] MEDS: ASPIRIN 81 MG ENTERIC TABLET PO (08:51)
[2022-01-07] MEDS: DOCUSATE SODIUM 100 MG CAPSULE PO (08:52)
[2022-01-07] MEDS: DIVALPROEX SODIUM ER 500 MG TAB.24H PO (08:52)
[2022-01-07] MEDS: TOLNAFTATE 1% POWDER 45 GM BTL 1 APPLIC TOPICAL (08:54)
--- NOTE | 2022-01-07 15:05 | PC.NURSE ---
Pt discharged home with family. Discharge instructions regarding medications, diet, exercise and follow up appointments. Pt taken to the family car via and assisted into the car. Home health has been notified the pt was discharged today.
--- NOTE | 2022-01-09 10:41 | PC.NURSE ---
Follow up call completed, staying with son at this time due to having covid, no questions or concerns regarding visit or discharge instructions, reports doing well
== END 2022-01-07 14:30 | disposition home health service (06) | DRG 560 ==
PROVIDERS: Nurse Practitioner; Nurse Practitioner Family; Admitting Provider Internal Medicine; Visit Provider Internal Medicine
DX: Z47.1 Aftercare following joint replacement surgery (principal); B37.89 Other sites of candidiasis; E87.1 Hypo-osmolality and hyponatremia; I48.20 Chronic atrial fibrillation, unspecified; I50.32 Chronic diastolic (congestive) heart failure; C61 Malignant neoplasm of prostate; E78.5 Hyperlipidemia, unspecified; M19.90 Unspecified osteoarthritis, unspecified site; R63.1 Polydipsia; G70.00 Myasthenia gravis without (acute) exacerbation; F31.9 Bipolar disorder, unspecified; Z96.652 Presence of left artificial knee joint; Z85.810 Personal history of malignant neoplasm of tongue; Z95.5 Presence of coronary angioplasty implant and graft; Z86.718 Personal history of other venous thrombosis and embolism; Z86.73 Personal history of transient ischemic attack (TIA), and cerebral infarction without residual deficits; Z79.82 Long term (current) use of aspirin
CPT/HCPCS: 36415; 73562; 80048; 85027; 97110; 97112; 97161; 97165; 97530; 97535; A9270; J7512

== ENCOUNTER 2022-02-07 12:54 | Outpatient (RCR) | payer MEDICARE, SELFPAY ==
--- NOTE | 2022-02-07 14:09 | PTOPEVAL1 ---
Assessment and note entered by JT File, PT Evaluation Information Assessment Status Evaluation Diagnosis s/p L TKA Onset 12/20/21 Subjective Information patient reports he had a total knee replacement on the L knee back on 12/20/21. he was admitted to skilled swing bed PT after this surgery and then DC'd home with home health afterwards. he has been doing home health since home on 01/07/22. he is now coming to therapy for continued rehab following TKA. he reports he was using no AD prior to surgery. he reports he has had 1 fall since being home with home health Reported Pain Level Pain Score 2: Self Report Assessment PT Clinical Summary mr. gillette presents to skilled PT services for evaluation and treatment following L TKA. he presents this date with deficits in knee rom, gait mechanics, balance, and safety with transfers/ ambulation. he would do well to attend skilled PT and improve his objective/functional deficits and progress towards a return to her prior level funcitonal activity performance/quality of life. Plan of Care Interventions Electrical Stimulation,Gait Training,Hot Pack/Cold Pack,Manual Therapy,Neuro Re-education,Patient/ Caregiver Educati,Therapeutic Activities, Therapeutic Exercise PT Services Indicated Yes Treatment Frequency and 2x weekly for 12 visits Duration These treatments will address the objective and functional deficits as defined above. The patient will be advanced safely and appropriately in order for the patient to progress towards his/her prior level of function. Additional exercises will be introduced and as well as a comprehensive home exercise program upon discharge, if needed, ?to ensure carryover of functional gains achieved in the clinic. This treatment plan has been reviewed and agreement upon by the patient.
--- NOTE | 2022-02-14 13:59 | PTOPPROG ---
Assessment and note entered by Di Burns DPT Evaluation Information Assessment Status Progress Diagnosis s/p L TKA Onset 12/20/21 Subjective Information Pt arrives to PT from ED after visiting due to a fall this morning at around 5 am. Family reports that they found him in the bathroom after hearing a thud. He fell and hit his head so they went to the ED. CT shows normal aging brain. Pt reports some head pain where he hit his head. Pt's family is concerned that he is decreasing in his strength and safety with transfers. Assessment PT Clinical Summary Pt presents to PT for progress note afterfall this morning. Pt continues to demonstrate decreased strength, impaired static and dynamic balance, and decreased safety with ambulation and transfers. He and his were educated on more safe form with transfers to decrease risk for falls. He will benefit from additional skilled PT 3x week for 9 visits to continue to improve strength and mobility as needed to improve safety with transfers and decrease risk for falls. Plan of Care Interventions Electrical Stimulation,Gait Training,Hot Pack/Cold Pack,Manual Therapy,Neuro Re-education,Patient/ Caregiver Educati,Therapeutic Activities, Therapeutic Exercise PT Services Indicated Yes Treatment Frequency and 3x week for 9 more visits Duration These treatments will address the objective and functional deficits as defined above. The patient will be advanced safely and appropriately in order for the patient to progress towards his/her prior level of function. Additional exercises will be introduced and as well as a comprehensive home exercise program upon discharge, if needed, ?to ensure carryover of functional gains achieved in the clinic. This treatment plan has been reviewed and agreement upon by the patient.
--- NOTE | 2022-04-17 13:16 | PTOPREEVAL ---
Assessment and note entered by JT File, PT Evaluation Information Assessment Status Re-evaluation Diagnosis s/p L TKA, sciatica R Onset 04/05/22 Subjective Information patient reports he feels alright this date. he reports no falls in the last few weeks. however, his reports his balance is still poor, he is always bent over, and his R hip continues to bother him. he presents to skilled PT this date with oders to evalute for R sciatica. Reported Pain Level Pain Score 6,0: Self Report Assessment PT Clinical Summary mr. gillette presents to skilled PT services for his 12th visit post L TKA. as of this date, he presents with continued lack of full L knee extension, and ambulation using a FWW. however, he currently is complicated more by symptoms from his lower back including pain in his posterior R hip, flexed posture of the hips and back, decreased postural endurance, tight hip flexors, and poor balance. he would do well to DC therapy for the L knee, and continue with therapy for his balance, posture, and back/LE pain. Plan of Care Interventions Electrical Stimulation,Gait Training,Hot Pack/Cold Pack,Manual Therapy,Neuro Re-education,Patient/ Caregiver Educati,Therapeutic Activities, Therapeutic Exercise PT Services Indicated Yes Treatment Frequency and continue skilled PT 2x weekly for 6 more visits Duration focusing on his lower back and posterior R hip. These treatments will address the objective and functional deficits as defined above. The patient will be advanced safely and appropriately in order for the patient to progress towards his/her prior level of function. Additional exercises will be introduced and as well as a comprehensive home exercise program upon discharge, if needed, ?to ensure carryover of functional gains achieved in the clinic. This treatment plan has been reviewed and agreement upon by the patient.
== END 2022-05-03 19:00 | disposition still patient (30) ==
LOC: CHSPT 12:54
PROVIDERS: Visit Provider Orthopaedic Surgery
DX: Z47.1 Aftercare following joint replacement surgery (principal); Z96.652 Presence of left artificial knee joint
CPT/HCPCS: 97110; 97112; 97116; 97161; 97530

== ENCOUNTER 2022-02-14 12:07 | Emergency (ER) | payer MEDICARE, SELFPAY ==
--- NOTE | ~2022-02-14 | CT_ITS ---
EXAMINATION: CT brain wo con DATE: 02/14/2022 12:41 INDICATION: Head injury. Headache. TECHNIQUE: Computed tomography (CT) of the head was performed without intravenous contrast. The mA wa s adjusted according to patient size. Iterative reconstruction technique was employed. The dose-lengt h product was 605.33 mGy-cm. COMPARISON: Head CT 10/12/2021 FINDINGS: There is no intracranial hemorrhage, acute infarction, or abnormal intracranial mass lesion . There are scattered areas of low attenuation in the cerebral white matter, which is within normal l imits for the patient's age. The ventricles are normal in size. There is mild mucosal thickening in t he paranasal sinuses. The mastoid air cells are normal. There is a prosthetic stapes on the left. The re is a prosthetic stapes on the right. IMPRESSION: 1. Normal aging brain. Reviewed, dictated and finalized at location B. IMPRESSION: 1. Normal aging brain.
--- NOTE | 2022-02-14 12:12 | ED.FALL ---
HPI - Fall General Chief Complaint: Fall Stated Complaint: FELL HIT HEAD Time Seen by Provider: 02/14/22 12:12 Source: patient, family and RN notes reviewed Mode of arrival: ambulatory Limitations: no limitations History of Present Illness complaint: fall Onset (ago): hour(s) (7) Fall from: standing Fall witnessed: no Place fall occurred: home Loss of consciousness: none Symptoms prior to fall: none Context: tripped/slipped Location of injury: head Severity: mild Quality: dull Associated symptoms (after fall): headache (mild) Related Data Home Medications Medication Instructions Recorded Confirmed aspirin 81 mg tablet,delayed 81 mg PO QAM 01/07/20 02/14/22 release ezetimibe 10 mg tablet 10 mg PO HS 01/07/20 02/14/22 lorazepam 0.5 mg tablet 1 mg PO BID PRN Anxiety 01/07/20 02/14/22 multivitamin with minerals 1 tablet PO QAM 01/07/20 02/14/22 prednisone 10 mg tablet 10 mg PO QAM 01/07/20 02/14/22 rosuvastatin 40 mg tablet 40 mg PO HS 01/07/20 02/14/22 divalproex 250 mg tablet,extended 500 mg PO BID 04/04/21 02/14/22 release 24 hr pyridostigmine bromide 60 mg tablet 60 mg PO TID 11/23/21 02/14/22 vitamin B complex 1 cap PO QAM 11/23/21 02/14/22 quetiapine 300 mg tablet 600 mg PO HS 12/14/21 02/14/22 Allergies Allergy/AdvReac Type Severity Reaction Status Date / Time adhesive Allergy Unknown SKIN Verified 02/14/22 12:27 IRRITATION PMFSH Past Medical History Medical History (HFpEF) heart failure with preserved ejection fraction Arthritis Bipolar 1 disorder CAD (coronary artery disease) Chronic hyponatremia CVA (cerebral vascular accident) DVT (deep venous thrombosis) (~2013) [place] (hard of hearing) Hyperlipidemia Myasthenia gravis (~2004) Prostate cancer Radiation therapy 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cond hand tobacco smoke exposure: No Alcohol intake: never Substance use: never Gender identity (if verbalized by the patient): Male Sexual Orientation (if Verbalized by the Patient): Straight or Heterosexual Spiritual care concerns: No Exam Const: General: healthy appearing, no acute distress and alert Nutritional Appearance: well nourished Orientation/consciousness: patient oriented x3 Limitations: no limitations and other limitations ( Hard of hearing) HENMT: Head: No palpable skull fracture present, scalp tenderness ( mild left forehead) and other ( mild erythema on left forehead) Ears: external ears normal Face/Nose/Sinus: Normal external nose present Face and sinus: normal facial exam Mouth: Yes moist mucous membranes Eyes: Conjunctivae: conjunctivae normal Pupils: Equal, round and reactive pupils present EOM: EOMs intact bilaterally Resp: Effort & Inspection: normal respiratory effort Auscultation: clear to auscultation bilaterally Cardio: Rate: regular rate Rhythm: regular rhythm GI: GI Palp: Yes Soft to palpation and No Tenderness to palpation present (GI) Auscultation: normal bowel sounds Back/Spine/Pelvis: Cervical Spine: cervical ROM normal Thoracic/Lumbar Spine: thoraco-lumbar ROM normal Skin: General skin exam: normal color Rashes: no rashes Neuro: General: patient oriented x3, moves all
[2022-02-14 12:17] VITALS: BP 147/79; PULSE 72; RESP 16; TEMP 36.3; O2SAT 95
[2022-02-14 12:47] VITALS: BP 116/75; PULSE 72; RESP 16; O2SAT 95
--- NOTE | 2022-02-14 12:48 | PC.NURSE ---
Pt pre-scheduled for physical therapy on location at 1 PM. RN spoke with physical therapist, informed patient was in our ER but still hoping to do therapy as scheduled, provided CT scan comes back clear. Physical therapy states they can see patient as late at 1:30. aware, OK with patient participating provided CT scan is negative.
[2022-02-14 13:03] VITALS: BP 112/64; PULSE 73; RESP 16; TEMP 36.4; O2SAT 96
== END 2022-02-14 13:03 | disposition home or self-care (01) ==
LOC: CHSED 12:56
PROVIDERS: Emergency Provider Emergency Medicine
DX: S00.83XA Contusion of other part of head, initial encounter (principal); W19.XXXA Unspecified fall, initial encounter; Z82.3 Family history of stroke; Z86.718 Personal history of other venous thrombosis and embolism; E78.5 Hyperlipidemia, unspecified; Z85.46 Personal history of malignant neoplasm of prostate
CPT/HCPCS: 70450; 99284

== ENCOUNTER 2022-03-25 11:57 | Emergency (ER) | payer MEDICARE, SELFPAY ==
--- NOTE | ~2022-03-25 | XR_ITS ---
XR chest 1V portable DATE: 03/25/2022 13:37 INDICATION: Right hip pain, sciatica TECHNIQUE: Portable single view chest COMPARISON: 12/22/2021 chest FINDINGS: Normal heart size. There is aortic calcification and unfolding. No hilar or mediastinal enl argement is evident. There is mild discoid atelectasis or scarring at the lung bases. No pulmonary infiltrate or consolidation, pleural effusion or pulmonary vascular congestion or pneumo thorax is noted. Otherwise IMPRESSION: Mild discoid atelectasis or scarring at the lung bases; otherwise no active cardiac pulmo nary disease Reviewed, dictated and finalized at location A. ETING SUPPORT MANAGER IMPRESSION: Mild discoid atelectasis or scarring at the lung bases; otherwise n o active cardiac pulmonary disease
--- NOTE | ~2022-03-25 | CT_ITS ---
EXAMINATION: CT pelvis wo con DATE: 03/25/2022 13:38 INDICATION: Right hip pain. No trauma. TECHNIQUE: Computed tomography (CT) of the pelvis was performed without intravenous contrast. Automat ed exposure control and iterative reconstruction technique were employed. Exam dose: 465.66 mGy-cm t otal exam DLP. COMPARISON: None FINDINGS: IVC filter is noted. There is atherosclerotic calcification of the distal abdominal aorta a nd iliac and femoral arteries. Bilateral small fat-containing inguinal hernias Approximately 6.5 cm cm oval exophytic cyst at the lower pole of the right kidney laterally. Diverticulosis of the colon. Prostate enlargement and moderate thickening of the urinary bladder wall and urinary bladder distenti on, which extends as high as the umbilicus. Moderately severe degenerative disc disease at L3-4 and L4-5 and severe degenerative disc disease at L5-S1. There is associated mild retrolisthesis at L3-4 and L5-S1. There is prominent degenerative change at the apophyseal joints of the lower lumbar spine. Osteoarthritic change at the sacroiliac joints. Moderate bilateral hip osteoarthritis. No pelvic fracture or bone destruction. Normal alignment at the sacroiliac joints and pubic symphysis . No evidence of sacral insufficiency fractures detected. No fracture or dislocation of either hip is noted. IMPRESSION: No pelvic or hip fracture Prominent degenerative disc disease of the lower lumbar and lumbosacral spine Degenerative change at the sacroiliac and hip joints IVC filter Approximately 2.5 cm lower pole exophytic right renal cyst Diverticulosis of the colon Reviewed, dictated and finalized at Location A. Reviewed, dictated and finalized at location A. RAM MANAGEMENT ANALYST
[2022-03-25 12:38] VITALS: BP 138/90; PULSE 73; RESP 17; TEMP 36.9; O2SAT 95
--- NOTE | 2022-03-25 13:13 | ECG_ITS ---
Measurements Intervals [place] Rate: 74 P: 34 MN: 196 QRS: -40 QRSD: 141 T: 68 QT: 407 QTc: 452 Interpretive Statements SINUS RHYTHM LEFT AXIS DEVIATION INTRAVENTRICULAR CONDUCTION DELAY LEFT VENTRICULAR HYPERTROPHY WITH ST-T CHANGE BASELINE ARTIFACT- I, III, AVR, AVL, AVF, V1, V4 BORDERLINE ECG COMPARED TO ECG 12/26/2021 21:05:34 NO SIGNIFICANT CHANGES Electronically Signed On 03-25-2022 22:19:13 [employer] by Tj Guerra D.O.
[2022-03-25] MEDS: ACETAMINOPHEN 325 MG TABLET 650 MG PO (14:00)
[2022-03-25] MEDS: FUROSEMIDE INJ 20 MG/2 ML VIAL 40 MG IM (14:02)
[2022-03-25 14:11] LABS: Basophils Absolute Auto 0.02 K/mm3 (0.00-0.10); Basophils Percent Auto 0.2 % (0.0-1.0); Eosinophils Absolute Auto 0.01 K/mm3 (0.02-0.50); Eosinophils Percent Auto 0.1 % (1.0-6.0); Hematocrit 39.7 % (37.0-46.0); Hemoglobin 12.5 g/dL (12.4-15.3); Immature Granulocyte Absolute 0.03 K/mm3 (0.00-0.00); Immature Granulocyte Percent A 0.3 % (0.0-0.0); Lymphocytes Absolute Auto 0.36 K/mm3 (1.10-4.50); Lymphocytes Percent Auto 3.9 % (18.0-42.0); Mean Corpuscular HGB Conc 31.5 g/dL (32.0-36.0); Mean Corpuscular Hemoglobin 29.7 pg (27.0-31.0); Mean Corpuscular Volume 94.3 fL (78.0-102.0); Monocytes Percent Auto 6.5 % (2.0-11.0); Neutrophils Absolute Auto 8.2 K/mm3 (1.7-7.2); Platelet Count Result 164 K/mm3 (150-420); Red Blood Count 4.21 M/mm3 (4.70-6.10); Red Cell Distribution Width 14.8 % (11.6-14.4); White Blood Count 9.2 K/mm3 (4.8-10.8)
[2022-03-25 14:35] LABS: Alanine Aminotransferase 21 U/L (16-63); Albumin Level 3.2 g/dL (3.4-5.0); Alkaline Phosphatase 43 U/L (46-116); Anion Gap 4 mmol/L (8-16); Aspartate Amino Transferase 10 U/L (15-37); Bilirubin,Total 0.2 mg/dL (0.00-1.00); Blood Urea Nitrogen 11 mg/dL (7-18); Calcium 8.5 mg/dL (8.5-10.1); Carbon Dioxide 33 mmol/L (21-32); Chloride 101 mmol/L (98-108); Estimated Glomerular Filt Rate > 60; Glucose 102 mg/dL (70-99); NT Pro B Type Natriuretic Pept 50 pg/mL (0-125); Osmolality Calculated 285 mOsm/kg (285-295); Sodium 138 mmol/L (136-145); Total Protein 6.6 g/dL (6.4-8.2)
[2022-03-25 15:45] VITALS: BP 137/88; PULSE 78; RESP 17; TEMP 37; O2SAT 96
--- NOTE | 2022-03-25 16:01 | ED.EXTPRO ---
HPI - Extremity Problem General Chief complaint: Extremity Problem,Nontraumatic Stated complaint: L Leg swelling 2 months out of surgery warm to alejandra Time Seen by Provider: 03/25/22 11:59 Source: patient and RN notes reviewed Mode of arrival: ambulatory Limitations: no limitations History of Present Illness MD Complaint: extremity swelling and other (back pain to right lower extremity) Onset (ago): day(s) (2) Pain Consistency: constant Location: lower extremity Severity scale (1-10): 4 Quality: aching and dull Radiation: distal Relieving factors: nothing Exacerbating factors: walking Associated symptoms: arthralgias Related Data Home Medications Medication Instructions Recorded Confirmed aspirin 81 mg tablet,delayed 81 mg PO QAM 01/07/20 03/25/22 release ezetimibe 10 mg tablet 10 mg PO HS 01/07/20 03/25/22 lorazepam 0.5 mg tablet 1 mg PO BID PRN Anxiety 01/07/20 03/25/22 multivitamin with minerals 1 tablet PO QAM 01/07/20 03/25/22 prednisone 10 mg tablet 10 mg PO QAM 01/07/20 03/25/22 rosuvastatin 40 mg tablet 40 mg PO HS 01/07/20 03/25/22 divalproex 250 mg tablet,extended 500 mg PO BID 04/04/21 03/25/22 release 24 hr pyridostigmine bromide 60 mg tablet 60 mg PO TID 11/23/21 03/25/22 vitamin B complex 1 cap PO QAM 11/23/21 03/25/22 quetiapine 300 mg tablet 600 mg PO HS 12/14/21 03/25/22 Allergies Allergy/AdvReac Type Severity Reaction Status Date / Time adhesive Allergy Unknown SKIN Verified 03/25/22 13:01 IRRITATION Review of Systems Review of Systems: All systems reviewed & are unremarkable except as noted in HPI and below Constitutional: Constitutional: Reports no additional constitutional complaints Eyes: Eyes: Reports no additional eye complaints ENT: Reports system reviewed and no additional complaints, except as documented Cardiovascular: Cardiovascular: Reports no additional cardiovascular complaints Respiratory: Respiratory: Reports no additional respiratory complaints Gastrointestinal: Gastrointestinal: Reports no additional gastrointestinal complaints Musculoskeletal: Musculoskeletal: Reports no additional musculoskeletal complaints and Reports back pain Comments: left leg swelling, right lower extremity pain Integumentary/Breasts: Skin/Breast: Reports system reviewed and no additional complaints, except as docu Neurologic: Reports system reviewed and no additional complaints, except as documented Psychiatric: Psychiatric: Reports no additional psychiatric complaints Endocrine: Endocrine: Reports no additional endocrine complaints Hematologic/Lymphatic: Hematologic/Lymphatic: Reports no additional hematologic/lymphatic complaints Allergic/Immunologic: Allergic/Immunologic: Reports no additional allergic/immunologic complaints [facility] Past Medical History Medical History (HFpEF) heart failure with preserved ejection fraction Arthritis Bipolar 1 disorder CAD (coronary artery disease) Chronic hyponatremia CVA (cerebral vascular accident) DVT (deep venous thrombosis) (~2013) UPPER [place] (hard of hearing) Hyperlipidemia Myasthenia gravis (~2004) Prostate cancer Radiation therapy 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
== END 2022-03-25 16:28 | disposition home or self-care (01) ==
PROVIDERS: Emergency Provider Emergency Medicine
DX: R60.0 Localized edema (principal); M54.41 Lumbago with sciatica, right side; I25.10 Atherosclerotic heart disease of native coronary artery without angina pectoris; Z86.718 Personal history of other venous thrombosis and embolism; E78.5 Hyperlipidemia, unspecified; Z85.46 Personal history of malignant neoplasm of prostate
CPT/HCPCS: 36415; 71045; 72192; 80053; 83880; 85025; 93005; 96372; 99284; A9270; J1940

== ENCOUNTER 2022-05-02 08:43 | Outpatient (CLI) | payer MEDICARE, SELFPAY ==
--- NOTE | ~2022-05-02 | CT_ITS ---
CT scan of the Neck Technique: 2.5 mm axial scans were obtained through the neck after intravenous administration of 75 c c Omnipaque 350. Coronal and sagittal reconstructions of the neck were obtained. Dose reduction techn ique was used on this scan by utilizing automated exposure control and iterative reconstruction techn ique. The dose-length product (DLP) was 614.28 mGy-cm. Clinical History: Squamous cell carcinoma of the tongue COMPARISON: 10/12/2021 Findings: There is no evidence of any significant cervical lymphadenopathy. Several small, nonenlarged jugulo- digastric and posterior cervical lymph nodes are noted bilaterally. Parapharyngeal spaces appear norm al bilaterally. The parotid and submandibular glands appear normal. Suggestion of postoperative or perforation changes in the right neck, similar to prior exam. The thyroid gland appears normal. Images of the lung apices reveal no abnormalities. Impression: No evidence of recurrent malignancy or metastatic disease. Reviewed, dictated and finalized at [facility]. L SHAPING MACHINE OPERATOR Impression: No evidence of recurrent malignancy or metastatic disease.
[2022-05-02 09:16] LABS: Estimated Glomerular Filt Rate > 60
== END 2022-05-02 08:44 | disposition home or self-care (01) ==
PROVIDERS: Visit Provider Internal Medicine Hematology & Oncology
DX: C02.9 Malignant neoplasm of tongue, unspecified (principal)
CPT/HCPCS: 70491; Q9967

== ENCOUNTER 2022-05-11 13:53 | Outpatient (RCR) | payer MEDICARE, SELFPAY ==
--- NOTE | 2022-10-19 15:54 | PCPTNOTE ---
mr. gillette has not been to therapy in over 5 months. he continued to have pain in the R hip at his last visit. as of this date, he will be dc'd from skilled PT services and all progress towards goals will be taken from his most recent evaluation/note.
== END 2022-05-11 23:59 | disposition home or self-care (01) ==
LOC: CHSPT 13:53
PROVIDERS: Visit Provider Orthopaedic Surgery
DX: Z47.1 Aftercare following joint replacement surgery (principal); M54.31 Sciatica, right side; Z96.652 Presence of left artificial knee joint
CPT/HCPCS: 97110; 97112; 97530

== ENCOUNTER 2022-11-06 07:48 | Outpatient (CLI) | payer MEDICARE, SELFPAY ==
--- NOTE | ~2022-11-06 | CT_ITS ---
EXAMINATION: CT soft tissue neck w con DATE: 11/06/2022 08:25 INDICATION: Squamous cell cancer of the tongue TECHNIQUE: Computed tomography (CT) of the neck was performed with 75 mL Omnipaque-350 intravenous co ntrast. Automated exposure control and iterative reconstruction technique were employed. The dose-mauro gth product was 634.38 mGy-cm. COMPARISON: 05/02/2022 and 10/12/2021 FINDINGS: Mild dependent atelectasis in the visualized upper lungs. Small amount scattered atherosclerotic calc ific location along the normal caliber aortic arch with no dissection. Small amount of atheroscleroti c plaque with 0% stenosis at the left carotid bulb. Stable appearance of postoperative and postradiat ion changes in the right neck. The right submandibular gland appears smaller than the left. The thyro id and bilateral parotid glands are normal. No pathologically enlarged cervical or upper thoracic lym phadenopathy. Changes of left intraocular lens replacement. Mild scattered mucosal thickening in the paranasal sinuses with small mucous retention cyst in the left maxillary sinus. Bilateral mastoid air cells and middle ear cavities are clear Bilateral prosthetic stapes.. Severe cervical spondylosis. IMPRESSION: 1. No evident locally recurrent or metastatic disease. Reviewed, dictated and finalized at location A.
[2022-11-06 08:14] LABS: Estimated Glomerular Filt Rate > 60
== END 2022-11-06 07:49 | disposition home or self-care (01) ==
LOC: ANHIMG 07:54
PROVIDERS: Visit Provider Internal Medicine Hematology & Oncology
DX: C02.9 Malignant neoplasm of tongue, unspecified (principal)
CPT/HCPCS: 70491; Q9967

== ENCOUNTER 2022-11-14 12:21 | Outpatient (CLI) | payer MEDICARE, SELFPAY | END 2022-11-14 12:22 | disposition home or self-care (01) | PROVIDERS: PCP Specialist; Visit Provider Specialist | DX: C44.629 Squamous cell carcinoma of skin of left upper limb, including shoulder (principal) | CPT/HCPCS: 88305 ==

== ENCOUNTER 2023-01-30 12:02 | Outpatient (CLI) | payer MEDICARE, SELFPAY | END 2023-01-30 12:03 | disposition home or self-care (01) | LOC: CHSLAB 12:22 | PROVIDERS: PCP Specialist; Visit Provider Specialist | DX: C44.629 Squamous cell carcinoma of skin of left upper limb, including shoulder (principal) | CPT/HCPCS: 88305 ==

== ENCOUNTER 2023-05-01 12:55 | Outpatient (RCR) | payer MEDICARE, SELFPAY ==
[2023-05-01 13:05] VITALS: BP_SYST 146
--- NOTE | 2023-05-01 14:07 | OPREHPOC ---
Outpatient Therapy Plan of Care This is a Multidisciplinary Plan of Care that may contain components documented by all disciplines (PT, OT, and ST.) PT Problem 1 PT Problem #1 Knowledge Deficit PT Goal 1 Goal Patient to demonstrate independence with HEP Target Visit 6 PT Problem 2 PT Problem #2 Pain PT Goal 1 Goal 1. Patient to report highest pain at 2/10 2. Patient to report ability to don coat with no increase in pain Target Visit 10 PT Problem 3 PT Problem #3 Impaired Range of Motion PT Goal 1 Goal 1. Patient to demonstrate 160 deg of L shoulder flexion to return to reaching into cabinets for house hold tasks 2. Patient to demonstrate ability to reach to base of skull to return to washing his hair Target Visit 10 PT Problem 4 PT Problem #4 Impaired Strength PT Goal 1 Goal Patient to demonstrate 4+/5 strength of the L shoulder and elbow to return to lifting for house hold tasks at PLOF Target Visit 10 PT Problem 5 PT Problem #5 Impaired Functional Mobil PT Goal 1 Goal 1. Patient to report ability to dress with no limitations due to L UE 2. Patient to demonstrate 20% improvement on LEFS Target Visit 10
--- NOTE | 2023-05-01 14:07 | PTOPEVAL1 ---
Assessment and note entered by Madison Hicks DPT Evaluation Information Assessment Status Evaluation Diagnosis L arm pain Onset 04/19/23 Subjective Information Patient reports he fell into a wall while walking to the bathroom and hit his L arm. He reports he has not had any imaging done to this point. He reports he has difficulty with dressing, lifting objects, and washing his hair. He reports pain is located at distal humerus and below the elbow. He denies numbness or tingling. He reports he does have some neck pain. Patient reports he has skin cancer that is being treated currently Reported Pain Level Pain Score 7: Self Report Assessment PT Clinical Summary Mr. Coombs is a 72 year old male who presents to PT with L shoulder pain and weakness and neck pain. He demonstrates decreased mobility of the cervical spine, decreased L shoulder ROM and decreased L shoulder strength impairing his ability to dress, wash his hair and lift for house hold tasks. He would benefit from skilled PT to address impairments and return to PLOF. Plan of Care Interventions Hot Pack/Cold Pack,Manual Therapy,Mechanical Traction,Neuro Re-education,Patient/Caregiver Educati,Therapeutic Activities,Therapeutic Exercise PT Services Indicated Yes Treatment Frequency and 2x weekly for 10 visits Duration These treatments will address the objective and functional deficits as defined above. The patient will be advanced safely and appropriately in order for the patient to progress towards his/her prior level of function. Additional exercises will be introduced and as well as a comprehensive home exercise program upon discharge, if needed, ?to ensure carryover of functional gains achieved in the clinic. This treatment plan has been reviewed and agreement upon by the patient.
--- NOTE | 2023-05-14 08:50 | PCPTNOTE ---
Patient cancelled session this morning due to cold weather.
--- NOTE | 2023-06-28 16:40 | PCPTNOTE ---
patient cancelled PT today due to being too sore from his injections.
--- NOTE | 2023-07-10 12:38 | OPREHPOC ---
Outpatient Therapy Plan of Care This is a Multidisciplinary Plan of Care that may contain components documented by all disciplines (PT, OT, and ST.) PT Problem 1 PT Problem #1 Knowledge Deficit PT Goal 1 Goal Patient to demonstrate independence with HEP Target Visit 6 Progress Met PT Problem 2 PT Problem #2 Pain PT Goal 1 Goal 1. Patient to report highest pain at 2/10 2. Patient to report ability to don coat with no increase in pain Target Visit 14 Progress Not Met PT Problem 3 PT Problem #3 Impaired Range of Motion PT Goal 1 Goal 1. Patient to demonstrate 160 deg of L shoulder flexion to return to reaching into cabinets for house hold tasks 2. Patient to demonstrate ability to reach to base of skull to return to washing his hair Target Visit 14 Progress Not Met PT Problem 4 PT Problem #4 Impaired Strength PT Goal 1 Goal Patient to demonstrate 4+/5 strength of the L shoulder and elbow to return to lifting for house hold tasks at PLOF Target Visit 14 Progress Not Met PT Problem 5 PT Problem #5 Impaired Functional Mobil PT Goal 1 Goal 1. Patient to report ability to dress with no limitations due to L UE 2. Patient to demonstrate 20% improvement on LEFS Target Visit 14 Progress Not Met
--- NOTE | 2023-07-10 12:38 | PTOPPROG ---
Assessment and note entered by JT File, PT Evaluation Information Assessment Status Progress Diagnosis L arm pain Onset 04/19/23 Subjective Information patient reports he continues to have pain in the L elbow and L upper arm. he reports it is difficult to lift the arm and even cut food. his reports she thinks there is something else wrong with the shoulder. he has had no imaging of the L shoulder. Assessment PT Clinical Summary mr. gillette has not been to therapy for several weeks. he developed a tendonitis in the L elbow during treatment. he was given and injection and held from therapy for a few weeks by his MD. he continues to have pain at the L elbow, and has pain/weakness/decreased rom in the L shoulder. he likely has a rotator cuff pathology of the L shoulder. he would benefit from return to and continued skilled PT to improve his shoulder rom, strength, and functional reaching/lifting ability with the L UE to return to his prior level independence and quality of life. Plan of Care Interventions Hot Pack/Cold Pack,Manual Therapy,Mechanical Traction,Neuro Re-education,Patient/Caregiver Educati,Therapeutic Activities,Therapeutic Exercise PT Services Indicated Yes Treatment Frequency and continue skilled PT 2x weekly for 6 more visits Duration from this progress note. These treatments will address the objective and functional deficits as defined above. The patient will be advanced safely and appropriately in order for the patient to progress towards his/her prior level of function. Additional exercises will be introduced and as well as a comprehensive home exercise program upon discharge, if needed, ?to ensure carryover of functional gains achieved in the clinic. This treatment plan has been reviewed and agreement upon by the patient.
== END 2023-07-25 20:00 | disposition still patient (30) ==
LOC: CHSPT 12:55
DX: M79.602 Pain in left arm (principal)
CPT/HCPCS: 97110; 97140; 97150; 97161

== ENCOUNTER 2023-05-17 09:44 | Outpatient (CLI) | payer MEDICARE, SELFPAY ==
--- NOTE | ~2023-05-17 | CT_ITS ---
EXAMINATION: CT soft tissue neck w con DATE: 05/17/2023 10:44 INDICATION: Squamous cell carcinoma of tongue. TECHNIQUE: Computed tomography (CT) of the neck was performed with 75 mL Omnipaque-350 intravenous co ntrast. Automated exposure control and iterative reconstruction technique were employed. The dose-mauro gth product was 588.43 mGy-cm. COMPARISON: CT neck 11/06/2022, 05/02/2022, 10/12/2021 FINDINGS: There are likely changes of left ocular lens replacement surgery. There is mucosal thickeni ng in the paranasal sinuses. There is mucosal thickening in the pharynx and larynx, likely changes of radiation therapy. There is fat stranding in right neck, likely changes of radiation therapy. There are no pathologically enlarged lymph nodes. There is plaque in the proximal internal carotid arteries with 0% stenosis relative to normal distal artery lumen diameters. The mastoid air cells are normal. There is a prosthetic stapes. There is severe cervical spondylosis. IMPRESSION: 1. No evidence of metastatic disease. Reviewed, dictated and finalized at location E. NHOUSE SPECIALIST
[2023-05-17 10:37] LABS: Estimated Glomerular Filt Rate > 60
== END 2023-05-17 09:45 | disposition home or self-care (01) ==
PROVIDERS: Visit Provider Internal Medicine Hematology & Oncology
DX: C02.9 Malignant neoplasm of tongue, unspecified (principal)
CPT/HCPCS: 70491; Q9967

== ENCOUNTER 2023-05-31 13:47 | Outpatient (CLI) | payer MEDICARE, SELFPAY ==
[2023-05-31 14:05] LABS: Basophils Percent Auto 0.2 % (0.2-1.2); Hematocrit 40.3 % (42.0-52.0); Hemoglobin 13.5 g/dL (14.0-18.0); Immature Granulocyte Absolute 0.03 K/mm3 (0.00-0.031); Immature Granulocyte Percent A 0.3 % (0-0.5); Lymphocytes Absolute Auto 0.48 K/mm3 (0.9-3.2); Lymphocytes Percent Auto 5.4 % (18.3-44.2); Mean Corpuscular HGB Conc 33.5 g/dl (32-36); Mean Corpuscular Hemoglobin 31.8 pg (26-34); Mean Corpuscular Volume 94.8 fl (80-100); Mean Platelet Volume 9.2 fl (7.4-10.4); Monocytes Absolute Auto 0.5 K/mm3 (0.1-0.6); Monocytes Percent Auto 5.8 % (2.6-8.5); Neutrophils Absolute Auto 7.9 K/mm3 (1.3-6.7); Neutrophils Percent Auto 88.3 % (45.5-73.1); Platelet Count Result 198 k/mm3 (150-375); Red Blood Count 4.25 M/mm3 (4.6-6.20); Red Cell Distribution Width 13.6 % (11.5-14.5); White Blood Count 8.9 K/mm3 (4.5-10.0)
[2023-05-31 14:10] LABS: Blood Urea Nitrogen 8 mg/dL (8-26); Carbon Dioxide 29 mmol/L (22-30); Chloride 93 mmol/L (98-109); Estimated Glomerular Filt Rate > 60; Glucose 112 mg/dL (70-105); Ionized Calcium (POC) 1.14 mmol/L (1.11-1.31); Sodium 133 mmol/L (138-146)
[2023-05-31 17:05] LABS: Alanine Aminotransferase 31 U/L (6-50); Albumin Level 3.8 g/dL (3.5-5.1); Alkaline Phosphatase 43 U/L (38-126); Anion Gap 4 mmol/L (8-16); Aspartate Amino Transferase 29 U/L (17-59); Bilirubin,Total 0.6 mg/dL (0.2-1.3); Blood Urea Nitrogen 9 mg/dL (9-20); Calcium 8.8 mg/dL (8.4-10.2); Carbon Dioxide 29 mmol/L (22-30); Chloride 97 mmol/L (98-107); Estimated Glomerular Filt Rate > 60; Glucose 112 mg/dL (65-110); Potassium 4.2 mmol/L (3.4-5.0); Sodium 130 mmol/L (137-145)
== END 2023-05-31 13:48 | disposition home or self-care (01) ==
LOC: ANHLAB 13:52
PROVIDERS: Visit Provider Internal Medicine Hematology & Oncology
DX: C02.9 Malignant neoplasm of tongue, unspecified (principal)
CPT/HCPCS: 36415; 80047; 80053; 85025

== ENCOUNTER 2023-08-02 14:38 | Outpatient (RCR) | payer MEDICARE, SELFPAY ==
[2023-08-02 14:34] VITALS: BP_SYST 146
--- NOTE | 2023-08-02 17:56 | PTOPDC ---
Assessment and note entered by JT File, PT Evaluation Information Assessment Status Discharge Diagnosis L arm pain Onset 04/19/23 Subjective Information patient reports he feels alright today. however, he and his report he still has difficulty lifting the L arm, and getting his arm into his jacket sleeve. he reports he returns to the MD later this month. Reported Pain Level Pain Score 6: Self Report Pain Score 7: Self Report Assessment PT Clinical Summary mr. gillette presents to skilled PT for his 14th skilled therapy visit for his L arm. he presents today with continued pain, weakness, and deficits in functional use. he displays decreased mm strength and endurance with active flexion/lifting overhead. he has only met HEP goal thus far. as of this date, patient will be DC'd to an independent HEP with plan to follow up with MD at the end of the month. Plan of Care PT Services Indicated Yes
== END 2023-08-02 20:00 | disposition home or self-care (01) ==
LOC: CHSPT 14:38
DX: M79.602 Pain in left arm (principal)
CPT/HCPCS: 97110

== ENCOUNTER 2023-11-16 12:42 | Outpatient (CLI) | payer MEDICARE, SELFPAY ==
--- NOTE | ~2023-11-16 | XR_ITS ---
XR pelvis min 3V 11/16/2023 14:32 Indication: Pelvic pain Procedure: 3 views of the pelvis Comparison: No prior studies for comparison. Findings: Pelvic rings are intact. Mild osteoarthritis of the hips. There is lower lumbar spondylosis . IVC filter partially visualized. No acute fracture or traumatic malalignment. Impression: 1: No acute bone or joint abnormality. Reviewed, dictated and finalized at location B. Impression: 1: No acute bone or joint abnormality.
== END 2023-11-16 12:43 | disposition home or self-care (01) ==
LOC: CHSIMG 12:49
PROVIDERS: Visit Provider Physical Medicine & Rehabilitation Pain Medicine
DX: R10.2 Pelvic and perineal pain (principal)
CPT/HCPCS: 72190

== ENCOUNTER 2023-11-27 13:57 | Outpatient (CLI) | payer MEDICARE, SELFPAY | END 2023-11-27 13:58 | disposition home or self-care (01) | LOC: CHSLAB 14:14 | PROVIDERS: PCP Specialist; Visit Provider Specialist | DX: C44.629 Squamous cell carcinoma of skin of left upper limb, including shoulder (principal); C44.42 Squamous cell carcinoma of skin of scalp and neck | CPT/HCPCS: 88305 ==

== ENCOUNTER 2024-01-29 09:58 | Outpatient (CLI) | payer MEDICARE, SELFPAY ==
--- NOTE | ~2024-01-29 | CT_ITS ---
CT soft tissue neck w con Ordering provider: Sujit Andrade MD History: 73 years Male with . SQUAMOUS CELL CANCER OF TONGUE . Comparison: May 17, 2023 Technique: CT soft tissues neck was performed with contrast. . Automated exposure control and iterat cole reconstruction technique were employed. The dose-length product was 553.64 mGy-cm. Findings: LOWER HEAD: The visualized brain parenchyma, optic globes/orbits and mastoids are normal bilateral m axillary sinus disease. SALIVARY GLANDS: Right submandibular gland is not demonstrated with highly suggestive postoperative c hanges in the area. THYROID: Normal. SUPRAHYOID DEEP SPACES: Normal. CAROTID ARTERIES: Atherosclerotic changes of the left carotid artery. The right is normal. Tortuous right carotid with a retropharyngeal course. JUGULAR VEINS: Normal.The right sternomastoid shows loss of separation by fat with the right jugular vein on the right larynx which may be due to inflammatory, postoperative or infiltrative process in t he area. No significant change from previous examination.. Follow-up advised. TONSILS: Normal. ORAL CAVITY: Partially obscured by dental amalgam but normal as visualized. PHARYNX, LARYNX AND TRACHEA: Patent and normal. No prevertebral soft tissue swelling. SUPERFICIAL SOFT TISSUES: Normal. No lymphadenopathy or neck mass. THORACIC INLET/VISUALIZED UPPER CHEST: Normal. Dependent atelectatic changes. SKELETAL: Anterolisthesis at the level of C2-C3 Age appropriate degenerative changes. IMPRESSION: No significant change from previous examination. Loss of definition between the right internal jugular vein right side of the larynx with the right st ernomastoid muscle which is unchanged from previous examination. Follow-up advised. Reviewed, dictated and finalized at location A. IMPRESSION: No significant change from previous examination. Loss of definition between the right internal jugular vein right side of the la rynx with the right sternomastoid muscle which is unchanged from previous exami nation. Follow-up advised.
[2024-01-29 10:55] LABS: Estimated Glomerular Filt Rate > 60
== END 2024-01-29 09:59 | disposition home or self-care (01) ==
PROVIDERS: Visit Provider Internal Medicine Hematology & Oncology
DX: C02.9 Malignant neoplasm of tongue, unspecified (principal)
CPT/HCPCS: 70491; Q9967

== ENCOUNTER 2024-02-11 15:03 | Outpatient (CLI) | payer MEDICARE, SELFPAY ==
[2024-02-11 15:20] LABS: Basophils Percent Auto 0.2 % (0.2-1.2); Hematocrit 39.6 % (42.0-52.0); Hemoglobin 13.6 g/dL (14.0-18.0); Immature Granulocyte Absolute 0.04 K/mm3 (0.00-0.031); Immature Granulocyte Percent A 0.4 % (0-0.5); Lymphocytes Absolute Auto 0.45 K/mm3 (0.9-3.2); Lymphocytes Percent Auto 4.9 % (18.3-44.2); Mean Corpuscular HGB Conc 34.3 g/dl (32-36); Mean Corpuscular Hemoglobin 31.3 pg (26-34); Monocytes Absolute Auto 0.6 K/mm3 (0.1-0.6); Neutrophils Absolute Auto 8.1 K/mm3 (1.3-6.7); Neutrophils Percent Auto 88.5 % (45.5-73.1); Platelet Count Result 196 k/mm3 (150-375); Red Blood Count 4.35 M/mm3 (4.6-6.20); Red Cell Distribution Width 13.4 % (11.5-14.5); White Blood Count 9.1 K/mm3 (4.5-10.0)
[2024-02-11 15:24] LABS: Blood Urea Nitrogen 7 mg/dL (8-26); Carbon Dioxide 25 mmol/L (22-30); Chloride 98 mmol/L (98-109); Estimated Glomerular Filt Rate > 60; Glucose 114 mg/dL (70-105); Ionized Calcium (POC) 1.15 mmol/L (1.11-1.31); Sodium 135 mmol/L (138-146)
[2024-02-11 16:32] LABS: Alanine Aminotransferase 25 U/L (6-50); Albumin Level 3.8 g/dL (3.5-5.1); Alkaline Phosphatase 45 U/L (38-126); Anion Gap 8 mmol/L (4-12); Aspartate Amino Transferase 24 U/L (17-59); Bilirubin,Total 0.4 mg/dL (0.2-1.3); Blood Urea Nitrogen 9 mg/dL (9-20); Carbon Dioxide 28 mmol/L (22-30); Chloride 97 mmol/L (98-107); Estimated Glomerular Filt Rate > 60; Glucose 116 mg/dL (65-110); Sodium 133 mmol/L (137-145)
== END 2024-02-11 15:04 | disposition home or self-care (01) ==
PROVIDERS: Visit Provider Internal Medicine Hematology & Oncology
DX: C02.9 Malignant neoplasm of tongue, unspecified (principal)
CPT/HCPCS: 36415; 80047; 80053; 85025

== ENCOUNTER 2024-02-26 12:06 | Outpatient (CLI) | payer MEDICARE, SELFPAY | END 2024-02-26 12:07 | disposition home or self-care (01) | LOC: CHSLAB 12:09 | PROVIDERS: PCP Specialist; Visit Provider Specialist | DX: L82.1 Other seborrheic keratosis (principal); C44.329 Squamous cell carcinoma of skin of other parts of face | CPT/HCPCS: 88305 ==

== ENCOUNTER 2024-07-15 11:48 | Outpatient (CLI) | payer MEDICARE, SELFPAY ==
--- OUTSIDE RECORDS SUMMARY | 2024-07-15 13:24 | XMS_ITS | Encounter Summary ---
Author Organization [facility] Address [address] [place] [address] Care Team Providers Care Receiving Distribution Station Operator Name Role Phone Unavailable Primary Care Provider Unavailabl e Encounter Details Date Type Department Care Team (Late st Contact Info) Description 04/05/2020 Lab Requisition [facility] [address] [place] [id number] Tony Young MD [address] [place] [address] Social History Tobacco Use Types Packs/Day Years Used Date Smoking Tobacco: Never Assessed Sex and Gender Information Value Date Recorded Sex Assigned at Not on file Gender Identity Not on file Sexual Orientation Not on file documented as of this encounter Plan of Treatment Not on file documented as of this encounter Procedures Procedure Name Priority Date/Time Associated Diagnosis Comments DERMATOPATHOLOGY Routine 04/02/2020 12:0 0 AM VISITING PROFESSOR documented in this encounter Results * DERMATOPATHOLOGY (04/02/2020 12:00 AM VISITING PROFESSOR) Case Report Dermatopathology Report Case: [id number] Authorizing Provider: Tony Young MD Collected: 04/02/2020 12:00 AM Ordering Location: [facility] Received: 04/05/2020 12:12 PM Pathologist: Evie Emanuel MD Specimen: Skin, right neck 0 3:35 PM VISITING PROFESSOR DERMATOPATHOLOGY LABORATORY Final Diagnosis Specimen A. SKIN, right neck: ACTINIC KERATOSIS (L57.0) 0 3:35 PM VISITING PROFESSOR DERMATOPATHOLOGY LABORATORY Clinical History R/O SCC, Chacko's, HAK. 0 3:35 PM [facility] DERMATOPATHOLOGY LABORATORY Gross Description Specimen A: Received is one formalin filled container labeled with the patient's name and designated right neck. The specimen consists of a shave biopsy measuring [id number]. Jar 0. 0 3:35 PM [facility] DERMATOPATHOLOGY LABORATORY Microscopic Description Specimen A. SKIN, right neck: There is focal parakeratosis. The lower half of the epidermis shows disorderly maturation of keratinocytes with nuclear pleomorphism. 0 3:35 PM [facility] DERMATOPATHOLOGY LABORATORY Disclaimer An external and internal positive and negative controls are appropriate for the histochemical, immunohistochemical and immunofluorescence stain(s) in this case (if any), except where stated explicitly. The performance characteristics of the stain(s) cited in this report were developed and its performance characteristic determined by the Dermatopathology Laboratory at [facility], directed by Dr. Rubin Emanuel. These tests need not be, and therefore are not, approved by the [place] Food and Drug Administration. The tests are used for clinical purposes. Billing Codes Specimen Charges Stain Charges 70206 1 0 3:35 PM [facility] DERMATOPATHOLOGY LABORATORY Embedded Images 0 3:35 PM [facility] DERMATOPATHOLOGY LABORATORY Pathology/Cytolog y TISSUE SPECIMEN FROM SKIN / Unknown 04/02/2020 04/05/2020 12:12 PM [facility] Tony Young MD LAB - PATHOLOGY/CYTO LOGY ORDERABLES DERMATOPATHOLOGY LABORATORY [facility] - Department of Dermatology [address], [address] [phone] documented in this encounter Visit Diagnoses Not on filedocumented in this encounter
--- OUTSIDE RECORDS SUMMARY | 2024-07-15 13:24 | XMS_ITS | Referral Summary ---
Author Organization [facility] Address [address] [place] [id number] Care Team Providers Care Traditional Maori Health Practitioner Name Role Phone Salty Cook MD Primary Care Provider [phone] Allergies Active Allergy Reactions Criticality Noted Date Comments Adhesive Tape-Silicones Rash Medium Fexofenadine Unknown Meclizine Unknown Medications predniSONE (DELTASONE) 10 mg tablet Take 10 mg by mouth daily 9 Active azaTHIOprine (IMURAN) 50 mg tablet Take 150 mg by mouth nightly 9 Active aspirin 81 mg tablet Take 81 mg by mouth daily 6 Active rosuvastatin (CRESTOR) 40 mg tablet TAKE 1 TABLET BY MOUTH ONCE DAILY 90 tablet 1 9 Active Additional Information Patient taking differently: 40 mg oral Nightly, Reported on 04/24/2021 ezetimibe (ZETIA) 10 mg tablet TAKE 1 TABLET BY MOUTH ONCE DAILY 90 tablet 1 9 Active Additional Information Patient taking differently: 10 mg oral Nightly, Reported on 04/24/2021 valproate (DEPAKENE) 250 mg capsule Take 500 mg by mouth 3 (three) times a day Active pyridostigmine (MESTINON) 60 mg tablet Take 60 mg by mouth 3 (three) times a day Active ferrous sulfate 325 mg (65 mg of elemental iron) tabletIndicatio ns:Iron Deficiency Anemia Take 65 mg of elemental iron by mouth daily with breakfast Active multivitamin capsule Take 1 capsule by mouth daily Active QUEtiapine (SEROquel) 300 mg tablet Take 1 tablet (300 mg total) by mouth nightly 30 tablet 1 Active Active Problems Problem Noted Date Diagnosed Date Acute encephalopathy 04/24/2021 Assessment & Plan (04/24/2021 6:03 AM SALES AND SERVICE CONSULTANT): Suspect delirium in setting of fevers - presumably due to COVID19 (Positive at home test though no PCR done yet). Though muddled by the fact he has significant hearing loss though similar confusion noted with writing to patient. This is further supported as mentation improved per after fever subsided - documented that he was not oriented to time or place there. This is also further supported given that he otherwise appears non focal. This is all in the setting of polypharmacy and recent medication changes. Was on Cogentin and 1000mg seroquel up until this past week now on 600mg seroquel and off of cogentin in addition to taking ativan BID (though chronic) and depakote. Feel less likely this could be due to Myasthenia crisis given appears that he has intact strength and not in respiratory distress. Should consider brain mets (history of laryngeal cancer and prostate cancer - though no evidence of disease recently). Less likely meningitis however should be considered in setting of fever though no meningismus. Do not suspect stroke given fairly non focal and would be OOW otherwise (LKN 0330 yesterday). Seizure and now post ictal possible though following commands bilaterally and no witnessed seizure. hCT at OSH negative. -Hold Ativan (monitor for withdrawal for now), Ambien, and Seroquel while monitoring mentation. -Treatment of sepsis as discussed elsewhere - presumably COVID19 -Discussed with neurology over the phone regarding medications to avoid in myasthenia -> mainly avoid aminoglycosides and ok with meningitis coverage. -Upload OSH images for read. -Will treat empirically for meningitis for now with Vanc/Cefe/Acyclovir (Check CrCl first). -Neurology consult in the AM -Check NIFs/VC BID. -Monitor on telemetry -seizure and fall precautions. -NPO -> Speech/PT/OT Assessment & Plan (04/24/2021 5:58 AM SALES AND SERVICE CONSULTANT): Suspect delirium in setting of fevers - presumably due to COVID19 (Positive at home test though no PCR done yet). Though muddled by the fact he has significant hearing loss though similar confusion noted with writing to patient. This is further supported as mentation improved per after fever subsided - documented that he was not oriented to time or place there. This is also further supported given that he otherwise appears non focal. This is all in the setting of polypharmacy and recent medication changes. Was on Cogentin and 1000mg seroquel up until this past week now on 600mg seroquel and off of cogentin in addition to taking ativan BID (though chronic) and depakote. Feel less likely this could be due to Myasthenia crisis given appears that he has intact strength and not in respiratory distress. Should consider brain mets (history of laryngeal cancer and prostate cancer - though no evidence of disease recently). Less likely meningitis however should be considered in setting of fever though no meningismus. Do not suspect stroke given fairly non focal and would be OOW otherwise (LKN 0330 yesterday). Seizure and now post ictal possible though following commands bilaterally and no witnessed seizure. hCT at OSH negative. -Hold Ativan (monitor for withdrawal for now) and Seroquel while monitoring mentation. -Treatment of sepsis as discussed elsewhere - presumably COVID19 -Discussed with neurology over the phone regarding medications to avoid in myasthenia -> mainly avoid aminoglycosides and ok with meningitis coverage. -Upload OSH images for read. -Will treat empirically for meningitis for now with Vanc/Cefe/Acyclovir (Check CrCl first). -Neurology consult in the AM -Check NIFs/VC BID. -Monitor on telemetry -seizure and fall precautions. -NPO -> Speech/PT/OT Sepsis 04/24/2021 Assessment & Plan (04/24/2021 6:01 AM SALES AND SERVICE CONSULTANT): Prior to arrival at [facility]. Febrile and tachycardic. CXR with opacities c/w COVID19 pneumonia. At home test +COVID19 however no PCR test done at this time. Suspect COVID19 pneumonia. -Check RVP -Check Blood cultures -Check CXR -Upload OSH imaging to [facility]. -Empiric coverage of meningitis for now with Vanc/Cefe/Acyclovir (check CrCl first) -Check lactate -Check COVID19 labs (CRP, D-dimer, LDH) -If RVP + covid19 -> would start Remdesivir. Likely no need for additional steroids at this time as not hypoxic (100% on 2L NC -> try to wean). If becomes hypoxic, will need to start dexamethasone.. Assessment & Plan (04/24/2021 5:57 AM SALES AND SERVICE CONSULTANT): Prior to arrival at [facility]. Febrile and tachycardic. CXR with opacities c/w COVID19 pneumonia. At home test +COVID19 however no PCR test done at this time. Suspect COVID19 pneumonia. -Check RVP -Check Blood cultures -Check CXR -Upload OSH imaging to [facility]. -Empiric coverage of meningitis for now with Vanc/Cefe/Acyclovir (check CrCl first) -Check lactate -Check COVID19 labs (CRP, D-dimer, LDH) -If RVP + covid19 -> would start Remdesivir. Likely no need for additional steroids at this time as not hypoxic (100% on 2L NC -> try to wean). If becomes hypoxic, will need to start dexamethasone.. 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 -Recently seen by OSH oncology without e/o disease -Upload images from OSH to [facility] for read -Pending read and mentation -> can consider MRI brain to evaluate for mets. -DVT PPX: Lovenox. 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 -Recently seen by OSH oncology without e/o disease -Upload images from OSH to [facility] for read -DVT PPX: Lovenox. 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 Previously on warfarin however complicated by IPH 2016. Now on ASA 81mg daily. -Continue ASA 81mg daily. 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 Previously on warfarin however complicated by IPH 2016. Now on ASA 81mg daily. -Continue ASA 81mg daily. Bipolar 1 disorder 04/24/2021 Assessment & Plan (04/24/2021 6:02 AM SALES AND SERVICE CONSULTANT): Takes Seroquel 600mg daily, Ativan 0.5mg BID, and Depakote 500mg TID. -Hold seroquel and ativan given confusion -Continue depakote. Insomnia 04/24/2021 Assessment & Plan (04/24/2021 6:03 AM SALES AND SERVICE CONSULTANT): Hold ambien in setting of confusion. 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 Doesn't appear to be in crisis at this time. -Check NIF BID -Consult Neurology in AM given polypharmacy/confusion in setting of Myasthenia Gravis -Continue Prednsione, Imuran, and Pyridostigmine Assessment & Plan (04/24/2021 5:53 AM SALES AND SERVICE CONSULTANT): Significant history of myasthenia gravis on Prednisone, Imuran, and Pyridostigmine. Doesn't appear to be in crisis at this time. -Check NIF BID -Consult Neurology in AM given polypharmacy/confusion in setting of Myasthenia Gravis -Continue Prednsione, Imuran, and Pyridostigmine Fatigue 11/27/2012 Coronary arteriosclerosis in [place] artery 06/14 Assessment & Plan (04/24/2021 6:01 AM SALES AND SERVICE CONSULTANT): CAD s/p PCI to LAD and prox/mid RCA 2000. Previously followed with Dr. Frey now followed by [facility] painter ski edge. Here for STEMI evaluation -Per STEMI/CARDS -> No concern for STEMI and stable EKG -> recommend repeat troponin -Check Troponin. -Continue ASA 81mg daily, Rosuvastatin 40mg daily, Ezetimibe 10mg daily. Assessment & Plan (04/24/2021 5:57 AM SALES AND SERVICE CONSULTANT): CAD s/p PCI to LAD and prox/mid RCA 1999. Previously followed with Dr. Frey now followed by [facility]. Here for STEMI evaluation -Per STEMI/CARDS -> No concern for STEMI and stable EKG -> recommend repeat troponin -Check Troponin. -Continue ASA 81mg daily, Rosuvastatin 40mg daily, Ezetimibe 10mg daily. Hyperlipidemia 09/13/2010 Overview (08/10/2017): Description: Hyperlipidemia Assessment & Plan (04/24/2021 6:01 AM SALES AND SERVICE CONSULTANT): Continue Rosuvastatin and Exetimibe. Assessment & Plan (04/24/2021 5:53 AM SALES AND SERVICE CONSULTANT): Continue Rosuvastatin and Exetimibe. Social History Tobacco Use Types Packs/Day Years Used Date Smoking Tobacco: Never Smokeless Tobacco: Never Alcohol Use Standard Drinks/Week Comments Not Currently 0 (1 standard drink = 0.6 oz pur e alcohol) Sex and Gender Information Value Date Recorded Sex Assigned at Not on file Legal Sex Male 10:46 PM SALES AND SERVICE CONSULTANT Gender Identity Male 05/23/2018 10:17 AM SALES AND SERVICE CONSULTANT Sexual Orientation Not on file Last Filed Vital Signs Vital Sign Reading Time Taken Comments Blood Pressure 104/69 04/27/2021 11:28 AM SALES AND SERVICE CONSULTANT Pulse 70 04/27/2021 11:28 AM SALES AND SERVICE CONSULTANT Temperature 36.7 C (98.1 F) 04/27/2021 11:28 AM SALES AND SERVICE CONSULTANT Respiratory Rate 18 04/27/2021 11:28 AM SALES AND SERVICE CONSULTANT Oxygen Saturation 94% 04/27/2021 11:28 AM SALES AND SERVICE CONSULTANT Inhaled Oxygen Concentration - - Weight 82.1 kg (181 lb) 04/25/2021 7:46 AM SALES AND SERVICE CONSULTANT Height 173.5 cm (5' 8.31 ) 04/25/2021 7:46 AM CS T Body Mass Index 27.27 04/25/2021 7:46 AM SALES AND SERVICE CONSULTANT Plan of Treatment Not on file [facility] MEDICARE [employer] SENIOR SUPPLEMENT Advance Directives For more information, please contact: [phone] * Full Code (Latest Code Status on File) Date Activated Date Inactivated Comments 04/24/2021 3:54 AM 04/27/2021 6:04 PM Care Teams Traditional Maori Health Practitioner Relationship Specialty Start Date End Date Salty Cook MD [address] [place] [address] [place] [address] PCP - General Internal Medicine 03/29/18
--- OUTSIDE RECORDS SUMMARY | 2024-07-15 13:24 | XMS_ITS | Clinical Summary ---
Author Organization [facility] Address [address] [place] [id number] Care Team Providers Care Shoe Stamper Name Role Phone Salty Cook MD Primary Care Provider [phone] Allergies Active Allergy Reactions Criticality Noted Date [...] 04/24/2021 Assessment & Plan (04/24/2021 6:03 AM AUTOMOTIVE GLASS INSTALLER): Suspect delirium in setting of fevers - [...] Speech/PT/OT Assessment & Plan (04/24/2021 5:58 AM AUTOMOTIVE GLASS INSTALLER): Suspect delirium in setting of fevers - [...] 04/24/2021 Assessment & Plan (04/24/2021 6:01 AM AUTOMOTIVE GLASS INSTALLER): Prior to arrival at [facility]. Febrile and tachycardic. CXR with [...] dexamethasone.. Assessment & Plan (04/24/2021 5:57 AM AUTOMOTIVE GLASS INSTALLER): Prior to arrival at [facility]. [...] 04/24/2021 Assessment & Plan (04/24/2021 6:05 AM AUTOMOTIVE GLASS INSTALLER): T2N2B stage Gabriela moderately to poorly differentiated [...] Lovenox. 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 -Recently seen by OSH oncology without e/o disease -Upload images from OSH to [facility] for read -DVT PPX: Lovenox. 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 Previously on warfarin however complicated by IPH 2016. Now on ASA 81mg daily. -Continue ASA 81mg daily. 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 Previously on warfarin however complicated by IPH 2016. Now on ASA 81mg daily. -Continue ASA 81mg daily. Bipolar 1 disorder 04/24/2021 Assessment & Plan (04/24/2021 6:02 AM AUTOMOTIVE GLASS INSTALLER): Takes Seroquel 600mg daily, Ativan 0.5mg BID, and Depakote 500mg TID. -Hold seroquel and ativan given confusion -Continue depakote. Insomnia 04/24/2021 Assessment & Plan (04/24/2021 6:03 AM AUTOMOTIVE GLASS INSTALLER): Hold ambien in setting of confusion. 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 Doesn't appear to be in crisis at this time. -Check NIF BID -Consult Neurology in AM given polypharmacy/confusion in setting of Myasthenia Gravis -Continue Prednsione, Imuran, and Pyridostigmine Assessment & Plan (04/24/2021 5:53 AM AUTOMOTIVE GLASS INSTALLER): Significant history of myasthenia gravis on Prednisone, Imuran, and Pyridostigmine. Doesn't appear to be in crisis at this time. -Check NIF BID -Consult Neurology in AM given polypharmacy/confusion in setting of Myasthenia Gravis -Continue Prednsione, Imuran, and Pyridostigmine Fatigue 11/27/2012 Coronary arteriosclerosis in [place] artery 06/14 Assessment & Plan (04/24/2021 6:01 AM AUTOMOTIVE GLASS INSTALLER): CAD s/p PCI to LAD and prox/mid RCA 2000. Previously followed with Dr. Frey now followed by [facility] caddymaster. Here for STEMI evaluation -Per STEMI/CARDS -> No concern for STEMI and stable EKG -> recommend repeat troponin -Check Troponin. -Continue ASA 81mg daily, Rosuvastatin 40mg daily, Ezetimibe 10mg daily. Assessment & Plan (04/24/2021 5:57 AM AUTOMOTIVE GLASS INSTALLER): CAD s/p PCI to LAD and prox/mid RCA 2000. Previously followed with Dr. Frey now followed by [facility] caddymaster. Here for STEMI evaluation -Per STEMI/CARDS -> No concern for STEMI and stable EKG -> recommend repeat troponin -Check Troponin. -Continue ASA 81mg daily, Rosuvastatin 40mg daily, Ezetimibe 10mg daily. Hyperlipidemia 09/13/2010 Overview (08/10/2017): Description: Hyperlipidemia Assessment & Plan (04/24/2021 6:01 AM AUTOMOTIVE GLASS INSTALLER): Continue Rosuvastatin and Exetimibe. Assessment & Plan (04/24/2021 5:53 AM AUTOMOTIVE GLASS INSTALLER): Continue Rosuvastatin and Exetimibe. Surgical History Surgery Date Site/Laterality Comments TN INSERT INTRACORONARY STENT Cath Stent Placement - (Added by TW Conv) TN UNLISTED PROCEDURE ABDOMEN PERITONEUM & OMENTUM Hernia Repair - (Added by TW Conv) OTHER SURGICAL HISTORY 04/30/2019 - 04/29/2020 1/3 of Tongue Removed OTHER SURGICAL HISTORY 04/30/2019 - 04/29/2020 32 Lymphnodes Removed Medical History Medical History Date Comments HL (hearing loss) Cancer (HCC) 2019 Tongue Cancer Myasthenia gravis (HCC) Coronary artery disease S/P PCI to LAD 1999 followed by proximal/mid RCA 1999 Bipolar 1 disorder (HCC) Family History Medical History Relation Name Comments Coronary artery disease Father Fami ly history of coronary artery disease - (Added by TW Conv) Coronary artery disease Son Relation Name Status Comments Father Son Social History Tobacco Use Types Packs/Day Years Used Date Smoking Tobacco: Never Smokeless Tobacco: Never Alcohol Use Standard Drinks/Week Comments Not Currently 0 (1 standard drink = 0.6 oz pur e alcohol) Sex and Gender Information Value Date Recorded Sex Assigned at Not on file Legal Sex Male 10:46 PM AUTOMOTIVE GLASS INSTALLER Gender Identity Male 05/23/2018 10:17 AM AUTOMOTIVE GLASS INSTALLER Sexual Orientation Not on file Obstetrics History Last Filed Vital Signs Vital Sign Reading Time Taken Comments Blood Pressure 104/69 04/27/2021 11:28 AM AUTOMOTIVE GLASS INSTALLER Pulse 70 04/27/2021 11:28 AM AUTOMOTIVE GLASS INSTALLER Temperature 36.7 C (98.1 F) 04/27/2021 11:28 AM AUTOMOTIVE GLASS INSTALLER Respiratory Rate 18 04/27/2021 11:28 AM AUTOMOTIVE GLASS INSTALLER Oxygen Saturation 94% 04/27/2021 11:28 AM AUTOMOTIVE GLASS INSTALLER Inhaled Oxygen Concentration - - Weight 82.1 kg (181 lb) 04/25/2021 7:46 AM AUTOMOTIVE GLASS INSTALLER Height 173.5 cm (5' 8.31 ) 04/25/2021 7:46 AM CS T Body Mass Index 27.27 04/25/2021 7:46 AM AUTOMOTIVE GLASS INSTALLER Plan of Treatment Not on file Insurance [facility] MEDICARE AET SENIOR SUPPLEMENT Advance Directives For more information, please contact: [phone] * Full Code (Latest Code Status on File) Date Activated Date Inactivated Comments 04/24/2021 3:54 AM 04/27/2021 6:04 PM Care Teams Shoe Stamper Relationship Specialty Start Date End Date Salty Cook MD [address] [place] [address] [place] [address] PCP - General Internal Medicine 03/29/18
--- OUTSIDE RECORDS SUMMARY | 2024-07-15 13:24 | XMS_ITS | Encounter Summary ---
Author Organization [facility] Address [address] [facility] [place] [address] Care Team Providers Care Desktop Manager Name Role Phone Unavailable Primary Care Provider Unavailabl e Encounter Details Date Type Department Care Team (Late st Contact Info) Description 12/29/2020 Lab Requisition [facility] DermPath Lab [address] [place] [phone] Tony Young MD [address] [place] [address] Social History Tobacco Use Types [...] Priority Date/Time Associated Diagnosis Comments DERMATOPATHOLOGY Routine 12/28/2020 12:0 0 AM CDT documented in this encounter Results * DERMATOPATHOLOGY (12/28/2020 12:00 AM CDT) Case Report Dermatopathology Report Case: [id number] Authorizing Provider: Tony Young MD Collected: 12/28/2020 12:00 AM Ordering Location: [facility] DermPath Lab Received: 12/29/2020 01:14 PM Pathologist: Monica Winston MD Specimens: A) - Skin, left mid anti helix B) - Skin, behind mid left ear on scalp C) - Skin, left forehead (2.5cm) above brow 12:20 PM CDT DERMATOPATHOLOGY LABORATORY Final Diagnosis Specimen A. SKIN, left mid anti helix: SQUAMOUS CELL CARCINOMA, WELL DIFFERENTIATED (C44.229) Specimen B. SKIN, behind mid left ear on scalp: BASAL CELL CARCINOMA, NODULAR TYPE (C44.41) Specimen C. 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 12:20 PM [facility] DERMATOPATHOLOGY LABORATORY Gross Description Specimen A: Received is one formalin filled container labeled with the patient's name and designated left mid anti helix. The specimen consists of a shave biopsy measuring [id number]. Jar 0. Specimen B: Received is one formalin filled container labeled with the patient's name and designated behind mid left ear on scalp. The specimen consists of a shave biopsy measuring [id number]. Jar 0. Specimen C: Received is one formalin filled container labeled with the patient's name and designated left forehead (2.5cm) above brow. The specimen consists of a shave biopsy measuring [id number]. Jar 0. 12:20 PM [facility] DERMATOPATHOLOGY LABORATORY Microscopic Description Specimen A. SKIN, left mid anti helix: Arising in the epidermis and extending into the dermis there are irregularly shaped aggregates of keratinocytes showing evidence of premature cornification. Specimen B. SKIN, behind mid left ear on scalp: Within the dermis there are aggregates of basaloid cells with a high nuclear to cytoplasmic ratio and peripheral palisading. Specimen C. SKIN, left forehead (2.5cm) above brow: The epidermis shows parakeratosis, full thickness disorderly maturation of keratinocytes, mitoses at different levels, and dyskeratotic cells. 12:20 PM T DERMATOPATHOLOGY LABORATORY Disclaimer An external and internal positive and negative controls are appropriate for the histochemical, immunohistochemical and immunofluorescence stain(s) in this case (if any), except where stated explicitly. The performance characteristics of the stain(s) cited in this report were developed and its performance characteristic determined by the Dermatopathology Laboratory at [facility], directed by Dr. Rubin Emanuel. These tests need not be, and therefore are not, approved by the [place] Food and Drug Administration. The tests are used for clinical purposes. Billing Codes Specimen Charges Stain Charges 97808 16633 54686 1 1 1 12:20 PM CDT DERMATOPATHOLOGY LABORATORY Embedded Images 12:20 PM CDT DERMATOPATHOLOGY LABORATORY Pathology/Cytology TISSUE SPECIMEN FROM SKIN / Unknown 12/28/2020 12/29/2020 1:14 PM CDT Miscellaneous samples (specimen) TISSUE SPECIMEN FROM SKIN / Unknown 12/28/2020 12/29/2020 1:14 PM CDT Miscellaneous samples (specimen) TISSUE SPECIMEN FROM SKIN / Unknown 12/28/2020 12/29/2020 1:14 PM CDT Tony Young MD LAB - PATHOLOGY/CYTO LOGY ORDERABLES DERMATOPATHOLOGY LABORATORY [facility] - Department of Dermatology [facility] [address] [place] [address], [address] Floor [address] [phone] documented in this encounter Visit Diagnoses Not on filedocumented in this encounter
--- OUTSIDE RECORDS SUMMARY | 2024-07-15 13:24 | XMS_ITS | Clinical Summary ---
Author Organization [facility] Address [address] [facility] [place] [address] Care Team Providers Care Commission Associate Name Role Phone Unavailable Primary Care Provider Unavailabl e Source Comments [facility],non-owned Affiliates and Associated Physician Practices is amultiple site organization consisting of ambulatory clinics and hospital sitesin [place], [place], [place] and [place]. This disclosure is being madepursuant to the Care Everywhere program and may not contain all information available regarding this patient. Last updated 18.[facility] [place] Social History Tobacco Use Types Packs/Day Years Used Date Smoking Tobacco: Never Assessed Sex and Gender Information Value Date Recorded Sex Assigned at Not on file Gender Identity Not on file Sexual Orientation Not on file Plan of Treatment Health Maintenance Due Date Last Done Comments COLOGUARD (AGES 45-75) - COL ON CA SCREENING 1950 COLON MONITORING 1950 COLONOSCOPY - COLON CA SCREENING 1950 CT COLONOGRAPHY - COLON CA SCREENING 1950 Colorectal Cancer Screening 1950 FIT - COLON CA SCREENING 1950 FLEX SIG - COLON CA SCREENING 1950 LIPID TESTING 1950 MEDICARE AWV 12 MONTHS 1950 HEPATITIS C SCREENING 08/28/1968 DTAP/TDAP/TD VACCINES (1 - Tdap) 1969 PNEUMOCOCCAL VACCINE 50+ (1 of 1 - PCV) 2000 ZOSTER VACCINE (1 of 2) 2000 COVID-19 VACCINE ( - 2023-2 5 season) 2023 INFLUENZA VACCINE (#1) 2023 DEPRESSION SCREENING 04/30/2024 Respiratory Syncytial Virus (RSV) Vaccine Pt: or over 60 yrs (1 - 1-dose 75+ series) 2025 HEPATITIS B VACCINE Aged Out No longe r eligible based on patient's age to complete this topic HIB VACCINE Aged Out No longer eligi ble based on patient's age to complete this topic HPV VACCINE Aged Out No longer eligi ble based on patient's age to complete this topic MENINGOCOCCAL (Group B) VACC INE SHARED DECISION-MAKING Aged Out No longer eligibl e based on patient's age to complete this topic MENINGOCOCCAL GROUPS A/C/Y/W VACCINE Aged Out No longer eligible b ased on patient's age to complete this topic
--- OUTSIDE RECORDS SUMMARY | 2024-07-15 13:24 | XMS_ITS | Encounter Summary ---
Author Organization [facility] Address [address] [place] [address] Care Team Providers Care Neuro Intensivist Physician Name Role Phone Salty Cook MD Primary Care Provider Encounter Details Date Type Department Care Team (Late st Contact Info) Description 01/06/2020 Chart Note [facility] Radiation Therapy [address] [place] [address] [place] [address] [place] [address] Social History Tobacco Use Types Packs/Day Years Used Date Smoking Tobacco: Never Smokeless Tobacco: Never Alcohol Use Standard Drinks/Week Comments Not Currently 0 (1 standard drink = 0.6 oz pur e alcohol) Sex and Gender Information Value Date Recorded Sex Assigned at Not on file Legal Sex Male 3:21 PM CDT Gender Identity Not on file Sexual Orientation Not on file Occupation Industry Job Start Date Job End Date Not on file Not on file Not on file Not on file COVID-19 Exposure Response Date Recorded In the last month, have you been in contact with someone who was confirmed or suspected to have Coronavirus / COVID-19? No / Unsure 01/07/2020 10:03 AM CDT documented as of this encounter Plan of Treatment Upcoming Encounters Date Type Department Care Team (Late st Contact Info) Description 11/17/2024 1:00 PM CDT Office Visit [facility] Oncology and Hematology - [address] [place] [address] Sujit Andrade MD [address] [facility] [address] [place] [address] 12/25/2024 1:20 PM CDT Office Visit [facility] EAR, NOSE AND THROAT [facility] [address] [facility] [address] [place] [address] Vikas Castillo MD [address] [place] [address] documented as of this encounter Visit Diagnoses Not on filedocumented in this encounter Care Teams Neuro Intensivist Physician Relationship Specialty Start Date End Date Salty Cook MD [address] [place] [address] [address] [place] [phone] PCP - General Internal Medicine 12/10/19 documented as of this encounter
--- OUTSIDE RECORDS SUMMARY | 2024-07-15 13:24 | XMS_ITS | Encounter Summary ---
Author Organization [facility] Address [address] [place] [address] Care Team Providers Care Bottle Caser Name Role Phone Unavailable Primary Care Provider Unavailabl e Encounter Details Date Type Department Care Team (Late st Contact Info) Description 10/27/2021 Lab Requisition [facility] DermPath Lab [address] [place] [phone] Tony Young MD [address] [place] [address] Social History Tobacco Use Types [...] Priority Date/Time Associated Diagnosis Comments DERMATOPATHOLOGY Routine 10/26/2021 12:0 0 AM CDT documented in this encounter Results * DERMATOPATHOLOGY (10/26/2021 12:00 AM CDT) Case Report Dermatopathology Report Case: [id number] Authorizing Provider: Tony Young MD Collected: 10/26/2021 12:00 AM Ordering Location: [facility] DermPath Lab Received: 10/27/2021 12:05 PM Pathologist: Evie Emanuel MD Specimen: Skin, left scalp behind left upper ear 2 5:02 PM CDT DERMATOPATHOLOGY LABORATORY Final Diagnosis Specimen A. 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 2 5:02 PM CDT DERMATOPATHOLOGY LABORATORY Gross Description Specimen A: Received is one formalin filled container labeled with the patients name and designated left scalp behind left upper ear. The specimen consists of a shave removal measuring [id number], bisected. The margin is inked green. Jar 0+. 2 5:02 PM CDT DERMATOPATHOLOGY LABORATORY Microscopic Description Specimen A. SKIN, left scalp behind left upper ear: This exoendophytic lesion shows a central keratotic plug surrounded by a symmetrical proliferation of keratinocytes with abundant eosinophilic cytoplasm. At the sides, there is epithelial lipping . There is a suggestion that the central crater consists of plugged follicular infundibula. This lesion is present at the base of the specimen. 2 5:02 PM CDT DERMATOPATHOLOGY LABORATORY Disclaimer An external and internal positive and negative controls are appropriate for the histochemical, immunohistochemical and immunofluorescence stain(s) in this case (if any), except where stated explicitly. The performance characteristics of the stain(s) cited in this report were developed and its performance characteristic determined by the Dermatopathology Laboratory at [facility], directed by Dr. Rubin Emanuel. These tests need not be, and therefore are not, approved by the [place] Food and Drug Administration. The tests are used for clinical purposes. Billing Codes Specimen Charges Stain Charges 61141 1 2 5:02 PM CDT DERMATOPATHOLOGY LABORATORY Embedded Images 2 5:02 PM CDT DERMATOPATHOLOGY LABORATORY Pathology/Cytolog y TISSUE SPECIMEN FROM SKIN / Unknown 10/26/2021 10/27/2021 12:05 PM CDT Tony Young MD LAB - PATHOLOGY/CYTO LOGY ORDERABLES DERMATOPATHOLOGY LABORATORY [facility] - Department of Dermatology [address] [place] [address], [facility] [phone] documented in this encounter Visit Diagnoses Not on filedocumented in this encounter
--- OUTSIDE RECORDS SUMMARY | 2024-07-15 13:24 | XMS_ITS | Clinical Summary ---
Author Organization [facility] Address [address] [place] [address] Phone Care Team Providers Care Dry Sander Name Role Phone Salty Cook MD Primary Care Provider Allergies Active Allergy Reactions Criticality Noted Date Comments Adhesive Tape-Silicones Rash Medium 01/07/2020 Fexofenadine Rash Low 01/07/2020 Latex 12/09/2019 Added based on information entered during case entry, please review and add reactions, type, and severity as needed Latex Rash Low 12/16/2019 Meclizine Rash Low 01/07/2020 Medications multivitamin (DAILY-SARAH) tablet Take 1 Tablet by mouth daily. Active rosuvastatin (CRESTOR) 40 mg tablet Take 40 mg by mouth daily at bedtime. Active ezetimibe (ZETIA) 10 mg tablet Take 10 mg by mouth daily at bedtime. Active pyridostigmine (MESTINON) 60 mg tablet Take 60 mg by mouth 3 times daily. 60mg in a.m., noon 60 mg, dinner 60 mg Active predniSONE (DELTASONE) 10 mg tablet Take 10 mg by mouth daily with breakfast. Active QUEtiapine (SEROquel) 400 mg tablet Take 450 mg by mouth daily at bedtime. Active LORazepam (ATIVAN) 0.5 mg tablet Take 0.5 mg by mouth 2 times daily. Active divalproex (DEPAKOTE) 250 mg Delayed Release tablet Take 500 mg by mouth 2 times daily. Active traZODone (DESYREL) 100 mg tablet TAKE 1 TABLET BY MOUTH EVERY DAY AT BEDTIME NEEDED FOR INSOMNIA FOR 90 DAYS 07/21/2021 Active ferrous sulfate 325 mg (65 mg iron) tablet Take by mouth daily with breakfast. Active benztropine (COGENTIN) 1 mg tablet Take 1 mg by mouth daily in the morning. Active finasteride (PROSCAR) 5 mg tablet Take 5 mg by mouth daily. 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 08/10/2017 Myasthenia gravis 11/28/2013 Hyperlipidemia 09/13/2010 Overview (12/20/2019): Description: Hyperlipidemia Encounters Date Type Department Care Team Description 06/18/2024 External Device Data ST[facility] ABSTRACTION Provider, Abstract 06/18/2024 External Device Data ST[facility] ABSTRACTION Provider, Abstract 05/28/2024 External Device Data ST[facility] ABSTRACTION Provider, Abstract 05/22/2024 External Device Data ST[facility] ABSTRACTION Provider, Abstract from Last 3 Months Family History Medical History Relation Name Comments Heart Disease Father Healthy Son 1 Heart Attack Son 1 Healthy Son 2 Relation Name Status Comments Father Mother Son 1 Alive Son 2 Alive Social History Tobacco Use Types Packs/Day Years Used Date Smoking Tobacco: Never Smokeless Tobacco: Never Tobacco Cessation:Counseling Given: Not Answered Alcohol Use Standard Drinks/Week Comments Not Currently [...] file Not on file Not on file Last Filed Vital Signs Vital Sign Reading Time Taken Comments Blood Pressure 120/81 02/11/2024 3:39 PM CDT Pulse 89 02/11/2024 3:39 PM CDT Temperature 36.9 C (98.4 F) 02/11/2024 3:35 PM CDT Respiratory Rate 16 02/11/2024 3:35 PM CDT Oxygen Saturation 94% 02/11/2024 3:35 PM CDT Inhaled Oxygen Concentration - - Weight 89.4 kg (197 lb) 02/11/2024 3:35 PM CDT Height 177.8 cm (5' 10 ) 11/13/2022 10:00 AM CDT Body Mass Index 28.27 11/13/2022 10:00 AM CDT Plan of Treatment Upcoming Encounters Date Type Department Care Team (Late st Contact Info) Description 11/17/2024 1:00 PM CDT Office Visit [facility] Oncology and Hematology - [place] [address] [facility] [address] [place] [phone] Sujit Andrade MD [address] [facility] [address] [place] [address] 12/25/2024 1:20 PM CDT Office Visit [facility] EAR, NOSE AND THROAT [facility] [address] [facility] [address] [place] [address] Vikas Castillo MD [address] [facility] [place] [address] Health Maintenance Due Date Last Done Comments DTAP/TDAP/TD VACCINES (1 - Tdap) 1969 COLORECTAL SCREENING 09/03/1995 Colorectal Cancer Screening 09/03/1995 FIT-DNA Q 3 years 09/03/1995 FIT/FOBT Q 1 year 09/03/1995 Flex Sig/CT Colonography Q 5 years 09/03/1995 ZOSTER VACCINE (1 of 2) 2000 INFLUENZA VACCINE (#1) 2023 3, 01/28/2023, 01/28/2022 COVID-19 Vaccine (3 - 2023-2 5 season) 2023 10/18/2020, 09/20/2020, 09/20/2020 RSV VACCINE (60+ or ) (1 - 1-dose 75+ series) 2025 PNEUMOCOCCAL VACCINE 50+ YEARS Completed 0 12/29/2021, 11/28/2020, 12/30/2019, Additional history exists Medical Devices Implanted Type Area Material Handling Supervisor Device Identifier Shelf Expiration Date Model / Serial / Lot Hemostatic Surgicel 1x2in 1960 - [id number] Implanted:Qty: 1 on 12/19/2019 by Vikas Castillo MD at [facility] Right: Neck [employer] 11/27/20211960 / / [id number] Ivc Filter Insurance MEDICARE PART A AND B [facility] SUPP MEDICARE PART A AND B [facility] SUPP Advance Directives For more information, please contact: [phone] Documents on File Type Date Recorded Patient Wine Steward/Stewardess Expl anation Advance Directive POA 12/19/2019 11:51 AM Advance Directive POA * Full Code (Latest Code Status on File) Date Activated Date Inactivated Comments 12/19/2019 7:59 PM 12/22/2019 3:00 PM * Full Code Date Activated Date Inactivated Comments 12/19/2019 12:07 PM 12/19/2019 7:59 PM Care Teams Dry Sander Relationship Specialty Start Date End Date Salty Cook MD [address] [place] [address] [place] [address] PCP - General Internal Medicine 12/10/19
--- OUTSIDE RECORDS SUMMARY | 2024-07-15 13:24 | XMS_ITS | Clinical Summary ---
Author Organization [facility] Address [facility] [place] [address] Care Team Providers Care Money Position Officer Name Role Phone Unavailable Primary Care Provider Unavailabl e Social History Tobacco Use Types Packs/Day Years Used Date Smoking Tobacco: Never Assessed Sex and Gender Information Value Date Recorded Sex Assigned at Not on file Legal Sex Male 4:15 PM CDT Gender Identity Not on file Sexual Orientation Not on file Plan of Treatment Health Maintenance Due Date Last Done Comments Colorectal Cancer Screening Colonoscopy (10 Years) 1950 Hepatitis C 1968 DTaP, Tdap and Td Vaccines ( 1 - Tdap) 1969 Zoster Vaccines (1 of 2) 2000 Pneumococcal Vaccine: 65+ Ye ars (1 of 1 - PCV) 09/03/2015 COVID-19 Vaccine ( - 2023-2 5 season) 2023 Influenza Adult (#1) 2024 RSV Immunization or 60+ Years (1 - 1-dose 75+ series) 2025 Meningococcal B Vaccine Aged Out No l onger eligible based on patient's age to complete this topic Meningococcal Vaccine Aged Out No julio cesar eligible based on patient's age to complete this topic RSV Immunizations Under 20 Months Aged Out No longer eligible based on patient's age to complete this topic Advance Directives Documents on File Type Date Recorded Patient Synthetic Filament Spinner Expl anation Advance Directives and Living Will 08/25/2015 12:00 AM ADVANCED DIRECTIVES Advance Directives and Living Will 01/28/2015 12:00 AM ADVANCED DIRECTIVES Advance Directives and Living Will 12/06/2014 12:00 AM ADVANCED DIRECTIVES
--- OUTSIDE RECORDS SUMMARY | 2024-07-15 13:24 | XMS_ITS | Encounter Summary ---
Author Organization [facility] Address [address] [facility] [place] [address] Care Team Providers Care Manager Behavior Name Role Phone Unavailable Primary Care Provider Unavailabl e Encounter Details Date Type Department Care Team (Late st Contact Info) Description 04/02/2019 Lab Requisition [facility] DermPath Lab [address] [place] [phone] Tony Young MD [address] [place] [address] Social History Tobacco Use Types [...] Priority Date/Time Associated Diagnosis Comments DERMATOPATHOLOGY Routine 04/01/2019 12:0 0 AM CONGRESSIONAL ASSISTANT documented in this encounter Results * DERMATOPATHOLOGY (04/01/2019 12:00 AM CONGRESSIONAL ASSISTANT) Case Report Dermatopathology Report Case: [id number] Authorizing Provider: Tony Young MD Collected: 04/01/2019 12:00 AM Ordering Location: [facility] DermPath Lab Received: 04/02/2019 02:04 PM Pathologist: Evie Emanuel MD Specimen: Skin, left ant neck 9 3:22 PM CONGRESSIONAL ASSISTANT DERMATOPATHOLOGY LABORATORY Final Diagnosis Specimen A. SKIN, left ant neck: SQUAMOUS CELL CARCINOMA IN SITU (PRUETT'S DISEASE) (D04.4) 9 3:22 PM CONGRESSIONAL ASSISTANT DERMATOPATHOLOGY LABORATORY Clinical History R/O SCC, BCC. 3:22 PM [facility] DERMATOPATHOLOGY LABORATORY Gross Description Specimen A: Received is one formalin filled container labeled with the patient's name and designated left ant neck. The specimen consists of a shave biopsy measuring [id number]. Jar 0. 3:22 PM [facility] DERMATOPATHOLOGY LABORATORY Microscopic Description Specimen A. SKIN, left ant neck: The epidermis shows parakeratosis, full thickness disorderly maturation of keratinocytes, mitoses at different levels, and dyskeratotic cells. 3:22 PM [facility] DERMATOPATHOLOGY LABORATORY Disclaimer An external and internal positive and negative controls are appropriate for the histochemical, immunohistochemical and immunofluorescence stain(s) in this case (if any), except where stated explicitly. The performance characteristics of the stain(s) cited in this report were developed and its performance characteristic determined by the Dermatopathology Laboratory at [facility], directed by Dr. Rubin Emanuel. These tests need not be, and therefore are not, approved by the [place] Food and Drug Administration. The tests are used for clinical purposes. Billing Codes Specimen Charges Stain Charges 83932 1 3:22 PM [facility] DERMATOPATHOLOGY LABORATORY Embedded Images 3:22 PM [facility] DERMATOPATHOLOGY LABORATORY Pathology/Cytolog y TISSUE SPECIMEN FROM SKIN / Unknown 04/01/2019 04/02/2019 2:04 PM CONGRESSIONAL ASSISTANT Tony Young MD LAB - PATHOLOGY/CYTO LOGY ORDERABLES Performing Organization Address City/State/[facility] Co de Phone Number DERMATOPATHOLOGY LABORATORY [facility] - Department of Dermatology [address] [place] [address] 5th Floor Lab [address] [place], [place] [id number] [place] [address] documented in this encounter Visit Diagnoses Not on filedocumented in this encounter
--- OUTSIDE RECORDS SUMMARY | 2024-07-15 13:24 | XMS_ITS | Encounter Summary ---
Author Organization [facility] Address [address] [place] [address] Care Team Providers Care Paper Twister Tender Name Role Phone Unavailable Primary Care Provider Unavailabl e Encounter Details Date Type Department Care Team (Late st Contact Info) Description 03/03/2021 Lab Requisition [facility] DermPath Lab [address] [place] [phone] Tony Young MD [address] [place] [address] Social History Tobacco Use Types [...] Priority Date/Time Associated Diagnosis Comments DERMATOPATHOLOGY Routine 03/02/2021 12:0 0 AM CDT documented in this encounter Results * DERMATOPATHOLOGY (03/02/2021 12:00 AM CDT) Case Report Dermatopathology Report Case: [id number] Authorizing Provider: Tony Young MD Collected: 03/02/2021 12:00 AM Ordering Location: [facility] DermPath Lab Received: 03/03/2021 12:58 PM Pathologist: Evie Emanuel MD Specimens: A) - Skin, post back of right side neck B) - Skin, left post vertex scalp 5:07 PM CDT DERMATOPATHOLOGY LABORATORY Final Diagnosis Specimen A. SKIN, post back of right side neck: BASAL CELL CARCINOMA, NODULAR TYPE (C44.41) Specimen B. SKIN, left post vertex scalp: HYPERPLASTIC (HYPERTROPHIC) ACTINIC KERATOSIS WITH FOLLICULAR EXTENSION; EXTENDING TO THE BASE OF THE SPECIMEN (L57.0) (see microscopic description and comment) 5:07 PM [facility] DERMATOPATHOLOGY LABORATORY Clinical History A: R/O BCC. B: R/O SCC, Chacko's. 5:07 PM T DERMATOPATHOLOGY LABORATORY Gross Description Specimen A: Received is one formalin filled container labeled with the patient's name and designated post back of right side neck. The specimen consists of a curettage and desiccation biopsy measuring [id number]. Jar 0. Specimen B: Received is one formalin filled container labeled with the patient's name and designated left post vertex scalp. The specimen consists of a shave biopsy measuring [id number]. Jar 0. 5:07 PM [facility] DERMATOPATHOLOGY LABORATORY Microscopic Description Specimen A. SKIN, post back of right side neck: Within the dermis there are aggregates of basaloid cells with a high nuclear to cytoplasmic ratio and peripheral palisading. Specimen B. SKIN, left post vertex scalp: There is hyperkeratosis alternating with parakeratosis. There is epidermal hyperplasia with disorderly maturation of keratinocytes with nuclear pleomorphism confined to the lower half of the epidermis. This process extends to the base of the specimen. COMMENT: A squamous cell carcinoma cannot be ruled out. 5:07 PM T DERMATOPATHOLOGY LABORATORY Disclaimer An external and internal positive and negative controls are appropriate for the histochemical, immunohistochemical and immunofluorescence stain(s) in this case (if any), except where stated explicitly. The performance characteristics of the stain(s) cited in this report were developed and its performance characteristic determined by the Dermatopathology Laboratory at [facility], directed by Dr. Rubin Emanuel. These tests need not be, and therefore are not, approved by the [place] Food and Drug Administration. The tests are used for clinical purposes. Billing Codes Specimen Charges Stain Charges 47805 14922 1 1 5:07 PM CDT DERMATOPATHOLOGY LABORATORY Embedded Images 5:07 PM [facility] DERMATOPATHOLOGY LABORATORY Pathology/Cytology TISSUE SPECIMEN FROM SKIN / Unknown 03/02/2021 03/03/2021 12:58 PM CDT Miscellaneous samples (specimen) TISSUE SPECIMEN FROM SKIN / Unknown 03/02/2021 03/03/2021 12:58 PM CDT Tony Young MD LAB - PATHOLOGY/CYTO LOGY ORDERABLES DERMATOPATHOLOGY LABORATORY [facility] - Department of Dermatology [facility] Medicine [address] [place] [address], [address] [phone] documented in this encounter Visit Diagnoses Not on filedocumented in this encounter
--- OUTSIDE RECORDS SUMMARY | 2024-07-15 13:24 | XMS_ITS | Encounter Summary ---
Author Organization [facility] Address [address] [place] [address] Care Team Providers Care Marketing Support Manager Name Role Phone Unavailable Primary Care Provider Unavailabl e Encounter Details Date Type Department Care Team (Late st Contact Info) Description 09/08/2020 Lab Requisition [facility] DermPath Lab [address] [place] [phone] Tony Young MD [address] [address] Social History Tobacco Use Types [...] Priority Date/Time Associated Diagnosis Comments DERMATOPATHOLOGY Routine 09/07/2020 12:0 0 AM CDT documented in this encounter Results * DERMATOPATHOLOGY (09/07/2020 12:00 AM CDT) Case Report Dermatopathology Report Case: [id number] Authorizing Provider: Tony Young MD Collected: 09/07/2020 12:00 AM Ordering Location: [facility] DermPath Lab Received: 09/08/2020 01:40 PM Pathologist: Monica Winston MD Specimen: Skin, dorsal right hand 12:29 PM CDT DERMATOPATHOLOGY LABORATORY Final Diagnosis Specimen A. 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 12:29 PM CDT DERMATOPATHOLOGY LABORATORY Gross Description Specimen A: Received is one formalin filled container labeled with the patient's name and designated dorsal right hand. The specimen consists of a curettage and desiccation biopsy measuring [id number], bisected. Jar 0. 12:29 PM CDT DERMATOPATHOLOGY LABORATORY Microscopic Description Specimen A. SKIN, dorsal right hand: The epidermis shows parakeratosis, full thickness disorderly maturation of keratinocytes, mitoses at different levels, and dyskeratotic cells. 12:29 PM CDT DERMATOPATHOLOGY LABORATORY Disclaimer An external and internal positive and negative controls are appropriate for the histochemical, immunohistochemical and immunofluorescence stain(s) in this case (if any), except where stated explicitly. The performance characteristics of the stain(s) cited in this report were developed and its performance characteristic determined by the Dermatopathology Laboratory at [facility], directed by Dr. Rubin Emanuel. These tests need not be, and therefore are not, approved by the [place] Food and Drug Administration. The tests are used for clinical purposes. Billing Codes Specimen Charges Stain Charges 75335 1 12:29 PM CDT DERMATOPATHOLOGY LABORATORY Embedded Images 12:29 PM CDT DERMATOPATHOLOGY LABORATORY Pathology/Cytolog y TISSUE SPECIMEN FROM SKIN / Unknown 09/07/2020 09/08/2020 1:40 PM CDT Tony Young MD LAB - PATHOLOGY/CYTO LOGY ORDERABLES DERMATOPATHOLOGY LABORATORY [facility] - Department of Dermatology [address], [address] [phone] documented in this encounter Visit Diagnoses Not on filedocumented in this encounter
--- OUTSIDE RECORDS SUMMARY | 2024-07-15 13:24 | XMS_ITS | Clinical Summary ---
Author Organization [facility] Address [address] [place] [address] Phone Care Team Providers Care Radio Installer Name Role Phone Unavailable Primary Care Provider Unavailabl e Allergies Active Allergy Reactions Criticality Noted Date Comments Adhesive Tape Rash Medium Medications rosuvastatin (CRESTOR) 40 MG Tablet 40 mg nightly. Active predniSONE (DELTASONE) 10 MG Tablet 10 mg Every other day. Use as directed. Active Aspirin 81 MG Tablet Take 81 mg by mouth daily. Active ezetimibe (ZETIA) 10 MG Tablet Take 10 mg by mouth daily. Active risperiDONE (RISPERDAL) 1 MG Tablet Take 1 mg by mouth nightly. Active benztropine (COGENTIN) 0.5 MG Tablet Take 0.5 mg by mouth nightly. Active divalproex (DEPAKOTE) 250 MG Tablet Delayed ResponseIndicat ions:bipolar Take 250 mg by mouth nightly. Active PYRIDOSTIGMINE BROMIDE POIndications:T akes at 1300 Take 30 mg by mouth daily. Active AzaTHIOprine (IMURAN PO) Take 150 mg by mouth nightly. Active HYDROcodone-luis taminophen (NORCO) 5-325 MG Tablet Take 1 Tab by mouth every 4 hours as needed for Pain. 30 Tab 08/22/2017 Active LORazepam (ATIVAN) 0.5 MG Tablet Take 1 Tab by mouth 2 times daily. 30 Tab 08/22/2017 Active ferrous sulfate 325 (65 Fe) MG Tablet Take 1 Tab by mouth daily. 30 Tab 08/22/2017 Active pyridostigmine (MESTINON) 60 MG TabletIndicatio ns:Myasthenia Gravis,takes 60 mg at 0730 and 2100. (also takes 30 mg at 1300: see other entry) Take 60 mg by mouth 2 times daily. Active polyethylene glycol (GLYCOLAX, MIRALAX) Pack Take 1 Packet by mouth 2 times daily. Dissolve in 4-8 oz of liquid. 90 Packet 08/23/2017 Active warfarin (COUMADIN) 5 MG Tablet Take 1 Tab by mouth daily. 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 Immunizations Immunization Administration Dates Next Due Covid-19, Mrna, Lnp-s, PF, 1 00 mcg/0.5 mL Dose (Moderna) 10/18/2020,09/20/2020 Social History Tobacco Use Types Packs/Day Years Used Date Smoking Tobacco: Never Smokeless Tobacco: Never Alcohol Use Standard Drinks/Week Comments No 0 (1 standard drink = 0.6 oz pur e alcohol) Sex and Gender Information Value Date Recorded Sex Assigned at Not on file Legal Sex Male 12:43 AM CDT Gender Identity Not on file Sexual Orientation Not on file Last Filed Vital Signs Vital Sign Reading Time Taken Comments Blood Pressure 101/60 04/24/2021 1:00 AM HOME ENERGY RATER Pulse 100 04/24/2021 1:00 AM HOME ENERGY RATER Temperature 38.2 C (100.7 F) 04/23/2021 9:52 PM HOME ENERGY RATER Respiratory Rate 16 04/24/2021 1:00 AM HOME ENERGY RATER Oxygen Saturation 97% 04/24/2021 1:00 AM HOME ENERGY RATER Inhaled Oxygen Concentration - - Weight 101.6 kg (224 lb) 04/23/2021 9:52 PM HOME ENERGY RATER Height 177.8 cm (5' 10 ) 04/23/2021 9:52 PM HOME ENERGY RATER Body Mass Index 32.14 04/23/2021 9:52 PM HOME ENERGY RATER Plan of Treatment Health Maintenance Due Date Last Done Comments Hepatitis C Virus (HCV) Screening 1950 Zoster Immunization (1 of 2) 1969 Colonoscopy 09/03/1995 Colorectal Cancer Screening 09/03/1995 Cologuard 2000 Immunochemical Fecal Occult Blood 2000 Respiratory Syncytial Virus (RSV) Immunization (Adult) (1 - Risk 60-74 years 1-dose series) 2010 Pneumococcal Immunization (50+ years) (2 of 2 - PPSV23) 12/06/2010 08/28/2017, 12/06/2009 Influenza Immunization (#1) 2023 11/0 04/2017, 03/08/2016, 01/29/2015, Additional history exists SARS-COV-2 Immunization ( season) 2023 04/18/2021, 10/18/2020, 09/20/2020 Pneumococcal Immunization Combined Discontinued 08/28/2017, 12/06/2009 DTaP/Tdap/Td Immunization Discontinued 04/04/2020 TdaP Immunization Completed 04/04/2020 Hepatitis B Immunization Aged Out No longer eligible based on patient's age to complete this topic Meningococcal Immunization (ACWY) Aged Out No longer eligible based on patient's age to complete this topic Rotavirus Immunization Aged Out No lo nger eligible based on patient's age to complete this topic Insurance MEDICARE [facility]LE[facility]AL MEDICARE FOR[facility]IOR SUPPLEMENTAL
--- OUTSIDE RECORDS SUMMARY | 2024-07-15 13:24 | XMS_ITS | Encounter Summary ---
Author Organization [facility] Address [address] [place] [address] Care Team Providers Care Field Assistant Name Role Phone Unavailable Primary Care Provider Unavailabl e Encounter Details Date Type Department Care Team (Late st Contact Info) Description 10/06/2021 Lab Requisition [facility] DermPath Lab [address] [place] [phone] Tony Young MD [address] [place] [address] Social History Tobacco Use Types [...] Priority Date/Time Associated Diagnosis Comments DERMATOPATHOLOGY Routine 10/05/2021 12:0 0 AM CDT documented in this encounter Results * DERMATOPATHOLOGY (10/05/2021 12:00 AM CDT) Case Report Dermatopathology Report Case: [id number] Authorizing Provider: Tony Young MD Collected: 10/05/2021 12:00 AM Ordering Location: [facility] Received: 10/06/2021 01:55 PM Pathologist: Xiomy Ceron MD Specimens: A) - Skin, right proximal fluxor forearm B) - Skin, left lateral back C) - Skin, left medial back D) - Skin, dorsal left hand 3:11 PM CDT DERMATOPATHOLOGY LABORATORY Final Diagnosis Specimen A. SKIN, right proximal fluxor forearm: SQUAMOUS CELL CARCINOMA IN SITU (PRUETT'S DISEASE) (D04.61) OVERLYING CUTANEOUS HORN (L85.8) Specimen B. SKIN, left lateral back: SQUAMOUS CELL CARCINOMA IN SITU (PRUTET'S DISEASE) (D04.5) Specimen C. SKIN, left medial back: BASAL CELL CARCINOMA, NODULAR TYPE (C44.519) Specimen D. SKIN, dorsal left hand: SQUAMOUS CELL CARCINOMA IN SITU (PRUETT'S DISEASE) (D04.62) OVERLYING CUTANEOUS HORN (L85.8) 2 3:11 PM [facility] DERMATOPATHOLOGY LABORATORY Clinical History A-D: R/O SCC 2 3:11 PM T DERMATOPATHOLOGY LABORATORY Gross Description Specimen A: Received is one formalin filled container labeled with the patient's name and designated right proximal fluxor forearm. The specimen consists of a shave biopsy measuring [id number] and it is bisected. Jar 0. Specimen B: Received is one formalin filled container labeled with the patient's name and designated left lateral back. The specimen consists of a shave biopsy measuring [id number]. Jar 0. Specimen C: Received is one formalin filled container labeled with the patient's name and designated left medial back. The specimen consists of a shave biopsy measuring [id number]. Jar 0. Specimen D: Received is one formalin filled container labeled with the patient's name and designated dorsal left hand. The specimen consists of a shave biopsy measuring [id number]. Jar 0. 2 3:11 PM T DERMATOPATHOLOGY LABORATORY Microscopic Description Specimen A. SKIN, right proximal fluxor forearm: The epidermis shows parakeratosis, full thickness disorderly maturation of keratinocytes, mitoses at different levels, and dyskeratotic cells. There is a column of marked compact hyperkeratosis. Specimen B. SKIN, left lateral back: The epidermis shows parakeratosis, full thickness disorderly maturation of keratinocytes, mitoses at different levels, and dyskeratotic cells. Specimen C. SKIN, left medial back: Within the dermis there are aggregates of basaloid cells with a high nuclear to cytoplasmic ratio and peripheral palisading. Specimen D. SKIN, dorsal left hand: The epidermis shows parakeratosis, full thickness disorderly maturation of keratinocytes, mitoses at different levels, and dyskeratotic cells. There is a column of marked compact hyperkeratosis. 2 3:11 PM CDT DERMATOPATHOLOGY LABORATORY Disclaimer An external and internal positive and negative controls are appropriate for the histochemical, immunohistochemical and immunofluorescence stain(s) in this case (if any), except where stated explicitly. The performance characteristics of the stain(s) cited in this report were developed and its performance characteristic determined by the Dermatopathology Laboratory at [facility], directed by Dr. Rubin Emanuel. These tests need not be, and therefore are not, approved by the [place] Food and Drug Administration. The tests are used for clinical purposes. Billing Codes Specimen Charges Stain Charges 39086 24920 60265 19731 1 1 1 1 2 3:11 PM CDT DERMATOPATHOLOGY LABORATORY Embedded Images 2 3:11 PM CDT DERMATOPATHOLOGY LABORATORY Pathology/Cytology TISSUE SPECIMEN FROM SKIN / Unknown 10/05/2021 10/06/2021 1:55 PM CDT Miscellaneous samples (specimen) TISSUE SPECIMEN FROM SKIN / Unknown 10/05/2021 10/06/2021 1:55 PM CDT Miscellaneous samples (specimen) TISSUE SPECIMEN FROM SKIN / Unknown 10/05/2021 10/06/2021 1:55 PM CDT Miscellaneous samples (specimen) TISSUE SPECIMEN FROM SKIN / Unknown 10/05/2021 10/06/2021 1:55 PM CDT Tony Young MD LAB - PATHOLOGY/CYTO LOGY ORDERABLES DERMATOPATHOLOGY LABORATORY [facility] - Department of Dermatology [address], [address] [phone] documented in this encounter Visit Diagnoses Not on filedocumented in this encounter
== END 2024-07-15 11:49 | disposition home or self-care (01) ==
LOC: CHSLAB 11:50
PROVIDERS: PCP Specialist; Visit Provider Specialist
DX: C44.629 Squamous cell carcinoma of skin of left upper limb, including shoulder (principal)
CPT/HCPCS: 88305

== ENCOUNTER 2024-08-12 12:21 | Outpatient (CLI) | payer MEDICARE, SELFPAY ==
--- OUTSIDE RECORDS SUMMARY | 2024-08-12 13:21 | XMS_ITS | Encounter Summary ---
Author Organization [facility] Address [address] [place] [address] Care Team Providers Care Customer Sales Consultant Name Role Phone Salty Cook MD Primary Care Provider Encounter Details Date Type Department Care Team (Late st Contact Info) Description 01/06/2020 Chart Note [facility] Radiation Therapy [address] [place] [address] [place] [address] [place] [address] Social History Tobacco Use Types [...] Description 11/17/2024 1:00 PM CDT Office Visit [facility] Oncology and Hematology - [place] [place] [address] Sujit Andrade MD [address] [place] [address] 12/25/2024 1:20 PM CDT Office Visit [facility] EAR, NOSE AND THROAT [facility] [address] [facility] [address] [place] [address] Vikas Castillo MD [address] [place] [address] documented as of this encounter Visit Diagnoses Not on filedocumented in this encounter Care Teams Customer Sales Consultant Relationship Specialty Start Date End Date Salty Cook MD [address] [place] [address] [address] [place] [phone] PCP - General Internal Medicine 12/10/19 documented as of this encounter
--- OUTSIDE RECORDS SUMMARY | 2024-08-12 13:21 | XMS_ITS | Encounter Summary ---
Author Organization [facility] Address [address] [place] [address] Care Team Providers Care Trading Specialist Name Role Phone Unavailable Primary Care Provider Unavailabl e Encounter Details Date Type Department Care Team (Late st Contact Info) Description 03/03/[address] 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 DermPath Lab Received: 03/03/2021 12:58 PM [...] (see microscopic description and comment) 5:07 PM T DERMATOPATHOLOGY LABORATORY Clinical History A: R/O BCC. B: R/O SCC, Chacko's. 5:07 PM T DERMATOPATHOLOGY LABORATORY Gross Description Specimen A: Received is one formalin filled container labeled with the patient's name and designated post back of right side neck. The specimen consists of a curettage and desiccation biopsy measuring [id number]. Jar 0. Specimen B: Received is one formalin filled container labeled with the patient's name and designated left post vertex scalp. The specimen consists of a shave biopsy measuring [id number]. Jar 0. 5:07 PM [facility] DERMATOPATHOLOGY LABORATORY Microscopic Description Specimen A. SKIN, [...] carcinoma cannot be ruled out. 5:07 PM [facility] DERMATOPATHOLOGY LABORATORY Disclaimer An external and internal positive and negative controls are appropriate for the histochemical, immunohistochemical and immunofluorescence stain(s) in this case (if any), except where stated explicitly. The performance characteristics of the stain(s) cited in this report were developed and its performance characteristic determined by the Dermatopathology Laboratory at [facility], directed by Dr. Rubin Emanuel. These tests need not be, and therefore are not, approved by the [place] Food and Drug Administration. The tests are used for clinical purposes. Billing Codes Specimen Charges Stain Charges 37847 70954 1 1 5:07 PM CDT DERMATOPATHOLOGY LABORATORY Embedded Images 5:07 PM T DERMATOPATHOLOGY LABORATORY Pathology/Cytology TISSUE SPECIMEN FROM SKIN / Unknown 03/02/2021 03/03/2021 12:58 PM CDT Miscellaneous samples (specimen) TISSUE SPECIMEN FROM SKIN / Unknown 03/02/2021 03/03/2021 12:58 PM CDT us Tony Young MD LAB - PATHOLOGY/CYTOLOGY ORD ERABLES Final Result DERMATOPATHOLOGY LABORATORY [facility] - Department of Dermatology [facility] Specialized Medicine [address] [place] [address], [address] [phone] documented in this encounter Visit Diagnoses Not on filedocumented in this encounter
--- OUTSIDE RECORDS SUMMARY | 2024-08-12 13:21 | XMS_ITS | Encounter Summary ---
Author Organization [facility] Address [address] [place] [address] Care Team Providers Care Passenger Representative Name Role Phone Unavailable Primary Care Provider Unavailabl e Encounter Details Date Type Department Care Team (Late st Contact Info) Description 10/06/2021 Lab Requisition [facility] [address] [place] [address] Tony Young MD [address] [place] [address] Social History Tobacco Use Types Packs/Day Years Used Date Smoking Tobacco: Never Assessed Sex and Gender Information Value Date Recorded Sex Assigned at Not on file Legal Sex Male 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 Gender Identity Not on file Sexual Orientation Not on file documented as of this encounter Plan of Treatment Not on file documented as of this encounter Procedures Procedure Name Priority Date/Time Associated Diagnosis Comments DERMATOPATHOLOGY Routine 10/05/2021 12:0 0 AM CDT documented in this encounter Results * DERMATOPATHOLOGY (10/05/2021 12:00 AM CDT) Case Report Dermatopathology Report Case: [id number] Authorizing Provider: Tony Young MD Collected: 10/05/2021 12:00 AM Ordering Location: [facility] Received: 10/06/2021 01:55 PM Pathologist: [...] lateral back: SQUAMOUS CELL CARCINOMA IN SITU (PRUETT'S DISEASE) (D04.5) Specimen C. SKIN, left medial back: BASAL CELL CARCINOMA, NODULAR TYPE (C44.519) Specimen D. SKIN, dorsal left hand: SQUAMOUS CELL CARCINOMA IN SITU (PRUETT'S DISEASE) (D04.62) OVERLYING CUTANEOUS HORN (L85.8) 2 3:11 PM [facility] DERMATOPATHOLOGY [facility]ORATORY Clinical History A-D: R/O SCC 2 3:11 PM T DERMATOPATHOLOGY LABORATORY Gross Description Specimen A: Received is one formalin filled container labeled with the patient's name and designated right proximal fluxor forearm. The specimen consists of a shave biopsy measuring [id number] and it is bisected. Jar 0. Specimen B: Received is one formalin filled container labeled with the patient's name and designated left lateral back. The specimen consists of a shave biopsy measuring [id number]. Jar 0. Specimen C: Received is one formalin filled container labeled with the patient's name and designated left medial back. The specimen consists of a shave biopsy measuring [id number]. Jar 0. Specimen D: Received is one formalin filled container labeled with the patient's name and designated dorsal left hand. The specimen consists of a shave biopsy measuring [id number]. Jar 0. 2 3:11 PM [facility] DERMATOPATHOLOGY LABORATORY Microscopic Description Specimen [...] characteristic determined by the Dermatopathology Laboratory at [facility], directed by Dr. Rubin Emanuel. These tests need not be, and therefore are not, approved by the [place] Food and Drug Administration. The tests are used for clinical purposes. Billing Codes Specimen Charges Stain Charges 38709 51446 60393 78068 1 1 1 1 2 3:11 PM [...] PM CDT Tony Young MD LAB - PATHOLOGY/CYTOLOGY ORD ERABLES Final Result DERMATOPATHOLOGY LABORATORY [facility] - Department of Dermatology [address] [place] [address], [facility] [phone] documented in this encounter Visit Diagnoses Not on filedocumented in this encounter
--- OUTSIDE RECORDS SUMMARY | 2024-08-12 13:21 | XMS_ITS | Encounter Summary ---
Author Organization [facility] Address [address] [place] [address] Care Team Providers Care Licensed Marriage And Family Therapist Name Role Phone Unavailable Primary Care Provider Unavailabl e Encounter Details Date Type Department Care Team (Late st Contact Info) Description 04/05/2020 Lab Requisition [facility] Lab [address] [place] [id number] Tony Young MD [address] [place] [address] Social History Tobacco Use Types Packs/Day Years Used Date Smoking Tobacco: Never Assessed Sex and Gender Information Value Date Recorded Sex Assigned at Not on file Legal Sex Male 6:04 PM MINE SAFETY DIRECTOR Gender Identity Not on file Sexual Orientation Not on file documented as of this encounter Plan of Treatment Not on file documented as of this encounter Procedures Procedure Name Priority Date/Time Associated Diagnosis Comments DERMATOPATHOLOGY Routine 04/02/2020 12:0 0 AM MINE SAFETY DIRECTOR documented in this encounter Results * DERMATOPATHOLOGY (04/02/2020 12:00 AM MINE SAFETY DIRECTOR) Case Report Dermatopathology Report Case: [id number] Authorizing Provider: Tony Young MD Collected: 04/02/2020 12:00 AM Ordering Location: [facility] Received: 04/05/2020 12:12 PM Pathologist: Evie Emanuel MD Specimen: Skin, right neck 0 3:35 PM MINE SAFETY DIRECTOR DERMATOPATHOLOGY LABORATORY Final Diagnosis Specimen A. SKIN, right neck: ACTINIC KERATOSIS (L57.0) 0 3:35 PM MINE SAFETY DIRECTOR DERMATOPATHOLOGY LABORATORY Clinical History R/O SCC, Chacko's, HAK. 0 3:35 PM MINE SAFETY DIRECTOR DERMATOPATHOLOGY LABORATORY Gross Description Specimen A: Received is one formalin filled container labeled with the patient's name and designated right neck. The specimen consists of a shave biopsy measuring [id number]. Jar 0. 0 3:35 PM MINE SAFETY DIRECTOR DERMATOPATHOLOGY LABORATORY Microscopic Description Specimen A. SKIN, right neck: There is focal parakeratosis. The lower half of the epidermis shows disorderly maturation of keratinocytes with nuclear pleomorphism. 0 3:35 PM MINE SAFETY DIRECTOR DERMATOPATHOLOGY LABORATORY Disclaimer An external and internal positive and negative controls are appropriate for the histochemical, immunohistochemical and immunofluorescence stain(s) in this case (if any), except where stated explicitly. The performance characteristics of the stain(s) cited in this report were developed and its performance characteristic determined by the Dermatopathology Laboratory at [facility], directed by Dr. Rubin Emanuel. These tests need not be, and therefore are not, approved by the [place] Food and Drug Administration. The tests are used for clinical purposes. Billing Codes Specimen Charges Stain Charges 33678 1 0 3:35 PM MINE SAFETY DIRECTOR DERMATOPATHOLOGY LABORATORY Embedded Images 0 3:35 PM MINE SAFETY DIRECTOR DERMATOPATHOLOGY LABORATORY Pathology/Cytolog y TISSUE SPECIMEN FROM SKIN / Unknown 04/02/2020 04/05/2020 12:12 PM MINE SAFETY DIRECTOR Tony Young MD LAB - PATHOLOGY/CYTOLOGY ORD ERABLES Final Result DERMATOPATHOLOGY LABORATORY [facility] - Department of Dermatology [address], [address] [phone] documented in this encounter Visit Diagnoses Not on filedocumented in this encounter
--- OUTSIDE RECORDS SUMMARY | 2024-08-12 13:21 | XMS_ITS | Encounter Summary ---
Author Organization [facility] Address [address] [facility] [place] [address] Care Team Providers Care Outside Operator Name Role Phone Unavailable Primary Care Provider Unavailabl e Encounter Details Date Type Department Care Team (Late st Contact Info) Description 10/27/2021 Lab Requisition [facility] D[facility] Lab [address] [place] [address] Tony Young MD [address] [address] Social History Tobacco Use Types Packs/Day Years Used Date Smoking Tobacco: Never Assessed Sex and Gender Information Value Date Recorded Sex Assigned at Not on file Legal Sex Male 6:04 PM VIDEOTAPE SALES REPRESENTATIVE Gender Identity Not on file Sexual Orientation Not on file documented as of this encounter Plan of Treatment Not on file documented as of this encounter Procedures Procedure Name Priority Date/Time Associated Diagnosis Comments DERMATOPATHOLOGY Routine 10/26/2021 12:0 0 AM CDT documented in this encounter Results * DERMATOPATHOLOGY (10/26/2021 12:00 AM CDT) Case Report Dermatopathology Report Case: [id number] Authorizing Provider: Tony Young MD Collected: 10/26/2021 12:00 AM Ordering Location: [facility] Received: 10/27/2021 12:05 PM [...] specimen consists of a shave removal measuring [id number], bisected. The margin is inked green. Jar [...] characteristic determined by the Dermatopathology Laboratory at [facility], directed by Dr. Rubin Emanuel. These tests need not be, and therefore are not, approved by the [place] Food and Drug Administration. The tests are used for clinical purposes. Billing Codes Specimen Charges Stain Charges 82214 1 2 5:02 PM CDT DERMATOPATHOLOGY LABORATORY Embedded Images 2 5:02 PM CDT DERMATOPATHOLOGY LABORATORY Pathology/Cytolog y TISSUE SPECIMEN FROM SKIN / Unknown 10/26/2021 10/27/2021 12:05 PM CDT Tony Young MD LAB - PATHOLOGY/CYTOLOGY ORD ERABLES Final Result DERMATOPATHOLOGY LABORATORY [facility] - Department of Dermatology [address] [place] [address], [facility] [phone] documented in this encounter Visit Diagnoses Not on filedocumented in this encounter
--- OUTSIDE RECORDS SUMMARY | 2024-08-12 13:21 | XMS_ITS | Clinical Summary ---
Author Organization [facility] Address [address] [place] [address] Care Team Providers Care Green Building Architect Name Role Phone Unavailable Primary Care Provider Unavailabl e Source Comments [facility],non-owned Affiliates and Associated Physician Practices is amultiple site organization consisting of ambulatory clinics and hospital sitesin [place], [place]. This disclosure is being madepursuant to the Care Everywhere program and may not contain all information available regarding this patient. Last updated 18.[facility] [place] Social History Tobacco Use Types Packs/Day Years Used Date Smoking Tobacco: Never Assessed Sex and Gender Information Value Date Recorded Sex Assigned at Not on file Legal Sex Male 6:04 PM REELER OPERATOR Gender Identity Not on file Sexual Orientation [...] VACCINE ( - 2023-2 5 season) 2023 DEPRESSION SCREENING 04/30/2024 INFLUENZA VACCINE (Season Ended) 2024 Respiratory Syncytial Virus (RSV) Vaccine Pt: or [...] age to complete this topic Insurance MEDICARE AET MEDICARE MEDICARE
--- OUTSIDE RECORDS SUMMARY | 2024-08-12 13:21 | XMS_ITS | Encounter Summary ---
Author Organization [facility] Address [address] [place] [address] Care Team Providers Care Ocular Care Technician Name Role Phone Unavailable Primary Care Provider Unavailabl e Encounter Details Date Type Department Care Team (Late st Contact Info) Description 09/08/2020 Lab Requisition [facility] Lab [address] [place] [address] Tony Young MD [address] [address] Social History Tobacco Use Types Packs/Day Years Used Date Smoking Tobacco: Never Assessed Sex and Gender Information Value Date Recorded Sex Assigned at Not on file Legal Sex Male 6:04 PM CUSTOMER SERVICES SUPERVISOR Gender Identity Not on file Sexual Orientation Not on file documented as of this encounter Plan of Treatment Not on file documented as of this encounter Procedures Procedure Name Priority Date/Time Associated Diagnosis Comments DERMATOPATHOLOGY Routine 09/07/2020 12:0 0 AM CDT documented in this encounter Results * DERMATOPATHOLOGY (09/07/2020 12:00 AM CDT) Case Report Dermatopathology Report Case: [id number] Authorizing Provider: Tony Young MD Collected: 09/07/2020 12:00 AM Ordering Location: [facility] Received: 09/08/2020 01:40 PM Pathologist: [...] of a curettage and desiccation biopsy measuring [id number], bisected. Jar 0. 12:29 PM CDT DERMATOPATHOLOGY [...] purposes. Billing Codes Specimen Charges Stain Charges 76097 1 12:29 PM CDT DERMATOPATHOLOGY LABORATORY Embedded Images 12:29 PM CDT DERMATOPATHOLOGY LABORATORY Pathology/Cytolog y TISSUE SPECIMEN FROM SKIN / Unknown 09/07/2020 09/08/2020 1:40 PM CDT Tony Young MD LAB - PATHOLOGY/CYTOLOGY ORD ERABLES Final Result DERMATOPATHOLOGY LABORATORY [facility] - Department of Dermatology [address], [address] [phone] documented in this encounter Visit Diagnoses Not on filedocumented in this encounter
--- OUTSIDE RECORDS SUMMARY | 2024-08-12 13:21 | XMS_ITS | Encounter Summary ---
Author Organization [facility] Address [address] [place] [address] Care Team Providers Care Assembler Fluorescent Lights Name Role Phone Unavailable Primary Care Provider Unavailabl e Encounter Details Date Type Department Care Team (Late st Contact Info) Description 04/02/2019 Lab Requisition [facility] Derm[facility] Lab [address] [place] [phone] Tony Young MD [address] [place] [address] Social History Tobacco Use Types Packs/Day Years Used Date Smoking Tobacco: Never Assessed Sex and Gender Information Value Date Recorded Sex Assigned at Not on file Legal Sex Male 6:04 PM CONSUMER EDUCATOR Gender Identity Not on file Sexual Orientation Not on file documented as of this encounter Plan of Treatment Not on file documented as of this encounter Procedures Procedure Name Priority Date/Time Associated Diagnosis Comments DERMATOPATHOLOGY Routine 04/01/2019 12:0 0 AM CONSUMER EDUCATOR documented in this encounter Results * DERMATOPATHOLOGY (04/01/2019 12:00 AM CONSUMER EDUCATOR) Case Report Dermatopathology Report Case: [id number] Authorizing Provider: Tony Young MD Collected: 04/01/2019 12:00 AM Ordering Location: [facility]erm[facility] Lab Received: 04/02/2019 02:04 PM Pathologist: Evie Emanuel MD Specimen: Skin, left ant neck 9 3:22 PM CONSUMER EDUCATOR DERMATOPATHOLOGY LABORATORY Final Diagnosis Specimen A. 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 3:22 PM [facility] DERMATOPATHOLOGY LABORATORY Gross Description Specimen A: Received is one formalin filled container labeled with the patient's name and designated left ant neck. The specimen consists of a shave biopsy measuring [id number]. Jar 0. 3:22 PM [facility] DERMATOPATHOLOGY LABORATORY Microscopic Description Specimen A. SKIN, left ant neck: The epidermis shows parakeratosis, full thickness disorderly maturation of keratinocytes, mitoses at different levels, and dyskeratotic cells. 3:22 PM [facility] DERMATOPATHOLOGY LABORATORY Disclaimer An external and internal positive and negative controls are appropriate for the histochemical, immunohistochemical and immunofluorescence stain(s) in this case (if any), except where stated explicitly. The performance characteristics of the stain(s) cited in this report were developed and its performance characteristic determined by the Dermatopathology Laboratory at [facility], directed by Dr. Rubin Emanuel. These tests need not be, and therefore are not, approved by the [place] Food and Drug Administration. The tests are used for clinical purposes. Billing Codes Specimen Charges Stain Charges 10585 1 3:22 PM [facility] DERMATOPATHOLOGY LABORATORY Embedded Images 3:22 PM [facility] DERMATOPATHOLOGY LABORATORY Pathology/Cytolog y TISSUE SPECIMEN FROM SKIN / Unknown 04/01/2019 04/02/2019 2:04 PM CONSUMER EDUCATOR Tony Young MD LAB - PATHOLOGY/CYTOLOGY ORD ERABLES Final Result DERMATOPATHOLOGY LABORATORY [facility] - Department of Dermatology [address] [place] [address], [address] [place] [address], [facility] [phone] documented in this encounter Visit Diagnoses Not on filedocumented in this encounter
--- OUTSIDE RECORDS SUMMARY | 2024-08-12 13:21 | XMS_ITS | Encounter Summary ---
Author Organization [facility] Address [address] [facility] [place] [address] Care Team Providers Care Lead Front End Developer Name Role Phone Unavailable Primary Care Provider Unavailabl e Encounter Details Date Type Department Care Team (Late st Contact Info) Description 12/29/2020 Lab Requisition [facility] DermPath Lab [address] [place] [address] Tony Young MD [address] [place] [address] Social History Tobacco Use Types Packs/Day Years Used Date Smoking Tobacco: Never Assessed Sex and Gender Information Value Date Recorded Sex Assigned at Not on file Legal Sex Male 6:04 PM SANITARY CHEMIST Gender Identity Not on file Sexual Orientation Not on file documented as of this encounter Plan of Treatment Not on file documented as of this encounter Procedures Procedure Name Priority Date/Time Associated Diagnosis Comments DERMATOPATHOLOGY Routine 12/28/2020 12:0 0 AM CDT documented in this encounter Results * DERMATOPATHOLOGY (12/28/2020 12:00 AM CDT) Case Report Dermatopathology Report Case: [id number] Authorizing Provider: Tony Young MD Collected: 12/28/2020 12:00 AM Ordering Location: [facility] Derm[facility] Lab Received: 12/29/2020 01:14 PM [...] IN SITU (PRUETT'S DISEASE) (D04.39) 12:20 PM [facility] DERMATOPATHOLOGY LABORATORY Clinical History A-C: R/O SCC. 12:20 PM T DERMATOPATHOLOGY LABORATORY Gross Description Specimen A: Received is one formalin filled container labeled with the patient's name and designated left mid anti helix. The specimen consists of a shave biopsy measuring [id number]. Jar 0. Specimen B: Received is one formalin filled container labeled with the patient's name and designated behind mid left ear on scalp. The specimen consists of a shave biopsy measuring [id number]. Jar 0. Specimen C: Received is one formalin filled container labeled with the patient's name and designated left forehead (2.5cm) above brow. The specimen consists of a shave biopsy measuring [id number]. Jar 0. 12:20 PM T DERMATOPATHOLOGY LABORATORY Microscopic Description Specimen [...] characteristic determined by the Dermatopathology Laboratory at [facility], directed by Dr. Rubin Emanuel. These tests need not be, and therefore are not, approved by the [place] Food and Drug Administration. The tests are used for clinical purposes. Billing Codes Specimen Charges Stain Charges 15109 10791 16201 1 1 1 12:20 PM CDT DERMATOPATHOLOGY [...] PATHOLOGY/CYTOLOGY ORD ERABLES Final Result DERMATOPATHOLOGY LABORATORY [facility] - Department of Dermatology [facility] Medicine [address] [place] [address], [address] [phone] documented in this encounter Visit Diagnoses Not on filedocumented in this encounter
--- OUTSIDE RECORDS SUMMARY | 2024-08-12 13:22 | XMS_ITS | Clinical Summary ---
Author Organization [facility] Address [address] [place] [id number] Care Team Providers Care Sox Analyst Name Role Phone Salty Cook MD Primary Care Provider [phone] Allergies Active Allergy Reactions Criticality Noted Date [...] 04/24/2021 Assessment & Plan (04/24/2021 6:03 AM MECHANICAL HANDYMAN): Suspect delirium in setting of fevers - [...] Speech/PT/OT Assessment & Plan (04/24/2021 5:58 AM MECHANICAL HANDYMAN): Suspect delirium in setting of fevers - [...] 04/24/2021 Assessment & Plan (04/24/2021 6:01 AM MECHANICAL HANDYMAN): Prior to arrival at [facility]. Febrile and tachycardic. CXR with opacities [...] dexamethasone.. Assessment & Plan (04/24/2021 5:57 AM MECHANICAL HANDYMAN): Prior to arrival at [facility]. [...] 04/24/2021 Assessment & Plan (04/24/2021 6:05 AM MECHANICAL HANDYMAN): T2N2B stage Gabriela moderately to poorly differentiated [...] Lovenox. 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 -Recently seen by OSH oncology without e/o disease -Upload images from OSH to Elva for read -DVT PPX: Lovenox. 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 Previously on warfarin however complicated by IPH 2016. Now on ASA 81mg daily. -Continue ASA 81mg daily. 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 Previously on warfarin however complicated by IPH 2016. Now on ASA 81mg daily. -Continue ASA 81mg daily. Bipolar 1 disorder 04/24/2021 Assessment & Plan (04/24/2021 6:02 AM MECHANICAL HANDYMAN): Takes Seroquel 600mg daily, Ativan 0.5mg BID, and Depakote 500mg TID. -Hold seroquel and ativan given confusion -Continue depakote. Insomnia 04/24/2021 Assessment & Plan (04/24/2021 6:03 AM MECHANICAL HANDYMAN): Hold ambien in setting of confusion. 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 Doesn't appear to be in crisis at this time. -Check NIF BID -Consult Neurology in AM given polypharmacy/confusion in setting of Myasthenia Gravis -Continue Prednsione, Imuran, and Pyridostigmine Assessment & Plan (04/24/2021 5:53 AM MECHANICAL HANDYMAN): Significant history of myasthenia gravis on Prednisone, Imuran, and Pyridostigmine. Doesn't appear to be in crisis at this time. -Check NIF BID -Consult Neurology in AM given polypharmacy/confusion in setting of Myasthenia Gravis -Continue Prednsione, Imuran, and Pyridostigmine Fatigue 11/27/2012 Coronary arteriosclerosis in [place] artery 06/14 Assessment & Plan (04/24/2021 6:01 AM MECHANICAL HANDYMAN): CAD s/p PCI to LAD and prox/mid RCA 2000. Previously followed with Dr. Frey now followed by [facility] bioinformatics assistant. Here for STEMI evaluation -Per STEMI/CARDS -> No concern for STEMI and stable EKG -> recommend repeat troponin -Check Troponin. -Continue ASA 81mg daily, Rosuvastatin 40mg daily, Ezetimibe 10mg daily. Assessment & Plan (04/24/2021 5:57 AM MECHANICAL HANDYMAN): CAD s/p PCI to LAD and prox/mid RCA 2000. Previously followed with Dr. Frey now followed by [facility] bioinformatics assistant. Here for STEMI evaluation -Per STEMI/CARDS -> No concern for STEMI and stable EKG -> recommend repeat troponin -Check Troponin. -Continue ASA 81mg daily, Rosuvastatin 40mg daily, Ezetimibe 10mg daily. Hyperlipidemia 09/13/2010 Overview (08/10/2017): Description: Hyperlipidemia Assessment & Plan (04/24/2021 6:01 AM MECHANICAL HANDYMAN): Continue Rosuvastatin and Exetimibe. Assessment & Plan (04/24/2021 5:53 AM MECHANICAL HANDYMAN): Continue Rosuvastatin and Exetimibe. Surgical History Surgery Date Site/Laterality Comments NC INSERT INTRACORONARY STENT Cath Stent Placement - (Added by TW Conv) NC UNLISTED PROCEDURE ABDOMEN PERITONEUM & OMENTUM Hernia [...] on file Legal Sex Male 10:46 PM MECHANICAL HANDYMAN Gender Identity Male 05/23/2018 10:17 AM MECHANICAL HANDYMAN Sexual Orientation Not on file Obstetrics History Last Filed Vital Signs Vital Sign Reading Time Taken Comments Blood Pressure 104/69 04/27/2021 11:28 AM MECHANICAL HANDYMAN Pulse 70 04/27/2021 11:28 AM MECHANICAL HANDYMAN Temperature 36.7 C (98.1 F) 04/27/2021 11:28 AM MECHANICAL HANDYMAN Respiratory Rate 18 04/27/2021 11:28 AM MECHANICAL HANDYMAN Oxygen Saturation 94% 04/27/2021 11:28 AM MECHANICAL HANDYMAN Inhaled Oxygen Concentration - - Weight 82.1 kg (181 lb) 04/25/2021 7:46 AM MECHANICAL HANDYMAN Height 173.5 cm (5' 8.31 ) 04/25/2021 7:46 AM CS T Body Mass Index 27.27 04/25/2021 7:46 AM MECHANICAL HANDYMAN Plan of Treatment Health Maintenance Due Date Last Done Comments Colon Cancer Screening-Colonoscopy 1950 Depression Screening 1950 Hepatitis C Screening 1950 DTaP/Tdap/Td Vaccine (1 - Tdap) 1961 Hepatitis B Screening 1968 Zoster Vaccine (1 of 2) 1969 Abdominal Aortic Aneurysm (A AA) Screen 09/03/2015 Well Visit 65+ 09/03/2015 Covid-19 Vaccine (3 - Modern a risk series) 11/15/2020 10/18/2020, 09/20/2020 Fall Risk Assessment 04/27/2022 04/27/2021 Influenza Vaccine (Season Ended) 2024 02/12/2017, 03/08/2016, 02/29/2016, Additional history exists Pneumococcal vaccine 65+ Completed 02/29/2016, 0812/2009 Insurance T SENIOR SUPPLEMENT [employer] SENIOR SUPPLEMENT Advance Directives For more information, please contact: [phone] * Full Code (Latest Code Status on File) Date Activated Date Inactivated Comments 04/24/2021 3:54 AM 04/27/2021 6:04 PM Care Teams Sox Analyst Relationship Specialty Start Date End Date Salty Cook MD [address] [place] [address] DR BLUM [address] [place] [id number] PCP - General Internal Medicine 03/29/18
--- OUTSIDE RECORDS SUMMARY | 2024-08-12 13:22 | XMS_ITS | Data Portability ---
Author Organization [place] [facility], Arian Godinez [facility] Address [address] [place] [address] Care Team Providers Care Professor Of Architecture Name Role Phone NARENDRA KWON Primary Care Provider Assessment Encounter Date Assessment Date Assessment LastModified by Organization Details LastModified Time 03/27/2022 03/27/2022 I educated the patient to the 70-73% rate of efficacy for Lamisil and the fact that it takes almost a year for complete resolution. I discussed the medication and its occasional adverse effects. We also discussed the fact that as long as you have no pre-existing liver conditions such as cirrhosis, cysts or hepatitis, there is no increased rate of adverse reactions. Subungual hematoma nail surgery was discussed with the patient, including risks and possible complications. Alternative methods of treatment were also discussed. No guarantees were given regarding the outcome. Patient desired to have the procedure performed today to temporarily avulse the painful, loose RIGHT great toenail. Patient and given post procedural care instructions. f/u 2-3 months for reevaluation. Topical otc antifungal dispensed today to be applied daily during nail regrowth right hallux, left 2nd toe. He was also advised to discuss with his neurologist, Dr. Ratliff, regarding possibility he may have Parkinsons since he has a short, shuffling gait pattern with gait instability with hand tremoring and masked face appearance. [email or web address] Not available 03/27/2022 16:53:24 Plan of Treatment Reminders Order Date Submit Date Provider Last Modified By Organization Details Last Modified Time Details Appointments None record ed. Lab None record ed. Referral None record ed. Procedures None record ed. Surgeries None record ed. Imaging None record ed. Medication Orders None record ed. Patient TargetsNo targets recorded. Patient Instructions Encounter Date Encounter Id Patient Instructions Last Modified By Organization Details Last Modified Time 03/27/2022 [id number] toenail fungus: care instructions [email or web address] Not available 03/27/2022 16:53:24 Reason for Referral None Reported. Problems No Known Problems Procedures Surgical History Date Name Laterality Status Provider Name and Address Organization Details Recorded Time 03/27/20 08666 Nail avulsion- Dr. Carr completed Power Monae, [address], [address], [facility] 03/27/2022 16:48:56 placement of stent in pulmonary artery completed Kelsey Ahn [facility] 03/27/2022 15:49:15 Imaging Results None recorded. Procedure Notes None recorded. Medical Equipment None Reported. Allergies Allergen ID Allergen Name Allergen Category Reaction Reaction Severity Criticality Documentation Date Start Date Code Code System Note Provider Name and Address Organization Details Recorded Time 75118 adhesive tape environme nt,medica tion Not available Not available Not available 03/27/2022 89479 UNK Not Available Not Available Not Available Medications Name Sig Start Date Stop Date Status Note LastModified by Organization Details LastModified Time prednisone 10 mg tablet TAKE 1 TABLET BY MOUTH ONCE DAILY active Not Available Not Available No t Available quetiapine 300 mg tablet TAKE 2 TABLETS BY MOUTH IN THE EVENING active Not Available Not Available No t Available azathioprine 50 mg tablet TAKE 3 TABLETS BY MOUTH ONCE DAILY active Not Available Not Available No t Available divalproex 500 mg tablet,delaye d release TAKE 1 & 1/2 (ONE & ONE-HALF) TABLETS BY MOUTH TWICE DAILY active Not Available Not Available No t Available tramadol 50 mg tablet TAKE 1 TABLET BY MOUTH TWICE DAILY active Not Available Not Available No t Available ciclopirox 8 % topical solution APPLY SOLUTION TOPICALLY ONCE DAILY active Not Available Not Available N ot Available oxycodone-luis taminophen 5 mg-325 mg tablet TAKE 1 TO 2 TABLETS BY MOUTH EVERY 4 TO 6 HOURS NEEDED. MAX DAILY DOSE OF 6 TABLETS. active Not Available Not Available No t Available lorazepam 0.5 mg tablet TAKE 1 TABLET BY MOUTH THREE TIMES DAILY NEEDED active Not Available Not Available No t Available amiodarone 400 mg tablet TAKE 1 TABLET BY MOUTH TWICE DAILY active Not Available Not Available No t Available trazodone 100 mg tablet TAKE 1 TABLET BY MOUTH EVERY DAY AT BEDTIME NEEDED FOR INSOMNIA FOR 90 DAYS active Not Available Not Available No t Available triamcinolone acetonide 0.1 % topical ointment APPLY OINTMENT TOPICALLY THREE TIMES DAILY active Not Available Not Available No t Available pyridostigmin e bromide 60 mg tablet TAKE 1 TABLET BY MOUTH THREE TIMES DAILY active Not Available Not Available No t Available zolpidem 5 mg tablet active Not Available Not Available Not Available furosemide 20 mg tablet TAKE 1 TABLET BY MOUTH TWICE DAILY active Not Available Not Available No t Available lorazepam 1 mg tablet TAKE 1 TABLET BY MOUTH EVERY DAY AT BEDTIME FOR 3 DAYS active Not Available Not Available N ot Available ipratropium bromide 42 mcg (0.06 %) nasal spray USE 2 SPRAY(S) IN EACH NOSTRIL THREE TIMES DAILY BEFORE MEAL(S) active Not Available Not Available No t Available risperidone 1 mg tablet TAKE 1 TABLET BY MOUTH ONCE DAILY IN THE MORNING FOR 30 DAYS active Not Available Not Available No t Available ezetimibe 10 mg tablet TAKE 1 TABLET BY MOUTH ONCE DAILY active Not Available Not Available No t Available rosuvastatin 40 mg tablet TAKE 1 TABLET BY MOUTH ONCE DAILY AT BEDTIME active Not Available Not Available No t Available metoprolol tartrate 25 mg tablet TAKE 1/2 (ONE-HALF) TABLET BY MOUTH TWICE DAILY active Not Available Not Available No t Available nitrofurantoi n monohydrate/m acrocrystals 100 mg capsule TAKE 1 CAPSULE BY MOUTH EVERY 12 HOURS FOR 5 DAYS active Not Available Not Available No t Available BinaxNOW COVID-19 Ag Self Test kit Use as Directed on the Package active Not Available Not Available No t Available Vitals Date Recorded Body height Body mass index (BMI) Body weight Provider Name and Address Organization Details Last Updated DateTime 03/27/2022 177.8 cm 28.7 kg/m2 10078.47 g Kelsey Ahn [facility] 03/27/2022 15:48:20 Social History Question Answer Notes LastModified by Organization D etails LastModified Time Size Of Shoes 13 Information not available 03/27/2022 Sex: Unknown Functional Status None recorded. Mental Status None recorded. Family History Relationship Description Onset Age of this Age Resolved Age Notes LastModified by Organization Details LastModified Time Father Heart disease [email or web address] Not available 2021 15:50:52 Mother Arthritis Not availabl e 03/27/2022 15:51:00 Medical History Condition Response Tuberculosis or TB N Heart Problems N Ulcers on Legs or Feet N Coronary Artery Disease N HIV or AIDS N Seizure Disorder N Gout N High Blood Pressure N Clot in Lung or Pulmonary Embolism N Menopause N Lung Condition N Phlebitis or Venous Blood Clot N Migraines N Depression N Pacemaker N Anemia N Back Pain N Neurologic Disease N Sciatica Y Heart Attack ([place]) N Diabetes N Urinary Tract Infections N Anxiety Disorder Y Bleeding Disorder N Arthritis N Abuse of Alcohol or Drugs N Back injury N Ear Problems N Cancer N Dementia N Eye Problems N Stroke N Stomach Problems N Peripheral Vascular Disease N Sinus Conditions N Broken Bone N Thyroid Disorder N High Cholesterol N Hepatitis N Liver Disease N Heart Disease N Rheumatoid Arthritis N Rash N Osteoporosis N Kidney Disease N Past Encounters Encounter ID Performer Location Encounter Start Date Encounter Closed Date Diagnosis/Indication Diagnosis SNOMED-CT Code Diagnosis ICD10 Code Diagnosis Note [id number] Lc Monae [address] [address] 03/27/2022 15:18:40 03/27/2022 16:03:42 Onycholysis due to fungal infection of nail 221222787 L60.1 SEVERE RIGHT HALLUX Onychomycosis 733151902 B35.1 PROBABLE ONYCHOMYCO SIS RIGHT HALLUX, LEFT 2ND TOE Pain in toe 534066504 M7 9.675 M79.674 Health Concerns Section Related Observation LastModified by Organization Detai ls LastModified Time None Recorded Concern Status LastModified by Organization Details LastModified Time None Recorded Advance Directives Directive None Recorded Payers Encounter Date Sequence Insurance Name Policy Number Policy [employer] Covered Member ID [employer] Member ID Guarantor Name 03/27/2022 2 AET [employer] INSURANCE [employer] (MEDICARE SUPPLEMENT) Sergio Coombs [id number] Sergio Coombs 03/27/2022 1 [place]ICARE [place]: S Sergio Coombs [id number] Sergio Coombs Notes Date Note Type Note Provider Name and Address Organization Details Recorded Time 03/27/2022 text/html Nails--Reported bypatient.Location: toenails left 2 ; toenails right 1, , , , ; right hallux nail is very thick, loose and black Nature:occasional sharp or shooting pain Severity:mild Duration:1 years Timing:gradually worse as time goes on Onset:all shoes apply uncomfortable pressure Alleviating Factors:has been using topical antifungal (ciclopirox); nothing helps Aggravating Factors:pressure Associated Symptoms:too thick to cut with clippers at home; afraid of causing an infection at home; causes self to bleed when preformed at home; family is afraid to cut nails; redness Course:has stayed the same Previous Treatment:self trimmingNotes:pt states he last saw Dr Kwon 02/10/22. Patient presents today with his . He presents today using a walker since his gait is unstable following left knee replacement. He is in physical therapy currently. He has an appointment next week withi his neurologist. He has tremoring in both hands and flat facial expression- has not been diagnosed with Parkinsons. He has myasthenia gravis. Power Monae, ALVERTO [address] [place] [address], [id number], [facility] 03/27/2022 16:54:09
--- OUTSIDE RECORDS SUMMARY | 2024-08-12 13:22 | XMS_ITS | Continuity of Care Document ---
Author Organization [facility] Address [address] [place] [address] Phone Care Team Providers Care Chief Of Field Operations Name Role Phone Donya HERNANDEZ, J Luis Unavailable Unavai lable Allergies, Adverse Reactions, Alerts Substance Reaction Status Criticality No Known Allergies Active No Inform ation Medications Medication Instructions Dosage Effective Dates (start - stop) Status Comments ezetimibe 10 mg tablet take 1 tablet by oral route every day 10 MG - Active rosuvastatin 5 mg tablet take 1 tablet by oral route every day 5 MG - Active lorazepam 0.5 mg tablet take 2 tablet by oral route 3 times every day as needed 1 MG - Active tramadol 50 mg tablet take 1 tablet by o ral route every 6 hours as needed 50 MG - Active prednisone 1 mg tablet take 1 tablet by oral route every day 1 MG - Active divalproex 125 mg tablet,delayed release take 2 tablet by oral route 2 times every day 250 MG - Active pyridostigmine bromide 30 mg tablet take 2 tablet by oral route 4 times every day 60 MG - Active quetiapine 100 mg tablet take 1 tablet by oral route 2 times every day 100 MG - Active benztropine 0.5 mg tablet take 1 tablet by oral route 2 times every day 0.5 MG - Active Aspirin Low Dose 81 mg tablet,delayed release take 1 tablet by oral route every day 81 MG - Active Vraylar 1.5 mg capsule take 1 capsule by oral route every day 1.5 MG - Active trazodone 50 mg tablet take 1 tablet by oral route every day at bedtime 50 MG - Active Procedures Procedure Date Injection Transforaminal, single, lumbar /sacral SNRB Kenalog 40mg/mL Omnipaque, 300-399 mg/ml, per ml 2023 X-ray exam Lumbar 2-3 views X-ray exam shoulder complete, minimum 2 views Office/outpatient visit,est, mod 2023 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+ msclgrp Celestone Betamethasone acetate and beta methasone phosphate, per 3 mg Injection Transforaminal, single, lumbar /sacral SNRB Kenalog 40mg/mL Omnipaque, 300-399 mg/ml, per ml 2023 Office/outpatient visit,est, mod 2022 Fluoro For Spine Injection Procedures Se Injection, KULDEEP, Lumbar Or Sacral, W/ Nereida ging Office/outpatient visit,est, mod 2022 Fluoro For Spine Injection Procedures Ju Injection, KULDEEP, Lumbar Or Sacral, W/ Nereida ging Office/outpatient visit,est, mod 2022 Injection Transforaminal, single, lumbar /sacral SNRB Kenalog 40mg/mL Omnipaque, 300-399 mg/ml, per ml 2022 Office/outpatient visit,new, mod 2022 X-ray exam Lumbar 2-3 views Advance Directives Directive Yes / No Effective Date File Name No Information Encounters Encounter Description Practice Location Reason(s) For Visit Diagnoses Date Provider Providers Copied on Encounter [facility], [address] [address], [place], [place], [id number], [place] [phone] [facility] No Information 4 Donya dawson. [address], [place], [place], [id number] , [place]. tel:[phone] [facility], [address] [address], [place], [place], [id number], [place] tel:[phone] [facility] Lumbar (chief complaint) Radiculopathy, site unspecifiedSpin al stenosis, lumbar region without neurogenic claudLow back pain, unspecified Jul-3 0- 4 Donya Jay er. [address] [facility] [address] [facility], [place], [place], [address] , [place]. tel: [phone] Referring Provider: J Luis Louis, [address] [facility] [address] [facility], [place], [address]. tel:[phone] Office/outpa tient visit,est, mod [facility], [address] [address], [place], [place], [id number], [place] tel:[phone] [facility] Lumbar (chief complaint) Low back pain, unspecifiedRadi culopathy, site unspecifiedSpin al stenosis, lumbar region without neurogenic claudPain in left shoulder Jul-2 4 Donya Jay er. [address] [facility], [address] [facility], [place], [place], [address] , [place]. tel: [phone] Referring Provider: J Luis Louis, [address] [facility] [address] [facility], [place], [address]. tel:[phone] [facility], [address] [address], [place], [place], [id number], [place] tel:[phone] [facility] Lumbar (chief complaint) Radiculopathy, site unspecifiedSpin al stenosis, lumbar region without neurogenic claudLow back pain, unspecified Apr- 4 Donya Jay er. [address] [facility] [address], [place], [place], [id number] , [place]. tel: [phone] Referring Provider: J Luis Louis, [address] [facility] [address] [facility], [place], [address]. tel:[phone] [facility], [address], [id number], tel:[phone] [facility] Radiculopathy, site unspecifiedSpin al stenosis, lumbar region without neurogenic claudLow back pain, unspecified Dec- 3 Donya Thompson er. [address] [facility], [address] [address], [place], [place], [id number] , [place]. tel:[phone] Office/outpa tient visit,est, mod [facility], [address] [address], [place], [place], [id number], [place] tel:[phone] [facility] lumbar (chief complaint) Spinal stenosis, lumbar region without neurogenic claudRadiculopa thy, site unspecified 3 Iván Jimenez. [address] [facility], [address] [address], [place], [place], [address] , [place]. tel: [phone] Referring Provider: Tony Case, [address] [facility] [address] [facility], [place], [place], [address] [place] [address]. tel:[phone] [facility], [address] [address], [place], [place], [id number], tel:[phone] [facility] Lumbar (chief complaint) No Information Dec- 3 Donya Thompson er. [address] [facility], [address] [address], [place], [place], [address] , [place]. tel:[phone] Referring Provider: J Luis Louis, [address] [facility] [address] [facility] [address] [facility], [place], [address]. tel:[phone] [facility], [address], [id number], [place] tel:[phone] [facility] Low back pain, unspecifiedRadi culopathy, site unspecifiedSpin al stenosis, lumbar region without neurogenic niki Sep-0 3 Iván Jimenez. [address] [facility], [address] [address], [place], [place], [address] , [place]. tel:[phone] Office/outpa tient visit,est, mod [facility], [address] [address], [place], [place], [id number], [place] tel:[phone] [facility] Lumbar (chief complaint) Low back pain, unspecifiedRadi culopathy, site unspecifiedSpin al stenosis, lumbar region without neurogenic niki Paul-2 3 Iván Jimenez. [address] [facility], [address], [place], [place], [address] , [place]. tel:[phone] Referring Provider: Tony Case, [address] [facility] [address], [place], [address]. tel:[phone] [facility], [address] [address], [place], [place], [address], [place] tel:[phone] [facility] Lumbar (chief complaint) lumbar spine (chief complaint) Low back pain, unspecifiedRadi culopathy, site unspecifiedSpin al stenosis, lumbar region without neurogenic niki Paul-0 3 Donya Thompson er. [address] [facility], [address] [facility], [place], [place], [address] , [place]. tel:[phone] Referring Provider: J Luis Louis, [address] [facility] [address] [facility], [place], [address]. tel:[phone] [facility], [address] [address], [place], [place], [id number], [place] tel:[phone] [facility] Spinal stenosis, lumbar region without neurogenic claudRadiculopa thy, site unspecifiedLow back pain, unspecified May-0 3 Donya Jay er. [address] [facility], [address] [address], [place], [place], [id number] , [place]. tel:[phone] Office/outpa tient visit,est, mod [facility], [address] [address], [place], [place], [id number], [place] tel:[phone] [facility] Lumbar (chief complaint) Low back pain, unspecifiedRadi culopathy, site unspecifiedSpin al stenosis, lumbar region without neurogenic niki Mar-0 3 Iván Jimenez. [address] [facility], [address], [place], [place], [address] , [place]. tel:[phone] Referring Provider: Tony Minor Evie, [address] [facility] [address] [facility], [place], [address]. tel:[phone] [facility], [address] [facility] [address], [place], [place], [address], [place] tel:[phone] [facility] Lumbar (chief complaint) lumbar spine (chief complaint) Low back pain, unspecifiedSpin al stenosis, lumbar region without neurogenic claudRadiculopa thy, site unspecified May- 3 Donya Thompson er. [address] [facility], [address] [facility], [place], [place], [id number] , [place]. tel:[phone] Office/outpa tient visit,[facility], [address] [facility] [address], [place], [place], [address], [place] tel:[phone] [facility] Lumbar (chief complaint) lumbar spine (chief complaint) Low back pain, unspecifiedSpin al stenosis, lumbar regionOther bursal cyst, other siteRadiculopat hy, site unspecified 3 Donya Thompson er. [address] [facility], [address] [address], [place], [place], [address] , [place]. tel:[phone] Referring Provider: J Luis Louis, [address] [facility] [address], [place], [address]. tel:[phone] Family History Family Member Type Diagnosis Age At Onset Mother Problem (finding) Osteoarthritis Father Problem (finding) Heart Disease Mother Problem (finding) Depression Father Problem (finding) Hypertension Immunizations Vaccine Date Status Comments influenza, injectable, quadrivalent, (3 years or older) administered Source: Source Unspecified influenza, injectable, quadrivalent, (3 years or older) administered Source: Source Unspecified Pneumo (2 yrs or older)(PPV) administered Source: Source Unspecified Pneumo (2 yrs or older)(PPV) administered Source: Source Unspecified Payers Payer name Insurance type Covered green party ID Authorshellia tibill(s) Medicare [place] Part B MB [id number] [employer] Senior Supplemental Insurance CI [id number] Social History Type Description Quantity Date Captured Comments Alcohol Use Details Unknown Caffeine Use Details Unknown Tobacco Use Status No Information Smoking Status No Information Sex Male Chief Complaint And Reason For Visit No Information Reason For Referral Reason For Referral No Information Plan Of Treatment Date Type Action Status Referral Ordered: X-ray exam shoulder complete, minimum 2 views LT shoulder ordered Referral Ordered: Injection Transforaminal, single, lumbar/sacral SNRB LT spine, lumbar ordered Referral Ordered: X-ray exam Lumbar 2-3 views spine, lumbar ordered Referral Ordered: Injection Transforaminal, single, lumbar/sacral SNRB Bilateral spine, lumbar ordered History Of Present Illness Encounter Date Complaint History Of Prese nt Illness Guido Hill comes in to the office for a KULDEEP injection. Guido Hill comes in to the office for lumbar spine. Guido Hill comes in to the office for bilateral KULDEEP injections. guido Hill presents to the office today for post procedural evaluation after bilateral L5 transforaminal epidural steroid injection with Dr. J Luis Naqvi on 01/16/2023. Patient sustained a fall event almost 2 weeks ago, in which she got out of bed lost his balance and landed on the left upper extremity. Denies loss of range of motion, experience some bruising but is feeling much better. Denies low back pain at this time. Indicates that he does have some weakness and muscular pain in the bilateral lower extremities with ambulation or weightbearing for more than approximately 10 minutes. This is well managed with the use of rest. He is using acetaminophen for pain control in his left upper extremity. Denies paresthesias or changes to bowel or bladder habits since injection. He is ambulating without assistive device. Guido Hill comes in to the office for an KULDEEP. Guido Hill presents to the office today for post procedural evaluation after bilateral L5 transforaminal epidural steroid injection with Dr. J Luis Naqvi on 10/03/2022. Denies injury, trauma or fall since last office visit. Denies fever, chills, generalized feelings of illness or malaise. Endorses obtaining approximately 70% reduction to pain and increase in function. He does have mild intermittent pain in the low back with radiation into the hamstring. It has reduced in intensity, frequency and duration. It is mild and well-managed with the use of acetaminophen and tramadol. It is worsened with lifting. Denies changes to bowel or bladder habits. Denies paresis or paresthesia. He is ambulating without assistive device. Guido Hill comes in to the office for KULDEEP injections. lumbar spine Mayra sung is a pleasant 72-year-old male who follows up for bilateral L5 transforaminal epidural steroid injections. He previously underwent injections in 05/2022, which provided 75 percent or better relief until recently. Guido Hill presents to the office today for post procedural evaluation after bilateral L5 epidural steroid injection with Dr. J Luis Naqvi on 06/20/2022. Denies injury, trauma or fall since last office visit. Denies fever, chills, generalized feelings of illness or malaise. Endorses obtaining 75% increase in functionality and reduction to pain. Endorses right low back pain and radiation of pain to the mid thigh. His pain is rated to 5 out of 10 and is dependent on his activity level. It is aching in nature and managed with the use of ice and heat. He has discontinued the use of tramadol since injection. He does not participate in physical therapy, nor does he do the exercises from therapy on a regular basis. Denies paresthesia in the lower extremities, and indicates some weakness in the right lower extremity which is unchanged since injection. He is ambulate with the use of a walker at today's office visit. lumbar spine Mayra sung is a pleasant 71-year-old male who follows up for bilateral L5 lumbar epidural steroid injections for a diagnosis of spinal stenosis, low back pain, and bilateral lower extremity radiculopathy. Lumbar Mayra comes in to the office for transforaminal epidural injections. Lumbar Mayra comes in to the office for lumbar spine. lumbar spine Mayra sung is a pleasant 71-year-old male who presents for an evaluation of low back pain and buttock pain, consistent with radiculopathy that has been present for most of the last several months. He has attended at least 6 weeks of formal physical therapy without improvement. He has taken anti-inflammatory medications without significant relief.The patient has a history of myasthenia gravis. Functional Status Date Functional Assessmen t No Information Instructions Date Instruction Additional Infor edu Mayra is a pleasan t 72-year-old male who has obtained both therapeutic and diagnostic results after bilateral L5 transforaminal epidural steroid injection. Based on patient's ability to completely decrease utilization of oral medications for back pain, ability to maintain ADLs and increase level of functioning recommend continuation of current injection protocol. He may continue the use of oral analgesics and NSAIDs if authorized by his primary care physician, topical products such as Voltaren gel or lidocaine patches, ice and heat, and stretching exercises. He will maintain safety with ambulation. He will notify the office if pain returns. He demonstrates appropriate understanding of the diagnosis and plan of care at this time and will follow-up with our office as needed. Dictation completed with [employer] Practice Edition software, grammatical variances and spelling errors may inadvertently occur. Related to Radiculopathy, site unspecified Mayra is a pleasan t 72-year-old male who has achieved both therapeutic and diagnostic result with bilateral L5 transforaminal epidural steroid injection. Based on patient's decrease in intensity and frequency of radiculopathy, reduction to utilization of oral pain medications, and continued increase to activity level recommend continuing current injection protocol. Recommend initiating physical therapy to assist with reduction to pain and increase in function, topical products such as Voltaren gel or lidocaine patches, utilization of core strengthening exercises to assist with reduction to back pain. He demonstrates appropriate understanding the diagnosis and plan of care at this time, and will notify the office of any changes to his pain or return of radicular symptomology. He will follow up as needed. Dictation completed with [employer] software, grammatical variances and spelling errors may inadvertently occur. Related to Spinal stenosis, lumbar region without neurogenic niki Plan of Care:Mayra Coombs is a pleasant 72-year-old male who has lateral recess stenosis and L4-5 radiculopathy bilaterally. I recommend bilateral L5 transforaminal epidural steroid injections today. The patient will follow up with Clementine Vega, in 2 weeks for a reevaluation.Procedure Note: Bilateral L5 Transforaminal Epidural Steroid Injection Under FluoroscopyPre-procedure diagnoses are lateral recess stenosis and L4-5 radiculopathy bilaterally.Post-procedure diagnoses are lateral recess stenosis and L4-5 radiculopathy bilaterally.Provider is J Luis Naqvi MD.Complications: None.EBL: None.Prior to the procedure, verbal consent was obtained and all allergies were confirmed. The patient was made aware of all risks and benefits from this procedure. The patient was then placed prone on a radiolucent table and the bilateral L5 pedicles were identified via pulsed fluoroscopy. The skin was marked, and prepped in a sterile fashion with Betadine and a sterile sheet. Then approximately 10 cc 0.5% lidocaine was used to anesthetize the skin, subcutaneous tissues, and muscles for local anesthesia, using 5 cc on each side. After proper anesthesia was obtained, a spinal needle was slowly inserted and advanced under fluoroscopic guidance to the 6 o'clock position beneath the left L5 pedicle. A lateral view showed transforaminal placement of the needle. After aspiration revealed no blood or CSF return, approximately 0.3 cc of Omnipaque was injected, which showed a dye pattern consistent with epidural placement of the needle. Approximately 2.5 cc of a mixture of 2 cc of Kenalog 80 mg and 3 cc of normal saline was injected in a slow incremental fashion into the foraminal space. I then moved to the contralateral side, and a spinal needle was slowly inserted and advanced under fluoroscopic guidance to the 6 o'clock position beneath the right L5 pedicle. A lateral view showed transforaminal placement of the needle. After aspiration revealed no blood or CSF return, approximately 0.3 cc of Omnipaque was injected, which showed a dye pattern consistent with epidural placement of the needle. The remaining 2.5 cc of a mixture of 2 cc of Kenalog 80 mg and 3 cc of normal saline was injected in a slow incremental fashion into the foraminal space. The patient tolerated the procedure well without complications. At this point, the needles were removed, the skin was cleaned, and sterile bandages were applied. The patient was observed and vital signs were monitored. The patient was discharged in a stable condition with instructions to follow up as discussed.The medical record documentation of this provider's service encounter was entered by Deja Medina, acting as Rigger Up for J Luis Naqvi MD. Related to Spinal stenosis, lumbar region without neurogenic niki Mayra is a pleasan t 71-year-old male who has obtained both therapeutic and diagnostic result with bilateral L5 epidural steroid injection. Based on the patient's reduction to oral pain medication, continued ability to perform normal activities and significant discussion about realistic expectations and outcomes recommend continuation of current injection protocol. He will add acetaminophen and NSAIDs for pain control as needed. He will continue the therapy exercises, and maintain good body mechanics with all activities. He will initiate the use of topical products such as Lidoderm patches and Voltaren cream for pain control. He will notify the office of any changes to his overall health status, and follow up with the office as needed. Dictation completed with [employer] Practice Edition software, grammatical variances in spelling errors may inadvertently occur. Related to Spinal stenosis, lumbar region without neurogenic niki Plan of Care:Mayra Coombs is a pleasant 71-year-old male who has severe spinal stenosis at L3-4 and L4-5. He is here for planned bilateral L5 lumbar epidural steroid injections. The patient will follow up with [facility], in 2 weeks for a reevaluation. We may consider moving up to L4 for repeat injections depending upon his response.Procedure Note: Bilateral L5 Transforaminal Epidural Steroid Injection Under FluoroscopyPre-procedure diagnoses are severe spinal stenosis at L3-4 and L4-5.Post-procedure diagnoses are severe spinal stenosis at L3-4 and L4-5.Provider is J Luis Naqvi MD.Complications: None.EBL: None.Prior to the procedure, verbal consent was obtained and all allergies were confirmed. The patient was made aware of all risks and benefits from this procedure. The patient was then placed prone on a radiolucent table and the bilateral L5 pedicles were identified via pulsed fluoroscopy. The skin was marked, and prepped in a sterile fashion with Betadine and a sterile sheet. Then approximately 10 cc 0.5% lidocaine was used to anesthetize the skin, subcutaneous tissues, and muscles for local anesthesia, using 5 cc on each side. After proper anesthesia was obtained, a spinal needle was slowly inserted and advanced under fluoroscopic guidance to the 6 o'clock position beneath the left L5 pedicle. A lateral view showed transforaminal placement of the needle. After aspiration revealed no blood or CSF return, approximately 0.3 cc of Omnipaque was injected, which showed a dye pattern consistent with epidural placement of the needle. Approximately 4 cc of a mixture of 2 cc of Kenalog 80 mg and 3 cc of normal saline was injected in a slow incremental fashion into the foraminal space. I then moved to the contralateral side, and a spinal needle was slowly inserted and advanced under fluoroscopic guidance to the 6 o'clock position beneath the right L5 pedicle. A lateral view showed transforaminal placement of the needle. After aspiration revealed no blood or CSF return, approximately 0.3 cc of Omnipaque was injected, which showed a dye pattern consistent with epidural placement of the needle. The remaining 1 cc of a mixture of 2 cc of Kenalog 80 mg and 3 cc of normal saline was injected in a slow incremental fashion into the foraminal space as the patient had significant pain on the right side with needle placement and could only tolerate approximately 1 cc of injection.. The patient tolerated the procedure well without complications. At this point, the needles were removed, the skin was cleaned, and sterile bandages were applied. The patient was observed and vital signs were monitored. The patient was discharged in a stable condition with instructions to follow up as discussed.The medical record documentation of this provider's service encounter was entered by Deja Medina, acting as Rigger Up for J Luis Naqvi MD. Related to Spinal stenosis, lumbar region without neurogenic niki Plan of Care:Mayra Coombs is a pleasant 71-year-old male who has severe spinal stenosis at L3-4 and L4-5, low back pain, buttock pain, and radiculopathy that has been recalcitrant to conservative care. At this point, his and son informed me that he is not a surgical candidate secondary to restrictions from a neurologist after complications with a total knee arthroplasty. We will certainly defer any surgical recommendations at this time. I am going to ask for authorization for bilateral L5 transforaminal epidural steroid injections for the diagnosed of spinal stenosis, lower extremity radiculopathy, and back pain that has been recalcitrant to conservative care thus far.The medical record documentation of this Provider's service encounter was entered by Sol Preciado, acting as Rigger Up for J Luis Naqvi MD. Related to Radiculopathy, site unspecified Assessments Type Assessment Date No Information Patient Care Teams Name Effective Dates (start - stop) Status Members No Information
--- OUTSIDE RECORDS SUMMARY | 2024-08-12 13:22 | XMS_ITS | Clinical Summary ---
Author Organization [facility] Address [address] [place] [address] Phone Care Team Providers Care Home Care And Home Health Aides Teacher Name Role Phone Salty Cook MD Primary [...] Description 11/17/2024 1:00 PM CDT Office Visit [facility] Oncology and Hematology - [place] [address] [facility] [address] [place] [phone] Sujit Andrade MD [address] [facility] [address] [place] [address] 12/25/2024 1:20 PM CDT Office Visit [facility], NOSE AND THROAT [facility] [address] [facility] [address] [place] [address] Vikas Castillo MD [address] [facility] [place] [address] Health Maintenance Due Date Last [...] history exists Medical Devices Implanted Type Area Event Marketing Specialist Device Identifier Shelf Expiration Date Model / Serial / Lot Hemostatic Surgicel 1x2in 1960 - [id number] Implanted:Qty: 1 on 12/19/2019 by Vikas Castillo MD at [facility] Right: Neck [employer] 11/27/20211960 / / [id number] Ivc Filter Insurance MEDICARE PART A AND B [facility] SUPP MEDICARE PART A AND B [facility] SUPP Advance Directives For more information, please contact: [phone] Documents on File Type Date Recorded Patient Progressive Assembler And Fitter Expl anation Advance Directive POA 12/19/2019 11:51 AM Advance Directive POA * Full Code (Latest Code Status on File) Date Activated Date Inactivated Comments 12/19/2019 7:59 PM 12/22/2019 3:00 PM * Full Code Date Activated Date Inactivated Comments 12/19/2019 12:07 PM 12/19/2019 7:59 PM Care Teams Home Care And Home Health Aides Teacher Relationship Specialty Start Date End Date Salty Cook MD [address] [place] [address] [place] [address] PCP - General Internal Medicine 12/10/19
--- OUTSIDE RECORDS SUMMARY | 2024-08-12 13:22 | XMS_ITS | Clinical Summary ---
Author Organization [facility] Address Replaced by [facility] [place] [address] Care Team Providers Care Stars Analytical Lead Name Role Phone Unavailable Primary Care Provider [...] Vaccines (1 of 2) 2000 Pneumococcal Vaccine: 50+ Ye ars (1 of 1 - PCV) 09/03/2015 COVID-19 Vaccine ( - 2023-2 5 season) 2023 RSV Immunization or 60+ Years (1 - [...] Documents on File Type Date Recorded Patient Nurse Paralegal Expl anation Advance Directives and Living Will 08/25/2015 12:00 AM ADVANCED DIRECTIVES Advance Directives and Living Will 01/28/2015 12:00 AM ADVANCED DIRECTIVES Advance Directives and Living Will 12/06/2014 12:00 AM ADVANCED DIRECTIVES
--- OUTSIDE RECORDS SUMMARY | 2024-08-12 13:22 | XMS_ITS | Referral Summary ---
Author Organization [facility] Address [address] [place] [address] Care Team Providers Care Senior Producer Name Role Phone Salty Cook MD Primary Care Provider [phone] Allergies Active Allergy Reactions Criticality Noted Date [...] 04/24/2021 Assessment & Plan (04/24/2021 6:03 AM AVIATION MANAGER): Suspect delirium in setting of fevers - [...] Speech/PT/OT Assessment & Plan (04/24/2021 5:58 AM AVIATION MANAGER): Suspect delirium in setting of fevers - [...] 04/24/2021 Assessment & Plan (04/24/2021 6:01 AM AVIATION MANAGER): Prior to arrival at [facility]. Febrile and tachycardic. CXR with [...] dexamethasone.. Assessment & Plan (04/24/2021 5:57 AM AVIATION MANAGER): Prior to arrival at [facility]. [...] 04/24/2021 Assessment & Plan (04/24/2021 6:05 AM AVIATION MANAGER): T2N2B stage Gabriela moderately to poorly differentiated [...] Lovenox. 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 -Recently seen by OSH oncology without e/o disease -Upload images from OSH to [facility] for read -DVT PPX: Lovenox. 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 Previously on warfarin however complicated by IPH 2016. Now on ASA 81mg daily. -Continue ASA 81mg daily. 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 Previously on warfarin however complicated by IPH 2016. Now on ASA 81mg daily. -Continue ASA 81mg daily. Bipolar 1 disorder 04/24/2021 Assessment & Plan (04/24/2021 6:02 AM AVIATION MANAGER): Takes Seroquel 600mg daily, Ativan 0.5mg BID, and Depakote 500mg TID. -Hold seroquel and ativan given confusion -Continue depakote. Insomnia 04/24/2021 Assessment & Plan (04/24/2021 6:03 AM AVIATION MANAGER): Hold ambien in setting of confusion. Obesity with body mass index 30 or greater 12/15 Pain of left lower extremity 10/07/2015 Intraparenchymal hemorrhage of brain 08/18/2015 Nonobliterative otosclerosis involving oval wind ow 05/06/2015 Essential hypertension 06/22/2014 Myasthenia gravis 11/28/2013 Assessment & Plan (04/24/2021 6:01 AM AVIATION MANAGER): Significant history of myasthenia gravis on Prednisone, Imuran, and Pyridostigmine. Doesn't appear to be in crisis at this time. -Check NIF BID -Consult Neurology in AM given polypharmacy/confusion in setting of Myasthenia Gravis -Continue Prednsione, Imuran, and Pyridostigmine Assessment & Plan (04/24/2021 5:53 AM AVIATION MANAGER): Significant history of myasthenia gravis on Prednisone, Imuran, and Pyridostigmine. Doesn't appear to be in crisis at this time. -Check NIF BID -Consult Neurology in AM given polypharmacy/confusion in setting of Myasthenia Gravis -Continue Prednsione, Imuran, and Pyridostigmine Fatigue 11/27/2012 Coronary arteriosclerosis in [place] artery 06/14 Assessment & Plan (04/24/2021 6:01 AM AVIATION MANAGER): CAD s/p PCI to LAD and prox/mid RCA 2000. Previously followed with Dr. Frey now followed by OS accounts specialist. Here for STEMI evaluation -Per STEMI/CARDS -> No concern for STEMI and stable EKG -> recommend repeat troponin -Check Troponin. -Continue ASA 81mg daily, Rosuvastatin 40mg daily, Ezetimibe 10mg daily. Assessment & Plan (04/24/2021 5:57 AM AVIATION MANAGER): CAD s/p PCI to LAD and prox/mid RCA 1999. Previously followed with Dr. Frey now followed by OS accounts specialist. Here for STEMI evaluation -Per STEMI/CARDS -> No concern for STEMI and stable EKG -> recommend repeat troponin -Check Troponin. -Continue ASA 81mg daily, Rosuvastatin 40mg daily, Ezetimibe 10mg daily. Hyperlipidemia 09/13/2010 Overview (08/10/2017): Description: Hyperlipidemia Assessment & Plan (04/24/2021 6:01 AM AVIATION MANAGER): Continue Rosuvastatin and Exetimibe. Assessment & Plan (04/24/2021 5:53 AM AVIATION MANAGER): Continue Rosuvastatin and Exetimibe. Social History Tobacco Use Types Packs/Day Years Used Date Smoking Tobacco: Never Smokeless Tobacco: Never Alcohol Use Standard Drinks/Week Comments Not Currently 0 (1 standard drink = 0.6 oz pur e alcohol) Sex and Gender Information Value Date Recorded Sex Assigned at Not on file Legal Sex Male 10:46 PM AVIATION MANAGER Gender Identity Male 05/23/2018 10:17 AM AVIATION MANAGER Sexual Orientation Not on file Last Filed Vital Signs Vital Sign Reading Time Taken Comments Blood Pressure 104/69 04/27/2021 11:28 AM AVIATION MANAGER Pulse 70 04/27/2021 11:28 AM AVIATION MANAGER Temperature 36.7 C (98.1 F) 04/27/2021 11:28 AM AVIATION MANAGER Respiratory Rate 18 04/27/2021 11:28 AM AVIATION MANAGER Oxygen Saturation 94% 04/27/2021 11:28 AM AVIATION MANAGER Inhaled Oxygen Concentration - - Weight 82.1 kg (181 lb) 04/25/2021 7:46 AM AVIATION MANAGER Height 173.5 cm (5' 8.31 ) 04/25/2021 7:46 AM CS T Body Mass Index 27.27 04/25/2021 7:46 AM AVIATION MANAGER Plan of Treatment Not on file Insurance [facility] SENIOR SUPP[facility] MEDICARE [employer] SENIOR SUPPLEMENT Advance Directives For more information, please contact: [phone] * Full Code (Latest Code Status on File) Date Activated Date Inactivated Comments 04/24/2021 3:54 AM 04/27/2021 6:04 PM Care Teams Senior Producer Relationship Specialty Start Date End Date Salty Cook MD [address] [place] [address] [place] [address] PCP - General Internal Medicine 03/29/18
== END 2024-08-12 12:22 | disposition home or self-care (01) ==
LOC: CHSLAB 12:26
PROVIDERS: PCP Specialist; Visit Provider Specialist
DX: L85.9 Epidermal thickening, unspecified (principal)
CPT/HCPCS: 88305

== ENCOUNTER 2024-08-12 13:06 | Outpatient (CLI) | payer MEDICARE, SELFPAY ==
--- NOTE | ~2024-08-12 | CT_ITS ---
History: Back pain PROCEDURE: CT thoracic spine without intravenous contrast. COMPARISON: None TECHNIQUE: Multiple contiguous axial images of the thoracic spine were performed without the administration of i ntravenous contrast. DLP: 814? 31 2, mGy-cm FINDINGS: Preservation of the normal curvature of the thoracic spine is identified. No acute compression fractures are present. No soft tissue abnormality is noted. Indeterminate soft tissue attenuation along the posterior wall of the trachea, at the level of T4 for which direct visualization is recommended. Impression: No acute fracture, as detailed above. Indeterminate soft tissue attenuation within the trachea at the level of T4 which direct visualizatio n is recommended. Reviewed, dictated and finalized at location A. Impression: No acute fracture, as detailed above. Indeterminate soft tissue attenuation within the trachea at the level of T4 whi ch direct visualization is recommended.
--- OUTSIDE RECORDS SUMMARY | 2024-08-12 14:03 | XMS_ITS | Encounter Summary ---
Author Organization [facility] Address [address] [facility] [place] [address] Care Team Providers Care Leader Assembler Name Role Phone Unavailable Primary Care Provider Unavailabl e Encounter Details Date Type Department Care Team (Late st Contact Info) Description 03/03/2021 Lab Requisition [facility] DermPath Lab [address] [place] [address] Tony Young MD [address] [place] [address] Social History Tobacco Use Types Packs/Day Years Used Date Smoking Tobacco: Never Assessed Sex and Gender Information Value Date Recorded Sex Assigned at Not on file Legal Sex Male 6:04 PM LABORER LIVESTOCK Gender Identity Not on file Sexual Orientation Not on file documented as of this encounter Plan of Treatment Not on file documented as of this encounter Procedures Procedure Name Priority Date/Time Associated Diagnosis Comments DERMATOPATHOLOGY Routine 03/02/2021 12:0 0 AM CDT documented in this encounter Results * DERMATOPATHOLOGY (03/02/2021 12:00 AM CDT) Case Report Dermatopathology Report Case: [id number] Authorizing Provider: Tony Young MD Collected: 03/02/2021 12:00 AM Ordering Location: [facility] Derm[facility] Lab Received: 03/03/2021 12:58 PM Pathologist: [...] of a curettage and desiccation biopsy measuring [id number]. Jar 0. Specimen B: Received is one formalin filled container labeled with the patient's name and designated left post vertex scalp. The specimen consists of a shave biopsy measuring [id number]. Jar 0. 5:07 PM [facility] DERMATOPATHOLOGY LABORATORY Microscopic Description Specimen A. SKIN, [...] carcinoma cannot be ruled out. 5:07 PM [facility] DERMATOPATHOLOGY LABORATORY Disclaimer An external and internal positive and negative controls are appropriate for the histochemical, immunohistochemical and immunofluorescence stain(s) in this case (if any), except where stated explicitly. The performance characteristics of the stain(s) cited in this report were developed and its performance characteristic determined by the Dermatopathology Laboratory at [facility], directed by Dr. Rubin Emanuel. These tests need not be, and therefore are not, approved by the [place] Food and Drug Administration. The tests are used for clinical purposes. Billing Codes Specimen Charges Stain Charges 66179 89483 1 1 5:07 PM CDT DERMATOPATHOLOGY LABORATORY Embedded Images 5:07 PM T DERMATOPATHOLOGY LABORATORY Pathology/Cytology TISSUE SPECIMEN FROM SKIN / Unknown 03/02/2021 03/03/2021 12:58 PM CDT Miscellaneous samples (specimen) TISSUE SPECIMEN FROM SKIN / Unknown 03/02/2021 03/03/2021 12:58 PM CDT us Tony Young MD LAB - PATHOLOGY/CYTOLOGY ORD ERABLES Final Result DERMATOPATHOLOGY LABORATORY [facility] - Department of Dermatology Specialized Medicine [address] [place] [address], [address] [phone] documented in this encounter Visit Diagnoses Not on filedocumented in this encounter
--- OUTSIDE RECORDS SUMMARY | 2024-08-12 14:03 | XMS_ITS | Referral Summary ---
Author Organization [facility] Address [address] [place] [phone] Care Team Providers Care Time Study Statistician Name Role Phone Salty Cook MD Primary Care Provider [phone] Allergies Active Allergy Reactions Criticality Noted Date [...] 04/24/2021 Assessment & Plan (04/24/2021 6:03 AM RURAL ELECTRIFICATION ENGINEER): Suspect delirium in setting of fevers - [...] Speech/PT/OT Assessment & Plan (04/24/2021 5:58 AM RURAL ELECTRIFICATION ENGINEER): Suspect delirium in setting of fevers - [...] 04/24/2021 Assessment & Plan (04/24/2021 6:01 AM RURAL ELECTRIFICATION ENGINEER): Prior to arrival at [facility]. Febrile and tachycardic. CXR with [...] dexamethasone.. Assessment & Plan (04/24/2021 5:57 AM RURAL ELECTRIFICATION ENGINEER): Prior to arrival at [facility]. [...] 04/24/2021 Assessment & Plan (04/24/2021 6:05 AM RURAL ELECTRIFICATION ENGINEER): T2N2B stage Gabriela moderately to poorly differentiated [...] Lovenox. 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 -Recently seen by OSH oncology without e/o disease -Upload images from OSH to [facility] for read -DVT PPX: Lovenox. 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 Previously on warfarin however complicated by IPH 2016. Now on ASA 81mg daily. -Continue ASA 81mg daily. 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 Previously on warfarin however complicated by IPH 2016. Now on ASA 81mg daily. -Continue ASA 81mg daily. Bipolar 1 disorder 04/24/2021 Assessment & Plan (04/24/2021 6:02 AM RURAL ELECTRIFICATION ENGINEER): Takes Seroquel 600mg daily, Ativan 0.5mg BID, and Depakote 500mg TID. -Hold seroquel and ativan given confusion -Continue depakote. Insomnia 04/24/2021 Assessment & Plan (04/24/2021 6:03 AM RURAL ELECTRIFICATION ENGINEER): Hold ambien in setting of confusion. 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 Doesn't appear to be in crisis at this time. -Check NIF BID -Consult Neurology in AM given polypharmacy/confusion in setting of Myasthenia Gravis -Continue Prednsione, Imuran, and Pyridostigmine Assessment & Plan (04/24/2021 5:53 AM RURAL ELECTRIFICATION ENGINEER): Significant history of myasthenia gravis on Prednisone, Imuran, and Pyridostigmine. Doesn't appear to be in crisis at this time. -Check NIF BID -Consult Neurology in AM given polypharmacy/confusion in setting of Myasthenia Gravis -Continue Prednsione, Imuran, and Pyridostigmine Fatigue 11/27/2012 Coronary arteriosclerosis in [place] artery 06/14 Assessment & Plan (04/24/2021 6:01 AM RURAL ELECTRIFICATION ENGINEER): CAD s/p PCI to LAD and prox/mid RCA 2000. Previously followed with Dr. Frey now followed by OS buyer broker. Here for STEMI evaluation -Per STEMI/CARDS -> No concern for STEMI and stable EKG -> recommend repeat troponin -Check Troponin. -Continue ASA 81mg daily, Rosuvastatin 40mg daily, Ezetimibe 10mg daily. Assessment & Plan (04/24/2021 5:57 AM RURAL ELECTRIFICATION ENGINEER): CAD s/p PCI to LAD and prox/mid RCA 1999. Previously followed with Dr. Frey now followed by OS buyer broker. Here for STEMI evaluation -Per STEMI/CARDS -> No concern for STEMI and stable EKG -> recommend repeat troponin -Check Troponin. -Continue ASA 81mg daily, Rosuvastatin 40mg daily, Ezetimibe 10mg daily. Hyperlipidemia 09/13/2010 Overview (08/10/2017): Description: Hyperlipidemia Assessment & Plan (04/24/2021 6:01 AM RURAL ELECTRIFICATION ENGINEER): Continue Rosuvastatin and Exetimibe. Assessment & Plan (04/24/2021 5:53 AM RURAL ELECTRIFICATION ENGINEER): Continue Rosuvastatin and Exetimibe. Social History Tobacco Use Types Packs/Day Years Used Date Smoking Tobacco: Never Smokeless Tobacco: Never Alcohol Use Standard Drinks/Week Comments Not Currently 0 (1 standard drink = 0.6 oz pur e alcohol) Sex and Gender Information Value Date Recorded Sex Assigned at Not on file Legal Sex Male 10:46 PM RURAL ELECTRIFICATION ENGINEER Gender Identity Male 05/23/2018 10:17 AM RURAL ELECTRIFICATION ENGINEER Sexual Orientation Not on file Last Filed Vital Signs Vital Sign Reading Time Taken Comments Blood Pressure 104/69 04/27/2021 11:28 AM RURAL ELECTRIFICATION ENGINEER Pulse 70 04/27/2021 11:28 AM RURAL ELECTRIFICATION ENGINEER Temperature 36.7 C (98.1 F) 04/27/2021 11:28 AM RURAL ELECTRIFICATION ENGINEER Respiratory Rate 18 04/27/2021 11:28 AM RURAL ELECTRIFICATION ENGINEER Oxygen Saturation 94% 04/27/2021 11:28 AM RURAL ELECTRIFICATION ENGINEER Inhaled Oxygen Concentration - - Weight 82.1 kg (181 lb) 04/25/2021 7:46 AM RURAL ELECTRIFICATION ENGINEER Height 173.5 cm (5' 8.31 ) 04/25/2021 7:46 AM CS T Body Mass Index 27.27 04/25/2021 7:46 AM RURAL ELECTRIFICATION ENGINEER Plan of Treatment Not on file Insurance [facility]IC[facility] SENIOR [facility]PPLE[facility] MEDICARE [employer] SENIOR SUPPLEMENT Advance Directives For more information, please contact: [phone] * Full Code (Latest Code Status on File) Date Activated Date Inactivated Comments 04/24/2021 3:54 AM 04/27/2021 6:04 PM Care Teams Time Study Statistician Relationship Specialty Start Date End Date Salty Cook MD [address] [place] [address] [place] [address] PCP - General Internal Medicine 03/29/18
--- OUTSIDE RECORDS SUMMARY | 2024-08-12 14:03 | XMS_ITS | Encounter Summary ---
Author Organization [facility] Address [address] [facility] [place] [address] Care Team Providers Care Watch Manufacturing Supervisor Name Role Phone Unavailable Primary Care Provider Unavailabl e Encounter Details Date Type Department Care Team (Late st Contact Info) Description 12/29/2020 Lab Requisition [facility] DermPath Lab [address] [place] [address] Tony Young MD [address] [place] [address] Social History Tobacco Use Types Packs/Day Years Used Date Smoking Tobacco: Never Assessed Sex and Gender Information Value Date Recorded Sex Assigned at Not on file Legal Sex Male 6:04 PM ESCROW CLERK Gender Identity Not on file Sexual Orientation Not on file documented as of this encounter Plan of Treatment Not on file documented as of this encounter Procedures Procedure Name Priority Date/Time Associated Diagnosis Comments DERMATOPATHOLOGY Routine 12/28/2020 12:0 0 AM CDT documented in this encounter Results * DERMATOPATHOLOGY (12/28/2020 12:00 AM CDT) Case Report Dermatopathology Report Case: [id number] Authorizing Provider: Tony Young MD Collected: 12/28/2020 12:00 AM Ordering Location: [facility] DermPath Lab Received: 12/29/2020 01:14 [...] IN SITU (PRUETT'S DISEASE) (D04.39) 12:20 PM [facility] DERMATOPATHOLOGY LABORATORY Clinical History A-C: R/O SCC. 12:20 PM T DERMATOPATHOLOGY LABORATORY Gross Description Specimen A: Received is one formalin filled container labeled with the patient's name and designated left mid anti helix. The specimen consists of a shave biopsy measuring [id number]. Jar 0. Specimen B: Received is one formalin filled container labeled with the patient's name and designated behind mid left ear on scalp. The specimen consists of a shave biopsy measuring [id number]. Jar 0. Specimen C: Received is one formalin filled container labeled with the patient's name and designated left forehead (2.5cm) above brow. The specimen consists of a shave biopsy measuring [id number]. Jar 0. 12:20 PM T DERMATOPATHOLOGY LABORATORY [...] characteristic determined by the Dermatopathology Laboratory at [facility], directed by Dr. Rubin Emanuel. These tests need not be, and therefore are not, approved by the [place] Food and Drug Administration. The tests are used for clinical purposes. Billing Codes Specimen Charges Stain Charges 26721 26399 33549 1 1 1 12:20 PM CDT DERMATOPATHOLOGY [...] PATHOLOGY/CYTOLOGY ORD ERABLES Final Result DERMATOPATHOLOGY LABORATORY [facility] - Department of Dermatology [facility] Medicine [address] [place] [address], [address] Floor [address] [phone] documented in this encounter Visit Diagnoses Not on filedocumented in this encounter
--- OUTSIDE RECORDS SUMMARY | 2024-08-12 14:03 | XMS_ITS | Continuity of Care Document ---
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 [address] [facility], [address], [place], [place], [id number] , [place]. tel:[phone] [facility], [address] [address], [place], [place], [id number], [place] tel:[phone] [facility] Lumbar (chief complaint) Radiculopathy, site unspecifiedSpin al stenosis, lumbar region without neurogenic claudLow back pain, unspecified Jul-3 0- 4 Donya Jay er. [address] [facility], [address], [place], [place], [address] , [place]. tel: [phone] Referring Provider: J Luis Louis, [address] [facility] [address] [facility], [place], [address]. tel:[phone] Office/outpa tient visit,est, mod [facility], [address] [address], [place], [place], [address], [place] tel:[phone] [facility] Lumbar (chief complaint) Low back pain, unspecifiedRadi culopathy, site unspecifiedSpin al stenosis, lumbar region without neurogenic claudPain in left shoulder Jul-2 4 Donya Jay er. [address] [facility], [address] [facility], [place], [place], [id number] , [place]. tel: [phone] Referring Provider: J Luis Louis, [address] [facility] [address] [facility], [place], [address]. tel:[phone] [facility], [address] [address], [place], [place], [address], [place] tel:[phone] [facility] Lumbar (chief complaint) Radiculopathy, site unspecifiedSpin al stenosis, lumbar region without neurogenic claudLow back pain, unspecified Apr- 4 Donya Jay er. [address] [facility], [address] [address], [place], [place], [address] , [place]. tel: [phone] Referring Provider: J Luis Louis, [address] [facility] [address] [facility], [place], [address]. tel:[phone] [facility], [address] [place] [address], [id number], tel:[phone] [facility] Radiculopathy, site unspecifiedSpin al stenosis, lumbar region without neurogenic claudLow back pain, unspecified Dec- 3 Donya Thompson er. [address] [facility], [address] [address], [place], [place], [address] , [place]. tel:[phone] Office/outpa tient visit,est, mod [facility], [address] [address], [place], [place], [address], [place] tel:[phone] [facility] lumbar (chief complaint) Spinal stenosis, lumbar region without neurogenic claudRadiculopa thy, site unspecified 3 Iván Jimenez. [address] [facility], [address] [address], [place], [place], [address] , [place]. tel: [phone] Referring Provider: Tony Case, [address] [facility] [address] [facility], [place], [place], [address] [place] [address]. tel:[phone] [facility], [address] [address], [place], [place], [address], tel:[phone] [facility] Lumbar (chief complaint) No Information Dec- 3 Donya Thompson er. [address] [facility], [address] [address], [place], [place], [address] , [place]. tel:[phone] Referring Provider: J Luis Louis, [address] [facility] [address] [facility], [place], [address]. tel:[phone] [facility], [address], [id number], [place] tel:[phone] [facility] Low back pain, unspecifiedRadi culopathy, site unspecifiedSpin al stenosis, lumbar region without neurogenic niki Sep-0 3 Iván Jimenez. [address] [facility], [address] [address], [place], [place], [address] , [place]. tel:[phone] Office/outpa tient visit,est, mod [facility], [address] [address], [place], [place], [address], [place] tel:[phone] [facility] Lumbar (chief complaint) Low back pain, unspecifiedRadi culopathy, site unspecifiedSpin al stenosis, lumbar region without neurogenic niki Paul-2 3 Iván Jimenez. [address] [facility], [address], [place], [place], [address] , [place]. tel:[phone] Referring Provider: Tony Case, [address] [facility] [address], [place], [address]. tel:[phone] [facility], [address] [address], [place], [place], [address], [place] tel:[phone] [facility] Lumbar (chief complaint) lumbar spine (chief complaint) Low back pain, unspecifiedRadi culopathy, site unspecifiedSpin al stenosis, lumbar region without neurogenic niki Paul-0 3 Donya Thompson er. [address] [facility], [address] [facility], [place], [place], [address] , [place]. tel:[phone] Referring Provider: J Luis Louis, [address] [facility] [address] [facility], [place], [address]. tel:[phone] [facility], [address] [address], [place], [place], [address], [place] tel:[phone] [facility] Spinal stenosis, lumbar region without neurogenic claudRadiculopa thy, site unspecifiedLow back pain, unspecified May-0 3 Donya Jay er. [address] [facility], [address] [address], [place], [place], [address] , [place]. tel:[phone] Office/outpa tient visit,est, mod [facility], [address] [address], [place], [place], [address], [place] tel:[phone] [facility] Lumbar (chief complaint) Low back pain, unspecifiedRadi culopathy, site unspecifiedSpin al stenosis, lumbar region without neurogenic niki Mar-0 3 Iván Jimenez. [address] [facility], [address], [place], [place], [address] , [place]. tel:[phone] Referring Provider: Tony Minor Evie, [address] [facility] [address] [facility], [place], [address]. tel:[phone] [facility], [address] [facility] [address], [place], [place], [address], [place] tel:[phone] [facility] Lumbar (chief complaint) lumbar spine (chief complaint) Low back pain, unspecifiedSpin al stenosis, lumbar region without neurogenic claudRadiculopa thy, site unspecified May- 3 Donya Thompson er. [address] [facility], [address] [facility], [place], [place], [address] , [place]. tel:[phone] Office/outpa tient visit,[facility], [facility], [address] [facility] [address], [place], [place], [address], [place] tel:[phone] [facility] Lumbar (chief complaint) lumbar spine (chief complaint) Low back pain, unspecifiedSpin al stenosis, lumbar regionOther bursal cyst, other siteRadiculopat hy, site unspecified 3 Donya Thompson er. [address] [facility], [address] [address], [place], [place], [address] , [place]. tel:[phone] Referring Provider: J Luis Louis, [address] [facility] [address], [place], [address]. tel:[phone] Family History Family Member Type Diagnosis Age [...] Unspecified Payers Payer name Insurance type Covered republican ID Authorshellia tibill(s) Medicare [place] W[place] Part B MB [id number] [employer] Senior Supplemental Insurance CI [id number] Social History Type Description Quantity Date Captured [...] to the office for lumbar spine. Guido Hlil comes in to the office for bilateral [...] our office as needed. Dictation completed with [employer] Practice Edition software, grammatical variances and spelling [...] follow up as needed. Dictation completed with [employer] software, grammatical variances and spelling errors may [...] was entered by Deja Medina, acting as Shirt Folding Machine Operator for J Luis Naqvi MD. Related to [...] the office as needed. Dictation completed with [employer] Practice Edition software, grammatical variances in spelling [...] was entered by Deja Medina, acting as Shirt Folding Machine Operator for J Luis Naqvi MD. Related to Spinal stenosis, lumbar region without neurogenic niki Plan of Care:aMyra Coombs is a pleasant 71-year-old male who [...] was entered by Sol Preciado, acting as Shirt Folding Machine Operator for J Luis Naqvi MD. Related to Radiculopathy, site unspecified Assessments Type Assessment Date No Information Patient Care Teams Name Effective Dates (start - stop) Status Members No Information
--- OUTSIDE RECORDS SUMMARY | 2024-08-12 14:03 | XMS_ITS | Clinical Summary ---
Author Organization [facility] Address [address] [place] [address] Phone Care Team Providers Care Retail Sales Manager Name Role Phone Salty Cook MD Primary [...] Description 11/17/2024 1:00 PM CDT Office Visit [facility] Oncology and Hematology - [place] [address] [facility] [address] [place] [address] Sujit Andrade MD [address] [facility] [address] [place] [address] 12/25/2024 1:20 PM CDT Office Visit [facility] EAR, NOSE AND THROAT [facility] [address] [facility] [address] [place] [address] Vikas Castillo MD [address] [facility] [place] [address] Health Maintenance Due Date Last [...] history exists Medical Devices Implanted Type Area Data Communications Analyst Device Identifier Shelf Expiration Date Model / Serial / Lot Hemostatic Surgicel 1x2in 1960 - [id number] Implanted:Qty: 1 on 12/19/2019 by Vikas Castillo MD at [facility] Right: Neck [employer] 11/27/20211960 / / [id number] Ivc Filter Insurance MEDICARE PART A AND B [facility] SUPP MEDICARE PART A AND B [facility] SUPP Advance Directives For more information, please contact: [phone] Documents on File Type Date Recorded Patient Eyeglass Maker Expl anation Advance Directive POA 12/19/2019 11:51 AM Advance Directive POA * Full Code (Latest Code Status on File) Date Activated Date Inactivated Comments 12/19/2019 7:59 PM 12/22/2019 3:00 PM * Full Code Date Activated Date Inactivated Comments 12/19/2019 12:07 PM 12/19/2019 7:59 PM Care Teams Retail Sales Manager Relationship Specialty Start Date End Date Salty Cook MD [address] [place] [address] [place] [address] PCP - General Internal Medicine 12/10/19
--- OUTSIDE RECORDS SUMMARY | 2024-08-12 14:03 | XMS_ITS | Encounter Summary ---
Author Organization [facility] Address [address] [facility] [place] [address] Care Team Providers Care Roll Forming Machine Set Up Mechanic Name Role Phone Unavailable Primary Care Provider Unavailabl e Encounter Details Date Type Department Care Team (Late st Contact Info) Description 04/02/2019 Lab Requisition [facility] DermPath Lab [address] [place] [phone] Tony Young MD [address] [place] [address] Social History Tobacco Use Types Packs/Day Years Used Date Smoking Tobacco: Never Assessed Sex and Gender Information Value Date Recorded Sex Assigned at Not on file Legal Sex Male 6:04 PM SURGERY SCHEDULER Gender Identity Not on file Sexual Orientation Not on file documented as of this encounter Plan of Treatment Not on file documented as of this encounter Procedures Procedure Name Priority Date/Time Associated Diagnosis Comments DERMATOPATHOLOGY Routine 04/01/2019 12:0 0 AM SURGERY SCHEDULER documented in this encounter Results * DERMATOPATHOLOGY (04/01/2019 12:00 AM SURGERY SCHEDULER) Case Report Dermatopathology Report Case: [id number] Authorizing Provider: Tony Young MD Collected: 04/01/2019 12:00 AM Ordering Location: [facility] DermPath Lab Received: 04/02/2019 02:04 PM Pathologist: Evie Emanuel MD Specimen: Skin, left ant neck 9 3:22 PM SURGERY SCHEDULER DERMATOPATHOLOGY LABORATORY Final Diagnosis Specimen A. 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 3:22 PM [facility] DERMATOPATHOLOGY LABORATORY Gross Description Specimen A: Received is one formalin filled container labeled with the patient's name and designated left ant neck. The specimen consists of a shave biopsy measuring [id number]. Jar 0. 3:22 PM [facility] DERMATOPATHOLOGY LABORATORY Microscopic Description Specimen A. SKIN, left ant neck: The epidermis shows parakeratosis, full thickness disorderly maturation of keratinocytes, mitoses at different levels, and dyskeratotic cells. 3:22 PM [facility] DERMATOPATHOLOGY LABORATORY Disclaimer An external and internal positive and negative controls are appropriate for the histochemical, immunohistochemical and immunofluorescence stain(s) in this case (if any), except where stated explicitly. The performance characteristics of the stain(s) cited in this report were developed and its performance characteristic determined by the Dermatopathology Laboratory at [facility], directed by Dr. Rubin Emanuel. These tests need not be, and therefore are not, approved by the [place] Food and Drug Administration. The tests are used for clinical purposes. Billing Codes Specimen Charges Stain Charges 70376 1 3:22 PM [facility] DERMATOPATHOLOGY LABORATORY Embedded Images 3:22 PM [facility] DERMATOPATHOLOGY LABORATORY Pathology/Cytolog y TISSUE SPECIMEN FROM SKIN / Unknown 04/01/2019 04/02/2019 2:04 PM SURGERY SCHEDULER Tony Young MD LAB - PATHOLOGY/CYTOLOGY ORD ERABLES Final Result DERMATOPATHOLOGY LABORATORY [facility] - Department of Dermatology [address] [place] [address], [address] [place] [address], [facility] [phone] documented in this encounter Visit Diagnoses Not on filedocumented in this encounter
--- OUTSIDE RECORDS SUMMARY | 2024-08-12 14:03 | XMS_ITS | Encounter Summary ---
Author Organization [facility] Address [address] [facility] [place] [address] Care Team Providers Care Variety Saw Operator Name Role Phone Unavailable Primary Care Provider Unavailabl e Encounter Details Date Type Department Care Team (Late st Contact Info) Description 04/05/2020 Lab Requisition [facility] [address] [place] [phone] Tony Young MD [address] [place] [address] Social History Tobacco Use Types Packs/Day Years Used Date Smoking Tobacco: Never Assessed Sex and Gender Information Value Date Recorded Sex Assigned at Not on file Legal Sex Male 6:04 PM EKG MANAGER Gender Identity Not on file Sexual Orientation Not on file documented as of this encounter Plan of Treatment Not on file documented as of this encounter Procedures Procedure Name Priority Date/Time Associated Diagnosis Comments DERMATOPATHOLOGY Routine 04/02/2020 12:0 0 AM EKG MANAGER documented in this encounter Results * DERMATOPATHOLOGY (04/02/2020 12:00 AM EKG MANAGER) Case Report Dermatopathology Report Case: [id number] Authorizing Provider: Tony Young MD Collected: 04/02/2020 12:00 AM Ordering Location: [facility] Received: 04/05/2020 12:12 PM Pathologist: Evie Emanuel MD Specimen: Skin, right neck 0 3:35 PM EKG MANAGER DERMATOPATHOLOGY LABORATORY Final Diagnosis Specimen A. SKIN, right neck: ACTINIC KERATOSIS (L57.0) 0 3:35 PM EKG MANAGER DERMATOPATHOLOGY LABORATORY Clinical History R/O SCC, Chacko's, HAK. 0 3:35 PM EKG MANAGER DERMATOPATHOLOGY LABORATORY Gross Description Specimen A: Received is one formalin filled container labeled with the patient's name and designated right neck. The specimen consists of a shave biopsy measuring [id number]. Jar 0. 0 3:35 PM EKG MANAGER DERMATOPATHOLOGY LABORATORY Microscopic Description Specimen A. SKIN, right neck: There is focal parakeratosis. The lower half of the epidermis shows disorderly maturation of keratinocytes with nuclear pleomorphism. 0 3:35 PM EKG MANAGER DERMATOPATHOLOGY LABORATORY Disclaimer An external and internal positive and negative controls are appropriate for the histochemical, immunohistochemical and immunofluorescence stain(s) in this case (if any), except where stated explicitly. The performance characteristics of the stain(s) cited in this report were developed and its performance characteristic determined by the Dermatopathology Laboratory at [facility], directed by Dr. Rubin Emanuel. These tests need not be, and therefore are not, approved by the [place] Food and Drug Administration. The tests are used for clinical purposes. Billing Codes Specimen Charges Stain Charges 97535 1 0 3:35 PM EKG MANAGER DERMATOPATHOLOGY LABORATORY Embedded Images 0 3:35 PM EKG MANAGER DERMATOPATHOLOGY LABORATORY Pathology/Cytolog y TISSUE SPECIMEN FROM SKIN / Unknown 04/02/2020 04/05/2020 12:12 PM EKG MANAGER Tony Young MD LAB - PATHOLOGY/CYTOLOGY ORD ERABLES Final Result DERMATOPATHOLOGY LABORATORY [facility] - Department of Dermatology [address], [address] [phone] documented in this encounter Visit Diagnoses Not on filedocumented in this encounter
--- OUTSIDE RECORDS SUMMARY | 2024-08-12 14:03 | XMS_ITS | Encounter Summary ---
Author Organization [facility] Address [address] [place] [address] Care Team Providers Care Farmworker General Name Role Phone Unavailable Primary Care Provider Unavailabl e Encounter Details Date Type Department Care Team (Late st Contact Info) Description 09/08/2020 Lab Requisition [facility] DermPath Lab [address] [place] [address] Tony Young MD [address] [place] [address] Social History Tobacco Use Types Packs/Day Years Used Date Smoking Tobacco: Never Assessed Sex and Gender Information Value Date Recorded Sex Assigned at Not on file Legal Sex Male 6:04 PM EXTENSION ASSOCIATE Gender Identity Not on file Sexual Orientation Not on file documented as of this encounter Plan of Treatment Not on file documented as of this encounter Procedures Procedure Name Priority Date/Time Associated Diagnosis Comments DERMATOPATHOLOGY Routine 09/07/2020 12:0 0 AM CDT documented in this encounter Results * DERMATOPATHOLOGY (09/07/2020 12:00 AM CDT) Case Report Dermatopathology Report Case: [id number] Authorizing Provider: Tony Young MD Collected: 09/07/2020 12:00 AM Ordering Location: [facility] DermPath Lab Received: 09/08/2020 01:40 [...] of a curettage and desiccation biopsy measuring [id number], bisected. Jar 0. 12:29 PM CDT DERMATOPATHOLOGY [...] purposes. Billing Codes Specimen Charges Stain Charges 13377 1 12:29 PM CDT DERMATOPATHOLOGY LABORATORY Embedded Images 12:29 PM CDT DERMATOPATHOLOGY LABORATORY Pathology/Cytolog y TISSUE SPECIMEN FROM SKIN / Unknown 09/07/2020 09/08/2020 1:40 PM CDT Tony Young MD LAB - PATHOLOGY/CYTOLOGY ORD ERABLES Final Result DERMATOPATHOLOGY LABORATORY [facility] - Department of Dermatology [address], [address] [phone] documented in this encounter Visit Diagnoses Not on filedocumented in this encounter
--- OUTSIDE RECORDS SUMMARY | 2024-08-12 14:03 | XMS_ITS | Clinical Summary ---
Author Organization [facility] Address [address] [place] [address] Care Team Providers Care News Analyst Name Role Phone Unavailable Primary Care Provider Unavailabl e Source Comments [facility],non-owned Affiliates and Associated Physician Practices is amultiple site organization consisting of ambulatory clinics and hospital sitesin [place], [place], [place] and [place]. This disclosure is being madepursuant to the Care Everywhere program and may not contain all information available regarding this patient. Last updated 18.[facility] [employer] Social History Tobacco Use Types Packs/Day Years Used Date Smoking Tobacco: Never Assessed Sex and Gender Information Value Date Recorded Sex Assigned at Not on file Legal Sex Male 6:04 PM CHIEF MEDIA OFFICER Gender Identity Not on file Sexual Orientation [...]
--- OUTSIDE RECORDS SUMMARY | 2024-08-12 14:03 | XMS_ITS | Clinical Summary ---
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
--- OUTSIDE RECORDS SUMMARY | 2024-08-12 14:03 | XMS_ITS | Encounter Summary ---
Author Organization [facility] Address [address] [place] [address] Care Team Providers Care Miner Name Role Phone Salty Cook MD Primary Care Provider Encounter Details Date Type Department Care Team (Late st Contact Info) Description 01/06/2020 Chart Note [facility] Radiation Therapy [address] [place] [address] [place] [address] [place] [address] Social History Tobacco Use Types [...] Description 11/17/2024 1:00 PM CDT Office Visit [facility] Oncology and Hematology - [place] [place] [address] Sujit Andrade MD [address] [facility] [address] [place] [address] 12/25/2024 1:20 PM CDT Office Visit [facility] EAR, NOSE AND THROAT [facility] [address] [facility] [address] [place] [address] Vikas Castillo MD [address] [facility] [address] [place] [address] documented as of this encounter Visit Diagnoses Not on filedocumented in this encounter Care Teams Miner Relationship Specialty Start Date End Date Salty Cook MD [address] [place] [address] [address] [place] [phone] PCP - General Internal Medicine 12/10/19 documented as of this encounter
--- OUTSIDE RECORDS SUMMARY | 2024-08-12 14:03 | XMS_ITS | Encounter Summary ---
Author Organization [facility] Address [address] [facility] [place] [address] Care Team Providers Care Director Of Special Education Name Role Phone Unavailable Primary Care Provider Unavailabl e Encounter Details Date Type Department Care Team (Late st Contact Info) Description 10/27/2021 Lab Requisition [facility] DermPath Lab [address] [place] [address] Tony Young MD [address] [place] [address] Social History Tobacco Use Types Packs/Day Years Used Date Smoking Tobacco: Never Assessed Sex and Gender Information Value Date Recorded Sex Assigned at Not on file Legal Sex Male 6:04 PM HEEL SEAM RUBBER Gender Identity Not on file Sexual Orientation Not on file documented as of this encounter Plan of Treatment Not on file documented as of this encounter Procedures Procedure Name Priority Date/Time Associated Diagnosis Comments DERMATOPATHOLOGY Routine 10/26/2021 12:0 0 AM CDT documented in this encounter Results * DERMATOPATHOLOGY (10/26/2021 12:00 AM CDT) Case Report Dermatopathology Report Case: [id number] Authorizing Provider: Tony Young MD Collected: 10/26/2021 12:00 AM Ordering Location: [facility] DermPath Lab Received: 10/27/2021 12:05 PM [...] specimen consists of a shave removal measuring [id number], bisected. The margin is inked green. Jar [...] characteristic determined by the Dermatopathology Laboratory at [facility], directed by Dr. Rubin Emanuel. These tests need not be, and therefore are not, approved by the [place] Food and Drug Administration. The tests are used for clinical purposes. Billing Codes Specimen Charges Stain Charges 20184 1 2 5:02 PM CDT DERMATOPATHOLOGY LABORATORY Embedded Images 2 5:02 PM CDT DERMATOPATHOLOGY LABORATORY Pathology/Cytolog y TISSUE SPECIMEN FROM SKIN / Unknown 10/26/2021 10/27/2021 12:05 PM CDT Tony Young MD LAB - PATHOLOGY/CYTOLOGY ORD ERABLES Final Result DERMATOPATHOLOGY LABORATORY [facility] - Department of Dermatology [address] [place] [address], [facility] [phone] documented in this encounter Visit Diagnoses Not on filedocumented in this encounter
--- OUTSIDE RECORDS SUMMARY | 2024-08-12 14:03 | XMS_ITS | Clinical Summary ---
Author Organization [facility] Address [address] [place] [id number] Care Team Providers Care Learning Center Coordinator Name Role Phone Salty Cook MD Primary Care Provider [phone] Allergies Active Allergy Reactions Criticality Noted Date [...] 04/24/2021 Assessment & Plan (04/24/2021 6:03 AM TRANSACTION MANAGER): Suspect delirium in setting of fevers [...] Speech/PT/OT Assessment & Plan (04/24/2021 5:58 AM TRANSACTION MANAGER): Suspect delirium in setting of fevers [...] 04/24/2021 Assessment & Plan (04/24/2021 6:01 AM TRANSACTION MANAGER): Prior to arrival at [facility]. Febrile and tachycardic. CXR with [...] dexamethasone.. Assessment & Plan (04/24/2021 5:57 AM TRANSACTION MANAGER): [facility] 04/24/2021 Assessment & Plan (04/24/2021 6:05 AM TRANSACTION MANAGER): T2N2B stage Gabriela moderately to poorly [...] Lovenox. 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 -Recently seen by OSH oncology without e/o disease -Upload images from OSH to [facility] for read -DVT PPX: Lovenox. 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 Previously on warfarin however complicated by IPH 2016. Now on ASA 81mg daily. -Continue ASA 81mg daily. 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 Previously on warfarin however complicated by IPH 2016. Now on ASA 81mg daily. -Continue ASA 81mg daily. Bipolar 1 disorder 04/24/2021 Assessment & Plan (04/24/2021 6:02 AM TRANSACTION MANAGER): Takes Seroquel 600mg daily, Ativan 0.5mg BID, and Depakote 500mg TID. -Hold seroquel and ativan given confusion -Continue depakote. Insomnia 04/24/2021 Assessment & Plan (04/24/2021 6:03 AM TRANSACTION MANAGER): Hold ambien in setting of confusion. 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 Doesn't appear to be in crisis at this time. -Check NIF BID -Consult Neurology in AM given polypharmacy/confusion in setting of Myasthenia Gravis -Continue Prednsione, Imuran, and Pyridostigmine Assessment & Plan (04/24/2021 5:53 AM TRANSACTION MANAGER): Significant history of myasthenia gravis on Prednisone, Imuran, and Pyridostigmine. Doesn't appear to be in crisis at this time. -Check NIF BID -Consult Neurology in AM given polypharmacy/confusion in setting of Myasthenia Gravis -Continue Prednsione, Imuran, and Pyridostigmine Fatigue 11/27/2012 Coronary arteriosclerosis in [place] artery 06/14 Assessment & Plan (04/24/2021 6:01 AM TRANSACTION MANAGER): CAD s/p PCI to LAD and prox/mid RCA 2000. Previously followed with Dr. Frey now followed by OS feeder operator. Here for STEMI evaluation -Per STEMI/CARDS -> No concern for STEMI and stable EKG -> recommend repeat troponin -Check Troponin. -Continue ASA 81mg daily, Rosuvastatin 40mg daily, Ezetimibe 10mg daily. Assessment & Plan (04/24/2021 5:57 AM TRANSACTION MANAGER): CAD s/p PCI to LAD and prox/mid RCA 2000. Previously followed with Dr. Frey now followed by OS feeder operator. Here for STEMI evaluation -Per STEMI/CARDS -> No concern for STEMI and stable EKG -> recommend repeat troponin -Check Troponin. -Continue ASA 81mg daily, Rosuvastatin 40mg daily, Ezetimibe 10mg daily. Hyperlipidemia 09/13/2010 Overview (08/10/2017): Description: Hyperlipidemia Assessment & Plan (04/24/2021 6:01 AM TRANSACTION MANAGER): Continue Rosuvastatin and Exetimibe. Assessment & Plan (04/24/2021 5:53 AM TRANSACTION MANAGER): Continue Rosuvastatin and Exetimibe. Surgical History Surgery Date Site/Laterality Comments LA INSERT INTRACORONARY STENT Cath Stent Placement - (Added by TW Conv) LA UNLISTED PROCEDURE ABDOMEN PERITONEUM & OMENTUM Hernia [...] on file Legal Sex Male 10:46 PM TRANSACTION MANAGER Gender Identity Male 05/23/2018 10:17 AM TRANSACTION MANAGER Sexual Orientation Not on file Obstetrics History Last Filed Vital Signs Vital Sign Reading Time Taken Comments Blood Pressure 104/69 04/27/2021 11:28 AM TRANSACTION MANAGER Pulse 70 04/27/2021 11:28 AM TRANSACTION MANAGER Temperature 36.7 C (98.1 F) 04/27/2021 11:28 AM TRANSACTION MANAGER Respiratory Rate 18 04/27/2021 11:28 AM TRANSACTION MANAGER Oxygen Saturation 94% 04/27/2021 11:28 AM TRANSACTION MANAGER Inhaled Oxygen Concentration - - Weight 82.1 kg (181 lb) 04/25/2021 7:46 AM TRANSACTION MANAGER Height 173.5 cm (5' 8.31 ) 04/25/2021 7:46 AM CS T Body Mass Index 27.27 04/25/2021 7:46 AM TRANSACTION MANAGER Plan of Treatment Health Maintenance Due Date [...] Advance Directives For more information, please contact: [phone] * Full Code (Latest Code Status on File) Date Activated Date Inactivated Comments 04/24/2021 3:54 AM 04/27/2021 6:04 PM Care Teams Learning Center Coordinator Relationship Specialty Start Date End Date Salty Cook MD [address] [place] [address] DR BLUM [address] [place] [id number] PCP - General Internal Medicine 03/29/18
--- OUTSIDE RECORDS SUMMARY | 2024-08-12 14:03 | XMS_ITS | Encounter Summary ---
Author Organization [facility] Address [address] [facility] [place] [address] Care Team Providers Care Biofuels Technology Manager Name Role Phone Unavailable Primary Care Provider Unavailabl e Encounter Details Date Type Department Care Team (Late st Contact Info) Description 10/06/2021 Lab Requisition [facility] DermPath Lab [address] [place] [address] Tony Young MD [address] [address] Social History Tobacco Use Types Packs/Day Years Used Date Smoking Tobacco: Never Assessed Sex and Gender Information Value Date Recorded Sex Assigned at Not on file 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 Gender Identity Not on file Sexual Orientation Not on file documented as of this encounter Plan of Treatment Not on file documented as of this encounter Procedures Procedure Name Priority Date/Time Associated Diagnosis Comments DERMATOPATHOLOGY Routine 10/05/2021 12:0 0 AM CDT documented in this encounter Results * DERMATOPATHOLOGY (10/05/2021 12:00 AM CDT) Case Report Dermatopathology Report Case: [id number] Authorizing Provider: Tony Young MD Collected: 10/05/2021 12:00 AM Ordering Location: [facility] DermPath Lab Received: 10/06/2021 01:55 PM Pathologist: [...] OVERLYING CUTANEOUS HORN (L85.8) 2 3:11 PM [facility] DERMATOPATHOLOGY LABORATORY Clinical History A-D: R/O SCC 2 3:11 PM T DERMATOPATHOLOGY LABORATORY Gross Description Specimen A: Received is one formalin filled container labeled with the patient's name and designated right proximal fluxor forearm. The specimen consists of a shave biopsy measuring [id number] and it is bisected. Jar 0. Specimen B: Received is one formalin filled container labeled with the patient's name and designated left lateral back. The specimen consists of a shave biopsy measuring [id number]. Jar 0. Specimen C: Received is one formalin filled container labeled with the patient's name and designated left medial back. The specimen consists of a shave biopsy measuring 15h1x2hm. Jar 0. Specimen D: Received is one formalin filled container labeled with the patient's name and designated dorsal left hand. The specimen consists of a shave biopsy measuring 36j46v6bp. Jar 0. 2 3:11 PM [facility] DERMATOPATHOLOGY LABORATORY Microscopic Description Specimen A. SKIN, [...] determined by the Dermatopathology Laboratory at [facility], directed by Dr. Rubin Emanuel. These tests need not be, and therefore are not, approved by the [place] Food and Drug Administration. The tests are used for clinical purposes. Billing Codes Specimen Charges Stain Charges 74280 26457 88460 47521 1 1 1 1 2 3:11 PM [...] ORD ERABLES Final Result DERMATOPATHOLOGY LABORATORY [facility] - Department of Dermatology [address] [place] [address], [facility] [phone] documented in this encounter Visit Diagnoses Not on filedocumented in this encounter
== END 2024-08-12 13:07 | disposition home or self-care (01) ==
LOC: CHSIMG 13:11
PROVIDERS: Visit Provider Physical Medicine & Rehabilitation Pain Medicine
DX: M48.04 Spinal stenosis, thoracic region (principal)
CPT/HCPCS: 72128

== ENCOUNTER 2024-11-10 10:32 | Outpatient (CLI) | payer MEDICARE, SELFPAY ==
--- NOTE | ~2024-11-10 | CT_ITS ---
CT scan of the Neck Technique: 2.5 mm axial scans were obtained through the neck after intravenous administration of 75 c c Omnipaque 350. Coronal and sagittal reconstructions of the neck were obtained. Dose reduction techn ique was used on this scan by utilizing automated exposure control and iterative reconstruction techn ique. The dose-length product (DLP) was 645.21 mGy-cm. 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 Several small, nonenlarged jugulo- digastric and posterior cervical lymph nodes are noted bilaterally. Parapharyngeal spaces appear norm al bilaterally. The parotid and submandibular glands appear normal. The pharyngeal mucosal spaces appear normal. No soft tissue masses are seen in the neck. The thyroid gland appears normal. Images of the lung apices reveal no abnormalities. Stable degenerative spondylosis of the cervical spine with anterolisthesis of C2 over C3. Impression: No evidence of recurrent malignancy or metastatic disease. Stable degenerative spondylosis of the cervical spine with anterolisthesis of C2 over C3. Reviewed, dictated and finalized at location . Impression: No evidence of recurrent malignancy or metastatic disease. Stable degenerative spondylosis of the cervical spine with anterolisthesis of C 2 over C3.
--- OUTSIDE RECORDS SUMMARY | 2024-11-10 10:40 | XMS_ITS | Encounter Summary ---
Author Organization [facility] Address [address] [place] [address] Care Team Providers Care Emt Basic Name Role Phone Salty Cook MD Primary Care Provider Encounter Details Date Type Department Care Team (Late Contact Info) Description 01/06/2020 Chart Note [facility] Radiation Therapy [address] [place] [address] [place] [address] [place] [address] Social History Tobacco Use Types [...] Care Team (Late st Contact Info) Description 11/19/2024 4:30 PM CDT Telephone Check Up [facility] Oncology and Hematology - [address] [place] [phone] Sujit Andrade MD [address] [place] [address] 12/03/2024 11:15 AM CDT Office Visit [facility] Pulmonology [facility] [address] [place] [address] Dustin Barrow MD [address] [place] [address] 12/25/2024 1:20 PM CDT Office Visit [facility] [address] [place] [address] Vikas Castillo MD [address] [place] [address] documented as of this encounter Visit Diagnoses Not on filedocumented in this encounter Care Teams Emt Basic Relationship Specialty Start Date End Date Salty Cook MD [address] [place] [address] [address] [place] [phone] PCP - General Internal Medicine 12/10/19 documented as of this encounter
--- OUTSIDE RECORDS SUMMARY | 2024-11-10 10:40 | XMS_ITS | Encounter Summary ---
Author Organization [facility] Address [address] [facility] [place] [address] Care Team Providers Care Last Scourer Name Role Phone Unavailable Primary Care Provider Unavailabl e Encounter Details Date Type Department Care Team (Late st Contact Info) Description 10/27/2021 Lab Requisition [facility] DermPath Lab [address] [place] [address] Tony Young MD [address] [address] Social History Tobacco Use Types Packs/Day Years Used Date Smoking Tobacco: Never Assessed Sex and Gender Information Value Date Recorded Sex Assigned at Not on file 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 Gender Identity Not on file Sexual Orientation Not on file documented as of this encounter Plan of Treatment Not on file documented as of this encounter Procedures Procedure Name Priority Date/Time Associated Diagnosis Comments DERMATOPATHOLOGY Routine 10/26/2021 12:0 0 AM CDT documented in this encounter Results * DERMATOPATHOLOGY (10/26/2021 12:00 AM CDT) Case Report Dermatopathology Report Case: [id number] Authorizing Provider: Tony Young MD Collected: 10/26/2021 12:00 AM Ordering Location: [facility] DermPath Lab Received: 10/27/2021 12:05 PM Pathologist: Evie Emanuel MD Specimen: Skin, left scalp behind left upper ear 2 5:02 PM CDT DERMATOPATHOLOGY LABORATORY Final Diagnosis Specimen A. SKIN, left scalp behind left upper ear: KERATOACANTHOMA (L85.8) PRESENT AT MARGIN 2 5:02 PM CDT DERMATOPATHOLOGY LABORATORY at 1701 CDT Clinical History R/O BCC, cyst. 2 5:02 PM CDT DERMATOPATHOLOGY LABORATORY Gross Description Specimen A: Received is one formalin filled container labeled with the patients name and designated left scalp behind left upper ear. The specimen consists of a shave removal measuring [id number], bisected. The margin is inked green. Jar 0+. 2 5:02 PM CDT DERMATOPATHOLOGY LABORATORY Microscopic Description Specimen A. SKIN, left scalp behind left upper ear: This exoendophytic lesion shows a central keratotic plug surrounded by a symmetrical proliferation of keratinocytes with abundant eosinophilic cytoplasm. At the sides, there is epithelial lipping. There is a suggestion that the central [...] characteristic determined by the Dermatopathology Laboratory at [facility], directed by Dr. Rubin Emanuel. These tests need not be, and therefore are not, approved by the [place] Food and Drug Administration. The tests are used for clinical purposes. Billing Codes Specimen Charges Stain Charges 87497 1 2 5:02 PM CDT DERMATOPATHOLOGY LABORATORY Embedded Images 2 5:02 PM CDT DERMATOPATHOLOGY LABORATORY Pathology/Cytolog y TISSUE SPECIMEN FROM SKIN / Unknown 10/26/2021 10/27/2021 12:05 PM CDT us Tony Young MD LAB - PATHOLOGY/CYTOLOGY ORD ERABLES Final Result DERMATOPATHOLOGY LABORATORY [facility] - Department of Dermatology [address] [place] [address], [facility] [phone] documented in this encounter Visit Diagnoses Not on filedocumented in this encounter
--- OUTSIDE RECORDS SUMMARY | 2024-11-10 10:40 | XMS_ITS | Clinical Summary ---
Author Organization [facility] Address [address] [place] [address] Care Team Providers Care Diesel Dragline Operator Name Role Phone Unavailable Primary Care Provider Unavailabl e Source Comments [facility],non-owned Affiliates and Associated Physician Practices is amultiple site organization consisting of ambulatory clinics and hospital sitesin [place], [place], [place] and [place]. This disclosure is being madepursuant to the Care Everywhere program and may not contain all information available regarding this patient. 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
--- OUTSIDE RECORDS SUMMARY | 2024-11-10 10:41 | XMS_ITS | Encounter Summary ---
Author Organization [facility] Address [address] [facility] [place] [address] Care Team Providers Care Splicer Helper Name Role Phone Unavailable Primary Care Provider Unavailabl e Encounter Details Date Type Department Care Team (Late st Contact Info) Description 12/29/2020 Lab Requisition [facility] DermPath Lab [address] [place] [address] Tony Young MD [address] [address] Social History Tobacco Use Types Packs/Day Years Used Date Smoking Tobacco: Never Assessed Sex and Gender Information Value Date Recorded Sex Assigned at Not on file Legal Sex Male 6:04 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 Gender Identity Not on file Sexual Orientation Not on file documented as of this encounter Plan of Treatment Not on file documented as of this encounter Procedures Procedure Name Priority Date/Time Associated Diagnosis Comments DERMATOPATHOLOGY Routine 12/28/2020 12:0 0 AM CDT documented in this encounter Results * DERMATOPATHOLOGY (12/28/2020 12:00 AM CDT) Case Report Dermatopathology Report Case: [id number] Authorizing Provider: Tony Young MD Collected: 12/28/2020 12:00 AM Ordering Location: [facility] DermPath Lab Received: 12/29/2020 01:14 PM Pathologist: [...] 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 12:20 PM CDT DERMATOPATHOLOGY LABORATORY Gross Description Specimen A: Received is one formalin filled container labeled with the patient's name and designated left mid anti helix. The specimen consists of a shave biopsy measuring 87g7b0qi. Jar 0. Specimen B: Received is one formalin filled container labeled with the patient's name and designated behind mid left ear on scalp. The specimen consists of a shave biopsy measuring 02k6h0xi. Jar 0. Specimen C: Received is one formalin filled container labeled with the patient's name and designated left forehead (2.5cm) above brow. The specimen consists of a shave biopsy measuring 59h7r8lc. Jar 0. 12:20 PM CDT DERMATOPATHOLOGY LABORATORY Microscopic Description Specimen [...] different levels, and dyskeratotic cells. 12:20 PM CDT DERMATOPATHOLOGY LABORATORY Disclaimer An external and internal positive and negative controls are appropriate for the histochemical, immunohistochemical and immunofluorescence stain(s) in this case (if any), except where stated explicitly. The performance characteristics of the stain(s) cited in this report were developed and its performance characteristic determined by the Dermatopathology Laboratory at [facility], directed by Dr. Rubin Emanuel. These tests need not be, and therefore are not, approved by the [place] Food and Drug Administration. The tests are used for clinical purposes. Billing Codes Specimen Charges Stain Charges 27833 86766 04504 1 1 1 12:20 PM CDT DERMATOPATHOLOGY [...] PATHOLOGY/CYTOLOGY ORD ERABLES Final Result DERMATOPATHOLOGY LABORATORY [facility] - Department of Dermatology [facility] [address] [place] [address], [address] [phone] documented in this encounter Visit Diagnoses Not on filedocumented in this encounter
--- OUTSIDE RECORDS SUMMARY | 2024-11-10 10:41 | XMS_ITS | Clinical Summary ---
Author Organization [facility] Address [address] [place] [address] Phone Care Team Providers Care Creative Perfumer Name Role Phone Unavailable Primary Care Provider [...] Comments Blood Pressure 101/60 04/24/2021 1:00 AM CEMENTER HAND Pulse 100 04/24/2021 1:00 AM CEMENTER HAND Temperature 38.2 C (100.7 F) 04/23/2021 9:52 PM CEMENTER HAND Respiratory Rate 16 04/24/2021 1:00 AM CEMENTER HAND Oxygen Saturation 97% 04/24/2021 1:00 AM CEMENTER HAND Inhaled Oxygen Concentration - - Weight 101.6 kg (224 lb) 04/23/2021 9:52 PM CEMENTER HAND Height 177.8 cm (5' 10) 04/23/2021 9:52 PM CEMENTER HAND Body Mass Index 32.14 04/23/2021 9:52 PM CEMENTER HAND Plan of Treatment Health Maintenance Due Date Last Done Comments Hepatitis C Virus (HCV) Screening 1950 Zoster Immunization (1 of 2) 1969 Cologuard 09/03/1995 Colonoscopy 09/03/1995 Colorectal Cancer Screening 09/03/1995 Immunochemical Fecal Occult Blood 09/03/1995 Respiratory Syncytial Virus (RSV) Immunization (Adult) (1 - Risk 60-74 years 1-dose series) 2010 Pneumococcal Immunization (50+ years) (2 of 2 - PPSV23) 12/06/2010 08/28/2017, 12/06/2009 SARS-COV-2 Immunization (4 - season) 2023 04/18/2021, 10/18/2020, 09/20/2020 Influenza Immunization (#1) 2024 11/0 04/2017, 03/08/2016, 01/29/2015, Additional history exists Pneumococcal Immunization Combined Discontinued 08/28/2017, 12/06/2009 DTaP/Tdap/Td Immunization Discontinued 04/04/2020 TdaP Immunization Completed 04/04/2020 Hepatitis B Immunization Aged Out No longer eligible based on patient's age to complete this topic Human Papillomavirus (HPV) Immunization Aged Out No longer eligible based on patient's age to complete this topic Meningococcal Immunization (ACWY) Aged Out No longer eligible based on patient's age to complete this topic Rotavirus Immunization Aged Out No lo nger eligible based on patient's age to complete this topic Insurance MEDICARE [facility] SENIOR SUPPLEMENTAL MEDICARE [facility] SENIOR SUPPLEMENTAL
--- OUTSIDE RECORDS SUMMARY | 2024-11-10 10:41 | XMS_ITS | Encounter Summary ---
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 Gender Identity Not on file Sexual Orientation Not on file documented as of this encounter Plan of Treatment Not on file documented as of this encounter Procedures Procedure Name Priority Date/Time Associated Diagnosis Comments DERMATOPATHOLOGY Routine 09/07/2020 12:0 0 AM CDT documented in this encounter Results * DERMATOPATHOLOGY (09/07/2020 12:00 AM CDT) Case Report Dermatopathology Report Case: [id number] Authorizing Provider: Tony Young MD Collected: 09/07/2020 12:00 AM Ordering Location: [facility] Received: 09/08/2020 01:40 PM Pathologist: Monica Winston MD Specimen: Skin, dorsal right hand 12:29 PM CDT DERMATOPATHOLOGY LABORATORY Final Diagnosis Specimen A. 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 12:29 PM CDT DERMATOPATHOLOGY LABORATORY Gross Description Specimen A: Received is one formalin filled container labeled with the patient's name and designated dorsal right hand. The specimen consists of a curettage and desiccation biopsy measuring [id number], bisected. Jar 0. 12:29 PM CDT DERMATOPATHOLOGY [...] characteristic determined by the Dermatopathology Laboratory at [facility], directed by Dr. Rubin Emanuel. These tests need not be, and therefore are not, approved by the [place] Food and Drug Administration. The tests are used for clinical purposes. Billing Codes Specimen Charges Stain Charges 99497 1 12:29 PM CDT DERMATOPATHOLOGY LABORATORY Embedded Images 12:29 PM CDT DERMATOPATHOLOGY LABORATORY Pathology/Cytolog y TISSUE SPECIMEN FROM SKIN / Unknown 09/07/2020 09/08/2020 1:40 PM CDT Tony Young MD LAB - PATHOLOGY/CYTOLOGY ORD ERABLES Final Result DERMATOPATHOLOGY LABORATORY [facility] - Department of Dermatology [address], [address] [phone] documented in this encounter Visit Diagnoses Not on filedocumented in this encounter
--- OUTSIDE RECORDS SUMMARY | 2024-11-10 10:41 | XMS_ITS | Encounter Summary ---
Author Organization [facility] Address [address] [place] [address] Care Team Providers Care Product Test Specialist Name Role Phone Unavailable Primary Care Provider Unavailabl e Encounter Details Date Type Department Care Team (Late st Contact Info) Description 10/06/2021 Lab Requisition [facility] DermPath Lab [address] [place] [address] Tony Young MD [address] [place] [address] Social History Tobacco Use Types Packs/Day Years Used Date Smoking Tobacco: Never Assessed Sex and Gender Information Value Date Recorded Sex Assigned at Not on file Legal Sex Male 6:04 PM LUMBER BUYER Gender Identity Not on file Sexual Orientation Not on file documented as of this encounter Plan of Treatment Not on file documented as of this encounter Procedures Procedure Name Priority Date/Time Associated Diagnosis Comments DERMATOPATHOLOGY Routine 10/05/2021 12:0 0 AM CDT documented in this encounter Results * DERMATOPATHOLOGY (10/05/2021 12:00 AM CDT) Case Report Dermatopathology Report Case: [id number] Authorizing Provider: Tony Young MD Collected: 10/05/2021 12:00 AM Ordering Location: [facility] DermPath Lab Received: 10/06/2021 01:55 PM Pathologist: [...] OVERLYING CUTANEOUS HORN (L85.8) 2 3:11 PM T DERMATOPATHOLOGY LABORATORY at 1511 CDT Clinical History A-D: R/O SCC 2 3:11 PM T DERMATOPATHOLOGY LABORATORY Gross Description Specimen A: Received is one formalin filled container labeled with the patient's name and designated right proximal fluxor forearm. The specimen consists of a shave biopsy measuring 21m43b3nm and it is bisected. Jar 0. Specimen B: Received is one formalin filled container labeled with the patient's name and designated left lateral back. The specimen consists of a shave biopsy measuring 1e2k3cb. Jar 0. Specimen C: Received is one formalin filled container labeled with the patient's name and designated left medial back. The specimen consists of a shave biopsy measuring 21n8n3hy. Jar 0. Specimen D: Received is one formalin filled container labeled with the patient's name and designated dorsal left hand. The specimen consists of a shave biopsy measuring 40h11w5xy. Jar 0. 2 3:11 PM CDT DERMATOPATHOLOGY LABORATORY Microscopic Description Specimen [...] determined by the Dermatopathology Laboratory at [facility], directed by Dr. Rubin Emanuel. These tests need not be, and therefore are not, approved by the [place] Food and Drug Administration. The tests are used for clinical purposes. Billing Codes Specimen Charges Stain Charges 45757 67720 [id number] 13962 1 1 1 1 2 3:11 PM [...] PATHOLOGY/CYTOLOGY ORD ERABLES Final Result DERMATOPATHOLOGY LABORATORY [facility] - Department of Dermatology [address] [place] [address], [facility] [phone] documented in this encounter Visit Diagnoses Not on filedocumented in this encounter
--- OUTSIDE RECORDS SUMMARY | 2024-11-10 10:41 | XMS_ITS | Clinical Summary ---
Author Organization [facility] Address [address] [place] [address] Care Team Providers Care Thread Dresser Name Role Phone Salty Cook MD Primary Care Provider [phone] Allergies Active Allergy Reactions Criticality Noted Date [...] 04/24/2021 Assessment & Plan (04/24/2021 6:03 AM MICROSOFT BI DEVELOPER): Suspect delirium in setting of fevers - [...] Speech/PT/OT Assessment & Plan (04/24/2021 5:58 AM MICROSOFT BI DEVELOPER): Suspect delirium in setting of fevers - [...] 04/24/2021 Assessment & Plan (04/24/2021 6:01 AM MICROSOFT BI DEVELOPER): Prior to arrival at [facility]. Febrile and tachycardic. CXR [...] dexamethasone.. Assessment & Plan (04/24/2021 5:57 AM MICROSOFT BI DEVELOPER): Prior to arrival at [facility]. [...] 04/24/2021 Assessment & Plan (04/24/2021 6:05 AM MICROSOFT BI DEVELOPER): T2N2B stage Guston moderately to poorly differentiated squamous cell carcinoma [...] Lovenox. 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 -Recently seen by OSH oncology without e/o disease -Upload images from OSH to [facility]va for read -DVT PPX: Lovenox. 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 Previously on warfarin however complicated by IPH 2016. Now on ASA 81mg daily. -Continue ASA 81mg daily. 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 Previously on warfarin however complicated by IPH 2016. Now on ASA 81mg daily. -Continue ASA 81mg daily. Bipolar 1 disorder 04/24/2021 Assessment & Plan (04/24/2021 6:02 AM MICROSOFT BI DEVELOPER): Takes Seroquel 600mg daily, Ativan 0.5mg BID, and Depakote 500mg TID. -Hold seroquel and ativan given confusion -Continue depakote. Insomnia 04/24/2021 Assessment & Plan (04/24/2021 6:03 AM MICROSOFT BI DEVELOPER): Hold ambien in setting of confusion. Obesity with body mass index 30 or greater 12/15 Pain of left lower extremity 10/07/2015 Intraparenchymal hemorrhage of brain 08/18/2015 Nonobliterative otosclerosis involving oval wind ow 05/06/2015 Essential hypertension 06/22/2014 Myasthenia gravis 11/28/2013 Assessment & Plan (04/24/2021 6:01 AM MICROSOFT BI DEVELOPER): Significant history of myasthenia gravis on Prednisone, Imuran, and Pyridostigmine. Doesn't appear to be in crisis at this time. -Check NIF BID -Consult Neurology in AM given polypharmacy/confusion in setting of Myasthenia Gravis -Continue Prednsione, Imuran, and Pyridostigmine Assessment & Plan (04/24/2021 5:53 AM MICROSOFT BI DEVELOPER): Significant history of myasthenia gravis on Prednisone, Imuran, and Pyridostigmine. Doesn't appear to be in crisis at this time. -Check NIF BID -Consult Neurology in AM given polypharmacy/confusion in setting of Myasthenia Gravis -Continue Prednsione, Imuran, and Pyridostigmine Fatigue 11/27/2012 Coronary arteriosclerosis in koi artery 06/14 Assessment & Plan (04/24/2021 6:01 AM MICROSOFT BI DEVELOPER): CAD s/p PCI to LAD and prox/mid RCA 2000. Previously followed with Dr. Frey now followed by OS therapeutic mentor. Here for STEMI evaluation -Per STEMI/CARDS -> No concern for STEMI and stable EKG -> recommend repeat troponin -Check Troponin. -Continue ASA 81mg daily, Rosuvastatin 40mg daily, Ezetimibe 10mg daily. Assessment & Plan (04/24/2021 5:57 AM MICROSOFT BI DEVELOPER): CAD s/p PCI to LAD and prox/mid RCA 2000. Previously followed with Dr. Frey now followed by OS therapeutic mentor. Here for STEMI evaluation -Per STEMI/CARDS -> No concern for STEMI and stable EKG -> recommend repeat troponin -Check Troponin. -Continue ASA 81mg daily, Rosuvastatin 40mg daily, Ezetimibe 10mg daily. Hyperlipidemia 09/13/2010 Overview (08/10/2017): Description: Hyperlipidemia Assessment & Plan (04/24/2021 6:01 AM MICROSOFT BI DEVELOPER): Continue Rosuvastatin and Exetimibe. Assessment & Plan (04/24/2021 5:53 AM MICROSOFT BI DEVELOPER): Continue Rosuvastatin and Exetimibe. Surgical History Surgery Date Site/Laterality Comments VT INSERT INTRACORONARY STENT Cath Stent Placement - (Added by TW Conv) VT UNLISTED PROCEDURE ABDOMEN PERITONEUM & OMENTUM Hernia [...] on file Legal Sex Male 10:46 PM MICROSOFT BI DEVELOPER Gender Identity Male 05/23/2018 10:17 AM MICROSOFT BI DEVELOPER Sexual Orientation Not on file Obstetrics History Last Filed Vital Signs Vital Sign Reading Time Taken Comments Blood Pressure 104/69 04/27/2021 11:28 AM MICROSOFT BI DEVELOPER Pulse 70 04/27/2021 11:28 AM MICROSOFT BI DEVELOPER Temperature 36.7 C (98.1 F) 04/27/2021 11:28 AM MICROSOFT BI DEVELOPER Respiratory Rate 18 04/27/2021 11:28 AM MICROSOFT BI DEVELOPER Oxygen Saturation 94% 04/27/2021 11:28 AM MICROSOFT BI DEVELOPER Inhaled Oxygen Concentration - - Weight 82.1 kg (181 lb) 04/25/2021 7:46 AM MICROSOFT BI DEVELOPER Height 173.5 cm (5' 8.31) 04/25/2021 7:46 AM CS T Body Mass Index 27.27 04/25/2021 7:46 AM MICROSOFT BI DEVELOPER Plan of Treatment Health Maintenance Due Date Last Done Comments Colon Cancer Screening-Colonoscopy 1950 Depression Screening 1950 Hepatitis C Screening 1950 DTaP/Tdap/Td Vaccine (1 - Tdap) 1961 Hepatitis B Screening 1968 Zoster Vaccine (1 of 2) 1969 Abdominal Aortic Aneurysm (A AA) Screen 09/03/2015 Well Visit 65+ 09/03/2015 Fall Risk Assessment 04/27/2022 04/27/2021 Covid-19 Vaccine (2023-2 5 season) 2023 10/18/2020, 09/20/2020, 09/20/2020 Influenza Vaccine (Season Ended) 2024 01/28/2023, 03/07/2018, 02/12/2017, Additional history exists Pneumococcal vaccine 65+ Completed 022, 12/30/2019, 09/20/2018, Additional history exists Insurance [facility] SENIOR SUPPLEMENT MEDICARE T SENIOR SUPPLEMENT MEDICARE [facility] Address: [address] [place] [id number] [employer] SENIOR SUPPLEMENT Advance Directives For more information, please contact: [phone] * Full Code (Latest Code Status on File) Date Activated Date Inactivated Comments 04/24/2021 3:54 AM 04/27/2021 6:04 PM Care Teams Thread Dresser Relationship Specialty Start Date End Date Salty Cook MD [address] [place] [address] [place] [address] PCP - General Internal Medicine 03/29/18
--- OUTSIDE RECORDS SUMMARY | 2024-11-10 10:41 | XMS_ITS | Encounter Summary ---
Author Organization [facility] Address [address] [place] [address] Care Team Providers Care Analysis Specialist Name Role Phone Unavailable Primary Care Provider Unavailabl e Encounter Details Date Type Department Care Team (Late st Contact Info) Description 04/05/2020 Lab Requisition [facility] DermPath Lab [address] [place] [phone] Tony Young MD [address] [place] [address] Social History Tobacco Use Types Packs/Day Years Used Date Smoking Tobacco: Never Assessed Sex and Gender Information Value Date Recorded Sex Assigned at Not on file Legal Sex Male 6:04 PM EARLY BREASTFEEDING CARE SPECIALIST Gender Identity Not on file Sexual Orientation Not on file documented as of this encounter Plan of Treatment Not on file documented as of this encounter Procedures Procedure Name Priority Date/Time Associated Diagnosis Comments DERMATOPATHOLOGY Routine 04/02/2020 12:0 0 AM EARLY BREASTFEEDING CARE SPECIALIST documented in this encounter Results * DERMATOPATHOLOGY (04/02/2020 12:00 AM EARLY BREASTFEEDING CARE SPECIALIST) Case Report Dermatopathology Report [id number]: [id number] Authorizing Provider: Tony Young MD Collected: 04/02/2020 12:00 AM Ordering Location: [facility] Derm[facility] Lab Received: 04/05/2020 12:12 PM Pathologist: Evie Emanuel MD Specimen: Skin, right neck 0 3:35 PM EARLY BREASTFEEDING CARE SPECIALIST DERMATOPATHOLOGY LABORATORY Final Diagnosis Specimen A. SKIN, right neck: ACTINIC KERATOSIS (L57.0) 0 3:35 PM EARLY BREASTFEEDING CARE SPECIALIST DERMATOPATHOLOGY LABORATORY at 1535 EARLY BREASTFEEDING CARE SPECIALIST Clinical History R/O SCC, Chacko's, HAK. 0 3:35 PM EARLY BREASTFEEDING CARE SPECIALIST DERMATOPATHOLOGY LABORATORY Gross Description Specimen A: Received is one formalin filled container labeled with the patient's name and designated right neck. The specimen consists of a shave biopsy measuring [id number]. Jar 0. 0 3:35 PM [facility] DERMATOPATHOLOGY LABORATORY Microscopic Description Specimen A. SKIN, right neck: There is focal parakeratosis. The lower half of the epidermis shows disorderly maturation of keratinocytes with nuclear pleomorphism. 0 3:35 PM EARLY BREASTFEEDING CARE SPECIALIST DERMATOPATHOLOGY LABORATORY Disclaimer An external and internal [...] purposes. Billing Codes Specimen Charges Stain Charges [id number] 1 0 3:35 PM EARLY BREASTFEEDING CARE SPECIALIST DERMATOPATHOLOGY LABORATORY Embedded Images 0 3:35 PM EARLY BREASTFEEDING CARE SPECIALIST DERMATOPATHOLOGY LABORATORY Pathology/Cytolog y TISSUE SPECIMEN FROM SKIN / Unknown 04/02/2020 04/05/2020 12:12 PM EARLY BREASTFEEDING CARE SPECIALIST Tony Young MD LAB - PATHOLOGY/CYTOLOGY ORD ERABLES Final Result DERMATOPATHOLOGY LABORATORY [facility] - Department of Dermatology [address], [address] [phone] documented in this encounter Visit Diagnoses Not on filedocumented in this encounter
--- OUTSIDE RECORDS SUMMARY | 2024-11-10 10:41 | XMS_ITS | Encounter Summary ---
Author Organization [facility] Address [address] [place] [address] Care Team Providers Care Principal Engineer Name Role Phone Unavailable Primary Care Provider Unavailabl e Encounter Details Date Type Department Care Team (Late st Contact Info) Description 03/03/2021 Lab Requisition [facility] DermPath Lab [address] [place] [address] Tony Young MD [address] [place] [address] Social History Tobacco Use Types Packs/Day Years Used Date Smoking Tobacco: Never Assessed Sex and Gender Information Value Date Recorded Sex Assigned at Not on file Legal Sex Male 6:04 PM PHARMACY TECHNICIAN INSTRUCTOR Gender Identity Not on file Sexual Orientation Not on file documented as of this encounter Plan of Treatment Not on file documented as of this encounter Procedures Procedure Name Priority Date/Time Associated Diagnosis Comments DERMATOPATHOLOGY Routine 03/02/2021 12:0 0 AM CDT documented in this encounter Results * DERMATOPATHOLOGY (03/02/2021 12:00 AM CDT) Case Report Dermatopathology Report Case: [id number] Authorizing Provider: Tony Young MD Collected: 03/02/2021 12:00 AM Ordering Location: [facility] Derm[facility] Lab Received: 03/03/2021 12:58 PM Pathologist: [...] and comment) 5:07 PM T DERMATOPATHOLOGY LABORATORY at 1707 CDT Clinical History A: R/O BCC. B: R/O SCC, Chacko's. 5:07 PM CDT DERMATOPATHOLOGY LABORATORY Gross Description Specimen A: Received is one formalin filled container labeled with the patient's name and designated post back of right side neck. The specimen consists of a curettage and desiccation biopsy measuring [id number]. Jar 0. Specimen B: Received is one formalin filled container labeled with the patient's name and designated left post vertex scalp. The specimen consists of a shave biopsy measuring [id number]. Jar 0. 5:07 PM T DERMATOPATHOLOGY LABORATORY Microscopic Description Specimen [...] purposes. Billing Codes Specimen Charges Stain Charges [id number] 1 1 5:07 PM CDT DERMATOPATHOLOGY LABORATORY Embedded Images 5:07 PM CDT DERMATOPATHOLOGY LABORATORY Pathology/Cytology TISSUE SPECIMEN FROM SKIN / Unknown 03/02/2021 03/03/2021 12:58 PM CDT Miscellaneous samples (specimen) TISSUE SPECIMEN FROM SKIN / Unknown 03/02/2021 03/03/2021 12:58 PM CDT us Tony Young MD LAB - PATHOLOGY/CYTOLOGY ORD ERABLES Final Result DERMATOPATHOLOGY LABORATORY [facility] - Department of Dermatology [facility] Specialized Medicine [address] [place] [address], [address] [phone] documented in this encounter Visit Diagnoses Not on filedocumented in this encounter
--- OUTSIDE RECORDS SUMMARY | 2024-11-10 10:41 | XMS_ITS | Clinical Summary ---
Author Organization [facility] Address [address] [place] [address] Phone Care Team Providers Care Pottery Striper Name Role Phone Salty Cook MD Primary [...] Encounters Date Type Department Care Team Description 10/21/2024 External Device Data STL ABSTRACTION Provider, Abstract 10/07/2024 11:00 AM CDT Office Visit [facility] EAR, NOSE AND THROAT [address] [phone] Thaddeus Cerda PA Tracheal mass (Primary Dx); History of tongue cancer 10/07/2024 Orders Only [facility] EAR, NOSE AND THROAT [address] [phone] Provider, Abstract 09/30/2024 External Device Data STL ABSTRACTION Provider, Abstract [...] 3:35 PM CDT Height 177.8 cm (5' 10) 11/13/2022 10:00 AM CDT Body Mass Index 28.27 11/13/2022 10:00 AM CDT Plan of Treatment Upcoming Encounters Date Type Department Care Team (Late st Contact Info) Description 11/19/2024 4:30 PM CDT Telephone Check Up [facility] Oncology and Hematology - [place] [address] [facility] [address] [place] [phone] Sujit Andrade MD [address] [facility] [address] [place] [address] 12/03/2024 11:15 AM CDT Office Visit [facility] Pulmonology [facility] [address] [facility] [address] [place] [address] Dustin Barrow MD [address] [facility] [address] [place], [place] [phone] 12/25/2024 1:20 PM CDT Office Visit [facility] EAR, NOSE AND THROAT [facility] [address] [facility] [address] [place] [address] Vikas Castillo MD [address] [facility] [place] [address] Health Maintenance Due Date Last Done Comments DTAP/TDAP/TD VACCINES (1 - Tdap) 1969 COLORECTAL SCREENING 09/03/1995 Colorectal Cancer Screening 09/03/1995 FIT-DNA Q 3 years 09/03/1995 FIT/FOBT Q 1 year 09/03/1995 Flex Sig/CT Colonography Q 5 years 09/03/1995 ZOSTER VACCINE (1 of 2) 2000 COVID-19 Vaccine (2023-2 5 season) 2023 10/18/2020, 09/20/2020, 09/20/2020 INFLUENZA VACCINE (#1) 2024 03/02/2023, 2022 RSV VACCINE (60+ or ) (1 - 1-dose 75+ series) 2025 PNEUMOCOCCAL VACCINE 50+ YEARS Completed 0 12/29/2021, 12/30/2019, 09/20/2018, Additional history exists Medical Devices Implanted Type Area Machine Technician Device Identifier Shelf Expiration Date Model / Serial / Lot Hemostatic Surgicel 1x2in 1960 - [id number] Implanted:Qty: 1 on 12/19/2019 by Vikas Castillo MD at [facility] Hemostatic Right: Neck [employer] 11/27/20211960 / / [id number] Ivc Filter Procedures Procedure Name Priority Date/Time Associated Diagnosis Comments MA LARYNGOSCOPY FLEXIBLE DIAGNOSTIC Routine 10/07/2024 11:00 AM CDT History of tongue cancer CT THORACIC SPINE WO CONTRAST Routine 08/12/2024 11:26 AM CDT from Last 3 Months Results * MA LARYNGOSCOPY FLEXIBLE DIAGNOSTIC (10/07/2024 11:00 AM CDT) Narrative Thaddeus Cerda PA - 10/07/2024 11:00 AM CDT Thaddeus Cerda PA 10/07/2024 12:21 PM Nasal Endoscopy/Laryngoscopy Date/Time: 10/07/2024 11:00 AM Performed by: Thaddeus Cerad PA Authorized by: Thaddeus Cerda PA Local anesthesia used: yes Anesthesia: Local anesthesia used: yes Local Anesthetic: topical anesthetic Patient tolerance: patient tolerated the procedure well with no immediate complications Comments: Procedure Note Consent: The benefits and risks of flexible laryngoscopy were discussed, including but not limited to: temporary pain or discomfort of the nose or throat, temporary sensation of inability to swallow, temporary bad taste, remote possibility of fainting episode. Patient wishes to proceed. Anesthesia: intranasal 4% Lidocaine and phenylephrine Endoscopy Type: Flexible Nasopharyngoscope. Procedure Details: Informed consent was obtained. The patient was placed in the sitting position. After topical anesthesia and decongestion, the 4 mm laryngoscope was passed. The nasal cavities, nasopharynx, oropharynx, hypopharynx, and larynx were all examined. Vocal cords were examined during respiration and phonation. Findings: See note Disposition: The patient tolerated procedure well. Complications: None us Thaddeus GUADALUPE PROCEDURE/MINOR SURGICAL ORD ERABLES Final Result * CT THORACIC SPINE WO CONTRAST (08/12/2024 11:26 AM CDT) Anatomical Region Laterality Modality Spine Computed Tomogra phy us Abstract Provider CT ORDERABLES Final Result from Last 3 Months Insurance MEDICARE PART A AND B [facility] MEDICARE PART A AND B BCBS SUPP Advance Directives For more information, please contact: [phone] Documents on File Type Date Recorded Patient English Horn Player Expl anation Advance Directive POA 12/19/2019 11:51 AM Advance Directive POA * Full Code (Latest Code Status on File) Date Activated Date Inactivated Comments 12/19/2019 7:59 PM 12/22/2019 3:00 PM * Full Code Date Activated Date Inactivated Comments 12/19/2019 12:07 PM 12/19/2019 7:59 PM Care Teams Pottery Striper Relationship Specialty Start Date End Date Salty Cook MD [address] [place] [address] Dr [address] [place] [phone] PCP - General Internal Medicine 12/10/19
--- OUTSIDE RECORDS SUMMARY | 2024-11-10 10:41 | XMS_ITS | Patient Health Record ---
Author Organization [facility] [employer] [facility] Address [address] [facility] [address] [place] [address] Care Team Providers Care Director Product Name Role Phone Alyson Ramírez Unavailable [phone] Reason For Referral No Information Medications Medication SIG (Take, Route, Frequency, Duration) Notes Start Date End Date Status Clotrimazole 10 MG Mouth/Throat 08/08/2021 Active IPRATROPIUM BROMIDE 21 MCG (0.03 %) NASAL SPRAY *Reorder from AudioCaseFiles for eRx and Interaction Alerts* 08/08/2021 Active Ciclopirox 8% External 08/08/2021 Activ e QUEtiapine Fumarate 300 MG Oral 08/08/2021 Active predniSONE 10 MG Oral 08/08/2021 Ac tive Ezetimibe 10 MG Oral 08/08/2021 Act cole pyRIDostigmine Bainbridge 60 mg Oral 08/08/2021 Active Ipratropium [place]ainbridge 0.06 % Nasal 08/08/2021 Active traZODone HCl 100 MG Oral 08/08/2021 Active azaTHIOprine 50 MG Oral 08/08/2021 Active Nystatin 810368 UNIT/ML Mouth/Throat 08/08/2021 Active Nitrofurantoin Monohyd Macro 100 MG Oral 08/08/2021 Active Depakote 500 MG Oral 08/08/2021 Act cole LORazepam 0.5 MG Oral 08/08/2021 Ac tive Divalproex Sodium 500 MG Oral 08/08/2021 Active Rosuvastatin Calcium 40 MG Oral 08/08/2021 Active Immunizations Vaccine Route Administration Date Status Comme nts Influenza virus vaccine, quadrivalent (IIV4), split virus, 0.25 mL dosage Unknown 01/25/2014 Administered Influenza virus vaccine, quadrivalent (IIV4), split virus, 0.25 mL dosage Unknown 01/29/2015 Administered Influenza virus vaccine, quadrivalent (IIV4), split virus, 0.25 mL dosage Unknown 02/28/2018 Administered Influenza, high dose seasonal Unknown 03/08/2016 Admini stered Moderna Covid-19 Vaccine 1st dose Unknown 09/20/2020 Ad ministered Moderna Covid-19 Vaccine 1st dose Unknown 10/18/2020 Ad ministered Moderna Covid-19 Vaccine 1st dose Unknown 04/18/2021 Ad ministered Pneumococcal conjugate PCV 13 Unknown 12/06/2009 Admini stered Pneumococcal conjugate PCV 7 Unknown 08/28/2017 Adminis tered Tdap Unknown 04/04/2020 Administered Plan Of Treatment No Information Insurance Providers Payer Name Payer Address Payer Phone Subscriber Number Group Number Insured Name Patient Relationship to Insured Coverage Start Date Coverage End Date Medicare-Sd Medicare [address] [place] [phone] [id number] MAYRA LINDA Self - patient is the insured [employer] Medicare Supplement [address] [address] [place] [address] [id number] MAYRA LINDA Self - patient is the insured Medical (General) History Surgical History Surgery Date(Month/Year) Hernia repair w/mesh (98933) Cardiac stent
--- OUTSIDE RECORDS SUMMARY | 2024-11-10 10:41 | XMS_ITS | Referral Summary ---
Author Organization [facility] Address [address] [place] [address] Care Team Providers Care Deep Fryer Assembler Name Role Phone Salty Cook MD Primary Care Provider [phone] Allergies Active Allergy Reactions Criticality Noted Date [...] 04/24/2021 Assessment & Plan (04/24/2021 6:03 AM PATIENT CARE DIRECTOR): Suspect delirium in setting of fevers - [...] Speech/PT/OT Assessment & Plan (04/24/2021 5:58 AM PATIENT CARE DIRECTOR): Suspect delirium in setting of fevers - [...] 04/24/2021 Assessment & Plan (04/24/2021 6:01 AM PATIENT CARE DIRECTOR): Prior to arrival at [facility]. Febrile and tachycardic. CXR [...] dexamethasone.. Assessment & Plan (04/24/2021 5:57 AM PATIENT CARE DIRECTOR): Prior to arrival at [facility]. [...] 04/24/2021 Assessment & Plan (04/24/2021 6:05 AM PATIENT CARE DIRECTOR): T2N2B stage [place] moderately to poorly differentiated squamous cell carcinoma [...] Lovenox. 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 -Recently seen by OSH oncology without e/o disease -Upload images from OSH to Elva for read -DVT PPX: Lovenox. 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 Previously on warfarin however complicated by IPH 2016. Now on ASA 81mg daily. -Continue ASA 81mg daily. 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 Previously on warfarin however complicated by IPH 2016. Now on ASA 81mg daily. -Continue ASA 81mg daily. Bipolar 1 disorder 04/24/2021 Assessment & Plan (04/24/2021 6:02 AM PATIENT CARE DIRECTOR): Takes Seroquel 600mg daily, Ativan 0.5mg BID, and Depakote 500mg TID. -Hold seroquel and ativan given confusion -Continue depakote. Insomnia 04/24/2021 Assessment & Plan (04/24/2021 6:03 AM PATIENT CARE DIRECTOR): Hold ambien in setting of confusion. Obesity with body mass index 30 or greater 12/15 Pain of left lower extremity 10/07/2015 Intraparenchymal hemorrhage of brain 08/18/2015 Nonobliterative otosclerosis involving oval wind ow 05/06/2015 Essential hypertension 06/22/2014 Myasthenia gravis 11/28/2013 Assessment & Plan (04/24/2021 6:01 AM PATIENT CARE DIRECTOR): Significant history of myasthenia gravis on Prednisone, Imuran, and Pyridostigmine. Doesn't appear to be in crisis at this time. -Check NIF BID -Consult Neurology in AM given polypharmacy/confusion in setting of Myasthenia Gravis -Continue Prednsione, Imuran, and Pyridostigmine Assessment & Plan (04/24/2021 5:53 AM PATIENT CARE DIRECTOR): Significant history of myasthenia gravis on Prednisone, Imuran, and Pyridostigmine. Doesn't appear to be in crisis at this time. -Check NIF BID -Consult Neurology in AM given polypharmacy/confusion in setting of Myasthenia Gravis -Continue Prednsione, Imuran, and Pyridostigmine Fatigue 11/27/2012 Coronary arteriosclerosis in torres [place]inez artery 06/14 Assessment & Plan (04/24/2021 6:01 AM PATIENT CARE DIRECTOR): CAD s/p PCI to LAD and prox/mid RCA 2000. Previously followed with Dr. Frey now followed by OS general maintenance engineer. Here for STEMI evaluation -Per STEMI/CARDS -> No concern for STEMI and stable EKG -> recommend repeat troponin -Check Troponin. -Continue ASA 81mg daily, Rosuvastatin 40mg daily, Ezetimibe 10mg daily. Assessment & Plan (04/24/2021 5:57 AM PATIENT CARE DIRECTOR): CAD s/p PCI to LAD and prox/mid RCA 1999. Previously followed with Dr. Frey now followed by [facility] general maintenance engineer. Here for STEMI evaluation -Per STEMI/CARDS -> No concern for STEMI and stable EKG -> recommend repeat troponin -Check Troponin. -Continue ASA 81mg daily, Rosuvastatin 40mg daily, Ezetimibe 10mg daily. Hyperlipidemia 09/13/2010 Overview (08/10/2017): Description: Hyperlipidemia Assessment & Plan (04/24/2021 6:01 AM PATIENT CARE DIRECTOR): Continue Rosuvastatin and Exetimibe. Assessment & Plan (04/24/2021 5:53 AM PATIENT CARE DIRECTOR): Continue Rosuvastatin and Exetimibe. Social History Tobacco Use Types Packs/Day Years Used Date Smoking Tobacco: Never Smokeless Tobacco: Never Alcohol Use Standard Drinks/Week Comments Not Currently 0 (1 standard drink = 0.6 oz pur e alcohol) Sex and Gender Information Value Date Recorded Sex Assigned at Not on file Legal Sex Male 10:46 PM PATIENT CARE DIRECTOR Gender Identity Male 05/23/2018 10:17 AM PATIENT CARE DIRECTOR Sexual Orientation Not on file Last Filed Vital Signs Vital Sign Reading Time Taken Comments Blood Pressure 104/69 04/27/2021 11:28 AM PATIENT CARE DIRECTOR Pulse 70 04/27/2021 11:28 AM PATIENT CARE DIRECTOR Temperature 36.7 C (98.1 F) 04/27/2021 11:28 AM PATIENT CARE DIRECTOR Respiratory Rate 18 04/27/2021 11:28 AM PATIENT CARE DIRECTOR Oxygen Saturation 94% 04/27/2021 11:28 AM PATIENT CARE DIRECTOR Inhaled Oxygen Concentration - - Weight 82.1 kg (181 lb) 04/25/2021 7:46 AM PATIENT CARE DIRECTOR Height 173.5 cm (5' 8.31) 04/25/2021 7:46 AM CS T Body Mass Index 27.27 04/25/2021 7:46 AM PATIENT CARE DIRECTOR Plan of Treatment Not on file [facility] MEDICARE [employer] SENIOR SUPPLEMENT MEDICARE AET[employer] SENIOR SUPPLEMENT Advance Directives For more information, please contact: [phone] * Full Code (Latest Code Status on File) Date Activated Date Inactivated Comments 04/24/2021 3:54 AM 04/27/2021 6:04 PM Care Teams Deep Fryer Assembler Relationship Specialty Start Date End Date Salty Cook MD [address] [place] [address] PCP - General Internal Medicine 03/29/18
--- OUTSIDE RECORDS SUMMARY | 2024-11-10 10:41 | XMS_ITS | Continuity of Care Document ---
Author Organization [facility] Address [address] [place] [address] Phone Care Team Providers Care Service Specialist Name Role Phone Donya HERNANDEZ MD, J Luis Unavailable Ivon vailable Allergies, Adverse Reactions, Alerts Substance Reaction Status [...] 2 views Office/outpatient visit,est, mod 2023 Inject sngl/personnel clerks supervisor trig pt 3+ msclgrp Celestone Betamethasone acetate [...] Date Provider Providers Copied on Encounter [facility], [address] [address], [place], [place], [id number], [place] [phone] [facility] No Information 4 Donya dawson. [address] [facility] [address], [place], [place], [id number] , [place]. tel:[phone] [facility], [address], [place], [place], [id number], [place] tel:[phone] [facility] Lumbar (chief complaint) Radiculopathy, site unspecifiedSpin al stenosis, lumbar region without neurogenic claudLow back pain, unspecified Jul-3 0 4 Donya HERNANDEZ Jay er. [address], [address], [place], [place], [id number] , [place]. tel:[phone] Referring Provider: J Luis Naqvi MD P, [address], [place], [address]. tel:[phone] Office/outpa tient visit,est, mod [facility], [address] [address], [place], [place], [id number], [place] tel:[phone] [facility] Lumbar (chief complaint) Low back pain, unspecifiedRadi culopathy, site unspecifiedSpin al stenosis, lumbar region without neurogenic claudPain in left shoulder Jul-2 4 Donya HERNANDEZ Jay er. [address] [facility], [address], [place], [place], [id number] , [place]. tel:[phone] Referring Provider: J Luis Naqvi MD P, [address] [facility] [address] [facility], [place], [address]. tel:[phone] [facility], [address] [address], [place], [place], [id number], [place] tel:[phone] [facility] Lumbar (chief complaint) Radiculopathy, site unspecifiedSpin al stenosis, lumbar region without neurogenic claudLow back pain, unspecified 4 Donya HERNANDEZ Jay er. [address] [facility] [address], [place], [place], [id number] , [place]. tel:[phone] Referring Provider: J Luis Naqvi MD P, [address] [facility] [address] [facility], [place], [address]. tel:[phone] [facility], [address], [id number], [place] tel:[phone] [facility] Radiculopathy, site unspecifiedSpin al stenosis, lumbar region without neurogenic claudLow back pain, unspecified Dec- 3 Donya Thompson er. [address] [facility], [address] [address], [place], [place], [id number] , [place]. tel: [phone] Office/outpa tient visit,est, mod [facility], [address] [address], [place], [place], [id number], [place] [phone] [facility] lumbar (chief complaint) Spinal stenosis, lumbar region without neurogenic claudRadiculopa thy, site unspecified 3 Iván Jimenez. [address] [facility], [address], [id number] , [place]. tel: [phone] Referring Provider: Tony Case, [facility] [facility] [address] [facility], [place], [place], [address] [place] [address]. tel:[phone] [facility], [address], [id number], [place] tel:[phone] [facility] Lumbar (chief complaint) No Information Dec- 3 Donya Thompson er. [address] [facility], [address], [id number] , [place]. tel: [phone] Referring Provider: J Luis Naqvi MD P, [address] [address], [place], [address]. tel:[phone] [facility], [address], [id number], [place] tel:[phone] [facility] Low back pain, unspecifiedRadi culopathy, site unspecifiedSpin al stenosis, lumbar region without neurogenic niki Sep-0 3 Iván Jimenez. [address] [facility], [address], [id number] , [place]. tel: [phone] Office/outpa tient visit,est, mod [facility], [address] [address], [place], [place], [id number], [place] tel:[phone] [facility] Lumbar (chief complaint) Low back pain, unspecifiedRadi culopathy, site unspecifiedSpin al stenosis, lumbar region without neurogenic niki Paul-2 3 Iván Jimenez. [address] [facility], [address] [facility], [place], [place], [id number] , [place]. tel:[phone] Referring Provider: Tony Case, [address] [facility] [address] [facility], [place], [address]. tel:[phone] [facility], [address] [address], [place], [place], [id number], tel:[phone] [facility] Lumbar (chief complaint) lumbar spine (chief complaint) Low back pain, unspecifiedRadi culopathy, site unspecifiedSpin al stenosis, lumbar region without neurogenic niki Paul-0 3 Donya Thompson er. [address] [facility], [address] [address], [place], [place], [id number] , [place]. tel:[phone] Referring Provider: J Luis Naqvi MD P, [address] [facility] [address] [facility], [place], [address]. tel:[phone] [facility], [address] [address], [place], [place], [id number], [place] tel:[phone] [facility] Spinal stenosis, lumbar region without neurogenic claudRadiculopa thy, site unspecifiedLow back pain, unspecified May-0 3 Donya Thompson er. [address] [facility], [address] [address], [place], [place], [id number] , [place]. tel:[phone] Office/outpa tient visit,est, mod [facility], [address] [address], [place], [place], [id number], [place] tel:[phone] [facility] Lumbar (chief complaint) Low back pain, unspecifiedRadi culopathy, site unspecifiedSpin al stenosis, lumbar region without neurogenic niki Mar-0 3 Iván Tony. [address] [facility], [address] [address], [place], [place], [id number] , [place]. tel:[phone] Referring Provider: Tony Minor Evie, [address] [place] [address], [place], [address]. tel:[phone] [facility], [address], [id number], [place] tel:[phone] [facility] Lumbar (chief complaint) lumbar spine (chief complaint) Low back pain, unspecifiedSpin al stenosis, lumbar region without neurogenic claudRadiculopa thy, site unspecified May- 3 Donya HERNANDEZ Ajy er. [address], [id number] , [place]. tel:[phone] Office/outpa tient visit,[facility], [facility], [address], [id number], [place] tel:[phone] [facility] Lumbar (chief complaint) lumbar spine (chief complaint) Low back pain, unspecifiedSpin al stenosis, lumbar regionOther bursal cyst, other siteRadiculopat hy, site unspecified 3 Donya Thompson er. [address] [facility], [address] [address], [place], [place], [id number] , [place]. tel:[phone] Referring Provider: J Luis Naqvi MD P, [address] [address], [place], [address]. tel:[phone] Family History Family Member Type Diagnosis Age [...] Unspecified Payers Payer name Insurance type Covered alliance party ID Authoriza tibill(s) Medicare [place] W[place] Part B MB [id number] Aetna Senior Supplemental Insurance [id number] Social History Type Description Quantity Date Captured [...] our office as needed. Dictation completed with [employer] Practice Edition software, grammatical variances and spelling [...] follow up as needed. Dictation completed with [employer] software, grammatical variances and spelling errors may [...] was entered by Deja Medina, acting as Jewelry Sales Coordinator for J Luis Naqvi MD. Related to [...] the office as needed. Dictation completed with [employer] Practice Edition software, grammatical variances in spelling errors may inadvertently occur. Related to Spinal stenosis, lumbar region without neurogenic niki Plan of Care:Mayra Coombs is a pleasant 71-year-old male who has severe spinal stenosis at L3-4 and L4-5. He is here for planned bilateral L5 lumbar epidural steroid injections. The patient will follow up with [facility] in 2 weeks for a reevaluation. We [...] was entered by Deja Medina, acting as Jewelry Sales Coordinator for J Luis Naqvi MD. Related to [...] was entered by Sol Preciado, acting as Jewelry Sales Coordinator for J Luis Naqvi MD. Related to Radiculopathy, site unspecified Assessments Type Assessment Date No Information Patient Care Teams Name Effective Dates (start - stop) Status Members No Information
--- OUTSIDE RECORDS SUMMARY | 2024-11-10 10:41 | XMS_ITS | Clinical Summary ---
Author Organization [facility] Address [facility] [place] [address] Care Team Providers Care Behavioral Health Director Name Role Phone Unavailable Primary Care Provider [...] Td Vaccines ( 1 - Tdap) 1969 Pneumococcal Vaccine: 50+ Ye ars (1 of 1 - PCV) 2000 Zoster Vaccines (1 of 2) 2000 COVID-19 Vaccine ( - 2023-2 5 season) [...] Documents on File Type Date Recorded Patient Fund Controller Expl anation Advance Directives and Living Will 08/25/2015 12:00 AM ADVANCED DIRECTIVES Advance Directives and Living Will 01/28/2015 12:00 AM ADVANCED DIRECTIVES Advance Directives and Living Will 12/06/2014 12:00 AM ADVANCED DIRECTIVES
--- OUTSIDE RECORDS SUMMARY | 2024-11-10 10:41 | XMS_ITS | Encounter Summary ---
Author Organization [facility] Address [address] [facility] [place] [address] Care Team Providers Care Svp Research & Ebusiness Operations Name Role Phone Unavailable Primary Care Provider Unavailabl e Encounter Details Date Type Department Care Team (Late st Contact Info) Description 04/02/[address] [facility] [address] [place] [id number] Tony Young MD [address] [place] [address] Social History Tobacco Use Types Packs/Day Years Used Date Smoking Tobacco: Never Assessed Sex and Gender Information Value Date Recorded Sex Assigned at Not on file Legal Sex Male 6:04 PM DUST MILL OPERATOR Gender Identity Not on file Sexual Orientation Not on file documented as of this encounter Plan of Treatment Not on file documented as of this encounter Procedures Procedure Name Priority Date/Time Associated Diagnosis Comments DERMATOPATHOLOGY Routine 04/01/2019 12:0 0 AM DUST MILL OPERATOR documented in this encounter Results * DERMATOPATHOLOGY (04/01/2019 12:00 AM DUST MILL OPERATOR) Case Report Dermatopathology Report Case: [id number] Authorizing Provider: Tony Young MD Collected: 04/01/2019 12:00 AM Ordering Location: [facility] Received: 04/02/2019 02:04 PM Pathologist: Evie Emanuel MD Specimen: Skin, left ant neck 9 3:22 PM DUST MILL OPERATOR DERMATOPATHOLOGY LABORATORY Final Diagnosis Specimen A. 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 3:22 PM [facility] DERMATOPATHOLOGY LABORATORY Gross Description Specimen A: Received is one formalin filled container labeled with the patient's name and designated left ant neck. The specimen consists of a shave biopsy measuring [id number]. Jar 0. 3:22 PM [facility] DERMATOPATHOLOGY LABORATORY Microscopic Description Specimen A. SKIN, left ant neck: The epidermis shows parakeratosis, full thickness disorderly maturation of keratinocytes, mitoses at different levels, and dyskeratotic cells. 3:22 PM [facility] DERMATOPATHOLOGY LABORATORY Disclaimer An external and internal positive and negative controls are appropriate for the histochemical, immunohistochemical and immunofluorescence stain(s) in this case (if any), except where stated explicitly. The performance characteristics of the stain(s) cited in this report were developed and its performance characteristic determined by the Dermatopathology Laboratory at [facility], directed by Dr. Rubin Emanuel. These tests need not be, and therefore are not, approved by the [place] Food and Drug Administration. The tests are used for clinical purposes. Billing Codes Specimen Charges Stain Charges 16298 1 3:22 PM [facility] DERMATOPATHOLOGY LABORATORY Embedded Images 3:22 PM [facility] DERMATOPATHOLOGY LABORATORY Pathology/Cytolog y TISSUE SPECIMEN FROM SKIN / Unknown 04/01/2019 04/02/2019 2:04 PM DUST MILL OPERATOR Tony Young MD LAB - PATHOLOGY/CYTOLOGY ORD ERABLES Final Result DERMATOPATHOLOGY LABORATORY [facility] - Department of Dermatology [address] [place] [address], [address] [place] [address], [facility] [phone] documented in this encounter Visit Diagnoses Not on filedocumented in this encounter
--- OUTSIDE RECORDS SUMMARY | 2024-11-10 10:42 | XMS_ITS | Data Portability ---
Author Organization ID - [facility], Arian Godinez - [facility] Address [address] [place] [address] Care Team Providers Care At Home Independent Call Center Agent Name Role Phone NARENDRA KWON Primary Care Provider [phone] Assessment Encounter Date Assessment Date Assessment LastModified [...] desired to have the procedure performed today totemporarily avulse the painful, loose RIGHT great toenail. [...] By Organization Details Last Modified Time 03/27/2022 [id number] toenail fungus: care instructions ckyramarios Not available 03/27/2022 16:53:24 Reason for Referral None Reported. Problems No Known Problems Procedures Surgical History Date Name Laterality Status Provider Name and Address Organization Details Recorded Time 03/27/20 22 13381 Nail avulsion- Dr. Bruno Monae, [address], [id number] 03/27/2022 16:48:56 placement of stent in pulmonary artery completed Kelsey Ahn [facility] 03/27/2022 15:49:15 Imaging Results None recorded. Procedure Notes None recorded. Medical Equipment None Reported. Allergies Allergen ID Allergen Name Allergen Category Reaction Reaction Severity Criticality Documentation Date Start Date Code Code System Note Provider Name and Address Organization Details Recorded Time 12990 adhesive tape environme nt,medica tion Not available Not available Not available 03/27/2022 [id number] UNK Kelsey Ahn [facility] 15:49:31 Medications Name Sig Start Date Stop Date [...] Updated DateTime 03/27/2022 177.8 cm 28.7 kg/m2 07254.47 g Kelsey Ahn [facility] 03/27/2022 15:48:20 Social History Question Answer Notes [...] e 03/27/2022 15:51:00 Medical History Condition Response HIV or AIDS N Coronary Artery Disease N Gout N High Blood Pressure N Depression N Anxiety Disorder Y Urinary Tract Infections N Arthritis N Ear Problems N Cancer N Eye Problems N Stroke N Stomach Problems N Rheumatoid Arthritis N Rash N Kidney Disease N Tuberculosis or TB N Heart Problems N Phlebitis or Venous Blood Clot N Migraines N Bleeding Disorder N Abuse of Alcohol or Drugs N Peripheral Vascular Disease N Sinus Conditions N Broken Bone N Thyroid Disorder N Hepatitis N Seizure Disorder N Menopause N Lung Condition N Pacemaker N Sciatica Y High Cholesterol N Liver Disease N Ulcers on Legs or Feet N Clot in Lung or Pulmonary Embolism N Anemia N Back Pain N Neurologic Disease N Heart Attack ([place]) N Diabetes N Back injury N Dementia N Heart Disease N Osteoporosis N Past Encounters Encounter ID Performer Location Encounter Start Date Encounter Closed Date Diagnosis/Indication Diagnosis SNOMED-CT Code Diagnosis ICD10 Code Diagnosis Note [id number] Lc [facility] [address] [place] [address] 03/27/2022 15:18:40 03/27/2022 16:03:42 Onycholysis due to fungal infection of nail 272847165 L60.1 SEVERE RIGHT HALLUX Onychomycosis 577712391 B35.1 PROBABLE ONYCHOMYCO SIS RIGHT HALLUX, LEFT 2ND TOE Pain in toe 728855239 M7 9.064 M79.674 Health Concerns Section Related Observation LastModified by Organization Detai ls LastModified Time None Recorded Concern Status LastModified by Organization Details LastModified Time None Recorded Advance Directives Directive None Recorded Payers Insurance Date Sequence Insurance Name Policy Number Policy Ford Covered Member ID Ford Member ID Guarantor Name 03/27/[address] (MEDICARE SUPPLEMENT) Sergio Coombs [id number] Sergio Coombs 03/27/2022 1 [place] Sergio Coombs [id number] Sergio Coombs Notes Date Note Type [...] He has myasthenia gravis. Power Monae, [place] [address] [place], [address], [facility] 03/27/2022 16:54:09
[2024-11-10 11:17] LABS: Estimated Glomerular Filt Rate > 60
== END 2024-11-10 10:33 | disposition home or self-care (01) ==
PROVIDERS: Visit Provider Internal Medicine Hematology & Oncology
DX: C02.9 Malignant neoplasm of tongue, unspecified (principal); M47.892 Other spondylosis, cervical region; M43.12 Spondylolisthesis, cervical region
CPT/HCPCS: 70491; Q9967

== ENCOUNTER 2024-11-10 11:45 | Outpatient (CLI) | payer MEDICARE, SELFPAY ==
--- OUTSIDE RECORDS SUMMARY | 2024-11-10 11:49 | XMS_ITS | Encounter Summary ---
Author Organization [facility] Address [address] [place] [address] Care Team Providers Care Night Clerk Auditor Name Role Phone Unavailable Primary Care Provider Unavailabl e Encounter Details Date Type Department Care Team (Late st Contact Info) Description 10/06/2021 Lab Requisition [facility] DermPath Lab [address] [place] [address] Tony Young MD [address] [place] [address] Social History Tobacco Use Types Packs/Day Years Used Date Smoking Tobacco: Never Assessed Sex and Gender Information Value Date Recorded Sex Assigned at Not on file Legal Sex Male 6:04 PM TOXICOLOGY TEACHER Gender Identity Not on file Sexual Orientation Not on file documented as of this encounter Plan of Treatment Not on file documented as of this encounter Procedures Procedure Name Priority Date/Time Associated Diagnosis Comments DERMATOPATHOLOGY Routine 10/05/2021 12:0 0 AM CDT documented in this encounter Results * DERMATOPATHOLOGY (10/05/2021 12:00 AM CDT) Case Report Dermatopathology Report Case: [id number] Authorizing Provider: Tony Young MD Collected: 10/05/2021 12:00 AM Ordering Location: [facility] DermPath Lab Received: 10/06/2021 01:55 PM [...] specimen consists of a shave biopsy measuring 13t19h1aw and it is bisected. Jar 0. Specimen B: Received is one formalin filled container labeled with the patient's name and designated left lateral back. The specimen consists of a shave biopsy measuring 2i7o8jl. Jar 0. Specimen C: Received is one formalin filled container labeled with the patient's name and designated left medial back. The specimen consists of a shave biopsy measuring 79v2y2sx. Jar 0. Specimen D: Received is one formalin filled container labeled with the patient's name and designated dorsal left hand. The specimen consists of a shave biopsy measuring 94d45q5mm. Jar 0. 2 3:11 PM CDT DERMATOPATHOLOGY [...] characteristic determined by the Dermatopathology Laboratory at [facility], directed by Dr. Rubin Emanuel. These tests need not be, and therefore are not, approved by the [place] Food and Drug Administration. The tests are used for clinical purposes. Billing Codes Specimen Charges Stain Charges 58054 01223 86889 64406 1 1 1 1 2 3:11 PM [...] PATHOLOGY/CYTOLOGY ORD ERABLES Final Result DERMATOPATHOLOGY LABORATORY [facility] - Department of Dermatology [address] [place] [address], [facility] [phone] documented in this encounter Visit Diagnoses Not on filedocumented in this encounter
--- OUTSIDE RECORDS SUMMARY | 2024-11-10 11:49 | XMS_ITS | Clinical Summary ---
Author Organization [facility] Address [address] [place] [address] Phone Care Team Providers Care Room Service Clerk Name Role Phone Unavailable Primary Care Provider [...] Comments Blood Pressure 101/60 04/24/2021 1:00 AM BPM DEVELOPER Pulse 100 04/24/2021 1:00 AM BPM DEVELOPER Temperature 38.2 C (100.7 F) 04/23/2021 9:52 PM BPM DEVELOPER Respiratory Rate 16 04/24/2021 1:00 AM BPM DEVELOPER Oxygen Saturation 97% 04/24/2021 1:00 AM BPM DEVELOPER Inhaled Oxygen Concentration - - Weight 101.6 kg (224 lb) 04/23/2021 9:52 PM BPM DEVELOPER Height 177.8 cm (5' 10) 04/23/2021 9:52 PM BPM DEVELOPER Body Mass Index 32.14 04/23/2021 9:52 PM BPM DEVELOPER Plan of Treatment Health Maintenance Due [...] age to complete this topic Insurance MEDICARE [facility] SENIOR SUPPLEMENTAL MEDICARE [facility] SENIOR SUPPLEMENTAL
--- OUTSIDE RECORDS SUMMARY | 2024-11-10 11:49 | XMS_ITS | Encounter Summary ---
Author Organization [facility] Address [address] [place] [address] Care Team Providers Care Rubber Turner Name Role Phone Salty Cook MD Primary Care Provider Encounter Details Date Type Department Care Team (Late Contact Info) Description 01/06/2020 Chart Note Avinash Arvizu [facility] Radiation Therapy [address] [place] [address] [place] [address] [place] [address] Social History Tobacco Use Types [...] 11/19/2024 4:30 PM CDT Telephone Check Up [facility] Oncology and Hematology - [address] [place] [id number] Sujit Andrade MD [address] [facility] [address] [place] [address] 12/03/2024 11:15 AM CDT Office Visit [facility] Pulmonology [facility] [address] [place] [address] Dustin Barrow MD [address] [place] [address] 12/25/2024 1:20 PM CDT Office Visit [facility] EAR, NOSE AND THROAT [facility] [address] [place] [address] Vikas Castillo MD [address] [place] [address] documented as of this encounter Visit Diagnoses Not on filedocumented in this encounter Care Teams Rubber Turner Relationship Specialty Start Date End Date Salty Cook MD [address] [place] [address] [address] [place] [phone] PCP - General Internal Medicine 12/10/19 documented as of this encounter
--- OUTSIDE RECORDS SUMMARY | 2024-11-10 11:49 | XMS_ITS | Encounter Summary ---
Author Organization [facility] Address [address] [facility] [place] [address] Care Team Providers Care Railroad Car Repairman Name Role Phone Unavailable Primary Care Provider Unavailabl e Encounter Details Date Type Department Care Team (Late st Contact Info) Description 03/03/2021 Lab Requisition [facility] DermPath Lab [address] [place] [address] Tony Young MD [address] [place] [address] Social History Tobacco Use Types Packs/Day Years Used Date Smoking Tobacco: Never Assessed Sex and Gender Information Value Date Recorded Sex Assigned at Not on file Legal Sex Male 6:04 PM PASSENGER SERVICE AGENT Gender Identity Not on file Sexual Orientation Not on file documented as of this encounter Plan of Treatment Not on file documented as of this encounter Procedures Procedure Name Priority Date/Time Associated Diagnosis Comments DERMATOPATHOLOGY Routine 03/02/2021 12:0 0 AM CDT documented in this encounter Results * DERMATOPATHOLOGY (03/02/2021 12:00 AM CDT) Case Report Dermatopathology Report Case: [id number] Authorizing Provider: Tony Young MD Collected: 03/02/2021 [...] of a curettage and desiccation biopsy measuring 40g77v9kt. Jar 0. Specimen B: Received is one formalin filled container labeled with the patient's name and designated left post vertex scalp. The specimen consists of a shave biopsy measuring 68t1i4im. Jar 0. 5:07 PM T DERMATOPATHOLOGY LABORATORY [...] characteristic determined by the Dermatopathology Laboratory at [facility], directed by Dr. Rubin Emanuel. These tests need not be, and therefore are not, approved by the [place] Food and Drug Administration. The tests are used for clinical purposes. Billing Codes Specimen Charges Stain Charges [id number] 70963 1 1 5:07 PM CDT DERMATOPATHOLOGY LABORATORY Embedded Images 5:07 PM CDT DERMATOPATHOLOGY LABORATORY Pathology/Cytology TISSUE SPECIMEN FROM SKIN / Unknown 03/02/2021 03/03/2021 12:58 PM CDT Miscellaneous samples (specimen) TISSUE SPECIMEN FROM SKIN / Unknown 03/02/2021 03/03/2021 12:58 PM CDT us Tony Young MD LAB - PATHOLOGY/CYTOLOGY ORD ERABLES Final Result DERMATOPATHOLOGY LABORATORY [facility] - Department of Dermatology [facility] Specialized Medicine [address] [place] [address], [address] [phone] documented in this encounter Visit Diagnoses Not on filedocumented in this encounter
--- OUTSIDE RECORDS SUMMARY | 2024-11-10 11:49 | XMS_ITS | Clinical Summary ---
Author Organization [facility] Address [facility] [place] [address] Care Team Providers Care Sleeping Car Conductor Name Role Phone Unavailable Primary Care Provider [...] Documents on File Type Date Recorded Patient Contact Representative Expl anation Advance Directives and Living Will 08/25/2015 12:00 AM ADVANCED DIRECTIVES Advance Directives and Living Will 01/28/2015 12:00 AM ADVANCED DIRECTIVES Advance Directives and Living Will 12/06/2014 12:00 AM ADVANCED DIRECTIVES
--- OUTSIDE RECORDS SUMMARY | 2024-11-10 11:49 | XMS_ITS | Referral Summary ---
Author Organization [facility] Address [address] [place] [address] Care Team Providers Care Tourist Agent Name Role Phone Salty Cook MD Primary Care Provider [phone] Allergies Active Allergy Reactions Criticality Noted Date [...] 04/24/2021 Assessment & Plan (04/24/2021 6:03 AM CONCRETE BUILDINGS ASSEMBLER): Suspect delirium in setting of fevers - [...] Speech/PT/OT Assessment & Plan (04/24/2021 5:58 AM CONCRETE BUILDINGS ASSEMBLER): Suspect delirium in setting of fevers - [...] 04/24/2021 Assessment & Plan (04/24/2021 6:01 AM CONCRETE BUILDINGS ASSEMBLER): Prior to arrival at [facility]. Febrile and tachycardic. CXR with [...] dexamethasone.. Assessment & Plan (04/24/2021 5:57 AM CONCRETE BUILDINGS ASSEMBLER): Prior to arrival at [facility]. [...] 04/24/2021 Assessment & Plan (04/24/2021 6:05 AM CONCRETE BUILDINGS ASSEMBLER): T2N2B stage Turney moderately to poorly differentiated squamous cell carcinoma [...] Lovenox. 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 -Recently seen by OSH oncology without e/o disease -Upload images from OSH to Elva for read -DVT PPX: Lovenox. 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 Previously on warfarin however complicated by IPH 2016. Now on ASA 81mg daily. -Continue ASA 81mg daily. 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 Previously on warfarin however complicated by IPH 2016. Now on ASA 81mg daily. -Continue ASA 81mg daily. Bipolar 1 disorder 04/24/2021 Assessment & Plan (04/24/2021 6:02 AM CONCRETE BUILDINGS ASSEMBLER): Takes Seroquel 600mg daily, Ativan 0.5mg BID, and Depakote 500mg TID. -Hold seroquel and ativan given confusion -Continue depakote. Insomnia 04/24/2021 Assessment & Plan (04/24/2021 6:03 AM CONCRETE BUILDINGS ASSEMBLER): Hold ambien in setting of confusion. Obesity with body mass index 30 or greater 12/15 Pain of left lower extremity 10/07/2015 Intraparenchymal hemorrhage of brain 08/18/2015 Nonobliterative otosclerosis involving oval wind ow 05/06/2015 Essential hypertension 06/22/2014 Myasthenia gravis 11/28/2013 Assessment & Plan (04/24/2021 6:01 AM CONCRETE BUILDINGS ASSEMBLER): Significant history of myasthenia gravis on Prednisone, Imuran, and Pyridostigmine. Doesn't appear to be in crisis at this time. -Check NIF BID -Consult Neurology in AM given polypharmacy/confusion in setting of Myasthenia Gravis -Continue Prednsione, Imuran, and Pyridostigmine Assessment & Plan (04/24/2021 5:53 AM CONCRETE BUILDINGS ASSEMBLER): Significant history of myasthenia gravis on Prednisone, Imuran, and Pyridostigmine. Doesn't appear to be in crisis at this time. -Check NIF BID -Consult Neurology in AM given polypharmacy/confusion in setting of Myasthenia Gravis -Continue Prednsione, Imuran, and Pyridostigmine Fatigue 11/27/2012 Coronary arteriosclerosis in [place] artery 06/14 Assessment & Plan (04/24/2021 6:01 AM CONCRETE BUILDINGS ASSEMBLER): CAD s/p PCI to LAD and prox/mid RCA 2000. Previously followed with Dr. Frey now followed by OS turf sales person. Here for STEMI evaluation -Per STEMI/CARDS -> No concern for STEMI and stable EKG -> recommend repeat troponin -Check Troponin. -Continue ASA 81mg daily, Rosuvastatin 40mg daily, Ezetimibe 10mg daily. Assessment & Plan (04/24/2021 5:57 AM CONCRETE BUILDINGS ASSEMBLER): CAD s/p PCI to LAD and prox/mid RCA 1999. Previously followed with Dr. Frey now followed by [facility] turf sales person. Here for STEMI evaluation -Per STEMI/CARDS -> No concern for STEMI and stable EKG -> recommend repeat troponin -Check Troponin. -Continue ASA 81mg daily, Rosuvastatin 40mg daily, Ezetimibe 10mg daily. Hyperlipidemia 09/13/2010 Overview (08/10/2017): Description: Hyperlipidemia Assessment & Plan (04/24/2021 6:01 AM CONCRETE BUILDINGS ASSEMBLER): Continue Rosuvastatin and Exetimibe. Assessment & Plan (04/24/2021 5:53 AM CONCRETE BUILDINGS ASSEMBLER): Continue Rosuvastatin and Exetimibe. Social History Tobacco Use Types Packs/Day Years Used Date Smoking Tobacco: Never Smokeless Tobacco: Never Alcohol Use Standard Drinks/Week Comments Not Currently 0 (1 standard drink = 0.6 oz pur e alcohol) Sex and Gender Information Value Date Recorded Sex Assigned at Not on file Legal Sex Male 10:46 PM CONCRETE BUILDINGS ASSEMBLER Gender Identity Male 05/23/2018 10:17 AM CONCRETE BUILDINGS ASSEMBLER Sexual Orientation Not on file Last Filed Vital Signs Vital Sign Reading Time Taken Comments Blood Pressure 104/69 04/27/2021 11:28 AM CONCRETE BUILDINGS ASSEMBLER Pulse 70 04/27/2021 11:28 AM CONCRETE BUILDINGS ASSEMBLER Temperature 36.7 C (98.1 F) 04/27/2021 11:28 AM CONCRETE BUILDINGS ASSEMBLER Respiratory Rate 18 04/27/2021 11:28 AM CONCRETE BUILDINGS ASSEMBLER Oxygen Saturation 94% 04/27/2021 11:28 AM CONCRETE BUILDINGS ASSEMBLER Inhaled Oxygen Concentration - - Weight 82.1 kg (181 lb) 04/25/2021 7:46 AM CONCRETE BUILDINGS ASSEMBLER Height 173.5 cm (5' 8.31) 04/25/2021 7:46 AM CS T Body Mass Index 27.27 04/25/2021 7:46 AM CONCRETE BUILDINGS ASSEMBLER Plan of Treatment Not on file Insurance [facility]IC[facility] SENIOR SUPPLEMENT MEDICARE [employer] SENIOR SUPPLEMENT MEDICARE [employer] SENIOR SUPPLEMENT Advance Directives For more information, please contact: [phone] * Full Code (Latest Code Status on File) Date Activated Date Inactivated Comments 04/24/2021 3:54 AM 04/27/2021 6:04 PM Care Teams Tourist Agent Relationship Specialty Start Date End Date Salty Cook MD [address] [place] [address] PCP - General Internal Medicine 03/29/18
--- OUTSIDE RECORDS SUMMARY | 2024-11-10 11:49 | XMS_ITS | Encounter Summary ---
Author Organization [facility] Address [address] [facility] [place] [address] Care Team Providers Care Associate Brand Manager Name Role Phone Unavailable Primary Care Provider Unavailabl e Encounter Details Date Type Department Care Team (Late st Contact Info) Description 10/27/2021 Lab Requisition [facility] DermPath Lab [address] [place] [address] Tony Young MD [address] [place] [address] Social History Tobacco Use Types Packs/Day Years Used Date Smoking Tobacco: Never Assessed Sex and Gender Information Value Date Recorded Sex Assigned at Not on file Legal Sex Male 6:04 PM ELECTROENCEPHALOGRAPH TECHNICIAN Gender Identity Not on file Sexual Orientation Not on file documented as of this encounter Plan of Treatment Not on file documented as of this encounter Procedures Procedure Name Priority Date/Time Associated Diagnosis Comments DERMATOPATHOLOGY Routine 10/26/2021 12:0 0 AM CDT documented in this encounter Results * DERMATOPATHOLOGY (10/26/2021 12:00 AM CDT) Case Report Dermatopathology Report Case: [id number] Authorizing Provider: Tony Young MD Collected: 10/26/2021 12:00 AM Ordering Location: [facility] DermPath Lab Received: 10/27/2021 12:05 PM Pathologist: [...] specimen consists of a shave removal measuring 26c73b9pc, bisected. The margin is inked green. Jar [...] characteristic determined by the Dermatopathology Laboratory at [facility], directed by Dr. Rubin Emanuel. These tests need not be, and therefore are not, approved by the [place] Food and Drug Administration. The tests are used for clinical purposes. Billing Codes Specimen Charges Stain Charges 28231 1 2 5:02 PM CDT DERMATOPATHOLOGY LABORATORY Embedded Images 2 5:02 PM CDT DERMATOPATHOLOGY LABORATORY Pathology/Cytolog y TISSUE SPECIMEN FROM SKIN / Unknown 10/26/2021 10/27/2021 12:05 PM CDT us Tony Young MD LAB - PATHOLOGY/CYTOLOGY ORD ERABLES Final Result DERMATOPATHOLOGY LABORATORY [facility] - Department of Dermatology [address] [place] [address], [facility] [phone] documented in this encounter Visit Diagnoses Not on filedocumented in this encounter
--- OUTSIDE RECORDS SUMMARY | 2024-11-10 11:49 | XMS_ITS | Encounter Summary ---
Author Organization [facility] Address [address] [place] [address] Care Team Providers Care Recenterer Name Role Phone Unavailable Primary Care Provider Unavailabl e Encounter Details Date Type Department Care Team (Late st Contact Info) Description 04/05/2020 Lab Requisition [facility] DermPath Lab [address] [place] [id number] Tony Young MD [address] [place] [address] Social History Tobacco Use Types Packs/Day Years Used Date Smoking Tobacco: Never Assessed Sex and Gender Information Value Date Recorded Sex Assigned at Not on file Legal Sex Male 6:04 PM FITTING ROOM ATTENDANT Gender Identity Not on file Sexual Orientation Not on file documented as of this encounter Plan of Treatment Not on file documented as of this encounter Procedures Procedure Name Priority Date/Time Associated Diagnosis Comments DERMATOPATHOLOGY Routine 04/02/2020 12:0 0 AM FITTING ROOM ATTENDANT documented in this encounter Results * DERMATOPATHOLOGY (04/02/2020 12:00 AM FITTING ROOM ATTENDANT) Case Report Dermatopathology Report Case: [id number] Authorizing Provider: Tony Young MD Collected: 04/02/2020 12:00 AM Ordering Location: [facility] DermPath Lab Received: 04/05/2020 12:12 PM Pathologist: Evie Emanuel MD Specimen: Skin, right neck 0 3:35 PM FITTING ROOM ATTENDANT DERMATOPATHOLOGY LABORATORY Final Diagnosis Specimen A. SKIN, right neck: ACTINIC KERATOSIS (L57.0) 0 3:35 PM FITTING ROOM ATTENDANT DERMATOPATHOLOGY LABORATORY at 1535 FITTING ROOM ATTENDANT Clinical History R/O SCC, Chacko's, HAK. 0 3:35 PM FITTING ROOM ATTENDANT DERMATOPATHOLOGY LABORATORY Gross Description Specimen A: Received is one formalin filled container labeled with the patient's name and designated right neck. The specimen consists of a shave biopsy measuring [id number]. Jar 0. 0 3:35 PM [facility] DERMATOPATHOLOGY LABORATORY Microscopic Description Specimen A. SKIN, right neck: There is focal parakeratosis. The lower half of the epidermis shows disorderly maturation of keratinocytes with nuclear pleomorphism. 0 3:35 PM FITTING ROOM ATTENDANT DERMATOPATHOLOGY LABORATORY Disclaimer An external and internal positive and negative controls are appropriate for the histochemical, immunohistochemical and immunofluorescence stain(s) in this case (if any), except where stated explicitly. The performance characteristics of the stain(s) cited in this report were developed and its performance characteristic determined by the Dermatopathology Laboratory at [facility], directed by Dr. Rubin Emanuel. These tests need not be, and therefore are not, approved by the [place] Food and Drug Administration. The tests are used for clinical purposes. Billing Codes Specimen Charges Stain Charges 98260 1 0 3:35 PM FITTING ROOM ATTENDANT DERMATOPATHOLOGY LABORATORY Embedded Images 0 3:35 PM FITTING ROOM ATTENDANT DERMATOPATHOLOGY LABORATORY Pathology/Cytolog y TISSUE SPECIMEN FROM SKIN / Unknown 04/02/2020 04/05/2020 12:12 PM FITTING ROOM ATTENDANT Tony Young MD LAB - PATHOLOGY/CYTOLOGY ORD ERABLES Final Result DERMATOPATHOLOGY LABORATORY [facility] - Department of Dermatology [address], [address] [phone] documented in this encounter Visit Diagnoses Not on filedocumented in this encounter
--- OUTSIDE RECORDS SUMMARY | 2024-11-10 11:49 | XMS_ITS | Clinical Summary ---
Author Organization [facility] Address [address] [place] [id number] Care Team Providers Care Shaker Out Name Role Phone Salty Cook MD Primary Care Provider [phone] Allergies Active Allergy Reactions Criticality Noted Date [...] 04/24/2021 Assessment & Plan (04/24/2021 6:03 AM SPARE PARTS CLERK): Suspect delirium in setting of fevers - [...] Speech/PT/OT Assessment & Plan (04/24/2021 5:58 AM SPARE PARTS CLERK): Suspect delirium in setting of fevers - [...] 04/24/2021 Assessment & Plan (04/24/2021 6:01 AM SPARE PARTS CLERK): Prior to arrival at [facility] [place]. Febrile and tachycardic. CXR with [...] dexamethasone.. Assessment & Plan (04/24/2021 5:57 AM SPARE PARTS CLERK): Prior to arrival at [facility]. [...] 04/24/2021 Assessment & Plan (04/24/2021 6:05 AM SPARE PARTS CLERK): T2N2B stage [place] moderately to poorly differentiated squamous cell carcinoma [...] Lovenox. Assessment & Plan (04/24/2021 5:58 AM SPARE PARTS CLERK): T2N2B stage [place] moderately to poorly differentiated squamous cell carcinoma of the tongue s/p right-sided partial glossectomy 12/19/19 followed by chemoradiation 02/2020 now without evidence of disease followed by OSH oncology/ENT. -Recently seen by OSH oncology without e/o disease -Upload images from OSH to [facility] for read -DVT PPX: Lovenox. 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 Previously on warfarin however complicated by IPH 2016. Now on ASA 81mg daily. -Continue ASA 81mg daily. 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 Previously on warfarin however complicated by IPH 2016. Now on ASA 81mg daily. -Continue ASA 81mg daily. Bipolar 1 disorder 04/24/2021 Assessment & Plan (04/24/2021 6:02 AM SPARE PARTS CLERK): Takes Seroquel 600mg daily, Ativan 0.5mg BID, and Depakote 500mg TID. -Hold seroquel and ativan given confusion -Continue depakote. Insomnia 04/24/2021 Assessment & Plan (04/24/2021 6:03 AM SPARE PARTS CLERK): Hold ambien in setting of confusion. Obesity with body mass index 30 or greater 12/15 Pain of left lower extremity 10/07/2015 Intraparenchymal hemorrhage of brain 08/18/2015 Nonobliterative otosclerosis involving oval wind ow 05/06/2015 Essential hypertension 06/22/2014 Myasthenia gravis 11/28/2013 Assessment & Plan (04/24/2021 6:01 AM SPARE PARTS CLERK): Significant history of myasthenia gravis on Prednisone, Imuran, and Pyridostigmine. Doesn't appear to be in crisis at this time. -Check NIF BID -Consult Neurology in AM given polypharmacy/confusion in setting of Myasthenia Gravis -Continue Prednsione, Imuran, and Pyridostigmine Assessment & Plan (04/24/2021 5:53 AM SPARE PARTS CLERK): Significant history of myasthenia gravis on Prednisone, Imuran, and Pyridostigmine. Doesn't appear to be in crisis at this time. -Check NIF BID -Consult Neurology in AM given polypharmacy/confusion in setting of Myasthenia Gravis -Continue Prednsione, Imuran, and Pyridostigmine Fatigue 11/27/2012 Coronary arteriosclerosis in hoopa artery 06/14 Assessment & Plan (04/24/2021 6:01 AM SPARE PARTS CLERK): CAD s/p PCI to LAD and prox/mid RCA 2000. Previously followed with Dr. Frey now followed by OS inspector production plastic parts. Here for STEMI evaluation -Per STEMI/CARDS -> No concern for STEMI and stable EKG -> recommend repeat troponin -Check Troponin. -Continue ASA 81mg daily, Rosuvastatin 40mg daily, Ezetimibe 10mg daily. Assessment & Plan (04/24/2021 5:57 AM SPARE PARTS CLERK): CAD s/p PCI to LAD and prox/mid RCA 2000. Previously followed with Dr. Frey now followed by OS inspector production plastic parts. Here for STEMI evaluation -Per STEMI/CARDS -> No concern for STEMI and stable EKG -> recommend repeat troponin -Check Troponin. -Continue ASA 81mg daily, Rosuvastatin 40mg daily, Ezetimibe 10mg daily. Hyperlipidemia 09/13/2010 Overview (08/10/2017): Description: Hyperlipidemia Assessment & Plan (04/24/2021 6:01 AM SPARE PARTS CLERK): Continue Rosuvastatin and Exetimibe. Assessment & Plan (04/24/2021 5:53 AM SPARE PARTS CLERK): Continue Rosuvastatin and Exetimibe. Surgical History Surgery Date Site/Laterality Comments MS INSERT INTRACORONARY STENT Cath Stent Placement - (Added by TW Conv) MS UNLISTED PROCEDURE ABDOMEN PERITONEUM & OMENTUM Hernia [...] on file Legal Sex Male 10:46 PM SPARE PARTS CLERK Gender Identity Male 05/23/2018 10:17 AM SPARE PARTS CLERK Sexual Orientation Not on file Obstetrics History Last Filed Vital Signs Vital Sign Reading Time Taken Comments Blood Pressure 104/69 04/27/2021 11:28 AM SPARE PARTS CLERK Pulse 70 04/27/2021 11:28 AM SPARE PARTS CLERK Temperature 36.7 C (98.1 F) 04/27/2021 11:28 AM SPARE PARTS CLERK Respiratory Rate 18 04/27/2021 11:28 AM SPARE PARTS CLERK Oxygen Saturation 94% 04/27/2021 11:28 AM SPARE PARTS CLERK Inhaled Oxygen Concentration - - Weight 82.1 kg (181 lb) 04/25/2021 7:46 AM SPARE PARTS CLERK Height 173.5 cm (5' 8.31) 04/25/2021 7:46 AM CS T Body Mass Index 27.27 04/25/2021 7:46 AM SPARE PARTS CLERK Plan of Treatment Health Maintenance Due Date [...] 022, 12/30/2019, 09/20/2018, Additional history exists Insurance [facility] SENIOR SUPPLEMENT MEDICARE T SENIOR SUPPLEMENT MEDICARE [facility] Address: [address] [place] [id number] [employer] SENIOR SUPPLEMENT Advance Directives For more information, please contact: [phone] * Full Code (Latest Code Status on File) Date Activated Date Inactivated Comments 04/24/2021 3:54 AM 04/27/2021 6:04 PM Care Teams Shaker Out Relationship Specialty Start Date End Date Salty Cook MD [address] [place] [address] [place] [address] PCP - General Internal Medicine 03/29/18
--- OUTSIDE RECORDS SUMMARY | 2024-11-10 11:49 | XMS_ITS | Encounter Summary ---
Author Organization [facility] Address [address] [facility] [place] [address] Care Team Providers Care Petal Shaper Hand Name Role Phone Unavailable Primary Care Provider Unavailabl e Encounter Details Date Type Department Care Team (Late st Contact Info) Description 09/08/2020 Lab Requisition [facility] DermPath Lab [address] [place] [address] Tony Young MD [address] [place] [address] Social History Tobacco Use Types Packs/Day Years Used Date Smoking Tobacco: Never Assessed Sex and Gender Information Value Date Recorded Sex Assigned at Not on file 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 Gender Identity Not on file Sexual Orientation Not on file documented as of this encounter Plan of Treatment Not on file documented as of this encounter Procedures Procedure Name Priority Date/Time Associated Diagnosis Comments DERMATOPATHOLOGY Routine 09/07/2020 12:0 0 AM CDT documented in this encounter Results * DERMATOPATHOLOGY (09/07/2020 12:00 AM CDT) Case Report Dermatopathology Report Case: [id number] Authorizing Provider: Tony Young MD Collected: 09/07/2020 12:00 AM Ordering Location: [facility] DermPath Lab Received: 09/08/2020 01:40 PM Pathologist: [...] of a curettage and desiccation biopsy measuring [id number], bisected. Jar 0. 12:29 PM CDT DERMATOPATHOLOGY [...] characteristic determined by the Dermatopathology Laboratory at [facility], directed by Dr. Rubin Emanuel. These tests need not be, and therefore are not, approved by the [place] Food and Drug Administration. The tests are used for clinical purposes. Billing Codes Specimen Charges Stain Charges 11180 1 12:29 PM CDT DERMATOPATHOLOGY LABORATORY Embedded Images 12:29 PM CDT DERMATOPATHOLOGY LABORATORY Pathology/Cytolog y TISSUE SPECIMEN FROM SKIN / Unknown 09/07/2020 09/08/2020 1:40 PM CDT Tony Young MD LAB - PATHOLOGY/CYTOLOGY ORD ERABLES Final Result DERMATOPATHOLOGY LABORATORY [facility] - Department of Dermatology [address], [address] [phone] documented in this encounter Visit Diagnoses Not on filedocumented in this encounter
--- OUTSIDE RECORDS SUMMARY | 2024-11-10 11:49 | XMS_ITS | Encounter Summary ---
Author Organization [facility] Address [address] [facility] [place] [address] Care Team Providers Care Strap Folding Machine Operator Name Role Phone Unavailable Primary Care Provider Unavailabl e Encounter Details Date Type Department Care Team (Late st Contact Info) Description 12/29/2020 Lab Requisition [facility] DermPath Lab [address] [place] [address] Tony Young MD [address] [place] [address] Social History Tobacco Use Types Packs/Day Years Used Date Smoking Tobacco: Never Assessed Sex and Gender Information Value Date Recorded Sex Assigned at Not on file 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 Gender Identity Not on file Sexual Orientation Not on file documented as of this encounter Plan of Treatment Not on file documented as of this encounter Procedures Procedure Name Priority Date/Time Associated Diagnosis Comments DERMATOPATHOLOGY Routine 12/28/2020 12:0 0 AM CDT documented in this encounter Results * DERMATOPATHOLOGY (12/28/2020 12:00 AM CDT) Case Report Dermatopathology Report Case: [id number] Authorizing Provider: Tony Young MD Collected: 12/28/2020 12:00 AM Ordering Location: [facility] DermPath Lab Received: 12/29/2020 01:14 PM [...] specimen consists of a shave biopsy measuring [id number]. Jar 0. Specimen B: Received is one formalin filled container labeled with the patient's name and designated behind mid left ear on scalp. The specimen consists of a shave biopsy measuring [id number]. Jar 0. Specimen C: Received is one formalin filled container labeled with the patient's name and designated left forehead (2.5cm) above brow. The specimen consists of a shave biopsy measuring [id number]. Jar 0. 12:20 PM CDT DERMATOPATHOLOGY LABORATORY [...] determined by the Dermatopathology Laboratory at [facility], directed by Dr. Rubin Emanuel. These tests need not be, and therefore are not, approved by the [place] Food and Drug Administration. The tests are used for clinical purposes. Billing Codes Specimen Charges Stain Charges 84332 24328 94851 1 1 1 12:20 PM CDT DERMATOPATHOLOGY [...] PATHOLOGY/CYTOLOGY ORD ERABLES Final Result DERMATOPATHOLOGY LABORATORY [facility] - Department of Dermatology [facility] Medicine [address] [place] [address], [address] [phone] documented in this encounter Visit Diagnoses Not on filedocumented in this encounter
--- OUTSIDE RECORDS SUMMARY | 2024-11-10 11:49 | XMS_ITS | Encounter Summary ---
Author Organization [facility] Address [address] [facility] [place] [address] Care Team Providers Care Package Car Driver Name Role Phone Unavailable Primary Care Provider Unavailabl e Encounter Details Date Type Department Care Team (Late st Contact Info) Description 04/02/2019 Lab Requisition [facility] DermPath Lab [address] [place] [phone] Tony Young MD [address] [place] [address] Social History Tobacco Use Types Packs/Day Years Used Date Smoking Tobacco: Never Assessed Sex and Gender Information Value Date Recorded Sex Assigned at Not on file 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 Gender Identity Not on file Sexual Orientation Not on file documented as of this encounter Plan of Treatment Not on file documented as of this encounter Procedures Procedure Name Priority Date/Time Associated Diagnosis Comments DERMATOPATHOLOGY Routine 04/01/2019 12:0 0 AM ADULT MANAGER documented in this encounter Results * DERMATOPATHOLOGY (04/01/2019 12:00 AM ADULT MANAGER) Case Report Dermatopathology Report Case: [id number] Authorizing Provider: Tony Young MD Collected: 04/01/2019 12:00 AM Ordering Location: [facility] DermPath Lab Received: 04/02/2019 02:04 PM Pathologist: Evie Emanuel MD Specimen: Skin, left ant neck 9 3:22 PM ADULT MANAGER DERMATOPATHOLOGY LABORATORY Final Diagnosis Specimen A. 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 3:22 PM [facility] DERMATOPATHOLOGY LABORATORY Gross Description Specimen A: Received is one formalin filled container labeled with the patient's name and designated left ant neck. The specimen consists of a shave biopsy measuring [id number]. Jar 0. 3:22 PM [facility] [...] characteristic determined by the Dermatopathology Laboratory at [facility], directed by Dr. Rubin Emanuel. These tests need not be, and therefore are not, approved by the [place] Food and Drug Administration. The tests are used for clinical purposes. Billing Codes Specimen Charges Stain Charges 93314 1 3:22 PM [facility] DERMATOPATHOLOGY LABORATORY Embedded Images 3:22 PM [facility] DERMATOPATHOLOGY LABORATORY Pathology/Cytolog y TISSUE SPECIMEN FROM SKIN / Unknown 04/01/2019 04/02/2019 2:04 PM ADULT MANAGER Tony Young MD LAB - PATHOLOGY/CYTOLOGY ORD ERABLES Final Result DERMATOPATHOLOGY LABORATORY [facility] - Department of Dermatology [address] [place] [address], [address] [place] [address], [facility] [phone] documented in this encounter Visit Diagnoses Not on filedocumented in this encounter
--- OUTSIDE RECORDS SUMMARY | 2024-11-10 11:49 | XMS_ITS | Continuity of Care Document ---
Author Organization [facility] Address [address] [place] [address] Phone Care Team Providers Care Teaching Dietitian Name Role Phone Donya HERNANDEZ MD, J [...] 2 views Office/outpatient visit,est, mod 2023 Inject sngl/code clerk trig pt 3+ msclgrp Celestone Betamethasone acetate [...] Date Provider Providers Copied on Encounter [facility], [address] [address], [place], [place], [id number], [place] [phone] [facility] No Information 4 Donya dawson. [address] [facility], [place], [place], [id number] , [place]. tel:[phone] [facility], [address] [facility] [address], [place], [place], [id number], [place] tel:[phone] [facility] Lumbar (chief complaint) Radiculopathy, site unspecifiedSpin al stenosis, lumbar region without neurogenic claudLow back pain, unspecified Jul-3 0 4 Donya HERNANDEZ Jay er. [address] [facility], [address], [place], [place], [id number] , [place]. tel:[phone] Referring Provider: J Luis Naqvi MD P, [address] [facility] [address], [place], [address]. tel:[phone] Office/outpa tient visit,est, mod [facility], [address] [address], [place], [place], [id number], [place] tel:[phone] [facility] Lumbar (chief complaint) Low back pain, unspecifiedRadi culopathy, site unspecifiedSpin al stenosis, lumbar region without neurogenic claudPain in left shoulder Jul-2 4 Donya HERNANDEZ Jay er. [address] [facility], [address], [place], [place], [id number] , [place]. tel:[phone] Referring Provider: J Luis Naqvi MD P, [address] [facility] [address] [facility], [place], [address]. tel:[phone] [facility], [address] [address], [place], [place], [id number], [place] tel:[phone] [facility] Lumbar (chief complaint) Radiculopathy, site unspecifiedSpin al stenosis, lumbar region without neurogenic claudLow back pain, unspecified 4 Donya HERNANDEZ Jay er. [address] [facility], [address] [address], [place], [place], [address] , [place]. tel:[phone] Referring Provider: J Luis Naqvi MD P, [address] [facility] [address] [facility], [place], [address]. tel:[phone] [facility], [address], [id number], [place] tel:[phone] [facility] Radiculopathy, site unspecifiedSpin al stenosis, lumbar region without neurogenic claudLow back pain, unspecified Dec- 3 Donya Thompson er. [address] [facility], [address] [address], [place], [place], [id number] , [place]. tel: [phone] Office/outpa tient visit,est, mod [facility], [address] [address], [place], [place], [id number], [place] [phone] [facility] lumbar (chief complaint) Spinal stenosis, lumbar region without neurogenic claudRadiculopa thy, site unspecified 3 Iván Jimenez. [address] [facility], [address], [id number] , [place]. tel: [phone] Referring Provider: Tony Case, [facility] [address] [facility], [place], [place], [address] [place] [address]. tel:[phone] [facility], [address], [id number], [place] tel:[phone] [facility] Lumbar (chief complaint) No Information Dec- 3 Donya Thompson er. [address] [facility], [address], [id number] , [place]. tel: [phone] Referring Provider: J Luis Naqvi MD P, [address] [address], [place], [address]. tel:[phone] [facility], [address], [id number], [place] tel:[phone] [facility] Low back pain, unspecifiedRadi culopathy, site unspecifiedSpin al stenosis, lumbar region without neurogenic niki Sep-0 3 Iván Jimenez. [address] [facility], [address], [id number] , [place]. tel: [phone] Office/outpa tient visit,est, mod [facility], [address] [address], [place], [place], [address], [place] tel:[phone] [facility] Lumbar (chief complaint) Low back pain, unspecifiedRadi culopathy, site unspecifiedSpin al stenosis, lumbar region without neurogenic niki Paul-2 3 Iván Jimenez. [address] [facility], [address] [facility], [place], [place], [id number] , [place]. tel:[phone] Referring Provider: Tony Case, [address] [facility] [address] [facility], [place], [address]. tel:[phone] [facility], [address] [address], [place], [place], [id number], tel:[phone] [facility] Lumbar (chief complaint) lumbar spine (chief complaint) Low back pain, unspecifiedRadi culopathy, site unspecifiedSpin al stenosis, lumbar region without neurogenic niki Paul-0 3 Donya Thompson er. [address] [facility], [address] [address], [place], [place], [id number] , [place]. tel:[phone] Referring Provider: J Luis Naqvi MD P, [address] [facility] [address] [facility], [place], [address]. tel:[phone] [facility], [address] [address], [place], [place], [address], [place] tel:[phone] [facility] Spinal stenosis, lumbar region without neurogenic claudRadiculopa thy, site unspecifiedLow back pain, unspecified May-0 3 Donya Thompson er. [address] [facility], [address] [address], [place], [place], [address] , [place]. tel:[phone] Office/outpa tient visit,est, mod [facility], [address] [address], [place], [place], [id number], [place] tel:[phone] [facility] Lumbar (chief complaint) Low back pain, unspecifiedRadi culopathy, site unspecifiedSpin al stenosis, lumbar region without neurogenic niki Mar-0 3 Iván Tony. [address] [facility], [address] [address], [place], [place], [id number] , [place]. tel:[phone] Referring Provider: Tony Minor Evie, [address] [place] [address], [place], [address]. tel:[phone] [facility], [address], [id number], [place] tel:[phone] [facility] Lumbar (chief complaint) lumbar spine (chief complaint) Low back pain, unspecifiedSpin al stenosis, lumbar region without neurogenic claudRadiculopa thy, site unspecified May- 3 Donya HERNANDEZ Jay er. [address], [id number] , [place]. tel:[phone] Office/outpa [facility]ient visit,[facility], [address], [id number], [place] tel:[phone] [facility] Lumbar (chief complaint) lumbar spine (chief complaint) Low back pain, unspecifiedSpin al stenosis, lumbar regionOther bursal cyst, other siteRadiculopat hy, site unspecified 3 Donya Thompson er. [address] [facility], [address] [address], [place], [place], [id number] , [place]. tel:[phone] Referring Provider: J Luis Naqvi MD P, [address] [address], [place], [address]. tel:[phone] Family History Family Member Type Diagnosis Age [...] Unspecified Payers Payer name Insurance type Covered democrat ID Authoriza tibill(s) [place] Part B MB [id number] [employer] Senior Supplemental Insurance [id number] Social History Type Description Quantity Date Captured [...] our office as needed. Dictation completed with PreApps Practice Edition software, grammatical variances and spelling [...] follow up as needed. Dictation completed with Cardback software, grammatical variances and spelling errors may [...] was entered by Deja Medina, acting as Fringe Knotter for J Luis Naqvi MD. Related to [...] the office as needed. Dictation completed with PreApps Practice Edition software, grammatical variances in spelling [...] was entered by Deja Medina, acting as Fringe Knotter for J Luis Naqvi MD. Related to [...] was entered by Sol Preciado, acting as Fringe Knotter for J Luis Naqvi MD. Related to Radiculopathy, site unspecified Assessments Type Assessment Date No Information Patient Care Teams Name Effective Dates (start - stop) Status Members No Information
--- OUTSIDE RECORDS SUMMARY | 2024-11-10 11:49 | XMS_ITS | Clinical Summary ---
Author Organization [facility] Address [address] [place] [address] Care Team Providers Care Airport Clerk Name Role Phone Unavailable Primary Care Provider Unavailabl e Source Comments [facility],non-owned Affiliates and Associated Physician Practices is amultiple site organization consisting of ambulatory clinics and hospital sitesin [place], [place], [place] and [place]. This disclosure is being madepursuant to the Care Everywhere program and may not contain all information available regarding this patient. 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
--- OUTSIDE RECORDS SUMMARY | 2024-11-10 11:49 | XMS_ITS | Clinical Summary ---
Author Organization [facility] Address [address] [place] [address] Phone Care Team Providers Care Automobile Insurance Claim Examiner Name Role Phone Salty Cook MD Primary [...] Abstract 10/07/2024 11:00 AM CDT Office Visit [facility] THRO[facility] [address] [address] Thaddeus Cerda PA Tracheal mass (Primary Dx); History of tongue cancer 10/07/2024 Orders Only [facility] [address] [address] Provider, Abstract 09/30/2024 External Device Data STL [...] 11/19/2024 4:30 PM CDT Telephone Check Up [facility] Oncology and Hematology - [place] [address] [facility] [address] [place] [id number] Sujit Andrade MD [address] [facility] [address] [place] [address] 12/03/2024 11:15 AM CDT Office Visit [facility] Pulmonology [facility] [address] [facility] [address] [place] [address] Dustin Barrow MD [address] [facility] [address] [place], [place] [id number] 12/25/2024 1:20 PM CDT Office Visit [facility], [facility]SE [facility] THROAT JUNI Nolberto [facility] [address] [facility] [address] [place] [address] Vikas Castillo MD [address] [facility] [place] [address] Health Maintenance Due Date Last Done Comments DTAP/TDAP/TD VACCINES (1 - Tdap) 1969 Traditional Medicare (ACO) A nnual Wellness Visit 1969 COLORECTAL SCREENING 09/03/1995 Colorectal Cancer Screening [...] history exists Medical Devices Implanted Type Area Wool Classer Device Identifier Shelf Expiration Date Model / Serial / Lot Hemostatic Surgicel 1x2in 1960 - [id number] Implanted:Qty: 1 on 12/19/2019 by Vikas Castillo MD at [facility] Hemostatic Right: Neck [employer] 11/27/20211960 / / [id number] Ivc Filter Procedures Procedure Name Priority Date/Time Associated Diagnosis Comments [place] LARYNGOSCOPY FLEXIBLE DIAGNOSTIC Routine 10/07/2024 11:00 AM CDT History of tongue cancer CT THORACIC SPINE WO CONTRAST Routine 08/12/2024 11:26 AM CDT from Last 3 Months Results * [place] LARYNGOSCOPY FLEXIBLE DIAGNOSTIC (10/07/2024 11:00 AM CDT) Narrative Thaddeus Cerda PA - 10/07/2024 11:00 AM CDT Thaddeus Cerda PA 10/07/2024 12:21 PM Nasal Endoscopy/Laryngoscopy Date/Time: 10/07/2024 11:00 AM Performed by: Thaddeus Cerda PA Authorized by: Thaddeus Cerda PA Local [...] The patient tolerated procedure well. Complications: None Thaddeus GUADALUPE PROCEDURE/MINOR SURGICAL ORD ERABLES Final Result * CT THORACIC SPINE WO CONTRAST (08/12/2024 11:26 AM CDT) Anatomical Region Laterality Modality Spine Computed Tomogra phy Abstract Provider CT ORDERABLES Final Result from Last 3 Months Insurance MEDICARE PART A AND B [facility] MEDICARE PART A AND B BCBS SUPP Advance Directives For more information, please contact: [phone] Documents on File Type Date Recorded Patient Snow Ranger Expl anation Advance Directive POA 12/19/2019 11:51 AM Advance Directive POA * Full Code (Latest Code Status on File) Date Activated Date Inactivated Comments 12/19/2019 7:59 PM 12/22/2019 3:00 PM * Full Code Date Activated Date Inactivated Comments 12/19/2019 12:07 PM 12/19/2019 7:59 PM Care Teams Automobile Insurance Claim Examiner Relationship Specialty Start Date End Date Salty Cook MD [address] [place] [address] [place] [address] PCP - General Internal Medicine 12/10/19
[2024-11-10 12:08] LABS: Hematocrit 42.6 % (42.0-52.0); Hemoglobin 14.1 g/dL (14.0-18.0); Immature Granulocyte Percent A 0.4 % (0-0.5); Lymphocytes Absolute Auto 0.48 K/mm3 (0.9-3.2); Mean Corpuscular HGB Conc 33.1 g/dl (32-36); Mean Corpuscular Hemoglobin 30.9 pg (26-34); Mean Corpuscular Volume 93.2 fl (80-100); Nucleated Red Blood Cells Absolute Auto 0.000 K/mm3 (0.0-0.012); Nucleated Red Blood Cells Perc 0.0 % (0.0-0.2); Platelet Count Result 210 k/mm3 (150-375); Red Blood Count 4.57 M/mm3 (4.6-6.20); White Blood Count 11.6 K/mm3 (4.5-10.0)
[2024-11-10 12:48] LABS: Alanine Aminotransferase 22 U/L (6-50); Albumin Level 3.9 g/dL (3.5-5.1); Alkaline Phosphatase 44 U/L (38-126); Anion Gap 7 mmol/L (4-12); Aspartate Amino Transferase 46 U/L (17-59); Bilirubin,Total 0.5 mg/dL (0.2-1.3); Blood Urea Nitrogen 13 mg/dL (9-20); Calcium 8.9 mg/dL (8.4-10.2); Carbon Dioxide 31 mmol/L (22-30); Chloride 100 mmol/L (98-107); Estimated Glomerular Filt Rate > 60; Glucose 105 mg/dL (65-110); Potassium 3.9 mmol/L (3.4-5.0); Sodium 138 mmol/L (137-145); Total Protein 6.7 g/dL (6.3-8.2)
== END 2024-11-10 11:46 | disposition home or self-care (01) ==
PROVIDERS: Visit Provider Internal Medicine Hematology & Oncology
DX: C02.9 Malignant neoplasm of tongue, unspecified (principal)
CPT/HCPCS: 36415; 80053; 85025

== ENCOUNTER 2025-02-06 15:30 | Emergency (ER) | payer MEDICARE, SELFPAY ==
--- NOTE | ~2025-02-06 | XR_ITS ---
EXAMINATION: XR chest 1V portable DATE: 02/06/2025 16:14 INDICATION: Sepsis TECHNIQUE: A single portable upright frontal image of the chest was obtained. COMPARISON: Chest radiograph dated 03/25/2022 FINDINGS: Heart is enlarged, unchanged. No pneumothorax. No pleural effusion. No free air under the diaphragm. Small opacities in the mid and lower lungs. IMPRESSION: 1. Small opacities in the mid and lower lungs which represents atelectasis/scarring or infiltrates. If symptoms persist or worsen, consider a short-term follow-up study or additional imaging for further assessment. Reviewed, dictated and finalized at location Q. IMPRESSION: 1. Small opacities in the mid and lower lungs which represents atelectasis/scar ring or infiltrates. If symptoms persist or worsen, consider a short-term follow-up study or additio nal imaging for further assessment.
[2025-02-06 15:30] VITALS: BP 106/72; PULSE 99; RESP 22; TEMP 36.9; O2SAT 92
[2025-02-06 16:10] LABS: Hematocrit 41.7 % (37.0-46.0); Hemoglobin 14.0 g/dL (12.4-15.3); Immature Granulocyte Percent A 0.4 % (0.0-0.0); Lymphocytes Absolute Auto 0.20 K/mm3 (1.10-4.50); Mean Corpuscular HGB Conc 33.6 g/dL (32-36); Mean Corpuscular Hemoglobin 30.6 pg (27.0-31.0); Mean Corpuscular Volume 91.0 fL (78.0-102.0); Nucleated Red Blood Cells Absolute Auto 0.00 K/mm3 (0.00-0.00); Nucleated Red Blood Cells Perc 0.0 % (0-0.0); Platelet Count Result 186 K/mm3 (150-420); Red Blood Count 4.58 M/mm3 (4.70-6.10); White Blood Count 7.9 K/mm3 (4.8-10.8)
[2025-02-06 16:22] LABS: Alanine Aminotransferase 23 U/L (6-50); Albumin Level 4.3 g/dL (3.5-5.1); Alkaline Phosphatase 48 U/L (38-126); Anion Gap 10 mmol/L (4-12); Aspartate Amino Transferase 32 U/L (17-59); Bilirubin,Total 0.8 mg/dL (0.2-1.3); Blood Urea Nitrogen 14 mg/dL (9-20); Calcium 9.7 mg/dL (8.4-10.2); Carbon Dioxide 28 mmol/L (22-30); Chloride 99 mmol/L (98-107); Estimated CRCL calculation 63 ml/min; Estimated Glomerular Filt Rate > 60; Glucose 102 mg/dL (65-110); Osmolality Calculated 284 mOsm/kg (285-295); Potassium 3.8 mmol/L (3.4-5.0); Sodium 137 mmol/L (137-145); Total Protein 7.4 g/dL (6.3-8.2)
[2025-02-06 16:44] LABS: Add Urine Microscopic? NO; Appearance Urine Clear (Clear); Glucose Urine UA Negative (Negative); Leukocyte Esterase Ur Negative (Negative); Nitrate Urine Negative (Negative); Specific Grav Ur 1.010 (1.010-1.020)
--- NOTE | 2025-02-06 16:56 | ED.FEVER ---
HPI - Fever General Chief Complaint: Fever Stated Complaint: uti symptoms Time Seen by Provider: 02/06/25 15:44 Source: patient Mode of arrival: wheelchair History of Present Illness HPI Narrative: 74-year-old with a history of myasthenia gravis, hyperlipidemia was brought in by family with a complains of fever of 103 at home. He did get Tylenol prior to coming to the ER sign who is at bedside reports that he was incontinent in urine 80 thinks it could be UTI. no history of cough or shortness of breath. No denies any nausea vomiting or diarrhea. reports that he got his flu and COVID vaccination yesterday Related Data Home Medications ?Medication ?Instructions ?Recorded ?Confirmed ?Last Taken ?Type aspirin 81 mg tablet,delayed 81 mg PO QAM 01/07/20 03/25/22 12/26/21 09:05 History release ezetimibe 10 mg tablet 10 mg PO HS 01/07/20 03/25/22 12/27/21 21:50 History lorazepam 0.5 mg tablet 1 mg PO BID PRN Anxiety 01/07/20 03/25/22 12/27/21 15:05 History multivitamin with minerals 1 tablet PO QAM 01/07/20 03/25/22 12/16/21 History prednisone 10 mg tablet 10 mg PO QAM 01/07/20 03/25/22 12/28/21 10:10 History rosuvastatin 40 mg tablet 40 mg PO HS 01/07/20 03/25/22 12/27/21 21:50 History divalproex 250 mg tablet,extended 500 mg PO BID 04/04/21 03/25/22 12/28/21 10:10 History release 24 hr pyridostigmine bromide 60 mg tablet 60 mg PO TID 11/23/21 03/25/22 12/28/21 14:30 History vitamin B complex 1 cap PO QAM 11/23/21 03/25/22 12/16/21 History cariprazine 1.5 mg capsule 1.5 mg PO DAILY 04/05/22 Unknown History (Vraylar) deutetrabenazine 6 mg tablet 6 mg PO DAILY 04/05/22 Unknown History (Austedo) quetiapine 300 mg tablet 450 mg PO HS 04/05/22 Unknown History Allergies Allergy/AdvReac Type Severity Reaction Status Date / Time adhesive Allergy Unknown SKIN Verified 04/05/22 13:15 IRRITATION Review of Systems Review of Systems: All systems reviewed & are unremarkable except as noted in HPI and below Constitutional: Constitutional: Reports fever(s) Eyes: Eyes: Reports no additional eye complaints ENT: Reports system reviewed and no additional complaints, except as documented Cardiovascular: Cardiovascular: Reports no additional cardiovascular complaints Respiratory: Respiratory: Reports no additional respiratory complaints Gastrointestinal: Gastrointestinal: Reports no additional gastrointestinal complaints Genitourinary: Genitourinary: Reports as per HPI Musculoskeletal: Musculoskeletal: Reports no additional musculoskeletal complaints Neurologic: Reports system reviewed and no additional complaints, except as documented [facility] Past Medical History Medical History 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 ERMA treated with chemotherapy and adjunctive radiation therapy (HFpEF) heart failure with preserved ejection fraction Psychogenic polydipsia Chronic hyponatremia CVA (cerebral vascular accident) DVT (deep venous thrombosis) (~2013) Myasthenia gravis (~2004) Hyperlipidemia COCOPAH (hard of hearing) Prostate cancer Radiation therapy CAD (coronary artery disease) Bipolar 1 disorder Arthritis Surgical History Surgical History History of meniscectomy of right knee (2014) S/P partial glossectomy (12/19/19) Right sided History of radical neck dissection (12/19/19) History of coronary artery stent placement 1 stent in 2001 3 stents in 2002 Family History Family History Father Heart disease Social History Social History Smoking status: Never smoker Second hand tobacco smoke exposure: No Alcohol intake: never Substance use: never Lack of Transportation: No Lack of Food: Never True Current Housing: I Have Housing Concerned About Future Housing: No Difficulty Paying Gas/Electric Bills: No Difficulty Paying for Meds: No Currently Unemployed: No Education: High School Diploma/GED Difficulty w/ Childcare or Family Care: No Living arrangements: with family Gender identity (if verbalized by the patient): Male Sexual Orientation (if Verbalized by the Patient): Straight or Heterosexual Spiritual care concerns: No Exam Narrative: GENERAL: Well-appearing, well-nourished, and in no acute distress. hard of hearing HEAD: Normocephalic, atraumatic. EYES: PERRLA and EOMI. ENT: Nares clear, no rhinorrhea or epistaxis. Mucous membranes moist. NECK: Supple. CHEST: Clear to auscultation. No respiratory distress. HEART: Regular rate and rhythm. No murmur heard. Normal peripheral pulses. ABDOMEN: Soft, nontender, nondistended, normal active bowel sounds. EXTREMITIES: Normal range of motion. No edema. SKIN: Warm, dry, no rash. NEURO: No focal deficits. Alert and oriented x3. PSYCH: Normal mood and affect. Course Course Emergency Course: notified patient and the family about the lab work, x-ray findings. Most likely cause of his high fever could be from post vaccination. Advised him to give plenty of fluids, Tylenol or ibuprofen for pain and hand body aches Vital Signs Vital signs: Vital Signs Temperature 36.9 C 02/06/25 15:30 Pulse Rate 99 02/06/25 15:30 Respiratory Rate 22 H 02/06/25 15:30 Blood Pressure 106/72 02/06/25 15:30 Pulse Oximetry 92 02/06/25 15:30 Oxygen Delivery Room Air 02/06/25 15:30 Temperature 36.9 C 02/06/25 15:30 Pulse Rate 99 02/06/25 15:30 Respiratory Rate 22 H 02/06/25 15:30 Blood Pressure 106/72 02/06/25 15:30 Pulse Oximetry 92 02/06/25 15:30 Oxygen Delivery Room Air 02/06/25 15:30 MDM - Fever Differential Diagnosis Differential diagnosis: Likely fever of unknown origin, viral infection and other (uti) Medical Records Attestation: I reviewed the patient's medical records. Lab Data Attestation: I reviewed the patient's lab results. 02/06/25 16:00 02/06/25 16:00 Labs: Lab Results 02/06/25 02/06/25 Range/Units 16:00 16:35 WBC 7.9 (4.8-10.8) K/mm3 RBC 4.58 L (4.70-6.10) M/mm3 Hgb 14.0 (12.4-15.3) g/dL Hct 41.7 (37.0-46.0) % MCV 91.0 (78.0-102.0) fL MCH 30.6 (27.0-31.0) pg MCHC 33.6 (32-36) g/dL RDW 13.7 (11.6-14.4) % Plt Count 186 (150-420) K/mm3 MPV 9.6 (8.7-11.0) fl Immature Gran % (Auto) 0.4 H (0.0-0.0) % Neut % (Auto) 87.1 H (50.0-70.0) % Lymph % (Auto) 2.5 L (18.0-42.0) % [place] % (Auto) 9.6 (2.0-11.0) % Eos % (Auto) 0.1 L (1.0-6.0) % Baso % (Auto) 0.3 (0.0-1.0) % Lymph # (Auto) 0.20 L (1.10-4.50) K/mm3 [place] # (Auto) 0.76 (0.10-0.90) K/mm3 Eos # (Auto) 0.01 L (0.02-0.50) K/mm3 Baso # (Auto) 0.02 (0.00-0.10) K/mm3 Abs Immat Gran (auto) 0.03 H (0.00-0.00) K/mm3 Absolute Neuts (auto) 6.92 (1.70-7.20) K/mm3 Absolute Nucleated RBC 0.00 (0.00-0.00) K/mm3 Nucleated RBC % 0.0 (0-0.0) % Sodium 137 (137-145) mmol/L Potassium 3.8 (3.4-5.0) mmol/L Chloride 99 (98-107) mmol/L Carbon Dioxide 28 (22-30) mmol/L Anion Gap 10 (4-12) mmol/L BUN 14 (9-20) mg/dL Creatinine 0.94 (0.7-1.3) mg/dL Estim Creat Clear Calc 63 ml/min Estimated GFR > 60 (59 - ) Glucose 102 (65-110) mg/dL Calculated Osmolality 284 L (285-295) mOsm/kg Lactic Acid 1.3 (0.4-2.0) mmol/L Calcium 9.7 (8.4-10.2) mg/dL Total Bilirubin 0.8 (0.2-1.3) mg/dL AST 32 (17-59) U/L ALT 23 (6-50) U/L Alkaline Phosphatase 48 (38-126) U/L Total Protein 7.4 (6.3-8.2) g/dL Albumin 4.3 (3.5-5.1) g/dL Urine Color Yellow (Yellow) Urine Appearance Clear (Clear) Urine pH 6.5 (5.0-8.0) Ur Specific [place] 1.010 (1.010-1.020) Urine Protein Negative (Negative) Urine Glucose (UA) Negative (Negative) Urine Ketones Trace H (Negative) Ur Blood (Man) Negative (Negative) Urine Nitrate Negative (Negative) Urine Bilirubin Negative (Negative) Urine Urobilinogen 0.2 (0.2-1.0) mg/dL Ur Leukocyte Esterase Negative (Negative) Imaging Data Radiologist's impression: ITS Impressions Chest X-Ray 02/06/25 16:25 IMPRESSION: 1. Small opacities in the mid and lower lungs which represents atelectasis/scarring or infiltrates. If symptoms persist or worsen, consider a short-term follow-up study or additional imaging for further assessment. Discharge Plan Discharge Clinical Impression: Fever Qualifiers: Fever type: post-vaccination Qualified Code(s): R50.83 - Postvaccination fever Patient Disposition: Home Condition: Stable Instructions: Fever in Adults (ED) Additional Instructions: continue home medications, drink more fluids rest , follow with your doctor. Patient Language: Arabic Prescriptions: No Action trazodone 100 mg tablet 100 mg PO HS PRN (Reason: insomnia) Qty: 30 0RF ferrous sulfate [iron] 325 mg (65 mg iron) Tablet 325 mg PO QAM Qty: 30 0RF acetaminophen [Tylenol] 325 mg capsule 650 mg PO Q8H PRN (Reason: pain) Qty: 20 0RF prednisone 10 mg Tablet 10 mg PO QAM lorazepam 0.5 mg Tablet 1 mg PO BID PRN (Reason: Anxiety) multivitamin with minerals Tablet 1 tablet PO QAM ezetimibe 10 mg Tablet 10 mg PO HS rosuvastatin 40 mg Tablet 40 mg PO HS aspirin 81 mg Tablet,Delayed Release (Dr/Ec) 81 mg PO QAM divalproex 250 mg tablet extended release 24 hr 500 mg PO BID Vraylar 1.5 mg capsule 1.5 mg PO DAILY Austedo 6 mg tablet 6 mg PO DAILY pyridostigmine bromide 60 mg Tablet 60 mg PO TID Patient Comments: 0700, 1100 & 1500 vitamin B complex Capsule 1 cap PO QAM quetiapine 300 mg tablet 450 mg PO HS Follow-up/Referrals: Salty Cook [Other] Time of Disposition: 17:09
[2025-02-06 17:14] VITALS: PULSE 91; RESP 20; TEMP 36.9; O2SAT 97
--- NOTE | 2025-02-10 13:30 | PC.NURSE ---
blood, preliminary, no growth
--- NOTE | 2025-02-14 13:33 | PC.NURSE ---
final blood cultures x2 reviewed. no growth in 5 days. no change in plan of care.
== END 2025-02-06 17:14 | disposition home or self-care (01) ==
PROVIDERS: Emergency Provider Family Medicine
DX: R50.83 Postvaccination fever (principal); E78.5 Hyperlipidemia, unspecified; I25.10 Atherosclerotic heart disease of native coronary artery without angina pectoris; Z86.73 Personal history of transient ischemic attack (TIA), and cerebral infarction without residual deficits; Z85.46 Personal history of malignant neoplasm of prostate
CPT/HCPCS: 36415; 71045; 80053; 81003; 83605; 85025; 87040; 96360; 96361; 99283

== ENCOUNTER 2025-03-17 08:34 | Outpatient (CLI) | payer MEDICARE, SELFPAY ==
--- NOTE | ~2025-03-17 | CT_ITS ---
EXAM/PROCEDURE: CT soft tissue neck chest w HISTORY: Squamous cell cancer of tongue COMPARISON: November 102024, and January 29, 2024 TECHNIQUE: IV contrast-enhanced soft tissue neck CT performed FINDINGS: Mild anatomic distortion and soft tissue fullness in the sublingual, and hypopharyngeal region extending to the piriform recesses not clearly changed from previous years exams. No discrete nodule lesion or mass identified. No bulky lymphadenopathy. Fossae of Rosenmuller are symmetric. Mild right sinus paranasal sinus disease stable. The remainder the exam appears stable. No acute process seen in the visualized portions of the upper chest or intracranial contents. No new lesions or masses. IMPRESSION: No gross evidence of progression in malignant disease. Reviewed, dictated and finalized at location A. 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
[2025-03-17 09:06] LABS: Estimated Glomerular Filt Rate > 60
== END 2025-03-17 08:35 | disposition home or self-care (01) ==
PROVIDERS: Visit Provider Internal Medicine Hematology & Oncology
DX: C02.9 Malignant neoplasm of tongue, unspecified (principal)
CPT/HCPCS: 70491; 71260; Q9967

== ENCOUNTER 2025-03-17 09:28 | Outpatient (CLI) | payer MEDICARE, SELFPAY ==
[2025-03-17 09:52] LABS: Hematocrit 41.5 % (42.0-52.0); Hemoglobin 13.7 g/dL (14.0-18.0); Immature Granulocyte Percent A 0.4 % (0-0.5); Lymphocytes Absolute Auto 0.83 K/mm3 (0.9-3.2); Mean Corpuscular HGB Conc 33.0 g/dl (32-36); Mean Corpuscular Hemoglobin 30.3 pg (26-34); Mean Corpuscular Volume 91.8 fl (80-100); Nucleated Red Blood Cells Absolute Auto 0.000 K/mm3 (0.0-0.012); Nucleated Red Blood Cells Perc 0.0 % (0.0-0.2); Platelet Count Result 198 k/mm3 (150-375); Red Blood Count 4.52 M/mm3 (4.6-6.20); White Blood Count 5.3 K/mm3 (4.5-10.0)
[2025-03-17 10:54] LABS: Alanine Aminotransferase 19 U/L (6-50); Albumin Level 3.7 g/dL (3.5-5.1); Alkaline Phosphatase 49 U/L (38-126); Anion Gap 3 mmol/L (4-12); Aspartate Amino Transferase 20 U/L (17-59); Bilirubin,Total 0.4 mg/dL (0.2-1.3); Blood Urea Nitrogen 10 mg/dL (9-20); Calcium 8.6 mg/dL (8.4-10.2); Carbon Dioxide 33 mmol/L (22-30); Chloride 100 mmol/L (98-107); Estimated Glomerular Filt Rate > 60; Glucose 88 mg/dL (65-110); Potassium 3.9 mmol/L (3.4-5.0); Sodium 136 mmol/L (137-145); Total Protein 6.4 g/dL (6.3-8.2)
== END 2025-03-17 09:29 | disposition home or self-care (01) ==
LOC: ANHLAB 09:30
PROVIDERS: Visit Provider Internal Medicine Hematology & Oncology
DX: C02.9 Malignant neoplasm of tongue, unspecified (principal)
CPT/HCPCS: 36415; 80053; 85025

== ENCOUNTER 2025-04-25 13:06 | Observation (INO) | payer MEDICARE, SELFPAY ==
[2025-04-25] VITALS (23 sets, daily range): BP systolic 116–147; BP diastolic 66–93; PULSE 16–90; RESP 15–20; TEMP 36.6–36.9; O2SAT 91–100; BMI 26.9
--- NOTE | ~2025-04-25 | XR_ITS ---
EXAMINATION: AP pelvis: DATE: 04/25/2025 INDICATION: Trauma. TECHNIQUE: AP view of pelvis. were obtained. COMPARISON: Pelvis x-ray dated 11/16/2023. FINDINGS: Extremely poor visualization due to severe rotation. No gross acute fracture is noted in this limited study. IMPRESSION: 1. Extremely limited quality of examination showing no gross the pelvis. Reviewed, dictated and finalized at location T. BBER SYSTEM ATTENDANT
--- NOTE | ~2025-04-25 | CT_ITS ---
EXAMINATION: CT cervical spine wo con DATE: 04/25/2025 15:39 INDICATION: Multiple falls. TECHNIQUE: Computed tomography (CT) of the cervical spine was performed without intravenous contrast. Automated exposure control and iterative reconstruction technique were employed. The dose-length product was 535.49 mGy-cm. COMPARISON: CT, soft tissues of neck dated 01/29/2024., 03/17/2025, 11/10/2024 FINDINGS: Extremely poor quality examination due to excessive motion artifacts. Advanced multilevel degenerative disc disease in the mid cervical spine. Spondylolisthesis of C2 over C3 is noted. This is however seen on previous examination of 03/17/2025 as well as 11/10/2024. Possibly chronic finding. No acute soft tissue abnormalities. IMPRESSION: 1. Extremely poor examination due to excessive motion artifacts. 2. Definite anterolisthesis of C2 on C3. However this appears to be seen on prior CT examinations mentioned above. Severe degenerative disc changes of multiple lower cervical discs. 3. MRI is suggested after appropriate sedation, if no contraindications.. Reviewed, dictated and finalized at location T. EN FURNACE OPERATOR IMPRESSION: 1. Extremely poor examination due to excessive motion artifacts. 2. Definite anterolisthesis of C2 on C3. However this appears to be seen on tim or CT examinations mentioned above. Severe degenerative disc changes of multipl e lower cervical discs. 3. MRI is suggested after appropriate sedation, if no contraindications..
--- NOTE | ~2025-04-25 | CT_ITS ---
EXAMINATION: CT brain wo con DATE: 04/25/2025 15:39 INDICATION: Altered mental status. Multiple falls. TECHNIQUE: Computed tomography (CT) of the head was performed without intravenous contrast. The mA was adjusted according to patient size. Iterative reconstruction technique was employed. The dose-length product was 756.67 mGy-cm. COMPARISON: CT head dated 02/14/2022. FINDINGS: Evaluation is extremely limited due to excessive motion artifacts. Other than a few cuts in the superior aspect of the skull, remaining examination cannot be interpreted satisfactorily. IMPRESSION: 1. Unable to interpret the examination due to excessive motion artifacts. Reviewed, dictated and finalized at location T. IX INSPECTOR
--- NOTE | ~2025-04-25 | XR_ITS ---
EXAMINATION: XR chest 1V portable DATE: 04/25/2025 14:39 INDICATION: Weakness. TECHNIQUE: A single frontal view of the chest was obtained. COMPARISON: Chest x-ray dated 02/06/2025 FINDINGS: Significant cardiomegaly. Severe atherosclerotic aorta. Lungs do not show acute findings. IMPRESSION: 1. No acute pulmonary findings in the limited portable chest x-ray. Cardiomegaly and atherosclerotic aorta. Reviewed, dictated and finalized at location T. BREEDER IMPRESSION: 1. No acute pulmonary findings in the limited portable chest x-ray. Cardiomegal y and atherosclerotic aorta.
--- NOTE | ~2025-04-25 | CT_ITS ---
EXAMINATION: CT lumbar spine wo con DATE: 04/25/2025 15:39 INDICATION: Low back pain. Urinary retention. TECHNIQUE: Computed tomography (CT) of the lumbar spine was performed without intravenous contrast. Automated exposure control and iterative reconstruction technique were employed. The dose-length product was 1406.00 mGy-cm. COMPARISON: None available FINDINGS: Severely limited evaluation due to excessive motion artifacts. Diffusely osteopenic bones. No acute bony lesions of lumbar vertebrae. Advanced multilevel degenerative disc changes involving all lumbosacral discs. Severe facet arthropathy at multiple levels. Paravertebral soft tissues do not show acute findings. IMPRESSION: 1. Severely limited evaluation due to excessive motion artifacts. 2. No gross acute findings of lumbar vertebrae. Advanced multilevel degenerative disc changes and facet arthropathy of lumbar spine. 3. No acute findings of paravertebral soft tissues. Reviewed, dictated and finalized at location T. L INSPECTION SUPERVISOR IMPRESSION: 1. Severely limited evaluation due to excessive motion artifacts. 2. No gross acute findings of lumbar vertebrae. Advanced multilevel degenerativ e disc changes and facet arthropathy of lumbar spine. 3. No acute findings of paravertebral soft tissues.
--- OUTSIDE RECORDS SUMMARY | 2025-04-25 13:08 | XMS_ITS | Encounter Summary ---
Author Organization [facility] Address [address] [place] [address] Care Team Providers Care Classer Name Role Phone Unavailable Primary Care Provider Unavailabl e Encounter Details Date Type Department Care Team (Late st Contact Info) Description 04/02/2019 Lab Requisition [facility] DermPath Lab [address] [place] [id number] Tony Young MD [address] [place] [address] Social History Tobacco Use Types Packs/Day Years Used Date Smoking Tobacco: Never Assessed Sex and Gender Information Value Date Recorded Sex Assigned at Not on file Legal Sex Male 6:04 PM RADIOLOGY RESIDENT Gender Identity Not on file Sexual Orientation Not on file documented as of this encounter Plan of Treatment Not on file documented as of this encounter Procedures Procedure Name Priority Date/Time Associated Diagnosis Comments DERMATOPATHOLOGY Routine 04/01/2019 12:0 0 AM RADIOLOGY RESIDENT documented in this encounter Results * DERMATOPATHOLOGY (04/01/2019 12:00 AM RADIOLOGY RESIDENT) Case Report Dermatopathology Report Case: [id number] Authorizing Provider: Tony Young MD Collected: 04/01/2019 12:00 AM Ordering Location: [facility] DermPath Lab Received: 04/02/2019 02:04 PM Pathologist: Evie Emanuel MD Specimen: Skin, left ant neck 9 3:22 PM RADIOLOGY RESIDENT DERMATOPATHOLOGY LABORATORY Final Diagnosis Specimen A. 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 3:22 PM [facility] DERMATOPATHOLOGY LABORATORY Gross Description Specimen A: Received is one formalin filled container labeled with the patient's name and designated left ant neck. The specimen consists of a shave biopsy measuring [id number]. Jar 0. 3:22 PM [facility] DERMATOPATHOLOGY LABORATORY Microscopic Description Specimen A. SKIN, left ant neck: The epidermis shows parakeratosis, full thickness disorderly maturation of keratinocytes, mitoses at different levels, and dyskeratotic cells. 3:22 PM [facility] DERMATOPATHOLOGY LABORATORY Disclaimer An external and internal positive and negative controls are appropriate for the histochemical, immunohistochemical and immunofluorescence stain(s) in this case (if any), except where stated explicitly. The performance characteristics of the stain(s) cited in this report were developed and its performance characteristic determined by the Dermatopathology Laboratory at [facility], directed by Dr. Rubin Emanuel. These tests need not be, and therefore are not, approved by the [place] Food and Drug Administration. The tests are used for clinical purposes. Billing Codes Specimen Charges Stain Charges 34477 1 3:22 PM [facility] DERMATOPATHOLOGY LABORATORY Embedded Images 3:22 PM [facility] DERMATOPATHOLOGY LABORATORY Pathology/Cytolog y TISSUE SPECIMEN FROM SKIN / Unknown 04/01/2019 04/02/2019 2:04 PM RADIOLOGY RESIDENT Tony Young MD LAB - PATHOLOGY/CYTOLOGY ORD ERABLES Final Result DERMATOPATHOLOGY LABORATORY [facility] - Department of Dermatology [address] [place] [address], [address] [place] [address], [facility] [phone] documented in this encounter Visit Diagnoses Not on filedocumented in this encounter
--- OUTSIDE RECORDS SUMMARY | 2025-04-25 13:08 | XMS_ITS | Clinical Summary ---
Author Organization [facility] Address [address] [place] [address] Phone Care Team Providers Care Splitter Tender Name Role Phone Unavailable Primary Care [...] Comments Blood Pressure 101/60 04/24/2021 1:00 AM ORACLE HRMS DEVELOPER Pulse 100 04/24/2021 1:00 AM ORACLE HRMS DEVELOPER Temperature 38.2 C (100.7 F) 04/23/2021 9:52 PM ORACLE HRMS DEVELOPER Respiratory Rate 16 04/24/2021 1:00 AM ORACLE HRMS DEVELOPER Oxygen Saturation 97% 04/24/2021 1:00 AM ORACLE HRMS DEVELOPER Inhaled Oxygen Concentration - - Weight 101.6 kg (224 lb) 04/23/2021 9:52 PM ORACLE HRMS DEVELOPER Height 177.8 cm (5' 10) 04/23/2021 9:52 PM ORACLE HRMS DEVELOPER Body Mass Index 32.14 04/23/2021 9:52 PM ORACLE HRMS DEVELOPER Plan of Treatment Health Maintenance Due Date Last Done Comments Hepatitis C Virus (HCV) Screening 1950 Zoster Immunization (1 of 2) 1969 Cologuard 09/03/1995 Colonoscopy 09/03/1995 Colorectal Cancer Screening 09/03/1995 Immunochemical Fecal Occult Blood 09/03/1995 Respiratory Syncytial Virus (RSV) Immunization (Adult) (1 - Risk 50-74 years 1-dose series) 2000 Pneumococcal Immunization (50+ years) (2 of 2 - PCV20 or PCV21) 12/06/2010 08/28/2017, 12/06/2009 Medicare Initial AWV [id number] 05/31/2013 Influenza Immunization (#1) 2024 11/0 04/2017, 03/08/2016, 01/29/2015, Additional history exists SARS-COV-2 Immunization ( season) 2024 04/18/2021, 10/18/2020, 09/20/2020 Pneumococcal Immunization Combined Discontinued 08/28/2017, 12/06/2009 DTaP/Tdap/Td Immunization Discontinued 04/04/2020 TdaP Immunization Completed 04/04/2020 Hepatitis B Immunization Aged Out No longer eligible based on patient's age to complete this topic Human Papillomavirus (HPV) Immunization (No Doses Required) Completed Meningococcal Immunization (ACWY) Aged Out No longer eligible based on patient's age to complete this topic Rotavirus Immunization Aged Out No lo nger eligible based on patient's age to complete this topic Insurance MEDICARE [facility] Member Subscriber Plan / Payer (Ef fective 2015-Present) Name:Sergio Coombs Relation to Subscriber:Self Name:Sergio Coombs Payer ID:[id number] Group ID:[id number] Type:Not on file Address: [place] [id number] MEDICARE [facility]
--- OUTSIDE RECORDS SUMMARY | 2025-04-25 13:08 | XMS_ITS | Encounter Summary ---
Author Organization [facility] Address [address] [place] [address] Care Team Providers Care Tree Marker Name Role Phone Unavailable Primary Care Provider Unavailabl e Encounter Details Date Type Department Care Team (Late st Contact Info) Description 10/06/2021 Lab Requisition [facility] DermPath Lab [address] [place] [address] Tony Young MD [address] [place] [address] Social History Tobacco Use Types Packs/Day Years Used Date Smoking Tobacco: Never Assessed Sex and Gender Information Value Date Recorded Sex Assigned at Not on file Legal Sex Male 6:04 PM 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 Gender Identity Not on file Sexual Orientation Not on file documented as of this encounter Plan of Treatment Not on file documented as of this encounter Procedures Procedure Name Priority Date/Time Associated Diagnosis Comments DERMATOPATHOLOGY Routine 10/05/2021 12:0 0 AM CDT documented in this encounter Results * DERMATOPATHOLOGY (10/05/2021 12:00 AM CDT) Case Report Dermatopathology Report Case: [id number] Authorizing Provider: Tony Young MD Collected: 10/05/2021 12:00 AM Ordering Location: [facility] DermPath Lab Received: 10/06/2021 01:55 PM Pathologist: [...] specimen consists of a shave biopsy measuring [id number] and it is bisected. Jar 0. Specimen B: Received is one formalin filled container labeled with the patient's name and designated left lateral back. The specimen consists of a shave biopsy measuring [id number]. Jar 0. Specimen C: Received is one formalin filled container labeled with the patient's name and designated left medial back. The specimen consists of a shave biopsy measuring [id number]. Jar 0. Specimen D: Received is one formalin filled container labeled with the patient's name and designated dorsal left hand. The specimen consists of a shave biopsy measuring [id number]. Jar 0. 2 3:11 PM CDT DERMATOPATHOLOGY [...] characteristic determined by the Dermatopathology Laboratory at [facility], directed by Dr. Rubin Emanuel. These tests need not be, and therefore are not, approved by the [place] Food and Drug Administration. The tests are used for clinical purposes. Billing Codes Specimen Charges Stain Charges 30657 [id number] [id number] 1 1 1 1 2 3:11 PM [...] PATHOLOGY/CYTOLOGY ORD ERABLES Final Result DERMATOPATHOLOGY LABORATORY [facility] - Department of Dermatology [address] [place] [address], [facility] [phone] documented in this encounter Visit Diagnoses Not on filedocumented in this encounter
--- OUTSIDE RECORDS SUMMARY | 2025-04-25 13:08 | XMS_ITS | Data Portability ---
Author Organization [place] - [facility], Arian Godinez - [facility] Address [address] [place] [address] Care Team Providers Care Order Runner Name Role Phone NARENDRA KWON Primary Care [...] By Organization Details Last Modified Time 03/27/2022 [id number] toenail fungus: care instructions ckyramarios Not available 03/27/2022 16:53:24 Reason for Referral None Reported. Problems No Known Problems Procedures Surgical History Date Name Laterality Status Provider Name and Address Organization Details Recorded Time 03/27/20 22 [id number] Nail avulsion- Dr. Bruno Monae, [address], [address] 03/27/2022 16:48:56 placement of stent in pulmonary artery completed Kelsey Ahn [facility] 03/27/2022 15:49:15 Imaging Results None recorded. Procedure Notes None recorded. Medical Equipment None Reported. Allergies Allergen ID Allergen Name Allergen Category Reaction Reaction Severity Criticality Documentation Date Start Date Code Code System Note Provider Name and Address Organization Details Recorded Time 21684 adhesive tape environme nt,medica tion Not available Not available Not available 03/27/2022 Kelsey Ahn [facility] 15:49:31 Medications Name Sig Start Date Stop [...] Updated DateTime 03/27/2022 177.8 cm 28.7 kg/m2 21866.[address] [facility] 03/27/2022 15:48:20 Social History Question Answer [...] Artery Disease N HIV or AIDS N Gout N Seizure Disorder N High Blood Pressure N Clot in Lung or Pulmonary Embolism N Menopause N Lung Condition N Phlebitis or Venous Blood Clot N Migraines N Depression N Pacemaker N Anemia N Back Pain N Neurologic Disease N Sciatica Y Heart Attack ([place]) N Urinary Tract Infections N Anxiety Disorder Y Diabetes N Bleeding Disorder N Arthritis N Abuse of Alcohol or Drugs N Back injury N Ear Problems N Cancer N Eye Problems N Stroke N Dementia N Stomach Problems N Peripheral Vascular Disease N Sinus Conditions N High Cholesterol N Thyroid Disorder N Broken Bone N Hepatitis N Liver Disease N Heart Disease N Rheumatoid Arthritis N Rash N Osteoporosis N Kidney Disease N Past Encounters Encounter ID Performer Location Encounter Start Date Encounter Closed Date Diagnosis/Indication Diagnosis SNOMED-CT Code Diagnosis ICD10 Code Diagnosis IMO Codes Diagnosis Note [id number] Lc Monae DPM [facility] [address] [place] [address] 03/27/2022 15:18:40 03/27/2022 16:03:42 Onycholysis due to fungal infection of nail 894020714 L60.1 SEVERE RIGHT HALLUX Onychomycosis 902923584 B35.1 PROBABLE ONYCHOMYCO SIS RIGHT HALLUX, LEFT 2ND TOE Pain in toe 287576379 M7 9.595 M79.674 Health Concerns Section Related Observation LastModified by Organization Detai ls LastModified Time None Recorded Concern Status LastModified by Organization Details LastModified Time None Recorded Advance Directives Directive None Recorded Payers Insurance Date Sequence Insurance Name Policy Number Policy Ford Covered Member ID Ford Member ID Guarantor Name 03/27/2022 2 AET [employer] (MEDICARE SUPPLEMENT) Sergio Coombs [id number] Sergio Coombs 03/27/2022 1 [place] Sregio Coombs [id number] Sergio Coombs Notes Date Note Type Note Provider Name and Address Organization Details Recorded Time 2 text/html Nails--Reported by PatientHPIFor nature, patient reportsoccasional sharp or shooting pain. For location, patient reportstoenails left 2 __ __ __ __andtoenails right 1, __, __, __, __(right hallux nail is very thick, loose and black). For severity, patient reportsmild. For duration, patient reports1 years. For timing, patient reportsgradually worse as time goes on. For onset, patient reportsall shoes apply uncomfortable pressure. For alleviating factors, patient reportshas been using topical antifungal (ciclopirox)andnothing helps. For aggravating factors, patient reportspressure. For associated symptoms, patient reportstoo thick to cut with clippers at home,afraid of causing an infection at home,causes self to bleed when preformed at home,family is afraid to cut nails, andredness. For course, patient reportshas stayed the same. For previous treatment, patient reportsself trimming.pt states he last saw Dr Kwon 02/10/22. [...] Parkinsons. He has myasthenia gravis. Power Monae, DPM [address] [place], [address], [facility] 03/27/2022 16:54:09
--- OUTSIDE RECORDS SUMMARY | 2025-04-25 13:08 | XMS_ITS | Clinical Summary ---
Author Organization [facility] Address [facility] [place] [address] Care Team Providers Care Python Web Developer Name Role Phone Unavailable Primary Care [...] of 2) 2000 COVID-19 Vaccine ( - 2024-2 6 season) 2024 Influenza Adult (#1) 2025 RSV Immunization or 60+ Years (1 - 1-dose 75+ series) 2025 Hepatitis A Vaccines Aged Out No long er eligible based on patient's age to complete this topic Meningococcal B Vaccine Aged Out No l onger eligible based on patient's age to complete this topic Meningococcal Vaccine Aged Out No julio cesar eligible based on patient's age to complete this topic RSV Immunizations Under 20 Months Aged Out No longer eligible based on patient's age to complete this topic Advance Directives Documents on File Type Date Recorded Patient Bottle Booth Attendant Expl anation Advance Directives and Living Will 08/25/2015 12:00 AM ADVANCED DIRECTIVES Advance Directives and Living Will 01/28/2015 12:00 AM ADVANCED DIRECTIVES Advance Directives and Living Will 12/06/2014 12:00 AM ADVANCED DIRECTIVES
--- OUTSIDE RECORDS SUMMARY | 2025-04-25 13:08 | XMS_ITS | Encounter Summary ---
Author Organization [facility] Address [address] [place] [address] Care Team Providers Care Oracle Engineer Name Role Phone Unavailable Primary Care Provider Unavailabl e Encounter Details Date Type Department Care Team (Late st Contact Info) Description 10/27/2021 Lab Requisition 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 DermPath Lab Received: 10/27/2021 12:05 [...] specimen consists of a shave removal measuring [id number], bisected. The margin is inked green. Jar [...] characteristic determined by the Dermatopathology Laboratory at [facility], directed by Dr. Rubin Emanuel. These tests need not be, and therefore are not, approved by the [place] Food and Drug Administration. The tests are used for clinical purposes. Billing Codes Specimen Charges Stain Charges 60423 1 2 5:02 PM CDT DERMATOPATHOLOGY LABORATORY Embedded Images 2 5:02 PM CDT DERMATOPATHOLOGY LABORATORY Pathology/Cytolog y TISSUE SPECIMEN FROM SKIN / Unknown 10/26/2021 10/27/2021 12:05 PM CDT us Tony Young MD LAB - PATHOLOGY/CYTOLOGY ORD ERABLES Final Result DERMATOPATHOLOGY LABORATORY [facility] - Department of Dermatology [address], [address] [place] [address], [facility] [phone] documented in this encounter Visit Diagnoses Not on filedocumented in this encounter
--- OUTSIDE RECORDS SUMMARY | 2025-04-25 13:08 | XMS_ITS | Patient Health Record ---
Author Organization [facility] AV[facility]code [facility] Address [address] [place] [address] Care Team Providers Care Yarn Preparation Supervisor Name Role Phone Alyson Ramírez Unavailable [phone] Reason For Referral No Information Medications Medication SIG (Take, Route, Frequency, Duration) Notes Start Date End Date Status Clotrimazole 10 MG Lozenge Mouth/Throat 08/08/2021 Active IPRATROPIUM BROMIDE 21 MCG (0.03 %) NASAL SPRAY *Reorder from [employer] for eRx and Interaction Alerts* 08/08/2021 Active Ciclopirox 8% Solution External 08/08/2021 Active QUEtiapine Fumarate 300 MG Tablet Oral 08/08/2021 Active predniSONE 10 MG Tablet Oral 08/08/2021 Active Ezetimibe 10 MG Tablet Oral 08/08/2021 Active pyRIDostigmine [place] 60 mg Tablet Oral 08/08/2021 Active Ipratropium [place] 0.06 % Solution Nasal 08/08/2021 Active traZODone HCl 100 MG Tablet Oral 08/08/2021 Active azaTHIOprine 50 MG Tablet Oral 08/08/2021 Active Nystatin 006177 UNIT/ML Suspension Mouth/Throat 08/08/2021 Active Nitrofurantoin Monohyd Macro 100 MG Capsule Oral 08/08/2021 Active Depakote 500 MG Tablet Delayed Release Oral 08/08/2021 Active LORazepam 0.5 MG Tablet Oral 08/08/2021 Active Divalproex Sodium 500 MG Tablet Delayed Release Oral 08/08/2021 Active Rosuvastatin Calcium 40 MG Tablet Oral 08/08/2021 Active Immunizations Vaccine Route Administration Date Status Comme nts Tdap Unknown 04/04/2020 Administered Pneumococcal conjugate PCV 7 Unknown 08/28/2017 Adminis tered Pneumococcal conjugate PCV 13 Unknown 12/06/2009 Admini stered Moderna Covid-19 Vaccine 1st dose Unknown 09/20/2020 Ad ministered Moderna Covid-19 Vaccine 1st dose Unknown 10/18/2020 Ad ministered Moderna Covid-19 Vaccine 1st dose Unknown 04/18/2021 Ad ministered Influenza, high dose seasonal Unknown 03/08/2016 Admini stered Influenza virus vaccine, quadrivalent (IIV4), split virus, 0.25 mL dosage Unknown 01/25/2014 Administered Influenza virus vaccine, quadrivalent (IIV4), split virus, 0.25 mL dosage Unknown 01/29/2015 Administered Influenza virus vaccine, quadrivalent (IIV4), split virus, 0.25 mL dosage Unknown 02/28/2018 Administered Social History Social History Additional Details Category Social Info Options Details Migrated Social History Migrated Social History Alcohol Intake: None 02/11/2018,Tobacco Years: Never smoker 02/11/2018,Smoking Status: 0 12/27/2018 Plan Of Treatment No Information Insurance Providers Payer Name Payer Address Payer Phone Subscriber Number Group Number Insured Name Patient Relationship to Insured Coverage Start Date Coverage End Date [place] Medicare [address] [place] [phone] [id number] MAYRA LINDA Self - patient is the insured [employer] Medicare Supplement [address] [address] [place] [address] [id number] MAYRA LINDA Self - patient is the insured Medical (General) History Surgical History Surgery Date(Month/Year) Hernia repair w/mesh (01432) Cardiac stent
--- OUTSIDE RECORDS SUMMARY | 2025-04-25 13:08 | XMS_ITS | Clinical Summary ---
Author Organization [facility] Address [address] [place] [address] Care Team Providers Care Leakage Tester Name Role Phone Unavailable Primary Care Provider Unavailabl e Source Comments [facility],non-owned Affiliates and Associated Physician Practices is amultiple site organization consisting of ambulatory clinics and hospital sitesin [place], [place], [place] and [place]. This disclosure is being madepursuant to the Care Everywhere program and may not contain all information available regarding this patient. 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
--- OUTSIDE RECORDS SUMMARY | 2025-04-25 13:08 | XMS_ITS | Clinical Summary ---
Author Organization [facility] Address [address] [place] [address] Care Team Providers Care Office Sweeper Name Role Phone Salty Cook MD Primary Care Provider [phone] Allergies Active Allergy Reactions Criticality Noted Date [...] 04/24/2021 Assessment & Plan (04/24/2021 6:03 AM ADDICTION PSYCHIATRIST): Suspect delirium in setting of fevers - [...] Speech/PT/OT Assessment & Plan (04/24/2021 5:58 AM ADDICTION PSYCHIATRIST): Suspect delirium in setting of fevers - [...] 04/24/2021 Assessment & Plan (04/24/2021 6:01 AM ADDICTION PSYCHIATRIST): Prior to arrival at [facility]. Febrile and tachycardic. CXR [...] dexamethasone.. Assessment & Plan (04/24/2021 5:57 AM ADDICTION PSYCHIATRIST): Prior to arrival at [facility]. [...] 04/24/2021 Assessment & Plan (04/24/2021 6:05 AM ADDICTION PSYCHIATRIST): T2N2B stage Oakes moderately to poorly differentiated squamous cell carcinoma [...] Lovenox. 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 -Recently seen by OSH oncology without e/o disease -Upload images from OSH to Elva for read -DVT PPX: Lovenox. 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 Previously on warfarin however complicated by IPH 2016. Now on ASA 81mg daily. -Continue ASA 81mg daily. 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 Previously on warfarin however complicated by IPH 2016. Now on ASA 81mg daily. -Continue ASA 81mg daily. Bipolar 1 disorder 04/24/2021 Assessment & Plan (04/24/2021 6:02 AM ADDICTION PSYCHIATRIST): Takes Seroquel 600mg daily, Ativan 0.5mg BID, and Depakote 500mg TID. -Hold seroquel and ativan given confusion -Continue depakote. Insomnia 04/24/2021 Assessment & Plan (04/24/2021 6:03 AM ADDICTION PSYCHIATRIST): Hold ambien in setting of confusion. Obesity with body mass index 30 or greater 12/15 Pain of left lower extremity 10/07/2015 Intraparenchymal hemorrhage of brain 08/18/2015 Nonobliterative otosclerosis involving oval wind ow 05/06/2015 Essential hypertension 06/22/2014 Myasthenia gravis 11/28/2013 Assessment & Plan (04/24/2021 6:01 AM ADDICTION PSYCHIATRIST): Significant history of myasthenia gravis on Prednisone, Imuran, and Pyridostigmine. Doesn't appear to be in crisis at this time. -Check NIF BID -Consult Neurology in AM given polypharmacy/confusion in setting of Myasthenia Gravis -Continue Prednsione, Imuran, and Pyridostigmine Assessment & Plan (04/24/2021 5:53 AM ADDICTION PSYCHIATRIST): Significant history of myasthenia gravis on Prednisone, Imuran, and Pyridostigmine. Doesn't appear to be in crisis at this time. -Check NIF BID -Consult Neurology in AM given polypharmacy/confusion in setting of Myasthenia Gravis -Continue Prednsione, Imuran, and Pyridostigmine Fatigue 11/27/2012 Coronary arteriosclerosis in paimiut artery 06/14 Assessment & Plan (04/24/2021 6:01 AM ADDICTION PSYCHIATRIST): CAD s/p PCI to LAD and prox/mid RCA 2000. Previously followed with Dr. Frey now followed by OS curing press operator. Here for STEMI evaluation -Per STEMI/CARDS -> No concern for STEMI and stable EKG -> recommend repeat troponin -Check Troponin. -Continue ASA 81mg daily, Rosuvastatin 40mg daily, Ezetimibe 10mg daily. Assessment & Plan (04/24/2021 5:57 AM ADDICTION PSYCHIATRIST): CAD s/p PCI to LAD and prox/mid RCA 2000. Previously followed with Dr. Frey now followed by OS curing press operator. Here for STEMI evaluation -Per STEMI/CARDS -> No concern for STEMI and stable EKG -> recommend repeat troponin -Check Troponin. -Continue ASA 81mg daily, Rosuvastatin 40mg daily, Ezetimibe 10mg daily. Hyperlipidemia 09/13/2010 Overview (08/10/2017): Description: Hyperlipidemia Assessment & Plan (04/24/2021 6:01 AM ADDICTION PSYCHIATRIST): Continue Rosuvastatin and Exetimibe. Assessment & Plan (04/24/2021 5:53 AM ADDICTION PSYCHIATRIST): Continue Rosuvastatin and Exetimibe. Surgical History Surgery Date Site/Laterality Comments [place] INSERT INTRACORONARY STENT Cath Stent Placement - (Added by TW Conv) [place] UNLISTED PROCEDURE ABDOMEN PERITONEUM & OMENTUM Hernia Repair - (Added by TW Conv) OTHER SURGICAL HISTORY 04/30/2019 - 04/29/2020 1/3 of Tongue Removed OTHER SURGICAL HISTORY 04/30/2019 - 04/29/2020 32 Lymphnodes Removed Medical History Medical History Date Comments HL (hearing loss) Cancer (HCC) 2019 Tongue Cancer Myasthenia gravis Coronary artery disease S/P PCI to LAD [...] on file Legal Sex Male 10:46 PM ADDICTION PSYCHIATRIST Gender Identity Male 05/23/2018 10:17 AM ADDICTION PSYCHIATRIST Sexual Orientation Not on file Last Filed Vital Signs Vital Sign Reading Time Taken Comments Blood Pressure 104/69 04/27/2021 11:28 AM ADDICTION PSYCHIATRIST Pulse 70 04/27/2021 11:28 AM ADDICTION PSYCHIATRIST Temperature 36.7 C (98.1 F) 04/27/2021 11:28 AM ADDICTION PSYCHIATRIST Respiratory Rate 18 04/27/2021 11:28 AM ADDICTION PSYCHIATRIST Oxygen Saturation 94% 04/27/2021 11:28 AM ADDICTION PSYCHIATRIST Inhaled Oxygen Concentration - - Weight 82.1 kg (181 lb) 04/25/2021 7:46 AM ADDICTION PSYCHIATRIST Height 173.5 cm (5' 8.31) 04/25/2021 7:46 AM CS T Body Mass Index 27.27 04/25/2021 7:46 AM ADDICTION PSYCHIATRIST Plan of Treatment Health Maintenance Due Date Last Done Comments Colon Cancer Screening-Colonoscopy 1950 Depression Screening 1950 Hepatitis C Screening 1950 DTaP/Tdap/Td Vaccine (1 - Tdap) 1961 Hepatitis B Screening 1968 Zoster Vaccine (1 of 2) 1969 Abdominal Aortic Aneurysm (A AA) Screen 09/03/2015 Well Visit 65+ 09/03/2015 Fall Risk Assessment 04/27/2022 04/27/2021 Covid-19 Vaccine (2024-2 6 season) 2024 10/18/2020, 09/20/2020, 09/20/2020 Influenza Vaccine (#1) 2024 3, 03/07/2018, 02/12/2017, Additional history exists Pneumococcal vaccine 65+ Completed 022, 12/30/2019, 09/20/2018, Additional history exists Insurance T SENIOR SUPPLEMENT MEDICARE AET SENIOR SUPPLEMENT MEDICARE [facility] Address: [address] [place] [phone] [employer] SENIOR SUPPLEMENT Advance Directives For more information, please contact: [phone] * Full Code (Latest Code Status on File) Date Activated Date Inactivated Comments 04/24/2021 3:54 AM 04/27/2021 6:04 PM Care Teams Office Sweeper Relationship Specialty Start Date End Date Salty Cook MD [address] [place] [address] [place] [address] PCP - General Internal Medicine 03/29/18
--- OUTSIDE RECORDS SUMMARY | 2025-04-25 13:08 | XMS_ITS | Encounter Summary ---
Author Organization [facility] Address [address] [place] [address] Care Team Providers Care Director Of Application Development Name Role Phone Unavailable Primary Care Provider Unavailabl e Encounter Details Date Type Department Care Team (Late st Contact Info) Description 03/03/2021 Lab Requisition [facility] DermPath Lab [address] [place] [address] Tony Young MD [address] [place] [address] Social History Tobacco Use Types Packs/Day Years Used Date Smoking Tobacco: Never Assessed Sex and Gender Information Value Date Recorded Sex Assigned at Not on file 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 Gender Identity Not on file Sexual Orientation Not on file documented as of this encounter Plan of Treatment Not on file documented as of this encounter Procedures Procedure Name Priority Date/Time Associated Diagnosis Comments DERMATOPATHOLOGY Routine 03/02/2021 12:0 0 AM CDT documented in this encounter Results * DERMATOPATHOLOGY (03/02/2021 12:00 AM CDT) Case Report Dermatopathology Report Case: [id number] Authorizing Provider: Tony Young MD Collected: 03/02/2021 12:00 AM Ordering Location: [facility] DermPath Lab Received: 03/03/2021 12:58 PM Pathologist: [...] of a curettage and desiccation biopsy measuring [id number]. Jar 0. Specimen B: Received is one formalin filled container labeled with the patient's name and designated left post vertex scalp. The specimen consists of a shave biopsy measuring [id number]. Jar 0. 5:07 PM T DERMATOPATHOLOGY LABORATORY [...] characteristic determined by the Dermatopathology Laboratory at [facility], directed by Dr. Rubin Emanuel. These tests need not be, and therefore are not, approved by the [place] Food and Drug Administration. The tests are used for clinical purposes. Billing Codes Specimen Charges Stain Charges 39039 09742 1 1 5:07 PM CDT DERMATOPATHOLOGY LABORATORY [...] [facility] Specialized Medicine [address] [place] [address], [address] [phone] documented in this encounter Visit Diagnoses Not on filedocumented in this encounter
--- OUTSIDE RECORDS SUMMARY | 2025-04-25 13:08 | XMS_ITS | Encounter Summary ---
Author Organization [facility] Address [address] [place] [address] Care Team Providers Care Billing Analyst Name Role Phone Unavailable Primary Care Provider Unavailabl e Encounter Details Date Type Department Care Team (Late st Contact Info) Description 09/08/2020 Lab Requisition [facility] DermPath Lab [address] [place] [address] Tony Young MD [address] [place] [address] Social History Tobacco Use Types Packs/Day Years Used Date Smoking Tobacco: Never Assessed Sex and Gender Information Value Date Recorded Sex Assigned at Not on file 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 Gender Identity Not on file Sexual Orientation Not on file documented as of this encounter Plan of Treatment Not on file documented as of this encounter Procedures Procedure Name Priority Date/Time Associated Diagnosis Comments DERMATOPATHOLOGY Routine 09/07/2020 12:0 0 AM CDT documented in this encounter Results * DERMATOPATHOLOGY (09/07/2020 12:00 AM CDT) Case Report Dermatopathology Report Case: [id number] Authorizing Provider: Tony Young MD Collected: 09/07/2020 12:00 AM Ordering Location: [facility] DermPath Lab Received: 09/08/2020 01:40 [...] of a curettage and desiccation biopsy measuring [id number], bisected. Jar 0. 12:29 PM CDT DERMATOPATHOLOGY [...] characteristic determined by the Dermatopathology Laboratory at [facility], directed by Dr. Rubin Emanuel. These tests need not be, and therefore are not, approved by the [place] Food and Drug Administration. The tests are used for clinical purposes. Billing Codes Specimen Charges Stain Charges 61969 1 12:29 PM CDT DERMATOPATHOLOGY LABORATORY Embedded Images 12:29 PM CDT DERMATOPATHOLOGY LABORATORY Pathology/Cytolog y TISSUE SPECIMEN FROM SKIN / Unknown 09/07/2020 09/08/2020 1:40 PM CDT Tony Young MD LAB - PATHOLOGY/CYTOLOGY ORD ERABLES Final Result DERMATOPATHOLOGY LABORATORY [facility] - Department of Dermatology [address], [address] [phone] documented in this encounter Visit Diagnoses Not on filedocumented in this encounter
--- OUTSIDE RECORDS SUMMARY | 2025-04-25 13:08 | XMS_ITS | Encounter Summary ---
Author Organization [facility] Address [address] [facility] [place] [address] Care Team Providers Care Clinical Cytopathologist Name Role Phone Unavailable Primary Care Provider Unavailabl e Encounter Details Date Type Department Care Team (Late st Contact Info) Description 12/29/2020 Lab Requisition [facility] DermPath Lab [address] [place] [address] Tony Young MD [address] [place] [place] [address] Social History Tobacco Use Types Packs/Day Years Used Date Smoking Tobacco: Never Assessed Sex and Gender Information Value Date Recorded Sex Assigned at Not on file Legal Sex Male 6:04 PM RN LPN LVN Gender Identity Not on file Sexual Orientation Not on file documented as of this encounter Plan of Treatment Not on file documented as of this encounter Procedures Procedure Name Priority Date/Time Associated Diagnosis Comments DERMATOPATHOLOGY Routine 12/28/2020 12:0 0 AM CDT documented in this encounter Results * DERMATOPATHOLOGY (12/28/2020 12:00 AM CDT) Case Report Dermatopathology Report Case: [id number] Authorizing Provider: Tony Young MD Collected: 12/28/2020 12:00 AM Ordering Location: [facility] DermPath Lab Received: 12/29/2020 01:14 PM [...] specimen consists of a shave biopsy measuring [id number]. Jar 0. Specimen B: Received is one formalin filled container labeled with the patient's name and designated behind mid left ear on scalp. The specimen consists of a shave biopsy measuring [id number]. Jar 0. Specimen C: Received is one formalin filled container labeled with the patient's name and designated left forehead (2.5cm) above brow. The specimen consists of a shave biopsy measuring [id number]. Jar 0. 12:20 PM CDT DERMATOPATHOLOGY LABORATORY [...] determined by the Dermatopathology Laboratory at [facility], directed by Dr. Rubin Emanuel. These tests need not be, and therefore are not, approved by the [place] Food and Drug Administration. The tests are used for clinical purposes. Billing Codes Specimen Charges Stain Charges 64847 05058 01294 1 1 1 12:20 PM CDT DERMATOPATHOLOGY [...] PATHOLOGY/CYTOLOGY ORD ERABLES Final Result DERMATOPATHOLOGY LABORATORY [facility] - Department of Dermatology [facility] [address] [place] [address], [address] [phone] documented in this encounter Visit Diagnoses Not on filedocumented in this encounter
--- OUTSIDE RECORDS SUMMARY | 2025-04-25 13:08 | XMS_ITS | Encounter Summary ---
Author Organization [facility] Address [address] [facility] [place] [address] Care Team Providers Care Esthetician/Spa Coordinator Name Role Phone Unavailable Primary Care Provider Unavailabl e Encounter Details Date Type Department Care Team (Late st Contact Info) Description 04/05/2020 Lab Requisition [facility] DermPath Lab [address] [place] [phone] Tony Young MD [address] [place] [address] Social History Tobacco Use Types Packs/Day Years Used Date Smoking Tobacco: Never Assessed Sex and Gender Information Value Date Recorded Sex Assigned at Not on file 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 Gender Identity Not on file Sexual Orientation Not on file documented as of this encounter Plan of Treatment Not on file documented as of this encounter Procedures Procedure Name Priority Date/Time Associated Diagnosis Comments DERMATOPATHOLOGY Routine 04/02/2020 12:0 0 AM PAPER ROLL MACHINE OPERATOR documented in this encounter Results * DERMATOPATHOLOGY (04/02/2020 12:00 AM PAPER ROLL MACHINE OPERATOR) Case Report Dermatopathology Report Case: [id number] Authorizing Provider: Tony Young MD Collected: 04/02/2020 12:00 AM Ordering Location: [facility] DermPath Lab Received: 04/05/2020 12:12 PM Pathologist: Evie Emanuel MD Specimen: Skin, right neck 0 3:35 PM PAPER ROLL MACHINE OPERATOR DERMATOPATHOLOGY LABORATORY Final Diagnosis Specimen A. SKIN, right neck: ACTINIC KERATOSIS (L57.0) 0 3:35 PM PAPER ROLL MACHINE OPERATOR DERMATOPATHOLOGY LABORATORY at 1535 PAPER ROLL MACHINE OPERATOR Clinical History R/O SCC, Chacko's, HAK. 0 3:35 PM PAPER ROLL MACHINE OPERATOR DERMATOPATHOLOGY LABORATORY Gross Description Specimen A: Received is one formalin filled container labeled with the patient's name and designated right neck. The specimen consists of a shave biopsy measuring [id number]. Jar 0. 0 3:35 PM [facility] DERMATOPATHOLOGY LABORATORY Microscopic Description Specimen A. SKIN, right neck: There is focal parakeratosis. The lower half of the epidermis shows disorderly maturation of keratinocytes with nuclear pleomorphism. 0 3:35 PM PAPER ROLL MACHINE OPERATOR DERMATOPATHOLOGY LABORATORY Disclaimer An external and internal [...] purposes. Billing Codes Specimen Charges Stain Charges 97276 1 0 3:35 PM PAPER ROLL MACHINE OPERATOR DERMATOPATHOLOGY LABORATORY Embedded Images 0 3:35 PM PAPER ROLL MACHINE OPERATOR DERMATOPATHOLOGY LABORATORY Pathology/Cytolog y TISSUE SPECIMEN FROM SKIN / Unknown 04/02/2020 04/05/2020 12:12 PM PAPER ROLL MACHINE OPERATOR Tony Young MD LAB - PATHOLOGY/CYTOLOGY ORD ERABLES Final Result DERMATOPATHOLOGY LABORATORY [facility] - Department of Dermatology [address], [address] [phone] documented in this encounter Visit Diagnoses Not on filedocumented in this encounter
--- OUTSIDE RECORDS SUMMARY | 2025-04-25 13:08 | XMS_ITS | Clinical Summary ---
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 08/10/2017 Myasthenia gravis 11/28/2013 Hyperlipidemia 09/13/2010 Overview (12/20/2019): Description: Hyperlipidemia Encounters Date Type Department Care Team Description 03/23/2025 2:30 PM HOSPITAL EDUCATION COORDINATOR Office Visit [facility] and [facility] [address] [place] [phone] Sujit Andrade MD Squamous cell cancer of tongue (CMS/HCC) (Primary Dx) 03/18/2025 Orders Only [facility] and [facility] [address] [place] [address] Sujit Andrade MD 02/10/2025 External Device Data STL ABSTRACTION Provider, Abstract [...] Sign Reading Time Taken Comments Blood Pressure 139/89 03/23/2025 2:25 PM HOSPITAL EDUCATION COORDINATOR Pulse 87 03/23/2025 2:25 PM HOSPITAL EDUCATION COORDINATOR Temperature 36.6 C (97.9 F) 03/23/2025 2:25 PM HOSPITAL EDUCATION COORDINATOR Respiratory Rate 16 03/23/2025 2:25 PM HOSPITAL EDUCATION COORDINATOR Oxygen Saturation 94% 03/23/2025 2:25 PM HOSPITAL EDUCATION COORDINATOR Inhaled Oxygen Concentration - - Weight 85.4 kg (188 lb 3.2 oz) 03/23/2025 2:25 P M HOSPITAL EDUCATION COORDINATOR Height 177.8 cm (5' 10) 12/03/2024 11:48 AM CDT Body Mass Index 27 12/03/2024 11:48 AM CDT Plan of Treatment Health Maintenance Due Date Last Done Comments COLORECTAL SCREENING 09/03/1995 Colorectal Cancer Screening 09/03/1995 FIT-DNA Q 3 years 09/03/1995 FIT/FOBT Q 1 year 09/03/1995 Flex Sig/CT Colonography Q 5 years 09/03/1995 RSV VACCINE (60+ or ) (1 - Risk 50-74 years 1-dose series) 2000 ZOSTER VACCINE (1 of 2) 2000 INFLUENZA VACCINE (#1) 2024 3, 02/28/2018, 03/08/2016, Additional history exists COVID-19 Vaccine (2024-2 6 season) 2024 04/18/2021, 10/18/2020, 09/20/2020 DTAP/TDAP/TD VACCINES (2 - T d or Tdap) 04/04/2030 04/04/2020 PNEUMOCOCCAL VACCINE 50+ YEARS Completed 0 12/30/2019, 09/20/2018, 08/28/2017, Additional history exists Medical Devices Implanted Type Area Light Armored Vehicle Officer Device Identifier Shelf Expiration Date Model / Serial / Lot Hemostatic Surgicel 1x2in 1960 - [id number] Implanted:Qty: 1 on 12/19/2019 by Vikas Castillo MD at [facility] Hemostatic Right: Neck [employer] 11/27/20211960 / / [id number] Ivc Filter Procedures Procedure Name Priority Date/Time Associated Diagnosis Comments COMPREHENSIVE METABOLIC PANEL Routine 03/17/2025 12:56 [address]ITAL EDUCATION COORDINATOR CT SOFT TISSUE NECK CHEST W CONT Routine 03/17/2025 9:33 AM HOSPITAL EDUCATION COORDINATOR from Last 3 Months Results * COMPREHENSIVE METABOLIC PANEL (03/17/2025 12:56 PM HOSPITAL EDUCATION COORDINATOR) Blood Sujit Andrade MD CHEMISTRY ORDERABLES Final Resu lt * CT SOFT TISSUE NECK CHEST W CONT (03/17/2025 9:33 AM HOSPITAL EDUCATION COORDINATOR) Anatomical Region Laterality Modality Neck Computed Tomogra phy Sujit Andrade MD CT ORDERABLES Final Result from Last 3 Months Insurance [facility] MEDICARE PART A AND B BCBS SUPP Advance Directives For more information, please contact: [phone] Documents on File Type Date Recorded Patient Hearing Screener Expl anation Advance Directive POA 12/19/2019 11:51 AM Advance Directive POA * Full Code (Latest Code Status on File) Date Activated Date Inactivated Comments 12/19/2019 7:59 PM 12/22/2019 3:00 PM * Full Code Date Activated Date Inactivated Comments 12/19/2019 12:07 PM 12/19/2019 7:59 PM Care Teams Core Assembly Supervisor Relationship Specialty Start Date End Date Salty Cook MD [address] [place] [address] [address] [place] [phone] PCP - General Internal Medicine 12/10/19
--- NOTE | 2025-04-25 13:46 | ECG_ITS ---
Test Date: 2025-04-25 13:56:07 Measurements Intervals Meridian Rate: 84 P: 21 GA: 183 QRS: -36 QRSD: 142 T: 63 QT: 413 QTc: 489 Interpretive Statements SINUS RHYTHM WITH OCCASIONAL VENTRICULAR PREMATURE COMPLEXES LEFT AXIS DEVIATION INTRAVENTRICULAR CONDUCTION DELAY MINIMAL Q WAVES- HIGH LATERAL LEADS BASELINE ARTIFACT- II, III, AVR, AVL, AVF, V1-V2, V6 BORDERLINE ECG No previous ECG available for comparison Electronically Signed On 04-27-2025 08:28:40 PASSENGER BRAKEMAN by Tj Guerra D.O.
--- OUTSIDE RECORDS SUMMARY | 2025-04-25 13:55 | XMS_ITS | Encounter Summary ---
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 Gender Identity Not on file Sexual Orientation Not on file documented as of this encounter Plan of Treatment Not on file documented as of this encounter Procedures Procedure Name Priority Date/Time Associated Diagnosis Comments DERMATOPATHOLOGY Routine 10/26/2021 12:0 0 AM CDT documented in this encounter Results * DERMATOPATHOLOGY (10/26/2021 12:00 AM CDT) Case Report Dermatopathology Report Case: [id number] Authorizing Provider: Tony Young MD Collected: 10/26/2021 12:00 AM Ordering Location: [facility] DermPath Lab Received: 10/27/2021 12:05 PM [...] specimen consists of a shave removal measuring [id number], bisected. The margin is inked green. Jar [...] characteristic determined by the Dermatopathology Laboratory at [facility], directed by Dr. Rubin Emanuel. These tests need not be, and therefore are not, approved by the [place] Food and Drug Administration. The tests are used for clinical purposes. Billing Codes Specimen Charges Stain Charges 44767 1 2 5:02 PM CDT DERMATOPATHOLOGY LABORATORY Embedded Images 2 5:02 PM CDT DERMATOPATHOLOGY LABORATORY Pathology/Cytolog y TISSUE SPECIMEN FROM SKIN / Unknown 10/26/2021 10/27/2021 12:05 PM CDT us Tony Young MD LAB - PATHOLOGY/CYTOLOGY ORD ERABLES Final Result DERMATOPATHOLOGY LABORATORY [facility] - Department of Dermatology [address] [place] [address], [facility] [phone] documented in this encounter Visit Diagnoses Not on filedocumented in this encounter
--- OUTSIDE RECORDS SUMMARY | 2025-04-25 13:55 | XMS_ITS | Encounter Summary ---
Author Organization [facility] Address [address] [facility] [place] [address] Care Team Providers Care Program Lead Name Role Phone Unavailable Primary Care Provider Unavailabl e Encounter Details Date Type Department Care Team (Late st Contact Info) Description 03/03/2021 Lab Requisition [facility] DermPath Lab [address] [place] [address] Tony Young MD [address] [place] [address] Social History Tobacco Use Types Packs/Day Years Used Date Smoking Tobacco: Never Assessed Sex and Gender Information Value Date Recorded Sex Assigned at Not on file 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 Gender Identity Not on file Sexual Orientation Not on file documented as of this encounter Plan of Treatment Not on file documented as of this encounter Procedures Procedure Name Priority Date/Time Associated Diagnosis Comments DERMATOPATHOLOGY Routine 03/02/2021 12:0 0 AM CDT documented in this encounter Results * DERMATOPATHOLOGY (03/02/2021 12:00 AM CDT) Case Report Dermatopathology Report Case: [id number] Authorizing Provider: Tony Young MD Collected: 03/02/2021 12:00 AM Ordering Location: [facility] DermPath Lab Received: 03/03/2021 12:58 PM [...] of a curettage and desiccation biopsy measuring [id number]. Jar 0. Specimen B: Received is one formalin filled container labeled with the patient's name and designated left post vertex scalp. The specimen consists of a shave biopsy measuring 09k4j9um. Jar 0. 5:07 PM T DERMATOPATHOLOGY LABORATORY [...] purposes. Billing Codes Specimen Charges Stain Charges 64683 44925 1 1 5:07 PM CDT DERMATOPATHOLOGY LABORATORY Embedded Images 5:07 PM CDT DERMATOPATHOLOGY LABORATORY Pathology/Cytology TISSUE SPECIMEN FROM SKIN / Unknown 03/02/2021 03/03/2021 12:58 PM CDT Miscellaneous samples (specimen) TISSUE SPECIMEN FROM SKIN / Unknown 03/02/2021 03/03/2021 12:58 PM CDT us Tony Young MD LAB - PATHOLOGY/CYTOLOGY ORD ERABLES Final Result DERMATOPATHOLOGY LABORATORY [facility] - Department of Dermatology [facility] Special[facility] Medicine [address] [place] [address], [address] [phone] documented in this encounter Visit Diagnoses Not on filedocumented in this encounter
--- OUTSIDE RECORDS SUMMARY | 2025-04-25 13:55 | XMS_ITS | Encounter Summary ---
Author Organization [facility] Address [address] [place] [address] Care Team Providers Care Permit Technician Name Role Phone Unavailable Primary Care Provider Unavailabl e Encounter Details Date Type Department Care Team (Late st Contact Info) Description 12/29/2020 Lab Requisition [facility] DermPath Lab [address] [place] [address] Tony Young MD [address] [place] [address] Social History Tobacco Use Types Packs/Day Years Used Date Smoking Tobacco: Never Assessed Sex and Gender Information Value Date Recorded Sex Assigned at Not on file 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 Gender Identity Not on file Sexual Orientation Not on file documented as of this encounter Plan of Treatment Not on file documented as of this encounter Procedures Procedure Name Priority Date/Time Associated Diagnosis Comments DERMATOPATHOLOGY Routine 12/28/2020 12:0 0 AM CDT documented in this encounter Results * DERMATOPATHOLOGY (12/28/2020 12:00 AM CDT) Case Report Dermatopathology Report Case: [id number] Authorizing Provider: Tony Young MD Collected: 12/28/2020 12:00 AM Ordering Location: [facility] DermPath Lab Received: 12/29/2020 01:14 PM [...] specimen consists of a shave biopsy measuring 45a0l4yp. Jar 0. Specimen B: Received is one formalin filled container labeled with the patient's name and designated behind mid left ear on scalp. The specimen consists of a shave biopsy measuring 37d0k4xv. Jar 0. Specimen C: Received is one formalin filled container labeled with the patient's name and designated left forehead (2.5cm) above brow. The specimen consists of a shave biopsy measuring 28h7o0xq. Jar 0. 12:20 PM CDT DERMATOPATHOLOGY LABORATORY [...] purposes. Billing Codes Specimen Charges Stain Charges 92981 87294 05428 1 1 1 12:20 PM CDT DERMATOPATHOLOGY [...] ORD ERABLES Final Result DERMATOPATHOLOGY LABORATORY [facility] - Department of Dermatology [facility] Medicine [address] [place] [address], [address] [phone] documented in this encounter Visit Diagnoses Not on filedocumented in this encounter
--- OUTSIDE RECORDS SUMMARY | 2025-04-25 13:55 | XMS_ITS | Encounter Summary ---
Author Organization [facility] Address [address] [facility] [place] [address] Care Team Providers Care Chemical Laboratory Technician Name Role Phone Unavailable Primary Care Provider Unavailabl e Encounter Details Date Type Department Care Team (Late st Contact Info) Description 09/08/2020 Lab Requisition [facility] DermPath Lab [address] [place] [address] Tony Young MD [address] [place] [address] Social History Tobacco Use Types Packs/Day Years Used Date Smoking Tobacco: Never Assessed Sex and Gender Information Value Date Recorded Sex Assigned at Not on file 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 Gender Identity Not on file Sexual Orientation Not on file documented as of this encounter Plan of Treatment Not on file documented as of this encounter Procedures Procedure Name Priority Date/Time Associated Diagnosis Comments DERMATOPATHOLOGY Routine 09/07/2020 12:0 0 AM CDT documented in this encounter Results * DERMATOPATHOLOGY (09/07/2020 12:00 AM CDT) Case Report Dermatopathology Report Case: [id number] Authorizing Provider: Tony Young MD Collected: 09/07/2020 12:00 AM Ordering Location: [facility] DermPath Lab Received: 09/08/2020 01:40 PM [...] of a curettage and desiccation biopsy measuring [id number], bisected. Jar 0. 12:29 PM CDT DERMATOPATHOLOGY [...] characteristic determined by the Dermatopathology Laboratory at [facility], directed by Dr. Rubin Emanuel. These tests need not be, and therefore are not, approved by the [place] Food and Drug Administration. The tests are used for clinical purposes. Billing Codes Specimen Charges Stain Charges 35811 1 12:29 PM CDT DERMATOPATHOLOGY LABORATORY Embedded Images 12:29 PM CDT DERMATOPATHOLOGY LABORATORY Pathology/Cytolog y TISSUE SPECIMEN FROM SKIN / Unknown 09/07/2020 09/08/2020 1:40 PM CDT Tony Young MD LAB - PATHOLOGY/CYTOLOGY ORD ERABLES Final Result DERMATOPATHOLOGY LABORATORY [facility] - Department of Dermatology [address], [address] [phone] documented in this encounter Visit Diagnoses Not on filedocumented in this encounter
--- OUTSIDE RECORDS SUMMARY | 2025-04-25 13:55 | XMS_ITS | Encounter Summary ---
Author Organization [facility] Address [address] [facility] [place] [address] Care Team Providers Care Gutter Installer Name Role Phone Unavailable Primary Care Provider Unavailabl e Encounter Details Date Type Department Care Team (Late st Contact Info) Description 04/05/2020 Lab Requisition [facility] DermPath Lab [address] [place] [phone] Tony Young MD [address] [place] [address] Social History Tobacco Use Types Packs/Day Years Used Date Smoking Tobacco: Never Assessed Sex and Gender Information Value Date Recorded Sex Assigned at Not on file 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 Sex Male 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 Gender Identity Not on file Sexual Orientation Not on file documented as of this encounter Plan of Treatment Not on file documented as of this encounter Procedures Procedure Name Priority Date/Time Associated Diagnosis Comments DERMATOPATHOLOGY Routine 04/02/2020 12:0 0 AM SOUND RECORDING TECHNICIAN documented in this encounter Results * DERMATOPATHOLOGY (04/02/2020 12:00 AM SOUND RECORDING TECHNICIAN) Case Report Dermatopathology Report Case: [id number] Authorizing Provider: Tony Young MD Collected: 04/02/2020 12:00 AM Ordering Location: [facility] DermPath Lab Received: 04/05/2020 12:12 PM Pathologist: Evie Emanuel MD Specimen: Skin, right neck 0 3:35 PM SOUND RECORDING TECHNICIAN DERMATOPATHOLOGY LABORATORY Final Diagnosis Specimen A. SKIN, right neck: ACTINIC KERATOSIS (L57.0) 0 3:35 PM SOUND RECORDING TECHNICIAN DERMATOPATHOLOGY LABORATORY at 1535 SOUND RECORDING TECHNICIAN Clinical History R/O SCC, Chacko's, HAK. 0 3:35 PM SOUND RECORDING TECHNICIAN DERMATOPATHOLOGY LABORATORY Gross Description Specimen A: Received is one formalin filled container labeled with the patient's name and designated right neck. The specimen consists of a shave biopsy measuring [id number]. Jar 0. 0 3:35 PM [facility] DERMATOPATHOLOGY LABORATORY Microscopic Description Specimen A. SKIN, right neck: There is focal parakeratosis. The lower half of the epidermis shows disorderly maturation of keratinocytes with nuclear pleomorphism. 0 3:35 PM SOUND RECORDING TECHNICIAN DERMATOPATHOLOGY LABORATORY Disclaimer An external and internal [...] purposes. Billing Codes Specimen Charges Stain Charges 95253 1 0 3:35 PM SOUND RECORDING TECHNICIAN DERMATOPATHOLOGY LABORATORY Embedded Images 0 3:35 PM SOUND RECORDING TECHNICIAN DERMATOPATHOLOGY LABORATORY Pathology/Cytolog y TISSUE SPECIMEN FROM SKIN / Unknown 04/02/2020 04/05/2020 12:12 PM SOUND RECORDING TECHNICIAN Tony Young MD LAB - PATHOLOGY/CYTOLOGY ORD ERABLES Final Result DERMATOPATHOLOGY LABORATORY [facility] - Department of Dermatology [address], [address] [phone] documented in this encounter Visit Diagnoses Not on filedocumented in this encounter
--- OUTSIDE RECORDS SUMMARY | 2025-04-25 13:55 | XMS_ITS | Clinical Summary ---
Author Organization [facility] Address [address] [facility] [place] [address] Care Team Providers Care Mathematical Statistician Name Role Phone Unavailable Primary Care Provider Unavailabl e Source Comments [facility],non-owned Affiliates and Associated Physician Practices is amultiple site organization consisting of ambulatory clinics and hospital sitesin [place], [place], [place] and [place]. This disclosure is being madepursuant to the Care Everywhere program and may not contain all information available regarding this patient. 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
--- OUTSIDE RECORDS SUMMARY | 2025-04-25 13:55 | XMS_ITS | Encounter Summary ---
Author Organization [facility] Address [address] [facility] [address] Care Team Providers Care Drying Machine Tender Name Role Phone Unavailable Primary Care Provider Unavailabl e Encounter Details Date Type Department Care Team (Late st Contact Info) Description 10/06/2021 Lab Requisition [facility] DermPath Lab [address] [place] [address] Tony Young MD [address] [place] [address] Social History Tobacco Use Types Packs/Day Years Used Date Smoking Tobacco: Never Assessed Sex and Gender Information Value Date Recorded Sex Assigned at Not on file 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 Gender Identity Not on file Sexual Orientation Not on file documented as of this encounter Plan of Treatment Not on file documented as of this encounter Procedures Procedure Name Priority Date/Time Associated Diagnosis Comments DERMATOPATHOLOGY Routine 10/05/2021 12:0 0 AM CDT documented in this encounter Results * DERMATOPATHOLOGY (10/05/2021 12:00 AM CDT) Case Report Dermatopathology Report Case: [id number] Authorizing Provider: Tony Young MD Collected: 10/05/2021 12:00 AM Ordering Location: [facility] DermPath Lab Received: 10/06/2021 01:55 [...] specimen consists of a shave biopsy measuring [id number] and it is bisected. Jar 0. Specimen B: Received is one formalin filled container labeled with the patient's name and designated left lateral back. The specimen consists of a shave biopsy measuring [id number]. Jar 0. Specimen C: Received is one formalin filled container labeled with the patient's name and designated left medial back. The specimen consists of a shave biopsy measuring [id number]. Jar 0. Specimen D: Received is one formalin filled container labeled with the patient's name and designated dorsal left hand. The specimen consists of a shave biopsy measuring [id number]. Jar 0. 2 3:11 PM CDT DERMATOPATHOLOGY [...] characteristic determined by the Dermatopathology Laboratory at [facility], directed by Dr. Rubin Emanuel. These tests need not be, and therefore are not, approved by the [place] Food and Drug Administration. The tests are used for clinical purposes. Billing Codes Specimen Charges Stain Charges 04969 00935 [id number] [id number] 1 1 1 1 2 3:11 PM [...] PATHOLOGY/CYTOLOGY ORD ERABLES Final Result DERMATOPATHOLOGY LABORATORY [facility] - Department of Dermatology [address], [address] [place] [address], [facility] [phone] documented in this encounter Visit Diagnoses Not on filedocumented in this encounter
--- OUTSIDE RECORDS SUMMARY | 2025-04-25 13:55 | XMS_ITS | Encounter Summary ---
Author Organization [facility] Address [address] [place] [address] Care Team Providers Care Greenskeeper Head Name Role Phone Unavailable Primary Care Provider Unavailabl e Encounter Details Date Type Department Care Team (Late st Contact Info) Description 04/02/2019 Lab Requisition [facility] DermPath Lab [address] [place] [id number] Tony Young MD [address] [place] [address] Social History Tobacco Use Types Packs/Day Years Used Date Smoking Tobacco: Never Assessed Sex and Gender Information Value Date Recorded Sex Assigned at Not on file 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 Sex Male 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 DOCTOR OF 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 Gender Identity Not on file Sexual Orientation Not on file documented as of this encounter Plan of Treatment Not on file documented as of this encounter Procedures Procedure Name Priority Date/Time Associated Diagnosis Comments DERMATOPATHOLOGY Routine 04/01/2019 12:0 0 AM DOCTOR OF RADIOLOGY documented in this encounter Results * DERMATOPATHOLOGY (04/01/2019 12:00 AM DOCTOR OF RADIOLOGY) Case Report Dermatopathology Report Case: [id number] Authorizing Provider: Tony Young MD Collected: 04/01/2019 12:00 AM Ordering Location: [facility] DermPath Lab Received: 04/02/2019 02:04 PM Pathologist: Evie Emanuel MD Specimen: Skin, left ant neck 9 3:22 PM DOCTOR OF RADIOLOGY DERMATOPATHOLOGY LABORATORY Final Diagnosis Specimen A. 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 3:22 PM [facility] DERMATOPATHOLOGY LABORATORY Gross Description Specimen A: Received is one formalin filled container labeled with the patient's name and designated left ant neck. The specimen consists of a shave biopsy measuring [id number]. Jar 0. 3:22 PM [facility] DERMATOPATHOLOGY LABORATORY Microscopic Description Specimen A. SKIN, left ant neck: The epidermis shows parakeratosis, full thickness disorderly maturation of keratinocytes, mitoses at different levels, and dyskeratotic cells. 3:22 PM [facility] DERMATOPATHOLOGY LABORATORY Disclaimer An external [...] purposes. Billing Codes Specimen Charges Stain Charges 13471 1 3:22 PM [facility] DERMATOPATHOLOGY LABORATORY Embedded Images 3:22 PM [facility] DERMATOPATHOLOGY LABORATORY Pathology/Cytolog y TISSUE SPECIMEN FROM SKIN / Unknown 04/01/2019 04/02/2019 2:04 PM DOCTOR OF RADIOLOGY Tony Young MD LAB - PATHOLOGY/CYTOLOGY ORD ERABLES Final Result DERMATOPATHOLOGY LABORATORY [facility] - Department of Dermatology [address] [place] [address], [address]th [place] [address], [facility] [phone] documented in this encounter Visit Diagnoses Not on filedocumented in this encounter
--- OUTSIDE RECORDS SUMMARY | 2025-04-25 13:55 | XMS_ITS | Clinical Summary ---
Author Organization [facility] Address [address] [place] [address] Phone Care Team Providers Care Steam Bone Press Tender Name Role Phone Salty Cook MD Primary [...] Department Care Team Description 03/23/2025 2:30 PM MOTION PICTURE PROJECTIONIST Office Visit 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 [address] [place] [address] Sujit Andrade MD 02/10/2025 External Device Data [...] Comments Blood Pressure 139/89 03/23/2025 2:25 PM MOTION PICTURE PROJECTIONIST Pulse 87 03/23/2025 2:25 PM MOTION PICTURE PROJECTIONIST Temperature 36.6 C (97.9 F) 03/23/2025 2:25 PM MOTION PICTURE PROJECTIONIST Respiratory Rate 16 03/23/2025 2:25 PM MOTION PICTURE PROJECTIONIST Oxygen Saturation 94% 03/23/2025 2:25 PM MOTION PICTURE PROJECTIONIST Inhaled Oxygen Concentration - - Weight 85.4 kg (188 lb 3.2 oz) 03/23/2025 2:25 P M MOTION PICTURE PROJECTIONIST Height 177.8 cm (5' 10) 12/03/2024 11:48 [...] history exists Medical Devices Implanted Type Area It Security Engineer Device Identifier Shelf Expiration Date Model / Serial / Lot Hemostatic Surgicel 1x2in 1960 - [id number] Implanted:Qty: 1 on 12/19/2019 by Vikas Castillo MD at [facility] Hemostatic Right: Neck [employer] 11/27/20211960 / / [id number] Ivc Filter Procedures Procedure Name Priority Date/Time Associated Diagnosis Comments COMPREHENSIVE METABOLIC PANEL Routine 03/17/2025 12:56 PM MOTION PICTURE PROJECTIONIST CT SOFT TISSUE NECK CHEST W CONT Routine 03/17/2025 9:33 AM MOTION PICTURE PROJECTIONIST from Last 3 Months Results * COMPREHENSIVE METABOLIC PANEL (03/17/2025 12:56 PM MOTION PICTURE PROJECTIONIST) Blood Sujit Andrade MD CHEMISTRY ORDERABLES Final Resu lt * CT SOFT TISSUE NECK CHEST W CONT (03/17/2025 9:33 AM MOTION PICTURE PROJECTIONIST) Anatomical Region Laterality Modality Neck Computed Tomogra phy Sujit Andrade MD CT ORDERABLES Final Result from Last 3 Months Insurance [facility] MEDICARE PART A AND B BCBS SUPP Advance Directives For more information, please contact: [phone] Documents on File Type Date Recorded Patient Parimutuel Ticket Checker Expl anation Advance Directive POA 12/19/2019 11:51 AM Advance Directive POA * Full Code (Latest Code Status on File) Date Activated Date Inactivated Comments 12/19/2019 7:59 PM 12/22/2019 3:00 PM * Full Code Date Activated Date Inactivated Comments 12/19/2019 12:07 PM 12/19/2019 7:59 PM Care Teams Steam Bone Press Tender Relationship Specialty Start Date End Date Salty Cook MD [address] [place] [address] Dr [address] [place] [phone] PCP - General Internal Medicine 12/10/19
--- OUTSIDE RECORDS SUMMARY | 2025-04-25 13:56 | XMS_ITS | Clinical Summary ---
Author Organization [facility] Address [address] [place] [phone] Care Team Providers Care Clinical Education Consultant Name Role Phone Salty Cook MD Primary Care Provider [phone] Allergies Active Allergy Reactions Criticality Noted Date [...] 04/24/2021 Assessment & Plan (04/24/2021 6:03 AM COOPER HELPER): Suspect delirium in setting of fevers - [...] Speech/PT/OT Assessment & Plan (04/24/2021 5:58 AM COOPER HELPER): Suspect delirium in setting of fevers - [...] 04/24/2021 Assessment & Plan (04/24/2021 6:01 AM COOPER HELPER): Prior to arrival at [facility]. Febrile and tachycardic. CXR with opacities [...] dexamethasone.. Assessment & Plan (04/24/2021 5:57 AM COOPER HELPER): Prior to arrival at [facility]. 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 -Recently seen by OSH oncology without e/o disease -Upload images from OSH to Elva for read -DVT PPX: Lovenox. History of pulmonary embolism 04/24/2021 Assessment & Plan (04/24/2021 6:01 AM COOPER HELPER): Distant history of PE/DVT s/p IVC filter. Previously on warfarin however complicated by IPH 2016. Now on ASA 81mg daily. -Continue ASA 81mg daily. Assessment & Plan (04/24/2021 5:59 AM COOPER HELPER): Distant history of PE/DVT s/p IVC filter. Previously on warfarin however complicated by IPH 2016. Now on ASA 81mg daily. -Continue ASA 81mg daily. Bipolar 1 disorder 04/24/2021 Assessment & Plan (04/24/2021 6:02 AM COOPER HELPER): Takes Seroquel 600mg daily, Ativan 0.5mg BID, and Depakote 500mg TID. -Hold seroquel and ativan given confusion -Continue depakote. Insomnia 04/24/2021 Assessment & Plan (04/24/2021 6:03 AM COOPER HELPER): Hold ambien in setting of confusion. Obesity with body mass index 30 or greater 12/15 Pain of left lower extremity 10/07/2015 Intraparenchymal hemorrhage of brain 08/18/2015 Nonobliterative otosclerosis involving oval wind ow 05/06/2015 Essential hypertension 06/22/2014 Myasthenia gravis 11/28/2013 Assessment & Plan (04/24/2021 6:01 AM COOPER HELPER): Significant history of myasthenia gravis on Prednisone, Imuran, and Pyridostigmine. Doesn't appear to be in crisis at this time. -Check NIF BID -Consult Neurology in AM given polypharmacy/confusion in setting of Myasthenia Gravis -Continue Prednsione, Imuran, and Pyridostigmine Assessment & Plan (04/24/2021 5:53 AM COOPER HELPER): Significant history of myasthenia gravis on Prednisone, Imuran, and Pyridostigmine. Doesn't appear to be in crisis at this time. -Check NIF BID -Consult Neurology in AM given polypharmacy/confusion in setting of Myasthenia Gravis -Continue Prednsione, Imuran, and Pyridostigmine Fatigue 11/27/2012 Coronary arteriosclerosis in [place] artery 06/14 Assessment & Plan (04/24/2021 6:01 AM COOPER HELPER): CAD s/p PCI to LAD and prox/mid RCA 2000. Previously followed with Dr. Frey now followed by [facility] fourdrinier tender. Here for STEMI evaluation -Per STEMI/CARDS -> No concern for STEMI and stable EKG -> recommend repeat troponin -Check Troponin. -Continue ASA 81mg daily, Rosuvastatin 40mg daily, Ezetimibe 10mg daily. Assessment & Plan (04/24/2021 5:57 AM COOPER HELPER): CAD s/p PCI to LAD and prox/mid RCA 2000. Previously followed with Dr. Frey now followed by [facility] fourdrinier tender. Here for STEMI evaluation -Per STEMI/CARDS -> No concern for STEMI and stable EKG -> recommend repeat troponin -Check Troponin. -Continue ASA 81mg daily, Rosuvastatin 40mg daily, Ezetimibe 10mg daily. Hyperlipidemia 09/13/2010 Overview (08/10/2017): Description: Hyperlipidemia Assessment & Plan (04/24/2021 6:01 AM COOPER HELPER): Continue Rosuvastatin and Exetimibe. Assessment & Plan (04/24/2021 5:53 AM COOPER HELPER): Continue Rosuvastatin and Exetimibe. Surgical History Surgery [...] on file Legal Sex Male 10:46 PM COOPER HELPER Gender Identity Male 05/23/2018 10:17 AM COOPER HELPER Sexual Orientation Not on file Last Filed Vital Signs Vital Sign Reading Time Taken Comments Blood Pressure 104/69 04/27/2021 11:28 AM COOPER HELPER Pulse 70 04/27/2021 11:28 AM COOPER HELPER Temperature 36.7 C (98.1 F) 04/27/2021 11:28 AM COOPER HELPER Respiratory Rate 18 04/27/2021 11:28 AM COOPER HELPER Oxygen Saturation 94% 04/27/2021 11:28 AM COOPER HELPER Inhaled Oxygen Concentration - - Weight 82.1 kg (181 lb) 04/25/2021 7:46 AM COOPER HELPER Height 173.5 cm (5' 8.31) 04/25/2021 7:46 AM CS T Body Mass Index 27.27 04/25/2021 7:46 AM COOPER HELPER Plan of Treatment Health Maintenance Due Date [...] SENIOR SUPPLEMENT MEDICARE AET SENIOR SUPPLEMENT MEDICARE AET[employer] SENIOR SUPPLEMENT Advance Directives For more information, please contact: [phone] * Full Code (Latest Code Status on File) Date Activated Date Inactivated Comments 04/24/2021 3:54 AM 04/27/2021 6:04 PM Care Teams Clinical Education Consultant Relationship Specialty Start Date End Date Salty Cook MD [address] [place] [address] [place] [address] PCP - General Internal Medicine 03/29/18
--- OUTSIDE RECORDS SUMMARY | 2025-04-25 13:56 | XMS_ITS | Clinical Summary ---
Author Organization [facility] Address [address] [place] [address] Phone Care Team Providers Care Dispatcher Tow Truck Name Role Phone Unavailable Primary Care Provider [...] Comments Blood Pressure 101/60 04/24/2021 1:00 AM SALON MANAGER Pulse 100 04/24/2021 1:00 AM SALON MANAGER Temperature 38.2 C (100.7 F) 04/23/2021 9:52 PM SALON MANAGER Respiratory Rate 16 04/24/2021 1:00 AM SALON MANAGER Oxygen Saturation 97% 04/24/2021 1:00 AM SALON MANAGER Inhaled Oxygen Concentration - - Weight 101.6 kg (224 lb) 04/23/2021 9:52 PM SALON MANAGER Height 177.8 cm (5' 10) 04/23/2021 9:52 PM SALON MANAGER Body Mass Index 32.14 04/23/2021 9:52 PM SALON MANAGER Plan of Treatment Health Maintenance Due [...] age to complete this topic Insurance MEDICARE [facility] SENIOR SUPPLEMENTAL Member Subscriber Plan / Payer (Ef fective 2015-Present) Name:Sergio Coombs Relation to Subscriber:Self Name:Sergio Coombs Payer ID:[id number] Group ID:[id number] Type:Not on file Address: [place] [id number] MEDICARE [facility] SENIOR SUPPLEMENTAL
--- OUTSIDE RECORDS SUMMARY | 2025-04-25 13:56 | XMS_ITS | Clinical Summary ---
Author Organization [facility] Address [facility] [place] [address] Care Team Providers Care Funding Analyst Name Role Phone Unavailable Primary Care [...] Documents on File Type Date Recorded Patient Sand Conditioner Expl anation Advance Directives and Living Will 08/25/2015 12:00 AM ADVANCED DIRECTIVES Advance Directives and Living Will 01/28/2015 12:00 AM ADVANCED DIRECTIVES Advance Directives and Living Will 12/06/2014 12:00 AM ADVANCED DIRECTIVES
--- NOTE | 2025-04-25 14:09 | ED.WEAKNESS ---
HPI - Weakness General Chief complaint: Weakness Stated complaint: weakness Source: patient and family Mode of arrival: wheelchair Limitations: no limitations History of Present Illness HPI Narrative: This is a 74-year-old male, with history of prostate cancer and dementia who presents emergency department from home with his with concerns for UTI. The patient's states 2 days ago, the patient had tea colored urine. Since then however he has not been able to urinate despite pushing oral fluids. She states over the past 2-3 weeks, he has also been generally weak and has fallen multiple times. She states his legs gave out from underneath him. She denies any known head injuries or loss of consciousness. The patient complains of chronic low back pain and right hip pain. Neither she nor the patient have any other complaints or concerns at this time. Related Data Home Medications ?Medication ?Instructions ?Recorded ?Confirmed ?Last Taken ?Type aspirin 81 mg tablet,delayed 81 mg PO QAM 01/07/20 03/25/22 12/26/21 09:05 History release ezetimibe 10 mg tablet 10 mg PO HS 01/07/20 03/25/22 12/27/21 21:50 History lorazepam 0.5 mg tablet 1 mg PO BID PRN Anxiety 01/07/20 03/25/22 12/27/21 15:05 History multivitamin with minerals 1 tablet PO QAM 01/07/20 03/25/22 12/16/21 History prednisone 10 mg tablet 10 mg PO QAM 01/07/20 03/25/22 12/28/21 10:10 History rosuvastatin 40 mg tablet 40 mg PO HS 01/07/20 03/25/22 12/27/21 21:50 History divalproex 250 mg tablet,extended 500 mg PO BID 04/04/21 03/25/22 12/28/21 10:10 History release 24 hr pyridostigmine bromide 60 mg tablet 60 mg PO TID 11/23/21 03/25/22 12/28/21 14:30 History vitamin B complex 1 cap PO QAM 11/23/21 03/25/22 12/16/21 History cariprazine 1.5 mg capsule 1.5 mg PO DAILY 04/05/22 Unknown History (Vraylar) deutetrabenazine 6 mg tablet 6 mg PO DAILY 04/05/22 Unknown History (Austedo) quetiapine 300 mg tablet 450 mg PO HS 04/05/22 Unknown History Allergies Allergy/AdvReac Type Severity Reaction Status Date / Time adhesive Allergy Unknown SKIN Verified 04/25/25 13:40 IRRITATION Review of Systems Review of Systems: All systems reviewed & are unremarkable except as noted in HPI and below (HPI) PMFSH Past Medical History Medical History 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 ERMA treated with chemotherapy and adjunctive radiation therapy (HFpEF) heart failure with preserved ejection fraction Psychogenic polydipsia Chronic hyponatremia CVA (cerebral vascular accident) DVT (deep venous thrombosis) (~2013) Myasthenia gravis (~2004) Hyperlipidemia EEK (hard of hearing) Prostate cancer Radiation therapy CAD (coronary artery disease) Bipolar 1 disorder Arthritis Surgical History Surgical History History of meniscectomy of right knee (2014) S/P partial glossectomy (12/19/19) Right sided History of radical neck dissection (12/19/19) History of coronary artery stent placement 1 stent in 2001 3 stents in 2002 Family History Family History Father Heart disease Social History Social History Smoking status: Never smoker Second hand tobacco smoke exposure: No Alcohol intake: never Substance use: never Lack of Transportation: No Lack of Food: Never True Current Housing: I Have Housing Concerned About Future Housing: No Difficulty Paying Gas/Electric Bills: No Difficulty Paying for Meds: No Currently Unemployed: No Education: High School Diploma/GED Difficulty w/ Childcare or Family Care: No Living arrangements: with family Gender identity (if verbalized by the patient): Male Sexual Orientation (if Verbalized by the Patient): Straight or Heterosexual Spiritual care concerns: No Exam Narrative: GENERAL: Well-developed, well-nourished, and in no acute distress. HEAD: Normocephalic, atraumatic. There is a healing surgical wound on the left forehead EYES: PERRLA and EOMI. ENT: Nares clear, no rhinorrhea or epistaxis. Mucous membranes moist. Oropharynx without tonsillar hypertrophy exudate or other lesions. NECK: Supple. No JVD CHEST: Clear to auscultation. No respiratory distress. No wheezes rales or rhonchi HEART: Regular rate and rhythm. No murmur heard. Normal peripheral pulses. ABDOMEN: Soft, nontender, nondistended, palpable soft midline mass consistent with distended bladder, normal active bowel sounds. BACK: No midline spine tenderness to palpation, no step-off or crepitus, right paraspinal tenderness to palpation at L5-S1 EXTREMITIES: Normal range of motion. Bilateral lower extremity edema 1+. SKIN: Warm, dry, no rash. NEURO: Alert and oriented x1 (self). No focal deficit. Moving all 4 limbs spontaneously PSYCH: Normal mood and affect. Course Course Emergency Course: 13:46 - Bedside ultrasound by me of the abdomen shows a distended bladder with approximately 1500 mL of urine. Bedside cardiac ultrasound demonstrates normal ePSS. No significant B-lines noted on ultrasound of the lungs bilaterally. The patient's is his primary caregiver at home. Given the multiple falls, I discussed with them the possibility of placement to which the patient's spouse is accepting. 16:39 - 1500mL of urine was drained after catheter placement. CT head and cervical spine were limited by motion artifact. My review of the images is not immediately concerning for intracranial hemorrhage. Urinalysis not concerning for urinary tract infection and showed 3-5 rbc's (I suspect this is related to catheter placement). CBC unremarkable. Chemistries demonstrate sodium of 134 and glucose of 114 but was otherwise unremarkable. BNP elevated at 134. X-ray of the pelvis limited due to positioning. By my review I do not appreciate an obvious fracture or dislocation. Chest x-ray not concerning for acute cardiopulmonary process. I discussed these findings with the patient's (POA) and her son. They state that they are unable to appropriately care for the patient at home. Given his multiple falls, I feel he is unsafe to discharge. I discussed the patient with hospitalist IVY Bobo who accepts admission for observation and placement. The patient's spouse states she has previously looked into a facility in [place]. Vital Signs Vital signs: Vital Signs Temperature 97.9 F 04/25/25 13:10 Pulse Rate 90 04/25/25 13:10 Respiratory Rate 20 04/25/25 13:10 Blood Pressure 142/78 H 04/25/25 13:10 Pulse Oximetry 97 04/25/25 13:10 Oxygen Delivery Room Air 04/25/25 13:10 Temperature 97.9 F 04/25/25 13:10 Pulse Rate 90 04/25/25 13:10 Respiratory Rate 20 04/25/25 13:10 Blood Pressure 142/78 H 04/25/25 13:10 Pulse Oximetry 97 04/25/25 13:10 Oxygen Delivery Room Air 04/25/25 13:10 [facility] Narrative Medical decision making narrative: Plan: Labs, imaging, bedside ultrasound, EKG, reassess Differential Diagnosis Differential Diagnosis: Urinary obstruction, urinary retention, cauda equina, intracranial hemorrhage, skull fracture, cervical spine fracture, UTI, anemia, metabolic abnormality, other Medical Records I have reviewed the following patient records and this information was taken into consideration when formulating the assessment and plan.: previous labs Lab Data [facility] Lab Attestation statement: I personally reviewed the patient's lab results. ECG Data EKG #1: Attestation: I personally reviewed and interpreted this ECG as follows: ECG completion date: 04/25/25 ECG completion time: 13:36 Prior ECG tracings: not available for review Interpretation: Sinus rhythm with intermittent PVCs, rate 84,, left axis deviation, interventricular conduction delay, no ST segment elevations or T-wave inversions concerning for ischemia, normal intervals with QTC of 454. Q-waves noted in lead 1 and aVL. Discharge Plan Discharge Clinical Impression: Acute urinary retention, Multiple falls Dementia Qualifiers: Dementia type: unspecified type Dementia severity: unspecified severity Dementia behavioral or psychological symptom: without behavioral, psychotic, or mood disturbance or anxiety Qualified Code(s): F03.90 - Unspecified dementia, unspecified severity, without behavioral disturbance, psychotic disturbance, mood disturbance, and anxiety Patient Disposition: Still a Patient Condition: Stable Time of Disposition: 16:39
[2025-04-25 14:18] LABS: Add Urine Microscopic? YES; Appearance Urine Clear (Clear); Glucose Urine UA Negative (Negative); Hematocrit 38.1 % (37.0-46.0); Hemoglobin 12.4 g/dL (12.4-15.3); Immature Granulocyte Percent A 0.4 % (0.0-0.0); Leukocyte Esterase Ur Negative LEU/UL (Negative); Lymphocytes Absolute Auto 0.51 K/mm3 (1.10-4.50); Mean Corpuscular HGB Conc 32.5 g/dL (32-36); Mean Corpuscular Hemoglobin 29.9 pg (27.0-31.0); Mean Corpuscular Volume 91.8 fL (78.0-102.0); Nitrate Urine Negative (Negative); Nucleated Red Blood Cells Absolute Auto 0.00 K/mm3 (0.00-0.00); Nucleated Red Blood Cells Perc 0.0 % (0-0.0); Platelet Count Result 240 K/mm3 (150-420); Red Blood Count 4.15 M/mm3 (4.70-6.10); Specific Grav Ur 1.020 (1.010-1.020); White Blood Count 8.6 K/mm3 (4.8-10.8)
[2025-04-25 14:32] LABS: Alanine Aminotransferase 20 U/L (6-50); Albumin Level 3.7 g/dL (3.5-5.1); Alkaline Phosphatase 55 U/L (38-126); Anion Gap 7 mmol/L (4-12); Aspartate Amino Transferase 26 U/L (17-59); Bilirubin,Total 0.4 mg/dL (0.2-1.3); Blood Urea Nitrogen 14 mg/dL (9-20); Calcium 8.8 mg/dL (8.4-10.2); Carbon Dioxide 27 mmol/L (22-30); Chloride 102 mmol/L (98-107); Estimated CRCL calculation 73 ml/min; Estimated Glomerular Filt Rate > 60; Glucose 114 mg/dL (65-110); Osmolality Calculated 283 mOsm/kg (285-295); Potassium 3.7 mmol/L (3.4-5.0); Sodium 136 mmol/L (137-145); Total Protein 6.3 g/dL (6.3-8.2)
[2025-04-25 14:42] LABS: NT Pro B Type Natriuretic Pept 134 pg/mL (19.9-100)
[2025-04-25] MEDS: MIDAZOLAM HCL (*CRX) 2 MG/2 ML VIAL IV PUSH (14:53)
--- NOTE | 2025-04-25 17:48 | PC.NURSE ---
Called to help with admission questions. No answer. Left message for call back to facility.
--- NOTE | 2025-04-25 18:09 | PC.NURSE ---
1730 patient admitted from ED to room 206. Patient is A/O x self. 16F ryder catheter in place. SNO[place]. Cooperative at this time. Bed alarms on. Spoke to Delia for some admission questions cell phone [phone].
[2025-04-25] MEDS: ROSUVASTATIN 10 MG TABLET 40 MG PO (18:57)
[2025-04-25] MEDS: DIVALPROEX SODIUM ER 500 MG TAB.24H PO (18:58)
[2025-04-25] MEDS: EZETIMIBE 10 MG TABLET PO (19:56)
[2025-04-26] VITALS: BP 110/74; PULSE 95; RESP 16; TEMP 36.7; O2SAT 95
[2025-04-26 06:53] LABS: Anion Gap 8 mmol/L (4-12); Blood Urea Nitrogen 10 mg/dL (9-20); Calcium 8.6 mg/dL (8.4-10.2); Carbon Dioxide 28 mmol/L (22-30); Chloride 106 mmol/L (98-107); Estimated CRCL calculation 81 ml/min; Estimated Glomerular Filt Rate > 60; Glucose 104 mg/dL (65-110); Osmolality Calculated 293 mOsm/kg (285-295); Potassium 3.5 mmol/L (3.4-5.0); Sodium 142 mmol/L (137-145)
[2025-04-26 07:47] LABS: Hematocrit 35.4 % (37.0-46.0); Hemoglobin 11.7 g/dL (12.4-15.3); Mean Corpuscular HGB Conc 33.1 g/dL (32-36); Mean Corpuscular Hemoglobin 29.8 pg (27.0-31.0); Mean Corpuscular Volume 90.1 fL (78.0-102.0); Platelet Count Result 234 K/mm3 (150-420); Red Blood Count 3.93 M/mm3 (4.70-6.10); White Blood Count 7.7 K/mm3 (4.8-10.8)
[2025-04-26 08:00] VITALS: BP 125/65; PULSE 94; RESP 17; TEMP 37.1; O2SAT 92
--- NOTE | 2025-04-26 08:04 | P.HP_ITS ---
H&P: HPI History of Present Illness Date/Time: 04/26/25 08:04 Chief Complaint: frequent falls Narrative: Patient is a 74 year old male with PMH of dementia, HFpEF, CVA, DVT, myasthenia gravis, HLD, CAD, and history of prostate cancer. Patient was brought to the ER by his with concerns that he had dark urine a few days ago and then he has not been urinating despite his encouraging oral fluids. also reports the patient has had multiple falls recently, she denies him hitting his head or LOC. In the ER the patient had CT scans of the head, c-spine and lumbar spine without acute findings. The patient also had a chest x-ray and pelvis x-ray without acute findings. Patient's labs were essentially unremarkable. UA negative for infection. Patient was noted to have a large PVR and a ryder catheter was placed with return of 800 mL of urine. Patient is unsteady and is unable to care for patient at home. Family wants patient to be placed in a shelter. Patient was admitted for further evalation and treatment. 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 ERMA treated with chemotherapy and adjunctive radiation therapy (HFpEF) heart failure with preserved ejection fraction Psychogenic polydipsia Chronic hyponatremia CVA (cerebral vascular accident) DVT (deep venous thrombosis) (~2013) Myasthenia gravis (~2004) Hyperlipidemia [place] (hard of hearing) Prostate cancer Radiation therapy CAD (coronary artery disease) Bipolar 1 disorder Arthritis Surgical History Surgical History History of meniscectomy of right knee (2014) S/P partial glossectomy (12/19/19) Right sided History of radical neck dissection (12/19/19) History of coronary artery stent placement 1 stent in 2001 3 stents in 2002 Family History Family History Father Heart disease Social History Social History Smoking status: Former smoker Second hand tobacco smoke exposure: No Alcohol intake: unknown Substance use: unknown Substance use type: does not use Lack of Transportation: No Lack of Food: Never True Current Housing: I Have Housing Concerned About Future Housing: No Difficulty Paying Gas/Electric Bills: No Difficulty Paying for Meds: No Currently Unemployed: No Education: High School Diploma/GED Difficulty w/ Childcare or Family Care: No Living arrangements: with family Gender identity (if verbalized by the patient): Male Sexual Orientation (if Verbalized by the Patient): Straight or Heterosexual Spiritual care concerns: No Meds Home Medications and Allergies Home Medications ?Medication ?Instructions ?Recorded ?Confirmed ?Type ezetimibe 10 mg tablet 10 mg PO HS 01/07/20 5 History lorazepam 0.5 mg tablet 1 mg PO .PM Anxiety 01/07/20 04/25/25 History multivitamin with minerals 1 tablet PO QAM 01/07/20 History prednisone 10 mg tablet 10 mg PO QAM 01/07/20 History rosuvastatin 40 mg tablet 40 mg PO HS 01/07/20 5 History divalproex 250 mg tablet,extended 375 mg PO BID 04/25/25 History release 24 hr trazodone 100 mg tablet 100 mg PO HS PRN insomnia #3 0 tabs 06/25/21 04/25/25 Rx pyridostigmine bromide 60 mg tablet 60 mg PO TID 11/2304/25/25 History vitamin B complex 1 cap PO QAM 11/23/21 History ferrous sulfate 325 mg (65 mg 325 mg PO QAM #30 tabs 0 01/07/22 04/25/25 Rx iron) tablet (iron) acetaminophen 325 mg capsule 650 mg (2 x 325 mg) PO Q8 H PRN 03/25/22 04/25/25 Rx (Tylenol) pain #20 caps deutetrabenazine 6 mg tablet 6 mg PO DAILY 04/05/22 History (Austedo) Held on 04/25/25. Instructions: Patient no longer taking quetiapine 300 mg tablet 450 mg PO HS 04/05/22 History benztropine 1 mg tablet 0.5 mg PO DAILY 04/25/25 History docusate sodium 100 mg capsule 100 mg PO DAILY 5 04/25/25 History (Colace) ezetimibe 10 mg tablet (Zetia) 10 mg PO HS 04/25/25 History finasteride 5 mg tablet 5 mg PO DAILY 04/25/2504/25 History Allergies Allergy/AdvReac Type Severity Reaction Status Date / Time adhesive Allergy Unknown SKIN Verified 04/25/25 18:13 IRRITATION Vital Signs Vital Signs - 24 hr 04/25/25 13:10 04/25/25 13:16 04/25/25 13:17 Temperature 97.9 F Pulse Rate 90 71 Respiratory Rate 20 16 Blood Pressure 142/78 H 142/78 H Pulse Oximetry 97 97 100 Oxygen Delivery Room Air 04/25/25 13:30 04/25/25 13:31 04/25/25 13:45 Temperature Pulse Rate 86 Respiratory Rate 15 Blood Pressure 139/72 147/75 H Pulse Oximetry 91 100 92 Oxygen Delivery 04/25/25 13:46 04/25/25 14:00 04/25/25 14:00 Temperature Pulse Rate 88 80 Respiratory Rate 16 16 Blood Pressure 131/90 116/91 H Pulse Oximetry 98 97 97 Oxygen Delivery Room Air 04/25/25 14:01 04/25/25 14:15 04/25/25 14:16 Temperature Pulse Rate 78 Respiratory Rate 17 Blood Pressure 132/93 H Pulse Oximetry 94 96 100 Oxygen Delivery 04/25/25 14:39 04/25/25 14:45 04/25/25 14:50 Temperature Pulse Rate 84 Respiratory Rate 18 Blood Pressure 123/76 Pulse Oximetry 94 93 94 Oxygen Delivery 04/25/25 14:54 04/25/25 14:59 04/25/25 15:00 Temperature Pulse Rate 74 Respiratory Rate 16 Blood Pressure 129/82 128/86 Pulse Oximetry 93 91 99 Oxygen Delivery 04/25/25 15:01 04/25/25 15:02 04/25/25 15:15 Temperature Pulse Rate 79 88 71 Respiratory Rate 17 16 15 Blood Pressure 136/74 131/77 126/66 Pulse Oximetry 98 91 96 Oxygen Delivery 04/25/25 16:00 04/25/25 16:30 04/25/25 17:20 Temperature 98.4 F 98.2 F Pulse Rate 84 16 L 79 Respiratory Rate 18 16 15 Blood Pressure 132/87 141/84 H 133/83 Pulse Oximetry 97 98 95 Oxygen Delivery Room Air Room Air Room Air 04/26/25 00:00 Temperature 98.1 F Pulse Rate 95 Respiratory Rate 16 Blood Pressure 110/74 Pulse Oximetry 95 Oxygen Delivery Room Air Exam Const: General: comfortable and no acute distress HENMT: Face/Nose/Sinus: Normal nares present Mouth: Yes moist mucous membranes Eyes: General: appearance normal, both eyes and all related structures Sclera: sclerae normal Neck: Neck: supple Resp: Effort & Inspection: normal respiratory effort Auscultation: clear to auscultation bilaterally Cardio: Rate: regular rate Rhythm: regular rhythm GI: GI Palp: Yes Soft to palpation Auscultation: normal bowel sounds Urinary Catheter: Urinary Catheter: patent and draining and urine clear Skin: General skin exam: normal color and no rashes or lesions noted Neuro: Motor exam (neuro): 5/5 motor strength present throughout Sensory Exam: normal sensation Other: alert and oriented to person, place and president. Disoriented to year and situation. Extrem: General: normal to inspection Psych: Other: demented Results Labs Labs: Short CBC 04/25/25 04/26/25 Range/Units 14:14 07:32 WBC 8.6 7.7 (4.8-10.8) K/mm3 Hgb 12.4 11.7 L (12.4-15.3) g/dL Hct 38.1 35.4 L (37.0-46.0) % Plt Count 240 234 (150-420) K/mm3 [facility] 04/25/25 04/26/25 14:14 06:14 Sodium 136 L 142 Potassium 3.7 3.5 Chloride 102 106 Carbon Dioxide 27 28 BUN 14 10 Creatinine 0.77 0.71 Glucose 114 H 104 Calcium 8.8 8.6 Liver Function 04/25/25 Range/Units 14:14 Total Bilirubin 0.4 (0.2-1.3) mg/dL AST 26 (17-59) U/L ALT 20 (6-50) U/L Alkaline Phosphatase 55 (38-126) U/L Albumin 3.7 (3.5-5.1) g/dL Urine 04/25/25 Range/Units 14:14 Urine Color Yellow (Yellow) Urine Appearance Clear (Clear) Urine pH 6.5 (5.0-8.0) Ur Specific [place] 1.020 (1.010-1.020) Urine Protein Trace H (Negative) Urine Glucose (UA) Negative (Negative) Imaging Chest x-ray: Radiologist's impression: Ordering Physician: Neville Lewis MD Date of Service: 04/25/25 Procedure(s): XR chest 1V portable Accession Number(s): [id number] cc: Salty Jean-Baptiste; Neville Lewis MD~ EXAMINATION: XR chest 1V portable DATE: 04/25/2025 14:39 INDICATION: Weakness. TECHNIQUE: A single frontal view of the chest was obtained. COMPARISON: Chest x-ray dated 02/06/2025 FINDINGS: Significant cardiomegaly. Severe atherosclerotic aorta. Lungs do not show acute findings. IMPRESSION: 1. No acute pulmonary findings in the limited portable chest x-ray. Cardiomegaly and atherosclerotic aorta. Reviewed, dictated and finalized at location T. [employer] CT scan - head: Radiologist's impression: Ordering Physician: Neville Lewis MD Date of Service: 04/25/25 Procedure(s): CT brain wo con Accession Number(s): [id number] cc: Salty Jean-Baptiste; Neville Lewis MD~ EXAMINATION: CT brain wo con DATE: 04/25/2025 15:39 INDICATION: Altered mental status. Multiple falls. TECHNIQUE: Computed tomography (CT) of the head was performed without intravenous contrast. The mA was adjusted according to patient size. Iterative reconstruction technique was employed. The dose-length product was 756.67 mGy- cm. COMPARISON: CT head dated 02/14/2022. FINDINGS: Evaluation is extremely limited due to excessive motion artifacts. Other than a few cuts in the superior aspect of the skull, remaining examination cannot be interpreted satisfactorily. IMPRESSION: 1. Unable to interpret the examination due to excessive motion artifacts. Reviewed, dictated and finalized at location T. [employer] CT scan - pelvis: Radiologist's impression: Ordering Physician: Neville Lewis MD Date of Service: 04/25/25 Procedure(s): XR pelvis 1-2V Accession Number(s): [id number] cc: Salty Jean-Baptiste; Neville Lewis MD~ EXAMINATION: AP pelvis: DATE: 04/25/2025 INDICATION: Trauma. TECHNIQUE: AP view of pelvis. were obtained. COMPARISON: Pelvis x-ray dated 11/16/2023. FINDINGS: Extremely poor visualization due to severe rotation. No gross acute fracture is noted in this limited study. IMPRESSION: 1. Extremely limited quality of examination showing no gross the pelvis. Reviewed, dictated and finalized at location T. [employer] CT scan - Cervical spine : Radiologist's impression: Ordering Physician: Neville Lewis MD Date of Service: 04/25/25 Procedure(s): CT cervical spine wo con Accession Number(s): [id number] cc: Estiven,Salty; Neville Lewis MD~ EXAMINATION: CT cervical spine wo con DATE: 04/25/2025 15:39 INDICATION: Multiple falls. TECHNIQUE: Computed tomography (CT) of the cervical spine was performed without intravenous contrast. Automated exposure control and iterative reconstruction technique were employed. The dose-length product was 535.49 mGy-cm. COMPARISON: CT, soft tissues of neck dated 01/29/2024., 03/17/2025, 11/10/2024 FINDINGS: Extremely poor quality examination due to excessive motion artifacts. Advanced multilevel degenerative disc disease in the mid cervical spine. Spondylolisthesis of C2 over C3 is noted. This is however seen on previous exami nation of 03/17/2025 as well as 11/10/2024. Possibly chronic finding. No acute soft tissue abnormalities. IMPRESSION: 1. Extremely poor examination due to excessive motion artifacts. 2. Definite anterolisthesis of C2 on C3. However this appears to be seen on prior CT examinations mentioned above. Severe degenerative disc changes of multiple lower cervical discs. 3. MRI is suggested after appropriate sedation, if no contraindications.. Reviewed, dictated and finalized at location T. [employer] CT scan - Lumbar spine: Radiologist's impression: Ordering Physician: Neville Lewis MD Date of Service: 04/25/25 Procedure(s): CT lumbar spine wo con Accession Number(s): [id number] cc: Joyce,Salty; Neville Lewis MD~ EXAMINATION: CT lumbar spine wo con DATE: 04/25/2025 15:39 INDICATION: Low back pain. Urinary retention. TECHNIQUE: Computed tomography (CT) of the lumbar spine was performed without intravenous contrast. Automated exposure control and iterative reconstruction technique were employed. The dose-length product was 1406.00 mGy-cm. COMPARISON: None available FINDINGS: Severely limited evaluation due to excessive motion artifacts. Diffusely osteopenic bones. No acute bony lesions of lumbar vertebrae. Advanced multilevel degenerative disc changes involving all lumbosacral discs. Severe facet arthropathy at multiple levels. Paravertebral soft tissues do not show a cute findings. IMPRESSION: 1. Severely limited evaluation due to excessive motion artifacts. 2. No gross acute findings of lumbar vertebrae. Advanced multilevel degenerative disc changes and facet arthropathy of lumbar spine. 3. No acute findings of paravertebral soft tissues. Reviewed, dictated and finalized at location T. [employer] Quality VTE Prophylaxis VTE prophylaxis: pharmacologic ordered Assessment and Plan Assessment and plan (1) Acute urinary retention: Code(s): R33.8 - Other retention of urine Status: Acute Assessment and Plan: patient required ryder cath placement in the ED with 800 mL return of urine continue home finasteride add tamsulosin UA negative for infection plan void trial after discharge to shelter (2) Multiple falls: Code(s): R29.6 - Repeated falls Status: Acute Assessment and Plan: reports multiple falls over the last few weeks s/p imaging without acute findings fall precautions per she cannot care for patient at home anymore and he will need shelter placement - director of primary care consult PT/OT ordered (3) Dementia: Qualifiers: Dementia behavioral or psychological symptom: without behavioral, psychotic, or mood disturbance or anxiety Dementia severity: unspecified severity Dementia type: unspecified type Qualified Code(s): F03.90 - Unspecified dementia, unspecified severity, without behavioral disturbance, psychotic disturbance, mood disturbance, and anxiety Code(s): F03.90 - Unspecified dementia, unspecified severity, without behavioral disturbance, psychotic disturbance, mood disturbance, and anxiety Status: Acute Assessment and Plan: patient is alert and oriented x 1 at baseline had a lot of agitation last evening per nursing staff today is calm and confused continue depakote continue Seroquel (4) Weakness: Code(s): R53.1 - Weakness Status: Acute Assessment and Plan: fall precautions PT/OT ordered (5) Bipolar 1 disorder: Code(s): F31.9 - Bipolar disorder, unspecified Status: Acute Assessment and Plan: continue seroquel continue depakote continue lorazepam (6) (HFpEF) heart failure with preserved ejection fraction: Code(s): I50.30 - Unspecified diastolic (congestive) heart failure Status: Acute Assessment and Plan: patient does not appear fluid overloaded no home medications monitor weights and for edema Prior Studies I have reviewed the following patient records and this information was taken into consideration when formulating the assessment and plan.: previous labs, previous ER visits and previous hospitalizations
[2025-04-26] MEDS: FINASTERIDE 5 MG TABLET PO (08:16)
[2025-04-26] MEDS: THERAPEUTIC MULTIVITAMINS/MINERALS TAB (*BKC) 1 TABLET PO (08:16)
[2025-04-26] MEDS: DOCUSATE SODIUM 100 MG CAPSULE PO (08:17)
[2025-04-26] MEDS: FERROUS SULFATE 325 MG TABLET BY MOUTH (08:17)
[2025-04-26] MEDS: DIVALPROEX SODIUM ER 500 MG TAB.24H PO ×2 (08:17→16:00)
[2025-04-26] MEDS: ASPIRIN 81 MG ENTERIC TABLET PO (08:17)
[2025-04-26] MEDS: VITAMIN B COMPLEX CAPSULE 1 CAP PO (08:17)
[2025-04-26 08:23] LABS: Acanthocytes 1+; Band Neutrophils Percent 0 % (0-6); Lymphocytes Absolute Manual 0.61 K/mm3 (1.1-4.5); Lymphocytes Percent Manual 8 % (18-44); Monocytes Absolute Manual 1.00 K/mm3 (0.1-0.90); Monocytes Percent Manual 13 % (3-9); Neutrophils Absolute Manual 6.08 K/mm3 (1.3-6.7); Neutrophils Percent Manual 79 % (46-73); Schistocytes None Seen; Total Cells Counted 100
[2025-04-26] MEDS: ACETAMINOPHEN 325 MG TABLET 650 MG PO (11:46)
[2025-04-26 16:00] VITALS: BP 138/77; PULSE 90; RESP 17; TEMP 36.9; O2SAT 92
[2025-04-26] MEDS: BISACODYL 10 MG SUPPOSITORY RECTAL (16:00)
[2025-04-26] MEDS: TAMSULOSIN HCL 0.4 MG CAPSULE PO (17:21)
[2025-04-26] MEDS: ROSUVASTATIN 10 MG TABLET 40 MG PO (20:34)
[2025-04-26] MEDS: EZETIMIBE 10 MG TABLET PO (20:34)
[2025-04-26 23:12] VITALS: BP 127/71; PULSE 91; RESP 16; TEMP 36.6; O2SAT 92
[2025-04-27 08:00] VITALS: BP 100/61; PULSE 91; RESP 17; TEMP 36.6; O2SAT 91
[2025-04-27] MEDS: ASPIRIN 81 MG ENTERIC TABLET PO (08:24)
[2025-04-27] MEDS: ACETAMINOPHEN 325 MG TABLET 650 MG PO (08:24)
[2025-04-27] MEDS: VITAMIN B COMPLEX CAPSULE 1 CAP PO (08:24)
[2025-04-27] MEDS: FERROUS SULFATE 325 MG TABLET BY MOUTH (08:24)
[2025-04-27] MEDS: THERAPEUTIC MULTIVITAMINS/MINERALS TAB (*BKC) 1 TABLET PO (08:24)
[2025-04-27] MEDS: DIVALPROEX SODIUM ER 500 MG TAB.24H PO (08:24)
[2025-04-27] MEDS: BENZTROPINE MESYLATE 0.5 MG TABLET PO (08:25)
[2025-04-27] MEDS: FINASTERIDE 5 MG TABLET PO (08:25)
[2025-04-27] MEDS: DOCUSATE SODIUM 100 MG CAPSULE PO (08:25)
[2025-04-27] MEDS: ENOXAPARIN 40 MG/0.4 ML SYRINGE SUB-Q (08:25)
[2025-04-27] MEDS: TAMSULOSIN HCL 0.4 MG CAPSULE PO (08:25)
--- NOTE | 2025-04-27 10:51 | PM.DS ---
DS: Admitting Diagnosis Discharge Date 05/16/2025 Admitting Diagnosis multiple falls, urinary retention , dementia, weakness DS: Discharge Diagnosis Discharge Diagnosis (1) Dementia: Qualifiers: Dementia behavioral or psychological symptom: without behavioral, psychotic, or mood disturbance or anxiety Dementia severity: unspecified severity Dementia type: unspecified type Qualified Code(s): F03.90 - Unspecified dementia, unspecified severity, without behavioral disturbance, psychotic disturbance, mood disturbance, and anxiety Code(s): F03.90 - Unspecified dementia, unspecified severity, without behavioral disturbance, psychotic disturbance, mood disturbance, and anxiety Status: Acute (2) Acute urinary retention: Code(s): R33.8 - Other retention of urine Status: Acute Assessment and Plan: will discharge with ryder catheter. follow up with primary care provider failed ryder trial will need to go home with catheter . (3) Weakness: Code(s): R53.1 - Weakness Status: Acute Assessment and Plan: walker and in home physical therapy . (4) Multiple falls: Code(s): R29.6 - Repeated falls Status: Acute (5) Hypertension: Code(s): I10 - Essential (primary) hypertension Status: Acute Assessment and Plan: continue home medication monitor blood pressure DS: Summary Hospital Course Reason for hospitalization: Falls, urinary retention Hospital Course: Patient is a 74 year old male with PMH of dementia, HFpEF, CVA, DVT, myasthenia gravis, HLD, CAD, and history of prostate cancer. Patient has received IV antibiotic although no growth noted in urine. Patient had ryder catheter that we attempted to remove although pt was not able to urinate and when we attempted to keep out at the 8 hour interval pt could not urinate with over 500 ml still in bladder. Ryder was placed and patient is wanting to discharge home. Patient has multiple xray with no acute finding noted. Patient could benefit from care home placement but wants to take him home. They will attempt to see if they are to handle him at home. Time Spent with Patient Time attestation: Total time spent providing and/or coordinating discharge services: Exam Narrative: GENERAL: Well-developed, well-nourished, and in no acute distress. HEAD: Normocephalic, atraumatic. There is a healing surgical wound on the left forehead EYES: PERRLA and EOMI. ENT: Nares clear, no rhinorrhea or epistaxis. Mucous membranes moist. Oropharynx without tonsillar hypertrophy exudate or other lesions. NECK: Supple. No JVD CHEST: Clear to auscultation. No respiratory distress. No wheezes rales or rhonchi HEART: Regular rate and rhythm. No murmur heard. Normal peripheral pulses. ABDOMEN: Soft, nontender, nondistended, palpable soft midline mass consistent with distended bladder, normal active bowel sounds. BACK: No midline spine tenderness to palpation, no step-off or crepitus, right paraspinal tenderness to palpation at L5-S1 EXTREMITIES: Normal range of motion. Bilateral lower extremity edema 1+. SKIN: Warm, dry, no rash. NEURO: Alert and oriented x1 (self). No focal deficit. Moving all 4 limbs spontaneously PSYCH: Normal mood and affect. Discharge Plan Discharge Attending physician on discharge: Edmund Diego Consulting providers: Hansa Bobo; Paloma Hall; Tj Guerra; [facility] Discharging Clinician: Paloma Hall Anticipated Discharge Date/Time: 04/27/25 10:48 Patient Disposition: Home Activity: may shower Diet: as tolerated Discharge Instructions: You will need to follow up with your primary so you can get a appointment with Urology due to retention and not able to urinate after ryder removed. was educated on Ryder care Patient Instructions: Antibiotic Form, Tamsulosin (By mouth), Urinary Retention in Men (ED), Enlarged Prostate (BPH) (DC), Ryder Catheter Placement and Care (DC), Chronic Hypertension (DC), Weakness (DC), Urinary Leg Bag (GEN) Patient Language: [place]e Stand Alone Forms: General Discharge Information Follow-up/Referrals: Joyce,Salty [Other] Referral Note: post hospital visit 5-7 days, will need referral for Urology Discharge Medications: New tamsulosin 0.4 mg Capsule 0.4 mg PO QAM Qty: 30 3RF Continued trazodone 100 mg tablet 100 mg PO HS PRN (Reason: insomnia) Qty: 30 0RF ferrous sulfate [iron] 325 mg (65 mg iron) Tablet 325 mg PO QAM Qty: 30 0RF acetaminophen [Tylenol] 325 mg capsule 650 mg PO Q8H PRN (Reason: pain) Qty: 20 0RF finasteride 5 mg tablet 5 mg PO DAILY docusate sodium [Colace] 100 mg capsule 100 mg PO DAILY benztropine 1 mg tablet 0.5 mg PO DAILY ezetimibe [Zetia] 10 mg tablet 10 mg PO HS prednisone 10 mg Tablet 10 mg PO QAM lorazepam 0.5 mg Tablet 1 mg PO .PM multivitamin with minerals Tablet 1 tablet PO QAM ezetimibe 10 mg Tablet 10 mg PO HS rosuvastatin 40 mg Tablet 40 mg PO HS divalproex 250 mg tablet extended release 24 hr 375 mg PO BID Austedo 6 mg tablet 6 mg PO DAILY pyridostigmine bromide 60 mg Tablet 60 mg PO TID Patient Comments: 0700, 1100 & 1500 vitamin B complex Capsule 1 cap PO QAM quetiapine 300 mg tablet 450 mg PO HS Date of admission: 04/25/25 17:00 Primary Care Provider: JoyceSalty Admitting Provider: Edmund Diego Attending physician on admission: Edmund Diego Condition: Stable
--- NOTE | 2025-04-27 13:19 | PC.NURSE ---
16F 10cc balloon ryder catheter removed today at 0930, drained 100 yellow clear urine from bag. Unable to void at this time. 1030 walked to BR, with No void and again at 1300 assisted to BR with No void. Patient indicated, he wants to urinate but does not feel the urge at this time.
--- NOTE | 2025-04-27 14:16 | PC.NURSE ---
Paloma Hall contacted,unable to void after 3 attempts, 270 ml in bladder per scan, has taken in over 500ml oral, order to place ryder back in, family aware and will be educated on ryder cath care and urine retention and need to follow up with urology.
--- NOTE | 2025-04-27 15:42 | PC.NURSE ---
Today at 1530 patient discharge instruction given to and son. Education on Urinary catheter kirill-care, changing and emptying bag given with return demonstration. All new med education given with education on side effects. RX transmitted to pharmacy. Instructed to make appointment with Urologist and PCP. and Son verbalized understanding. Patient escorted out of facility via WC to family vehicle in route to home.
--- NOTE | 2025-04-28 09:04 | PC.NURSE ---
Discharge call back attempted, no answer
--- NOTE | 2025-04-29 09:38 | PC.NURSE ---
Discharge call back completed, noted to have dark urine and blood at times in catheter, to see urology on 05/06, no other questions or concerns noted,
== END 2025-04-27 15:30 | disposition home or self-care (01) ==
LOC: CHSED 13:54 → CHS2ND 17:04
PROVIDERS: Admitting Provider Internal Medicine; Emergency Provider Preventive Medicine Aerospace Medicine; Visit Provider Internal Medicine
DX: R33.8 Other retention of urine (principal); R53.1 Weakness; R29.6 Repeated falls; F03.90 Unspecified dementia, unspecified severity, without behavioral disturbance, psychotic disturbance, mood disturbance, and anxiety; I50.30 Unspecified diastolic (congestive) heart failure; M54.50 Low back pain, unspecified; G89.29 Other chronic pain; M25.551 Pain in right hip; Z85.46 Personal history of malignant neoplasm of prostate; Z86.73 Personal history of transient ischemic attack (TIA), and cerebral infarction without residual deficits; Z86.718 Personal history of other venous thrombosis and embolism; E78.5 Hyperlipidemia, unspecified; I25.10 Atherosclerotic heart disease of native coronary artery without angina pectoris; F31.9 Bipolar disorder, unspecified; Z92.3 Personal history of irradiation; Z92.21 Personal history of antineoplastic chemotherapy; Z85.89 Personal history of malignant neoplasm of other organs and systems
CPT/HCPCS: 36415; 70450; 71045; 72125; 72131; 72170; 80048; 80053; 81001; 83880; 85025; 93005; 96372; 96374; 97161; 99285; A9270; G0378; J1650; J2250; J7512